=== PATIENT | female | born 1945 | race Caucasian/White ===

== ENCOUNTER 2017-05-05 22:16 | Inpatient (IN) | payer MEDICARE ==
[~2017-05-05] VITALS: Ht 157.5 cm; Wt 81.7 kg
[~2017-05-05 22:16] MED LIST: ACET325T21 PO; ALPR0.5T6 PO; AMIT25TA PO; AMLO10TA2 PO; ASPI-630 PO; ATEN25TA PO; HYDR-971 PO; LEVO112T4 PO; METF500T3 PO; METO5TAB PO; OMEP20CA9 PO; SAXA1TBM2 PO; SUCR1TAB PO; TORS10TA3 PO
--- NOTE | 2017-05-05 22:18 | PHYS DOC ---
Past Medical History Past Medical History: Anxiety, Arthritis, Diabetes-Type II, GERD, Hypertension , Hypothyroid, Other Additional Past Medical Histor: insomnia Past Surgical History: Cervical Fusion, Cholecystectomy, Hysterectomy, Tonsillectomy, Other Additional Past Surgical Histo: bilat carp tunnel, r foot Alcohol Use: None Drug Use: None Adult General Chief Complaint Chief Complaint: SHORTNESS OF BREATH HPI HPI Patient is a 71 year old female who presents with shortness of breath and chest pain. She states she's also started yesterday the chest pains substernal/epigastric doesn't radiate and is been constant. Shortness of breath also started yesterday. She's also been having hyperglycemia with sugars in the 2 to 300s. She states she can have a breathing treatments because it makes her blood pressures directly. She states she feels like she is wheezing. She states she's never had shortness of breath or a low heart rate before. Review of Systems Review of Systems Constitutional: Denies fever or chills [] Eyes: Denies change in visual acuity, redness, or eye pain [] HENT: Denies nasal congestion or sore throat [] Respiratory: Denies cough, positive for shortness of breath [] Cardiovascular: No additional information not addressed in HPI [] GI: Denies abdominal pain, nausea, vomiting, bloody stools or diarrhea [] : Denies dysuria or hematuria [] Musculoskeletal: Denies back pain or joint pain [] Integument: Denies rash or skin lesions [] Neurologic: Denies headache, focal weakness or sensory changes [] Endocrine: Denies polyuria or polydipsia [] Current Medications Current Medications Current Medications Medications (Trade) Dose Ordered Sig/Christine Start Time Stop Time Status Last Admin Dose Admin Dopamine HCl/ Dextrose 250 ml @ 16.856 mls/ hr 1X ONCE 05/05/17 23:00 05/06/17 13:49 05/05/17 22:54 6.8 MLS/HR Allergies Allergies Allergies Coded Allergies Type Severity Reaction Last Updated Verified olmesartan Allergy Severe ARM AND LEG CRAMPING AND IGLESIAS TIME BREATH 07/15/16 Yes albuterol Allergy Intermediate 06/03/16 Yes atorvastatin Allergy Intermediate 06/03/16 Yes calcium carbonate Allergy Intermediate 06/03/16 Yes clonidine Allergy Intermediate 06/03/16 Yes codeine Allergy Intermediate 06/03/16 Yes dicyclomine Allergy Intermediate 06/03/16 Yes esomeprazole Allergy Intermediate 06/03/16 Yes fexofenadine Allergy Intermediate 06/03/16 Yes furosemide Allergy Intermediate RASH AND ITCHING 07/15/16 Yes hydralazine Allergy Intermediate 06/03/16 Yes hydrochlorothiazide Allergy Intermediate 06/03/16 Yes nefazodone Allergy Intermediate 06/03/16 Yes niacin Allergy Intermediate 06/03/16 Yes paroxetine Allergy Intermediate 06/03/16 Yes tiotropium Allergy Intermediate 06/03/16 Yes verapamil Allergy Intermediate 06/03/16 Yes Physical Exam Physical Exam Constitutional: Well developed, well nourished, no acute distress, non-toxic appearance. [] HENT: Normocephalic, atraumatic, bilateral external ears normal, oropharynx moist, no oral exudates, nose normal. [] Eyes: PERRLA, EOMI, conjunctiva normal, no discharge. [] Neck: Normal range of motion, no tenderness, supple, no stridor. [] Cardiovascular:Heart rate regular rhythm, no murmur [] Lungs & Thorax: Bilateral breath sounds clear to auscultation [] Abdomen: Bowel sounds normal, soft, no tenderness, no masses, no pulsatile masses. [] Skin: Warm, dry, no erythema, no rash. [] Back: No tenderness, no CVA tenderness. [] Extremities: No tenderness, no cyanosis, no clubbing, ROM intact, no edema. [] Neurologic: Alert and oriented X 3, normal motor function, normal sensory function, no focal deficits noted. [] Psychologic: Affect normal, judgement normal, mood normal. [] Current Patient Data Vital Signs Vital Signs Date Time Temp Pulse Resp B/P (MAP) Pulse Ox O2 Delivery O2 Flow Rate FiO2 05/05/17 23:30 45 133/60 (84) 93 BiPAP/CPAP 05/05/17 23:15 4.0 05/05/17 22:20 98.7 34 98.7 Lab Values Laboratory Tests Test 05/05/17 22:30 05/05/17 22:35 05/05/17 22:40 White Blood Count 14.1 x10^3/uL (4.0-11.0) H Red Blood Count 4.42 x10^6/uL (3.50-5.40) Hemoglobin 10.7 g/dL (12.0-15.5) L Hematocrit 32.5 % (36.0-47.0) L Mean Corpuscular Volume 74 fL (79-100) L Mean Corpuscular Hemoglobin 24 pg (25-35) L Mean Corpuscular Hemoglobin Concent 33 g/dL (31-37) Red Cell Distribution Width 18.3 % (11.5-14.5) H Platelet Count 321 x10^3/uL (140-400) Neutrophils (%) (Auto) 80 % (31-73) H Lymphocytes (%) (Auto) 9 % (24-48) L Monocytes (%) (Auto) 10 % (0-9) H Eosinophils (%) (Auto) 1 % (0-3) Basophils (%) (Auto) 1 % (0-3) Neutrophils # (Auto) 11.3 x10^3uL (1.8-7.7) H Lymphocytes # (Auto) 1.2 x10^3/uL (1.0-4.8) Monocytes # (Auto) 1.4 x10^3/uL (0.0-1.1) H Eosinophils # (Auto) 0.1 x10^3/uL (0.0-0.7) Basophils # (Auto) 0.1 x10^3/uL (0.0-0.2) Prothrombin Time 12.6 SEC (11.7-14.0) Prothrombin Time INR 1.0 (0.8-1.1) Sodium Level 118 mmol/L (136-145) *L Potassium Level 5.2 mmol/L (3.5-5.1) H Chloride Level 85 mmol/L (98-107) L Carbon Dioxide Level 23 mmol/L (21-32) Anion Gap 10 (6-14) 17 mmol/L (6-14) H Blood Urea Nitrogen 22 mg/dL (7-20) H Creatinine 1.2 mg/dL (0.6-1.0) H Estimated GFR (Cockcroft-Gault) 44.4 Glucose Level 246 mg/dL (70-99) H 245 mg/dL (70-99) H Calcium Level 8.7 mg/dL (8.5-10.1) Magnesium Level 1.9 mg/dL (1.8-2.4) Total Bilirubin 0.3 mg/dL (0.2-1.0) Direct Bilirubin 0.1 mg/dL (0.0-0.2) Aspartate Amino Transferase (AST) 80 U/L (15-37) H Alanine Aminotransferase (ALT) 103 U/L (14-59) H Alkaline Phosphatase 125 U/L (46-116) H Creatine Kinase 82 U/L (26-192) Creatine Kinase MB (Mass) 1.4 ng/mL (0.0-3.6) Creatine Kinase MB Relative Index 1.7 % (0-4) Troponin I Quantitative < 0.017 ng/mL (0.000-0.055) OH-Jlh-R-Type Natriuretic Peptide 2818 pg/mL (0-124) H Total Protein 7.1 g/dL (6.4-8.2) Albumin 3.3 g/dL (3.4-5.0) L Lipase 369 U/L (73-393) Thyroid Stimulating Hormone (TSH) 4.293 uIU/mL (0.358-3.74) H O2 Saturation 89 % (92-99) L Arterial Blood pH 7.37 (7.35-7.45) Arterial Blood pCO2 at Patient Temp 34 mmHg (35-46) L Arterial Blood pO2 at Patient Temp 65 mmHg (65-108) Arterial Blood HCO3 19 mmol/L (21-28) L Arterial Blood Base Excess -5 mmol/L (-3-3) L FiO2 32.0 POC Hemoglobin 12.2 g/dL (12-15) POC Hematocrit 36 % (36-40) POC Sodium 118 mmol/L (135-145) L POC Potassium 5.1 mmol/L (3.5-5.0) H POC Chloride 86 mmol/L (98-110) L POC Total CO2 22 mmol/L (23-32) L POC Blood Urea Nitrogen 22 mg/dL (8-26) POC Creatinine 1.0 mg/dL (0.5-1.4) POC Ionized Calcium (Michael) 1.12 mmol/L (1.13-1.32) L Laboratory Tests 05/05/17 22:30 Laboratory Tests 05/05/17 22:30 05/05/17 22:40 EKG EKG EKG shows A. fib with rate of [address] elevations, normal axis, QTC 427 ms, no ST elevations or T-wave inversions appreciated, as interpreted by me. Radiology/Procedures Radiology/Procedures 1 view chest x-ray shows pulmonary edema, no focal consolidations, pneumothorax , bony abnormalities as interpreted by me. Impressions: Bradycardia Respiratory failure Congestive heart failure Course & Med Decision Making Course & Med Decision Making Pertinent Labs and Imaging studies reviewed. (See chart for details) She presented with bradycardia and dopamine was started. ABG shows respiratory alkalosis. Chest x-ray shows pulmonary edema. She is allergic to Lasix therefore ordered 20 mg by mouth Demadex. BiPAP was started in her oxygen level has improved. Spoke with Dr. Abdullahi who doesn't want any other interventions at this time and recommends admitting to the ICU. Spoke with who once 1 mg Bumex IV given. Critical care time: 55 minutes of critical care time was performed on this patient excluding procedures. Dragon Disclaimer Dragon Disclaimer This electronic medical record was generated, in whole or in part, using a voice recognition dictation system. Departure Departure Impression: Primary Impression: Respiratory failure Disposition: 09 ADMITTED INPATIENT Admitting Physician: Bisi Sargent Condition: GUARDED Referrals: WALTER GAINES (PCP) Problem Qualifiers Primary Impression: Respiratory failure Chronicity: acute Respiratory failure complication: hypoxia Qualified Codes : J96.01 - Acute respiratory failure with hypoxia ALIVIA DARDEN MD May 05, 2017 22:18
[2017-05-05 22:38] LABS: HCO3 ABG 19 mmol/L (21-28); PCO2 ABG 34 mmHg (35-46); PH ABG 7.37 (7.35-7.45); PO2 ABG 65 mmHg (65-108); SAT O2 ABG 89 % (92-99)
[2017-05-05 22:45] LABS: POTASSIUM ISTAT 5.1 mmol/L (3.5-5.0)
[2017-05-05 22:45] LABS: BASO # 0.1 x10^3/uL (0.0-0.2); BASO % 1 % (0-3); EOS % 1 % (0-3); HEMATOCRIT 32.5 % (36.0-47.0); HEMOGLOBIN 10.7 g/dL (12.0-15.5); LYMPH # 1.2 x10^3/uL (1.0-4.8); LYMPH % 9 % (24-48); MEAN CORPUSCULAR HEMOGLOBIN 24 pg (25-35); MEAN CORPUSCULAR HGB CONC 33 g/dL (31-37); MEAN CORPUSCULAR VOLUME 74 fL (79-100); MONO % 10 % (0-9); NEUT % 80 % (31-73); PLATELET COUNT 321 x10^3/uL (140-400); RED BLOOD COUNT 4.42 x10^6/uL (3.50-5.40); RED CELL DISTRIBUTION WIDTH 18.3 % (11.5-14.5); WHITE BLOOD COUNT 14.1 x10^3/uL (4.0-11.0)
[2017-05-05 22:55] LABS: PROTHROMBIN TIME PATIENT 12.6 SEC (11.7-14.0)
[2017-05-05 23:17] LABS: CKMB MASS 1.4 ng/mL (0.0-3.6)
[2017-05-05] MEDS ORDERED: ONDANSETRON PF 4 MG/2 ML VIAL. IV PRN (23:45)
[2017-05-05] MEDS ORDERED: TORSEMIDE 20 MG TABLET. PO ONE (23:45)
[2017-05-05] MEDS ORDERED: ONDANSETRON PF 4 MG/2 ML VIAL. IV ONE (23:45)
[2017-05-05 23:53] LABS: ALBUMIN 3.3 g/dL (3.4-5.0); CALCIUM 8.7 mg/dL (8.5-10.1); CREATININE 1.2 mg/dL (0.6-1.0); DIRECT BILIRUBIN 0.1 mg/dL (0.0-0.2); GFR 44.4; MAGNESIUM 1.9 mg/dL (1.8-2.4); POTASSIUM 5.2 mmol/L (3.5-5.1); TOTAL BILIRUBIN 0.3 mg/dL (0.2-1.0); TOTAL PROTEIN 7.1 g/dL (6.4-8.2)
[2017-05-06] VITALS (26 sets, daily range): BP systolic 93–172; BP diastolic 31–89
--- NOTE | 2017-05-06 00:36 | ACF ---
Admission Forms Criteria RESPIRATORY FAILURE [facility] Clinical Indications for Admission to Inpatient Care (Place 'X' for any and all applicable criteria): Hospital admission is needed for appropriate care of the patient because of acute respiratory failure or insufficiency as indicated by ANY ONE of the following(1)(2)(3)(4)(5)(6)(7)(8): [X]I. Mechanical ventilation needed (acute invasive or noninvasive) [ ]II. Severe ventilation deficit as indicated by ANY ONE of the following (9) [ ]a) Respiratory acidosis (pH less than 7.32 and partial pressure of carbon dioxide greater than 40 mm Hg (5.3 kPa)) [ ]b) Partial pressure of carbon dioxide greater than 44 mm Hg (5.9 kPa ) (new) [ ]c) Airflow measurements less than 25% of predicted (eg, peak expiratory flow rate less than 100 L/minute) [ ]d) Forced vital capacity less than 15 mL/kg of ideal body weight, or 50% decrease in vital capacity from baseline [ ]III. Noncardiac pulmonary edema not resolving with rapid emergency treatment (8) [ ]IV. Severe respiratory distress as indicated by ANY ONE of the following: [ ]a) Severe tachypnea (respiratory rate greater than 30, greater than 45 for 6-month-old, greater than 60 for ) [ ]b) Severe hypoxemia (partial pressure of oxygen less than 50 mm Hg ( 6.7 kPa) on greater than 50% oxygen or partial pressure of oxygen to FIO2 ratio less than 200) [ ]c) Mental status deterioration from respiratory disease [ ]V. Airway obstruction or inadequate protection [A](10)(11) The original [employer] content created by [employer] has been revised. The portions of the content which have been revised are identified through the use of italic text or in bold, and [employer] has neither reviewed nor approved the modified material. All other unmodified content is copyright [employer]. Please see references footnoted in the original [employer] edition 2016 Admission Criteria Met?: Yes DEVENDRA GUZMAN May 06, 2017 00:36
[2017-05-06] MEDS ORDERED: INSU100I17 SQ (03:21)
[2017-05-06] MEDS ORDERED: LOSA100T6 PO (03:21)
[2017-05-06] MEDS ORDERED: HYDROcodone/APAP 5/325MG 1 TAB TABLET PO PRN ×2 (05:00)
[2017-05-06 06:27] LABS: CALCIUM 8.5 mg/dL (8.5-10.1); CREATININE 1.4 mg/dL (0.6-1.0); GFR 37.2; POTASSIUM 5.3 mmol/L (3.5-5.1)
[2017-05-06 06:32] LABS: BASO # 0.1 x10^3/uL (0.0-0.2); BASO % 0 % (0-3); EOS % 0 % (0-3); HEMATOCRIT 35.3 % (36.0-47.0); HEMOGLOBIN 11.3 g/dL (12.0-15.5); LYMPH # 1.5 x10^3/uL (1.0-4.8); LYMPH % 6 % (24-48); MEAN CORPUSCULAR HEMOGLOBIN 24 pg (25-35); MEAN CORPUSCULAR HGB CONC 32 g/dL (31-37); MEAN CORPUSCULAR VOLUME 75 fL (79-100); MONO % 11 % (0-9); NEUT % 83 % (31-73); PLATELET COUNT 371 x10^3/uL (140-400); RED BLOOD COUNT 4.71 x10^6/uL (3.50-5.40); RED CELL DISTRIBUTION WIDTH 17.8 % (11.5-14.5); WHITE BLOOD COUNT 25.2 x10^3/uL (4.0-11.0)
--- NOTE | 2017-05-06 06:41 | EKG ---
[facility] [address] [place] [address] Test Date: 2017-05-05 Test Time: 22:23:25 Pat Name: CHLOE LIN Department: Room: Gender: F [employer]: : 1945 Requested By: ALIVIA DARDEN Order Number: [id number] Reading MD: Measurements Intervals [place] Rate: 43 P: WA: QRS: 49 QRSD: 88 T: 65 QT: 504 QTc: 427 Interpretive Statements ATRIAL FIBRILLATION QRS(T) CONTOUR ABNORMALITY CONSISTENT WITH ANTEROSEPTAL INFARCT AGE UNDETERMINED RI6.01 Unconfirmed report No previous ECG available for comparison
--- NOTE | 2017-05-06 07:47 | RAD ---
Indication shortness of breath and fever. A single view of the chest was obtained and is compared to an examination 07/14/2016. There is unchanged mild cardiomegaly. There is volume loss in the right mid and lower lung. This may reflect atelectasis. Pneumonia is not excluded. A focal process in the left lung is not seen. There may be tiny pleural effusions. There is no pneumothorax. IMPRESSION: Stable cardiomegaly. Suspect tiny pleural effusions. Volume loss in the right mid and lower lung field may reflect atelectasis or pneumonia
[2017-05-06 07:58] LABS: HCO3 ABG 24 mmol/L (21-28); PO2 ABG 77 mmHg (65-108); SAT O2 ABG 91 % (92-99)
[2017-05-06 08:05] LABS: FIO2 ABG 65; PCO2 ABG 66 mmHg (35-46); PH ABG 7.18 (7.35-7.45)
--- NOTE | 2017-05-06 08:40 | RAD ---
Indication difficulty breathing. A single view of the chest was obtained and is compared to an examination one day earlier. The overall appearance of the chest is worse. There is now increasing volume loss in the right lower lobe most compatible with pneumonia. A focal process in the left lung is not seen. Heart size and pulmonary vessels are normal. IMPRESSION: Infiltrate in the right lung compatible with pneumonia
[2017-05-06] MEDS ORDERED: DEXTROSE 50% 25 GM / 50ML DISP.SYRIN. IV PRN (08:45)
[2017-05-06] MEDS ORDERED: VANCOMYCIN 1.5 GM in IV NORMAL SALINE 500ML BAG 500 ML IV ONE (09:00)
[2017-05-06] MEDS: ENOXAPARIN 40 MG/0.4 ML SYRINGE. SQ SCH (09:21)
[2017-05-06] MEDS: BUMETANIDE 1 MG/4 ML VIAL. IV SCH ×2 (09:22→16:14)
--- NOTE | 2017-05-06 09:54 | PDOC ---
Infectious Disease Note Subjective Subjective Consulted by Dr Sargent, for leukocytosis. Pt is with COPD, who is on home o2 for 11 yrs, presented with sob and epigastric pain with radiation to back , started yesterday. Pt had some nausea, no vomiting, no fever, no cp, no diarrhea, noted to have hyponatremia, pneumonia, leukocytosis and hypoxia, on bipap now, information obtained through family. PMH COPD, with home o2 DM CHF Anxiety H/O Pancreatitis SH : Neg for smoking, etoh or drugs ROS ROS GEN: Denies fevers, chills, sweats HEENT: Denies blurred vision, sore throat CV: Denies chest pain GI: Denies n/v/d : Denies hematuria, dysuria ENDO: Denies weight changes NEURO: Denies confusion, dizziness SKIN: Denies rash, pruritus Vital Sign Vital Signs Vital Signs Date Time Temp Pulse Resp B/P (MAP) Pulse Ox O2 Delivery O2 Flow Rate FiO2 05/06/17 09:07 95 BiPAP/CPAP 05/06/17 07:00 60 30 171/50 (90) 05/06/17 04:00 98.2 98.2 05/05/17 23:15 4.0 Physical Exam PHYSICAL EXAM GENERAL: , Alert,, on bipap, HEENT: PERRL, OC/OP NECK: Supple, no JVD, no LN LUNGS: Clear HEART: S1S2, no gallop, no murmur ABD: Soft, NT, no organomegaly, no rebound EXT: No edema, no cyanosis PROTECTIVE OFFICER: Alert, oriented x 3, no focal neurologic deficit SKIN: No rash IV: ok Labs Lab Laboratory Tests Test 05/05/17 22:30 05/05/17 22:35 05/05/17 22:40 05/06/17 05:45 White Blood Count 14.1 x10^3/uL (4.0-11.0) 25.2 x10^3/uL (4.0-11.0) Red Blood Count 4.42 x10^6/uL (3.50-5.40) 4.71 x10^6/uL (3.50-5.40) Hemoglobin 10.7 g/dL (12.0-15.5) 11.3 g/dL (12.0-15.5) Hematocrit 32.5 % (36.0-47.0) 35.3 % (36.0-47.0) Mean Corpuscular Volume 74 fL (79-100) 75 fL (79-100) Mean Corpuscular Hemoglobin 24 pg (25-35) 24 pg (25-35) Mean Corpuscular Hemoglobin Concent 33 g/dL (31-37) 32 g/dL (31-37) Red Cell Distribution Width 18.3 % (11.5-14.5) 17.8 % (11.5-14.5) Platelet Count 321 x10^3/uL (140-400) 371 x10^3/uL (140-400) Neutrophils (%) (Auto) 80 % (31-73) 83 % (31-73) Lymphocytes (%) (Auto) 9 % (24-48) 6 % (24-48) Monocytes (%) (Auto) 10 % (0-9) 11 % (0-9) Eosinophils (%) (Auto) 1 % (0-3) 0 % (0-3) Basophils (%) (Auto) 1 % (0-3) 0 % (0-3) Neutrophils # (Auto) 11.3 x10^3uL (1.8-7.7) 20.9 x10^3uL (1.8-7.7) Lymphocytes # (Auto) 1.2 x10^3/uL (1.0-4.8) 1.5 x10^3/uL (1.0-4.8) Monocytes # (Auto) 1.4 x10^3/uL (0.0-1.1) 2.7 x10^3/uL (0.0-1.1) Eosinophils # (Auto) 0.1 x10^3/uL (0.0-0.7) 0.0 x10^3/uL (0.0-0.7) Basophils # (Auto) 0.1 x10^3/uL (0.0-0.2) 0.1 x10^3/uL (0.0-0.2) Prothrombin Time 12.6 SEC (11.7-14.0) Prothromb Time International Ratio 1.0 (0.8-1.1) Sodium Level 118 mmol/L (136-145) 119 mmol/L (136-145) Potassium Level 5.2 mmol/L (3.5-5.1) 5.3 mmol/L (3.5-5.1) Chloride Level 85 mmol/L (98-107) 86 mmol/L (98-107) Carbon Dioxide Level 23 mmol/L (21-32) 24 mmol/L (21-32) Anion Gap 10 (6-14) 17 mmol/L (6-14) 9 (6-14) Blood Urea Nitrogen 22 mg/dL (7-20) 24 mg/dL (7-20) Creatinine 1.2 mg/dL (0.6-1.0) 1.4 mg/dL (0.6-1.0) Estimated GFR (Cockcroft-Gault) 44.4 37.2 Glucose Level 246 mg/dL (70-99) 245 mg/dL (70-99) 259 mg/dL (70-99) Calcium Level 8.7 mg/dL (8.5-10.1) 8.5 mg/dL (8.5-10.1) Magnesium Level 1.9 mg/dL (1.8-2.4) Total Bilirubin 0.3 mg/dL (0.2-1.0) Direct Bilirubin 0.1 mg/dL (0.0-0.2) Aspartate Amino Transf (AST/SGOT) 80 U/L (15-37) Alanine Aminotransferase (ALT/SGPT) 103 U/L (14-59) Alkaline Phosphatase 125 U/L (46-116) Creatine Kinase 82 U/L (26-192) Creatine Kinase MB (Mass) 1.4 ng/mL (0.0-3.6) Creatine Kinase MB Relative Index 1.7 % (0-4) Troponin I Quantitative < 0.017 ng/mL (0.000-0.055) 0.022 ng/mL (0.000-0.055) RE-Evm-Q-Type Natriuretic Peptide 2818 pg/mL (0-124) Total Protein 7.1 g/dL (6.4-8.2) Albumin 3.3 g/dL (3.4-5.0) Lipase 369 U/L (73-393) Thyroid Stimulating Hormone (TSH) 4.293 uIU/mL (0.358-3.74) O2 Saturation 89 % (92-99) Arterial Blood pH 7.37 (7.35-7.45) Arterial Blood pCO2 at Patient Temp 34 mmHg (35-46) Arterial Blood pO2 at Patient Temp 65 mmHg (65-108) Arterial Blood HCO3 19 mmol/L (21-28) Arterial Blood Base Excess -5 mmol/L (-3-3) FiO2 32.0 Bedside Hemoglobin 12.2 g/dL (12-15) Bedside Hematocrit 36 % (36-40) Bedside Sodium 118 mmol/L (135-145) Bedside Potassium 5.1 mmol/L (3.5-5.0) Bedside Chloride 86 mmol/L (98-110) Bedside Total CO2 22 mmol/L (23-32) Bedside Blood Urea Nitrogen 22 mg/dL (8-26) Bedside Creatinine 1.0 mg/dL (0.5-1.4) Bedside Ionized Calcium (Michael) 1.12 mmol/L (1.13-1.32) Test 05/06/17 08:00 O2 Saturation 91 % (92-99) Arterial Blood pH 7.18 (7.35-7.45) Arterial Blood pCO2 at Patient Temp 66 mmHg (35-46) Arterial Blood pO2 at Patient Temp 77 mmHg (65-108) Arterial Blood HCO3 24 mmol/L (21-28) Arterial Blood Base Excess -5 mmol/L (-3-3) FiO2 65 Micro Cultures pending Objective Assessment Pneumonia COPD exacerbation Hyponatremia Respiratory failure DM Leukocytosis Plan Plan of Care cont vanc, levaquin, add zosyn supportive care lactic acid intubation d/w family water control OLY VALENCIA MD May 06, 2017 09:54
--- NOTE | 2017-05-06 10:01 | PDOC1 ---
HISTORY AND PHYSICAL Chief Complaint Chief Complaint This year71 yr old female has been admitted with a chief complaint of SOB ,not doing well,swelling all extremities for last 2 days , not able to void and have BM . pt has been seeing cardiology recently was told heart failure, h/o copd,stopped smoking 10 yrs ago, her was sick 2 weeks ago with upper resp tract infection. she was hypotensive was started on dopamine and also hypoxic was placed on BIPAP.still sob Problems: Past Medical History Cardiovascular: HTN, Other (chf) Pulmonary: COPD GI: GERD, Other (pancreatitis) Endocrine: Diabetes Past Surgical History Past Surgical History: No pertinent history Past Family History Family History: Diabetes, Heart Disease, Hypertension Past Social History PSH smoked for 30 yrs stopped 10 yrs ago Review of Symptoms Review of Symptoms General ROS: positive for - Psychological ROS: negative Ophthalmic ROS: negative ENT ROS: negative Allergy and Immunology ROS: negative Hematology and Lymphatic: negative Endocrine ROS: negative Respiratory ROS: no cold, cough, dyspnea. Cardiovascular ROS: no chest pain or dyspnea on exertion Gastrointestinal ROS: no abdominal pain, change in bowel habits, or black or bloody stools Genito-Urinary ROS: no dysuria, trouble voiding, or hematuria Musculoskeletal ROS: no pain Neurological ROS: negative Dermatological ROS: no rash Medications Current Medications Acetaminophen/ Hydrocodone Bitart (Lortab 5/325) 1 tab PRN Q6HRS PRN PO PAIN Last administered on 05/06/17 05:21; Start 05/06/17 at 05:00 Acetaminophen/ Hydrocodone Bitart (Lortab 5/325) 2 tab PRN Q6HRS PRN PO PAIN; Start 05/06/17 at 05:00 Bumetanide (Bumex) 1 mg BID92 IV Last administered on 05/06/17 09:22; Start 05/06/17 at 09:00 Dextrose (Dextrose 50%-Water Syringe) 12.5 gm PRN Q15MIN PRN IV SEE COMMENTS; Start 05/06/17 at 08:45 Dopamine HCl/ Dextrose 250 ml @ 16.627 mls/ hr CONT PRN IV SEE I/O RECORD Last administered on 05/06/17 05:52; Start 05/06/17 at 06:00 Dopamine HCl/ Dextrose 250 ml @ 16.856 mls/ hr 1X ONCE IV Last administered on 05/05/17 22:54; Start 05/05/17 at 23:00; Stop 05/06/17 at 13:49 Enoxaparin Sodium (Lovenox 40mg Syringe) 40 mg Q24H SQ Last administered on 05/06 09:21; Start 05/06/17 at 09:00 Insulin Aspart (NovoLOG) 0-9 UNITS TIDWMEALS SQ ; Start 05/06/17 at 12:00 Levofloxacin/ Dextrose 100 ml @ 100 mls/hr Q24H IV Last administered on 09:22; Start 05/06/17 at 10:00 Ondansetron HCl (Zofran) 4 mg 1X ONCE IV Last administered on 05/06/17 00:09; Start 05/05/17 at 23:45; Stop 05/05/17 at 23:46; Status DC Ondansetron HCl (Zofran) 4 mg PRN Q8HRS PRN IV NAUSEA/VOMITING; Start 05/05/17 at 23:45; Stop 05/06/17 at 23:44 Piperacillin Sod/ Tazobactam Sod 3.375 gm/Sodium Chloride 50 ml @ 100 mls/hr Q6HRS IV ; Start 05/06/17 at 10:30 Torsemide (Demadex) 20 mg 1X ONCE PO Last administered on 05/06/17 00:44; Start 05/05/17 at 23:45; Stop 05/05/17 at 23:46; Status DC Vancomycin HCl 1.5 gm/Sodium Chloride 500 ml @ 250 mls/hr 1X ONCE IV ; Start 05/06/17 at 09:00; Stop 05/06/17 at 10:59 Allergy Allergies Coded Allergies Type Severity Reaction Last Updated Verified olmesartan Allergy Severe ARM AND LEG CRAMPING AND IGLESIAS TIME BREATH 07/15/16 Yes albuterol Allergy Intermediate 06/03/16 Yes atorvastatin Allergy Intermediate 06/03/16 Yes calcium carbonate Allergy Intermediate 06/03/16 Yes clonidine Allergy Intermediate 06/03/16 Yes codeine Allergy Intermediate 06/03/16 Yes dicyclomine Allergy Intermediate 06/03/16 Yes esomeprazole Allergy Intermediate 06/03/16 Yes fexofenadine Allergy Intermediate 06/03/16 Yes furosemide Allergy Intermediate RASH AND ITCHING 07/15/16 Yes hydralazine Allergy Intermediate 06/03/16 Yes hydrochlorothiazide Allergy Intermediate 06/03/16 Yes nefazodone Allergy Intermediate 06/03/16 Yes niacin Allergy Intermediate 06/03/16 Yes paroxetine Allergy Intermediate 06/03/16 Yes tiotropium Allergy Intermediate 06/03/16 Yes verapamil Allergy Intermediate 06/03/16 Yes Physical Exam Physical Exam General appearance - ill appearing ,tachycardic on BIPAP Mental Status - alert, oriented to person, place, and time, affect appropriate to mood Head - normal Chest - on BIPAP, Bilateral wheezing , rales or rhonchi, symmetric air entry Heart - S1 and S2 normal Abdomen - soft, nontender, nondistended, no masses or organomegaly Neurological - alert and oriented Musculoskeletal - no muscular tenderness noted Extremities -2+pedal edema all extremities Skin - warm and dry Labs Laboratory Tests Test 05/05/17 22:30 05/05/17 22:35 05/05/17 22:40 05/06/17 05:45 White Blood Count 14.1 x10^3/uL (4.0-11.0) 25.2 x10^3/uL (4.0-11.0) Red Blood Count 4.42 x10^6/uL (3.50-5.40) 4.71 x10^6/uL (3.50-5.40) Hemoglobin 10.7 g/dL (12.0-15.5) 11.3 g/dL (12.0-15.5) Hematocrit 32.5 % (36.0-47.0) 35.3 % (36.0-47.0) Mean Corpuscular Volume 74 fL (79-100) 75 fL (79-100) Mean Corpuscular Hemoglobin 24 pg (25-35) 24 pg (25-35) Mean Corpuscular Hemoglobin Concent 33 g/dL (31-37) 32 g/dL (31-37) Red Cell Distribution Width 18.3 % (11.5-14.5) 17.8 % (11.5-14.5) Platelet Count 321 x10^3/uL (140-400) 371 x10^3/uL (140-400) Neutrophils (%) (Auto) 80 % (31-73) 83 % (31-73) Lymphocytes (%) (Auto) 9 % (24-48) 6 % (24-48) Monocytes (%) (Auto) 10 % (0-9) 11 % (0-9) Eosinophils (%) (Auto) 1 % (0-3) 0 % (0-3) Basophils (%) (Auto) 1 % (0-3) 0 % (0-3) Neutrophils # (Auto) 11.3 x10^3uL (1.8-7.7) 20.9 x10^3uL (1.8-7.7) Lymphocytes # (Auto) 1.2 x10^3/uL (1.0-4.8) 1.5 x10^3/uL (1.0-4.8) Monocytes # (Auto) 1.4 x10^3/uL (0.0-1.1) 2.7 x10^3/uL (0.0-1.1) Eosinophils # (Auto) 0.1 x10^3/uL (0.0-0.7) 0.0 x10^3/uL (0.0-0.7) Basophils # (Auto) 0.1 x10^3/uL (0.0-0.2) 0.1 x10^3/uL (0.0-0.2) Prothrombin Time 12.6 SEC (11.7-14.0) Prothromb Time International Ratio 1.0 (0.8-1.1) Sodium Level 118 mmol/L (136-145) 119 mmol/L (136-145) Potassium Level 5.2 mmol/L (3.5-5.1) 5.3 mmol/L (3.5-5.1) Chloride Level 85 mmol/L (98-107) 86 mmol/L (98-107) Carbon Dioxide Level 23 mmol/L (21-32) 24 mmol/L (21-32) Anion Gap 10 (6-14) 17 mmol/L (6-14) 9 (6-14) Blood Urea Nitrogen 22 mg/dL (7-20) 24 mg/dL (7-20) Creatinine 1.2 mg/dL (0.6-1.0) 1.4 mg/dL (0.6-1.0) Estimated GFR (Cockcroft-Gault) 44.4 37.2 Glucose Level 246 mg/dL (70-99) 245 mg/dL (70-99) 259 mg/dL (70-99) Calcium Level 8.7 mg/dL (8.5-10.1) 8.5 mg/dL (8.5-10.1) Magnesium Level 1.9 mg/dL (1.8-2.4) Total Bilirubin 0.3 mg/dL (0.2-1.0) Direct Bilirubin 0.1 mg/dL (0.0-0.2) Aspartate Amino Transf (AST/SGOT) 80 U/L (15-37) Alanine Aminotransferase (ALT/SGPT) 103 U/L (14-59) Alkaline Phosphatase 125 U/L (46-116) Creatine Kinase 82 U/L (26-192) Creatine Kinase MB (Mass) 1.4 ng/mL (0.0-3.6) Creatine Kinase MB Relative Index 1.7 % (0-4) Troponin I Quantitative < 0.017 ng/mL (0.000-0.055) 0.022 ng/mL (0.000-0.055) UD-Icw-W-Type Natriuretic Peptide 2818 pg/mL (0-124) Total Protein 7.1 g/dL (6.4-8.2) Albumin 3.3 g/dL (3.4-5.0) Lipase 369 U/L (73-393) Thyroid Stimulating Hormone (TSH) 4.293 uIU/mL (0.358-3.74) O2 Saturation 89 % (92-99) Arterial Blood pH 7.37 (7.35-7.45) Arterial Blood pCO2 at Patient Temp 34 mmHg (35-46) Arterial Blood pO2 at Patient Temp 65 mmHg (65-108) Arterial Blood HCO3 19 mmol/L (21-28) Arterial Blood Base Excess -5 mmol/L (-3-3) FiO2 32.0 Bedside Hemoglobin 12.2 g/dL (12-15) Bedside Hematocrit 36 % (36-40) Bedside Sodium 118 mmol/L (135-145) Bedside Potassium 5.1 mmol/L (3.5-5.0) Bedside Chloride 86 mmol/L (98-110) Bedside Total CO2 22 mmol/L (23-32) Bedside Blood Urea Nitrogen 22 mg/dL (8-26) Bedside Creatinine 1.0 mg/dL (0.5-1.4) Bedside Ionized Calcium (Michael) 1.12 mmol/L (1.13-1.32) Test 05/06/17 08:00 O2 Saturation 91 % (92-99) Arterial Blood pH 7.18 (7.35-7.45) Arterial Blood pCO2 at Patient Temp 66 mmHg (35-46) Arterial Blood pO2 at Patient Temp 77 mmHg (65-108) Arterial Blood HCO3 24 mmol/L (21-28) Arterial Blood Base Excess -5 mmol/L (-3-3) FiO2 65 Laboratory Tests Test 05/05/17 22:30 05/05/17 22:35 05/05/17 22:40 05/06/17 05:45 White Blood Count 14.1 x10^3/uL (4.0-11.0) 25.2 x10^3/uL (4.0-11.0) Red Blood Count 4.42 x10^6/uL (3.50-5.40) 4.71 x10^6/uL (3.50-5.40) Hemoglobin 10.7 g/dL (12.0-15.5) 11.3 g/dL (12.0-15.5) Hematocrit 32.5 % (36.0-47.0) 35.3 % (36.0-47.0) Mean Corpuscular Volume 74 fL (79-100) 75 fL (79-100) Mean Corpuscular Hemoglobin 24 pg (25-35) 24 pg (25-35) Mean Corpuscular Hemoglobin Concent 33 g/dL (31-37) 32 g/dL (31-37) Red Cell Distribution Width 18.3 % (11.5-14.5) 17.8 % (11.5-14.5) Platelet Count 321 x10^3/uL (140-400) 371 x10^3/uL (140-400) Neutrophils (%) (Auto) 80 % (31-73) 83 % (31-73) Lymphocytes (%) (Auto) 9 % (24-48) 6 % (24-48) Monocytes (%) (Auto) 10 % (0-9) 11 % (0-9) Eosinophils (%) (Auto) 1 % (0-3) 0 % (0-3) Basophils (%) (Auto) 1 % (0-3) 0 % (0-3) Neutrophils # (Auto) 11.3 x10^3uL (1.8-7.7) 20.9 x10^3uL (1.8-7.7) Lymphocytes # (Auto) 1.2 x10^3/uL (1.0-4.8) 1.5 x10^3/uL (1.0-4.8) Monocytes # (Auto) 1.4 x10^3/uL (0.0-1.1) 2.7 x10^3/uL (0.0-1.1) Eosinophils # (Auto) 0.1 x10^3/uL (0.0-0.7) 0.0 x10^3/uL (0.0-0.7) Basophils # (Auto) 0.1 x10^3/uL (0.0-0.2) 0.1 x10^3/uL (0.0-0.2) Prothrombin Time 12.6 SEC (11.7-14.0) Prothromb Time International Ratio 1.0 (0.8-1.1) Sodium Level 118 mmol/L (136-145) 119 mmol/L (136-145) Potassium Level 5.2 mmol/L (3.5-5.1) 5.3 mmol/L (3.5-5.1) Chloride Level 85 mmol/L (98-107) 86 mmol/L (98-107) Carbon Dioxide Level 23 mmol/L (21-32) 24 mmol/L (21-32) Anion Gap 10 (6-14) 17 mmol/L (6-14) 9 (6-14) Blood Urea Nitrogen 22 mg/dL (7-20) 24 mg/dL (7-20) Creatinine 1.2 mg/dL (0.6-1.0) 1.4 mg/dL (0.6-1.0) Estimated GFR (Cockcroft-Gault) 44.4 37.2 Glucose Level 246 mg/dL (70-99) 245 mg/dL (70-99) 259 mg/dL (70-99) Calcium Level 8.7 mg/dL (8.5-10.1) 8.5 mg/dL (8.5-10.1) Magnesium Level 1.9 mg/dL (1.8-2.4) Total Bilirubin 0.3 mg/dL (0.2-1.0) Direct Bilirubin 0.1 mg/dL (0.0-0.2) Aspartate Amino Transf (AST/SGOT) 80 U/L (15-37) Alanine Aminotransferase (ALT/SGPT) 103 U/L (14-59) Alkaline Phosphatase 125 U/L (46-116) Creatine Kinase 82 U/L (26-192) Creatine Kinase MB (Mass) 1.4 ng/mL (0.0-3.6) Creatine Kinase MB Relative Index 1.7 % (0-4) Troponin I Quantitative < 0.017 ng/mL (0.000-0.055) 0.022 ng/mL (0.000-0.055) EZ-Hik-Y-Type Natriuretic Peptide 2818 pg/mL (0-124) Total Protein 7.1 g/dL (6.4-8.2) Albumin 3.3 g/dL (3.4-5.0) Lipase 369 U/L (73-393) Thyroid Stimulating Hormone (TSH) 4.293 uIU/mL (0.358-3.74) O2 Saturation 89 % (92-99) Arterial Blood pH 7.37 (7.35-7.45) Arterial Blood pCO2 at Patient Temp 34 mmHg (35-46) Arterial Blood pO2 at Patient Temp 65 mmHg (65-108) Arterial Blood HCO3 19 mmol/L (21-28) Arterial Blood Base Excess -5 mmol/L (-3-3) FiO2 32.0 Bedside Hemoglobin 12.2 g/dL (12-15) Bedside Hematocrit 36 % (36-40) Bedside Sodium 118 mmol/L (135-145) Bedside Potassium 5.1 mmol/L (3.5-5.0) Bedside Chloride 86 mmol/L (98-110) Bedside Total CO2 22 mmol/L (23-32) Bedside Blood Urea Nitrogen 22 mg/dL (8-26) Bedside Creatinine 1.0 mg/dL (0.5-1.4) Bedside Ionized Calcium (Michael) 1.12 mmol/L (1.13-1.32) Test 05/06/17 08:00 O2 Saturation 91 % (92-99) Arterial Blood pH 7.18 (7.35-7.45) Arterial Blood pCO2 at Patient Temp 66 mmHg (35-46) Arterial Blood pO2 at Patient Temp 77 mmHg (65-108) Arterial Blood HCO3 24 mmol/L (21-28) Arterial Blood Base Excess -5 mmol/L (-3-3) FiO2 65 Vitals Vital Signs Date Time Temp Pulse Resp B/P (MAP) Pulse Ox O2 Delivery O2 Flow Rate FiO2 05/06/17 09:07 95 BiPAP/CPAP 05/06/17 07:00 60 30 171/50 (90) 05/06/17 04:00 98.2 98.2 05/05/17 23:15 4.0 VTE Prophylaxis VTE Prophylaxis Devices: Yes VTE Pharmacological Prophylaxi: Yes Assessment Assessment Acute respiratory failure needing intubation pneumonia sepsis lactic acidosis acute on chronic chf -diastolic hyponatremia ac kidney failure?ATN ch copd ex smoker h/o pancreatitis Plan Plan Failed BIPAP needs intubation and mechanical ventilation. [place] cultures broad spectrum antibiotics pul consult echo cardiology consult ID ,spoke with dr Slaughter. spoke with son critical condition prognosis guarded. For more details regarding further plans, please refer to the orders. ILA CAVAZOS MD May 06, 2017 10:01
--- NOTE | 2017-05-06 10:02 | PDOC ---
Provider Note Provider Note Pt seen in ICU ,spoke with son, RN and RT. spoke with ID and palliative team. Full H&P to be dictated. critical care 35 mts spent coordinating care ILA CAVAZOS MD May 06, 2017 10:02
[2017-05-06 10:05] LABS: ANISOCYTOSIS SLIGHT; PLT ESTIMATE ADEQUATE (ADEQUATE)
[2017-05-06] MEDS ORDERED: LIDOCAINE 2% PF Vial for OR 5 ML VIAL. ONE (10:13)
[2017-05-06] MEDS ORDERED: PROPOFOL 20 ML IV ONE (10:13)
[2017-05-06] MEDS ORDERED: SUCCINYLCHOLINE 200 MG/10 ML VIAL. ONE (10:13)
[2017-05-06] MEDS ORDERED: PROPOFOL 0 ML IV ONE (10:14)
[2017-05-06] MEDS ORDERED: MIDAZOLAM PREMIX 100 ML IV ONE (10:14)
--- NOTE | 2017-05-06 10:26 | PDOC2 ---
PALLIATIVE CARE Palliative Care Note Palliative Care Consult requested by Dr. Sargent to address goals of care Diagnosis: Pneumonia, COPD/exacerbation on home oxygen Hyponatremia Respiratory failure; on BiPap DM Leukocytosis Patient alert and oriented. Patient states she does not have AD. She would like her to make decisions if she is unable to make her own decisions. Informed that she will be sedated when on vent and likely will not be able to make decisions. Understands she may need intubation secondary to increased respiratory distress. She understands without further respiratory support she may . She requests intubation but would not want ocean transportation intermediary vent. support. Discussed need for tracheostomy in 10-14 days if unable to successfully wean off vent. Patient will leave that decision to her . Discussed resuscitation if heart stops. She requested attempt with CPR/shocks. Plan: Continue Full aggressive care/Full Code. Meliza HOLMAN is aware of the plan. SWAPNA BELCHER May 06, 2017 10:26
[2017-05-06] MEDS: VANCOMYCIN PER PHARMACY MC PRN (10:57)
[2017-05-06 11:45] LABS: HCO3 ABG 20 mmol/L (21-28); PO2 ABG 67 mmHg (65-108); SAT O2 ABG 92 % (92-99)
[2017-05-06 11:47] LABS: FIO2 ABG 55; PCO2 ABG 38 mmHg (35-46); PH ABG 7.34 (7.35-7.45)
[2017-05-06] MEDS ORDERED: VANCOMYCIN 500 MG in IV NORMAL SALINE 100ML 100 ML IV ONE (12:00)
[2017-05-06] MEDS: INSULIN ASPART 300 UNITS/3 ML INSULN.PEN SQ SCH ×2 (12:14→18:09)
[2017-05-06] MEDS: PIPERACILLIN/TAZOBACTAM 3.375 GM in IV NORMAL SALINE 50ML 50 ML IV SCH ×3 (12:29→23:58)
--- NOTE | 2017-05-06 12:35 | RAD ---
Portable abdomen, 05/06/2017: History: Check NG tube placement A supine view of the upper abdomen demonstrates an NG tube extending into the right upper abdomen lying in the distal antrum or duodenal bulb. Surgical clips are present in the right upper quadrant. There is slight gaseous prominence of the small bowel loop in the right midabdomen. There is gas and stool in the colon. There is a mild lumbar scoliosis with associated multilevel degenerative change. IMPRESSION: The NG tube extends into the antral region of the stomach.
--- NOTE | 2017-05-06 12:36 | RAD ---
Indication respiratory failure. A single view of the chest was obtained at 1222 and is compared to a study 4 hours earlier. Infiltrate in the right mid and lower lung compatible with pneumonia persists. Volume loss in the left mid and lower lung field is similar to slightly worse. There are probable small pleural effusions. There may be background changes of mild congestive heart failure. A nasogastric tube has its tip beyond the mid body of the stomach. Endotracheal tube is appropriately positioned above the [place]. IMPRESSION: Appropriately positioned endotracheal and nasogastric tubes. Unchanged infiltrate in the right lung. Volume loss in the left mid and lower lung field slightly worse than previously. Suspect background changes of mild congestive failure
[2017-05-06] MEDS: ISOPROTERENOL 1 MG in IV DEXTROSE 5% 250 ML IV PRN ×2 (13:42→20:26)
--- NOTE | 2017-05-06 14:24 | PDOC2 ---
CONSULT Date of Consult Date of Consult DATE: 05/06/17 TIME: 14:13 Identification/Chief Complaint Chief Complaint VENT MANAGEMENT FOR PNEUMONIA AND SEPSIS Problems: History of Present Illness Reason for Visit: PT PRESENTED WITH INCREASE LARS, BS NOT CONTROLLED AT HOME PT NORMALLY WEARS 02 AT HOME ACCORDING TO SON, SHE DOES NOT WATCH HER DIET CURRENTLY INTUBATED NOT KNOW IF SHE HAD A FEVER AT HOME QUIT SMOKING 10 YEARS AGO Past Medical History Past Medical History Past Medical History: Anxiety, Arthritis, Diabetes-Type II, GERD, Hypertension , Hypothyroid, Other Additional Past Medical Histor: insomnia Past Surgical History: Cervical Fusion, Cholecystectomy, Hysterectomy, Tonsillectomy, Other Pulmonary: COPD Renal/: Chronic renal insuff Endocrine: Diabetes Past Surgical History Past Surgical History UNKNOWN Family History Family History CAD Social History Quit Current Problem List Problem List Problems Medical Problems: (1) Respiratory failure Status: Acute Current Medications Current Medications Current Medications Dopamine HCl/ Dextrose 250 ml @ 16.856 mls/ hr 1X ONCE IV Last administered on 05/05/17 22:54; Start 05/05/17 at 23:00; Stop 05/06/17 at 13:49; Status DC Torsemide (Demadex) 20 mg 1X ONCE PO Last administered on 05/06/17 00:44; Start 05/05/17 at 23:45; Stop 05/05/17 at 23:46; Status DC Bumetanide (Bumex) 1 mg BID92 IV Last administered on 05/06/17 09:22; Start 05/06/17 at 09:00 Ondansetron HCl (Zofran) 4 mg 1X ONCE IV Last administered on 05/06/17 00:09; Start 05/05/17 at 23:45; Stop 05/05/17 at 23:46; Status DC Ondansetron HCl (Zofran) 4 mg PRN Q8HRS PRN IV NAUSEA/VOMITING; Start 05/05/17 at 23:45; Stop 05/06/17 at 23:44 Acetaminophen/ Hydrocodone Bitart (Lortab 5/325) 1 tab PRN Q6HRS PRN PO PAIN Last administered on 05/06/17 05:21; Start 05/06/17 at 05:00 Acetaminophen/ Hydrocodone Bitart (Lortab 5/325) 2 tab PRN Q6HRS PRN PO PAIN; Start 05/06/17 at 05:00 Dopamine HCl/ Dextrose 250 ml @ 16.627 mls/ hr CONT PRN IV SEE I/O RECORD Last administered on 05/06/17 12:28; Start 05/06/17 at 06:00 Vancomycin HCl 1.5 gm/Sodium Chloride 500 ml @ 250 mls/hr 1X ONCE IV Last administered on 05/06/17 10:34; Start 05/06/17 at 09:00; Stop 05/06/17 at 10:59; Status DC Levofloxacin/ Dextrose 100 ml @ 100 mls/hr Q24H IV Last administered on 12:28; Start 05/06/17 at 10:00 Insulin Aspart (NovoLOG) 0-9 UNITS TIDWMEALS SQ Last administered on 05/06/17 12:14; Start 05/06/17 at 12:00 Dextrose (Dextrose 50%-Water Syringe) 12.5 gm PRN Q15MIN PRN IV SEE COMMENTS; Start 05/06/17 at 08:45 Enoxaparin Sodium (Lovenox 40mg Syringe) 40 mg Q24H SQ Last administered on 05/06 09:21; Start 05/06/17 at 09:00 Piperacillin Sod/ Tazobactam Sod 3.375 gm/Sodium Chloride 50 ml @ 100 mls/hr Q6HRS IV Last administered on 05/06/17 12:29; Start 05/06/17 at 10:30 Vancomycin HCl (Vanco Per Pharmacy) 1 each PRN DAILY PRN MC SEE COMMENTS Last administered on 05/06/17 10:57; Start 05/06/17 at 10:00 Succinylcholine Chloride (Anectine) 200 mg STK-MED ONCE .ROUTE ; Start 05/06/17 at 10:13; Stop 05/06/17 at 10:14; Status DC Propofol 20 ml @ As Directed STK-MED ONCE IV ; Start 05/06/17 at 10:13; Stop 05/06 at 10:14; Status DC Lidocaine HCl (Lidocaine Pf 2% Vial) 5 ml STK-MED ONCE .ROUTE ; Start 05/06/17 at 10:13; Stop 05/06/17 at 10:14; Status DC Propofol 0 ml @ As Directed STK-MED ONCE IV ; Start 05/06/17 at 10:14; Stop at 10:15; Status DC Midazolam HCl 100 ml @ As Directed STK-MED ONCE IV ; Start 05/06/17 at 10:14; Stop 05/06/17 at 10:15; Status DC Midazolam HCl 100 ml @ 0 mls/hr CONT PRN IV SEE I/O RECORD; Start 05/06/17 at 11 :00 Vancomycin HCl 500 mg/Sodium Chloride 100 ml @ 100 mls/hr 1X ONCE IV ; Start 05/06/17 at 12:00; Stop 05/06/17 at 12:59; Status DC Vancomycin HCl 1.25 gm/Sodium Chloride 250 ml @ 167 mls/hr Q24H IV ; Start 05/07 at 10:00 Vancomycin HCl 1 each 1X ONCE MC ; Start 05/08/17 at 09:30; Stop 05/08/17 at 09: 31 Isoproterenol HCl 1 mg/Dextrose 255 ml @ 0 mls/hr CONT PRN IV SEE I/O RECORD Last administered on 05/06/17t 13:42; Start 05/06/17 at 13:00 Active Scripts Active Glucophage Xr (Metformin Hcl) 500 Mg Tab.er.24h 1,000 Mg PO BID Worden 5-325 Tablet (Acetaminophen/Hydrocodone Bitart) 1 Each Tablet 1 Tab PO PRN Q6HRS PRN Reported Novolog Flexpen (Insulin Aspart) 100 Unit/1 Ml Insuln.pen 12 Unit SQ TIDWMEALS Losartan Potassium 100 Mg Tablet 100 Mg PO NOON Torsemide 10 Mg Tablet 10 Mg PO DAILY Sucralfate 1 Gm Tablet 1 Tab PO QID Omeprazole 20 Mg Capsule.dr 1 Cap PO BID Acetaminophen 325 Mg Tablet 650 Mg PO PRN BID PRN Levothyroxine Sodium 112 Mcg Tablet 1 Tab PO DAILY Atenolol 25 Mg Tablet 1 Tab PO BID Amlodipine Besylate 10 Mg Tablet 10 Mg PO DAILY Amitriptyline Hcl 25 Mg Tablet 1 Tab PO QHS Metoclopramide Hcl 5 Mg Tablet 5 Mg PO QIDACHS Alprazolam 0.5 Mg Tablet 1 Tab PO HS Alprazolam 0.5 Mg Tablet 2 Tab PO BIDWBKFT/HOLLIS Aspirin 81 Mg Tab.chew 1 Tab PO DAILY Allergies Allergies: Coded Allergies: olmesartan (Verified Allergy, Severe, ARM AND LEG CRAMPING AND IGLESIAS TIME BREATH , 07/15/16) albuterol (Verified Allergy, Intermediate, 06/03/16) atorvastatin (Verified Allergy, Intermediate, 06/03/16) calcium carbonate (Verified Allergy, Intermediate, 06/03/16) clonidine (Verified Allergy, Intermediate, 06/03/16) codeine (Verified Allergy, Intermediate, 06/03/16) dicyclomine (Verified Allergy, Intermediate, 06/03/16) esomeprazole (Verified Allergy, Intermediate, 06/03/16) fexofenadine (Verified Allergy, Intermediate, 06/03/16) furosemide (Verified Allergy, Intermediate, RASH AND ITCHING, 07/15/16) hydralazine (Verified Allergy, Intermediate, 06/03/16) hydrochlorothiazide (Verified Allergy, Intermediate, 06/03/16) nefazodone (Verified Allergy, Intermediate, 06/03/16) niacin (Verified Allergy, Intermediate, 06/03/16) paroxetine (Verified Allergy, Intermediate, 06/03/16) tiotropium (Verified Allergy, Intermediate, 06/03/16) verapamil (Verified Allergy, Intermediate, 06/03/16) ROS Review of System UNOBTAINABLE SEC TO PT CONDITION Physical Exam Physical Exam PT SEDATED ON VENT Lungs: Clear to auscultation, Normal air movement Heart: Regular rate, Normal S1, Normal S2 Abdomen: Normal bowel sounds, Soft Extremities: No clubbing, No cyanosis Skin: No rashes, No breakdown MUSCULOSKELETAL: Other (SEDATED) Vitals VITALS Vital Signs Date Time Temp Pulse Resp B/P (MAP) Pulse Ox O2 Delivery O2 Flow Rate FiO2 05/06/17 13:26 Ventilator 05/06/17 13:03 94 05/06/17 12:00 4.0 05/06/17 07:00 60 30 171/50 (90) 05/06/17 04:00 98.2 98.2 Labs Labs Laboratory Tests Test 05/05/17 22:30 05/05/17 22:35 05/05/17 22:40 05/06/17 05:45 White Blood Count 14.1 x10^3/uL (4.0-11.0) 25.2 x10^3/uL (4.0-11.0) Red Blood Count 4.42 x10^6/uL (3.50-5.40) 4.71 x10^6/uL (3.50-5.40) Hemoglobin 10.7 g/dL (12.0-15.5) 11.3 g/dL (12.0-15.5) Hematocrit 32.5 % (36.0-47.0) 35.3 % (36.0-47.0) Mean Corpuscular Volume 74 fL (79-100) 75 fL (79-100) Mean Corpuscular Hemoglobin 24 pg (25-35) 24 pg (25-35) Mean Corpuscular Hemoglobin Concent 33 g/dL (31-37) 32 g/dL (31-37) Red Cell Distribution Width 18.3 % (11.5-14.5) 17.8 % (11.5-14.5) Platelet Count 321 x10^3/uL (140-400) 371 x10^3/uL (140-400) Neutrophils (%) (Auto) 80 % (31-73) 83 % (31-73) Lymphocytes (%) (Auto) 9 % (24-48) 6 % (24-48) Monocytes (%) (Auto) 10 % (0-9) 11 % (0-9) Eosinophils (%) (Auto) 1 % (0-3) 0 % (0-3) Basophils (%) (Auto) 1 % (0-3) 0 % (0-3) Neutrophils # (Auto) 11.3 x10^3uL (1.8-7.7) 20.9 x10^3uL (1.8-7.7) Lymphocytes # (Auto) 1.2 x10^3/uL (1.0-4.8) 1.5 x10^3/uL (1.0-4.8) Monocytes # (Auto) 1.4 x10^3/uL (0.0-1.1) 2.7 x10^3/uL (0.0-1.1) Eosinophils # (Auto) 0.1 x10^3/uL (0.0-0.7) 0.0 x10^3/uL (0.0-0.7) Basophils # (Auto) 0.1 x10^3/uL (0.0-0.2) 0.1 x10^3/uL (0.0-0.2) Prothrombin Time 12.6 SEC (11.7-14.0) Prothromb Time International Ratio 1.0 (0.8-1.1) Sodium Level 118 mmol/L (136-145) 119 mmol/L (136-145) Potassium Level 5.2 mmol/L (3.5-5.1) 5.3 mmol/L (3.5-5.1) Chloride Level 85 mmol/L (98-107) 86 mmol/L (98-107) Carbon Dioxide Level 23 mmol/L (21-32) 24 mmol/L (21-32) Anion Gap 10 (6-14) 17 mmol/L (6-14) 9 (6-14) Blood Urea Nitrogen 22 mg/dL (7-20) 24 mg/dL (7-20) Creatinine 1.2 mg/dL (0.6-1.0) 1.4 mg/dL (0.6-1.0) Estimated GFR (Cockcroft-Gault) 44.4 37.2 Glucose Level 246 mg/dL (70-99) 245 mg/dL (70-99) 259 mg/dL (70-99) Calcium Level 8.7 mg/dL (8.5-10.1) 8.5 mg/dL (8.5-10.1) Magnesium Level 1.9 mg/dL (1.8-2.4) Total Bilirubin 0.3 mg/dL (0.2-1.0) Direct Bilirubin 0.1 mg/dL (0.0-0.2) Aspartate Amino Transf (AST/SGOT) 80 U/L (15-37) Alanine Aminotransferase (ALT/SGPT) 103 U/L (14-59) Alkaline Phosphatase 125 U/L (46-116) Creatine Kinase 82 U/L (26-192) Creatine Kinase MB (Mass) 1.4 ng/mL (0.0-3.6) Creatine Kinase MB Relative Index 1.7 % (0-4) Troponin I Quantitative < 0.017 ng/mL (0.000-0.055) 0.022 ng/mL (0.000-0.055) VG-Mru-L-Type Natriuretic Peptide 2818 pg/mL (0-124) Total Protein 7.1 g/dL (6.4-8.2) Albumin 3.3 g/dL (3.4-5.0) Lipase 369 U/L (73-393) Thyroid Stimulating Hormone (TSH) 4.293 uIU/mL (0.358-3.74) O2 Saturation 89 % (92-99) Arterial Blood pH 7.37 (7.35-7.45) Arterial Blood pCO2 at Patient Temp 34 mmHg (35-46) Arterial Blood pO2 at Patient Temp 65 mmHg (65-108) Arterial Blood HCO3 19 mmol/L (21-28) Arterial Blood Base Excess -5 mmol/L (-3-3) FiO2 32.0 Bedside Hemoglobin 12.2 g/dL (12-15) Bedside Hematocrit 36 % (36-40) Bedside Sodium 118 mmol/L (135-145) Bedside Potassium 5.1 mmol/L (3.5-5.0) Bedside Chloride 86 mmol/L (98-110) Bedside Total CO2 22 mmol/L (23-32) Bedside Blood Urea Nitrogen 22 mg/dL (8-26) Bedside Creatinine 1.0 mg/dL (0.5-1.4) Bedside Ionized Calcium (Michael) 1.12 mmol/L (1.13-1.32) Segmented Neutrophils % 87 % (35-66) Band Neutrophils % 1 % (0-9) Lymphocytes % 7 % (24-48) Monocytes % 5 % (0-10) Platelet Estimate Adequate (ADEQUATE) Anisocytosis Slight Test 05/06/17 08:00 05/06/17 10:45 05/06/17 11:25 05/06/17 11:40 O2 Saturation 91 % (92-99) 92 % (92-99) Arterial Blood pH 7.18 (7.35-7.45) 7.34 (7.35-7.45) Arterial Blood pCO2 at Patient Temp 66 mmHg (35-46) 38 mmHg (35-46) Arterial Blood pO2 at Patient Temp 77 mmHg (65-108) 67 mmHg (65-108) Arterial Blood HCO3 24 mmol/L (21-28) 20 mmol/L (21-28) Arterial Blood Base Excess -5 mmol/L (-3-3) -5 mmol/L (-3-3) FiO2 65 55 Troponin I Quantitative 0.042 ng/mL (0.000-0.055) Lactic Acid Level 2.6 mmol/L (0.4-2.0) Test 05/06/17 12:08 Glucose (Fingerstick) 341 mg/dL (70-99) Laboratory Tests Test 05/05/17 22:30 05/05/17 22:35 05/05/17 22:40 05/06/17 05:45 White Blood Count 14.1 x10^3/uL (4.0-11.0) 25.2 x10^3/uL (4.0-11.0) Red Blood Count 4.42 x10^6/uL (3.50-5.40) 4.71 x10^6/uL (3.50-5.40) Hemoglobin 10.7 g/dL (12.0-15.5) 11.3 g/dL (12.0-15.5) Hematocrit 32.5 % (36.0-47.0) 35.3 % (36.0-47.0) Mean Corpuscular Volume 74 fL (79-100) 75 fL (79-100) Mean Corpuscular Hemoglobin 24 pg (25-35) 24 pg (25-35) Mean Corpuscular Hemoglobin Concent 33 g/dL (31-37) 32 g/dL (31-37) Red Cell Distribution Width 18.3 % (11.5-14.5) 17.8 % (11.5-14.5) Platelet Count 321 x10^3/uL (140-400) 371 x10^3/uL (140-400) Neutrophils (%) (Auto) 80 % (31-73) 83 % (31-73) Lymphocytes (%) (Auto) 9 % (24-48) 6 % (24-48) Monocytes (%) (Auto) 10 % (0-9) 11 % (0-9) Eosinophils (%) (Auto) 1 % (0-3) 0 % (0-3) Basophils (%) (Auto) 1 % (0-3) 0 % (0-3) Neutrophils # (Auto) 11.3 x10^3uL (1.8-7.7) 20.9 x10^3uL (1.8-7.7) Lymphocytes # (Auto) 1.2 x10^3/uL (1.0-4.8) 1.5 x10^3/uL (1.0-4.8) Monocytes # (Auto) 1.4 x10^3/uL (0.0-1.1) 2.7 x10^3/uL (0.0-1.1) Eosinophils # (Auto) 0.1 x10^3/uL (0.0-0.7) 0.0 x10^3/uL (0.0-0.7) Basophils # (Auto) 0.1 x10^3/uL (0.0-0.2) 0.1 x10^3/uL (0.0-0.2) Prothrombin Time 12.6 SEC (11.7-14.0) Prothromb Time International Ratio 1.0 (0.8-1.1) Sodium Level 118 mmol/L (136-145) 119 mmol/L (136-145) Potassium Level 5.2 mmol/L (3.5-5.1) 5.3 mmol/L (3.5-5.1) Chloride Level 85 mmol/L (98-107) 86 mmol/L (98-107) Carbon Dioxide Level 23 mmol/L (21-32) 24 mmol/L (21-32) Anion Gap 10 (6-14) 17 mmol/L (6-14) 9 (6-14) Blood Urea Nitrogen 22 mg/dL (7-20) 24 mg/dL (7-20) Creatinine 1.2 mg/dL (0.6-1.0) 1.4 mg/dL (0.6-1.0) Estimated GFR (Cockcroft-Gault) 44.4 37.2 Glucose Level 246 mg/dL (70-99) 245 mg/dL (70-99) 259 mg/dL (70-99) Calcium Level 8.7 mg/dL (8.5-10.1) 8.5 mg/dL (8.5-10.1) Magnesium Level 1.9 mg/dL (1.8-2.4) Total Bilirubin 0.3 mg/dL (0.2-1.0) Direct Bilirubin 0.1 mg/dL (0.0-0.2) Aspartate Amino Transf (AST/SGOT) 80 U/L (15-37) Alanine Aminotransferase (ALT/SGPT) 103 U/L (14-59) Alkaline Phosphatase 125 U/L (46-116) Creatine Kinase 82 U/L (26-192) Creatine Kinase MB (Mass) 1.4 ng/mL (0.0-3.6) Creatine Kinase MB Relative Index 1.7 % (0-4) Troponin I Quantitative < 0.017 ng/mL (0.000-0.055) 0.022 ng/mL (0.000-0.055) BV-Bbf-Y-Type Natriuretic Peptide 2818 pg/mL (0-124) Total Protein 7.1 g/dL (6.4-8.2) Albumin 3.3 g/dL (3.4-5.0) Lipase 369 U/L (73-393) Thyroid Stimulating Hormone (TSH) 4.293 uIU/mL (0.358-3.74) O2 Saturation 89 % (92-99) Arterial Blood pH 7.37 (7.35-7.45) Arterial Blood pCO2 at Patient Temp 34 mmHg (35-46) Arterial Blood pO2 at Patient Temp 65 mmHg (65-108) Arterial Blood HCO3 19 mmol/L (21-28) Arterial Blood Base Excess -5 mmol/L (-3-3) FiO2 32.0 Bedside Hemoglobin 12.2 g/dL (12-15) Bedside Hematocrit 36 % (36-40) Bedside Sodium 118 mmol/L (135-145) Bedside Potassium 5.1 mmol/L (3.5-5.0) Bedside Chloride 86 mmol/L (98-110) Bedside Total CO2 22 mmol/L (23-32) Bedside Blood Urea Nitrogen 22 mg/dL (8-26) Bedside Creatinine 1.0 mg/dL (0.5-1.4) Bedside Ionized Calcium (Michael) 1.12 mmol/L (1.13-1.32) Segmented Neutrophils % 87 % (35-66) Band Neutrophils % 1 % (0-9) Lymphocytes % 7 % (24-48) Monocytes % 5 % (0-10) Platelet Estimate Adequate (ADEQUATE) Anisocytosis Slight Test 05/06/17 08:00 05/06/17 10:45 05/06/17 11:25 05/06/17 11:40 O2 Saturation 91 % (92-99) 92 % (92-99) Arterial Blood pH 7.18 (7.35-7.45) 7.34 (7.35-7.45) Arterial Blood pCO2 at Patient Temp 66 mmHg (35-46) 38 mmHg (35-46) Arterial Blood pO2 at Patient Temp 77 mmHg (65-108) 67 mmHg (65-108) Arterial Blood HCO3 24 mmol/L (21-28) 20 mmol/L (21-28) Arterial Blood Base Excess -5 mmol/L (-3-3) -5 mmol/L (-3-3) FiO2 65 55 Troponin I Quantitative 0.042 ng/mL (0.000-0.055) Lactic Acid Level 2.6 mmol/L (0.4-2.0) Test 05/06/17 12:08 Glucose (Fingerstick) 341 mg/dL (70-99) Images Images BILATERAL INFILTRATES Assessment/Plan Assessment/Plan ACUTE/CHROMIC RESP FAILURE PNEUMONIA SEPTIC SHOCK HYPONATREMIA UNCONTROLLED DM AECOPD LEUKOPCYTOSIS PLAN CONTINUE SUPPORT ANITBX PER ID NEPHRO CONSULT WATER RESTRICTION D/W WITH FAMILY AT BEDSIDE DVT AND GI PROPHYLAXIS START TUBE FEEDING RACHEL KOCH MD May 06, 2017 14:24
--- NOTE | 2017-05-06 14:45 | CARD ---
APPROVED REPORT EXAM: Two-dimensional and M-mode echocardiogram with Doppler and color Doppler. Other Information Quality : Average Rhythm : NSR INDICATION Congestive Heart Failure 2D DIMENSIONS RVDd3.1 (2.9-3.5cm)Left Atrium(2D)4.3 (1.6-4.0cm) IVSd0.8 (0.7-1.1cm)Aortic Root(2D)3.1 (2.0-3.7cm) LVDd4.7 (3.9-5.9cm)LVOT Diameter2.1 (1.8-2.4cm) PWd0.9 (0.7-1.1cm)LVDs2.7 (2.5-4.0cm) FS (%) 41.4 %SV72.9 ml LVEF(%)70.0 (>50%) Aortic Valve AoV Peak Lux.193.1cm/sAoV VTI46.2cm AO Peak GR.14.9mmHgLVOT VTI 26.36cm AO Mean GR.7mmHg Mitral Valve MV E Edsyjkks626.2cm/sMV DECEL [id number] MV A Khhpauxd170.9cm/sE/A Ratio1.1 MV A [id number] TDI Lateral E' P. V7.80cm/sMedial E' P. V6.61cm/s E/Lateral E'17.5E/Medial E'20.6 Tricuspid Valve TR P. [id number]/sRAP [id number] TR Peak Gr.[id number] LEFT VENTRICLE The left ventricle is normal size. There is mild concentric left ventricular hypertrophy Left ventric le systolic function is normal. The Ejection Fraction is 70%. There is normal LV segmental wall motio n. There is mild diastolic dysfunction present RIGHT VENTRICLE The right ventricle is normal size. The right ventricular systolic function is normal. ATRIA The left atrium is borderline dilated. The right atrium size is normal. The interatrial septum is int act with no evidence for an atrial septal defect or patent foramen ovale as noted on 2-D or Doppler i maging. AORTIC VALVE The aortic valve is normal in structure and function. The aortic valve is trileaflet. Doppler and Col or Flow revealed no significant aortic regurgitation. There is no significant aortic valvular stenosi s. MITRAL VALVE The mitral valve leaflets are calcified. There is no mitral valve stenosis. Doppler and Color Flow re vealed mild to moderate mitral regurgitation. TRICUSPID VALVE The tricuspid valve is normal in structure. Doppler and Color Flow revealed mild tricuspid regurgitat ion. The PA pressure was estimated at 37 mmHg. There is no tricuspid valve stenosis. PULMONIC VALVE The pulmonic valve is not well visualized. Doppler and Color Flow revealed no pulmonic valvular regur gitation. There is no pulmonic valvular stenosis. GREAT VESSELS The aortic root is normal in size. Pulmonary veins not recorded. The IVC is normal in size and collap ses >50% with inspiration. PERICARDIAL EFFUSION There is a trace of pericardial fluid present Critical Notification Critical Value: No <Conclusion> Left ventricle systolic function is normal. The Ejection Fraction is 70%. There is mild concentric left ventricular hypertrophy Left ventricle systolic function is normal. The Ejection Fraction is 70%. There is mild diastolic dysfunction present The left atrium is borderline dilated. The right atrium size is normal. The aortic valve is normal in structure and function. The aortic valve is trileaflet. The mitral valve leaflets are calcified. Doppler and Color Flow revealed mild to moderate mitral regurgitation. Doppler and Color Flow revealed mild tricuspid regurgitation. The PA pressure was estimated at 37 mmHg. The pulmonic valve is not well visualized. There is a trace of pericardial fluid present
--- NOTE | 2017-05-06 15:01 | PDOC2 ---
CONSULT Date of Consult Date of Consult DATE: 05/06/17 TIME: 14:50 Reason for Consult Reason for Consult: Bradycardia Referring Physician Referring Physician: Dr Sargent Identification/Chief Complaint Chief Complaint Dyspnea and high blood sugars Problems: History of Present Illness Reason for Visit: This patient is a 71-year-old lady with a known history of hypertension, diabetes, COPD, that is O2 dependent at home. She has had some episodes of paroxysmal atrial fibrillation in the past. The patient's has been having problems with an ongoing pneumonia at home. The patient started getting short of breath and having a cough and when her grandson went to visit her found her to be in respiratory distress. The patient was brought to the emergency room and she was found to be in acute respiratory distress and bradycardic but the blood pressure was stable. She was started on a dopamine drip to help with the bradycardia and was admitted to the intensive care. After she arrived in the intensive care unit the patient deteriorated with acute respiratory failure and required intubation. Presently the patient is intubated and sedated. When the patient had a blood gas prior to the intubation she was acidotic. At the time that I examined her she has a rate of about 45 and it appears to be a junctional escape rhythm with a blood pressure of 170/80. An echocardiogram was done at the bedside in the ICU that showed: Left ventricle systolic function is normal. The Ejection Fraction is 70%. There is mild concentric left ventricular hypertrophy Left ventricle systolic function is normal. The Ejection Fraction is 70%. There is mild diastolic dysfunction present The left atrium is borderline dilated. The right atrium size is normal. The aortic valve is normal in structure and function. The aortic valve is trileaflet. The mitral valve leaflets are calcified. Doppler and Color Flow revealed mild to moderate mitral regurgitation. Doppler and Color Flow revealed mild tricuspid regurgitation. The PA pressure was estimated at 37 mmHg. The pulmonic valve is not well visualized. There is a trace of pericardial fluid present Past Medical History Cardiovascular: HTN, Other (paroxysmal atrial fibrillation) Pulmonary: COPD Renal/: Chronic renal insuff Endocrine: Diabetes Social History Quit Current Problem List Problem List Problems Medical Problems: (1) Respiratory failure Status: Acute Current Medications Current Medications Current Medications Dopamine HCl/ Dextrose 250 ml @ 16.856 mls/ hr 1X ONCE IV Last administered on 05/05/17t 22:54; Start 05/05/17 at 23:00; Stop 05/06/17 at 13:49; Status DC Torsemide (Demadex) 20 mg 1X ONCE PO Last administered on 05/06/17 00:44; Start 05/05/17 at 23:45; Stop 05/05/17 at 23:46; Status DC Bumetanide (Bumex) 1 mg BID92 IV Last administered on 05/06/17 09:22; Start 05/06/17 at 09:00 Ondansetron HCl (Zofran) 4 mg 1X ONCE IV Last administered on 05/06/17 00:09; Start 05/05/17 at 23:45; Stop 05/05/17 at 23:46; Status DC Ondansetron HCl (Zofran) 4 mg PRN Q8HRS PRN IV NAUSEA/VOMITING; Start 05/05/17 at 23:45; Stop 05/06/17 at 23:44 Acetaminophen/ Hydrocodone Bitart (Lortab 5/325) 1 tab PRN Q6HRS PRN PO PAIN Last administered on 05/06/17 05:21; Start 05/06/17 at 05:00 Acetaminophen/ Hydrocodone Bitart (Lortab 5/325) 2 tab PRN Q6HRS PRN PO PAIN; Start 05/06/17 at 05:00 Dopamine HCl/ Dextrose 250 ml @ 16.627 mls/ hr CONT PRN IV SEE I/O RECORD Last administered on 05/06/17 12:28; Start 05/06/17 at 06:00 Vancomycin HCl 1.5 gm/Sodium Chloride 500 ml @ 250 mls/hr 1X ONCE IV Last administered on 05/06/17 10:34; Start 05/06/17 at 09:00; Stop 05/06/17 at 10:59; Status DC Levofloxacin/ Dextrose 100 ml @ 100 mls/hr Q24H IV Last administered on 12:28; Start 05/06/17 at 10:00 Insulin Aspart (NovoLOG) 0-9 UNITS TIDWMEALS SQ Last administered on 05/06/17 12:14; Start 05/06/17 at 12:00 Dextrose (Dextrose 50%-Water Syringe) 12.5 gm PRN Q15MIN PRN IV SEE COMMENTS; Start 05/06/17 at 08:45 Enoxaparin Sodium (Lovenox 40mg Syringe) 40 mg Q24H SQ Last administered on 05/06 09:21; Start 05/06/17 at 09:00 Piperacillin Sod/ Tazobactam Sod 3.375 gm/Sodium Chloride 50 ml @ 100 mls/hr Q6HRS IV Last administered on 05/06/17 12:29; Start 05/06/17 at 10:30 Vancomycin HCl (Vanco Per Pharmacy) 1 each PRN DAILY PRN MC SEE COMMENTS Last administered on 05/06/17 10:57; Start 05/06/17 at 10:00 Succinylcholine Chloride (Anectine) 200 mg STK-MED ONCE .ROUTE ; Start 05/06/17 at 10:13; Stop 05/06/17 at 10:14; Status DC Propofol 20 ml @ As Directed STK-MED ONCE IV ; Start 05/06/17 at 10:13; Stop 05/06 at 10:14; Status DC Lidocaine HCl (Lidocaine Pf 2% Vial) 5 ml STK-MED ONCE .ROUTE ; Start 05/06/17 at 10:13; Stop 05/06/17 at 10:14; Status DC Propofol 0 ml @ As Directed STK-MED ONCE IV ; Start 05/06/17 at 10:14; Stop at 10:15; Status DC Midazolam HCl 100 ml @ As Directed STK-MED ONCE IV ; Start 05/06/17 at 10:14; Stop 05/06/17 at 10:15; Status DC Midazolam HCl 100 ml @ 0 mls/hr CONT PRN IV SEE I/O RECORD; Start 05/06/17 at 11 :00 Vancomycin HCl 500 mg/Sodium Chloride 100 ml @ 100 mls/hr 1X ONCE IV ; Start 05/06/17 at 12:00; Stop 05/06/17 at 12:59; Status DC Vancomycin HCl 1.25 gm/Sodium Chloride 250 ml @ 167 mls/hr Q24H IV ; Start 05/07 at 10:00 Vancomycin HCl 1 each 1X ONCE MC ; Start 05/08/17 at 09:30; Stop 05/08/17 at 09: 31 Isoproterenol HCl 1 mg/Dextrose 255 ml @ 0 mls/hr CONT PRN IV SEE I/O RECORD Last administered on 7/3/17at 13:42; Start 05/06/17 at 13:00 Active Scripts Active Glucophage Xr (Metformin Hcl) 500 Mg Tab.er.24h 1,000 Mg PO BID [place] 5-325 Tablet (Acetaminophen/Hydrocodone Bitart) 1 Each Tablet 1 Tab PO PRN Q6HRS PRN Reported Novolog Flexpen (Insulin Aspart) 100 Unit/1 Ml Insuln.pen 12 Unit SQ TIDWMEALS Losartan Potassium 100 Mg Tablet 100 Mg PO NOON Torsemide 10 Mg Tablet 10 Mg PO DAILY Sucralfate 1 Gm Tablet 1 Tab PO QID Omeprazole 20 Mg Capsule.dr 1 Cap PO BID Acetaminophen 325 Mg Tablet 650 Mg PO PRN BID PRN Levothyroxine Sodium 112 Mcg Tablet 1 Tab PO DAILY Atenolol 25 Mg Tablet 1 Tab PO BID Amlodipine Besylate 10 Mg Tablet 10 Mg PO DAILY Amitriptyline Hcl 25 Mg Tablet 1 Tab PO QHS Metoclopramide Hcl 5 Mg Tablet 5 Mg PO QIDACHS Alprazolam 0.5 Mg Tablet 1 Tab PO HS Alprazolam 0.5 Mg Tablet 2 Tab PO BIDWBKFT/HOLLIS Aspirin 81 Mg Tab.chew 1 Tab PO DAILY Allergies Allergies: Coded Allergies: olmesartan (Verified Allergy, Severe, ARM AND LEG CRAMPING AND IGLESIAS TIME BREATH , 07/15/16) albuterol (Verified Allergy, Intermediate, 06/03/16) atorvastatin (Verified Allergy, Intermediate, 06/03/16) calcium carbonate (Verified Allergy, Intermediate, 06/03/16) clonidine (Verified Allergy, Intermediate, 06/03/16) codeine (Verified Allergy, Intermediate, 06/03/16) dicyclomine (Verified Allergy, Intermediate, 06/03/16) esomeprazole (Verified Allergy, Intermediate, 06/03/16) fexofenadine (Verified Allergy, Intermediate, 06/03/16) furosemide (Verified Allergy, Intermediate, RASH AND ITCHING, 07/15/16) hydralazine (Verified Allergy, Intermediate, 06/03/16) hydrochlorothiazide (Verified Allergy, Intermediate, 06/03/16) nefazodone (Verified Allergy, Intermediate, 06/03/16) niacin (Verified Allergy, Intermediate, 06/03/16) paroxetine (Verified Allergy, Intermediate, 06/03/16) tiotropium (Verified Allergy, Intermediate, 06/03/16) verapamil (Verified Allergy, Intermediate, 06/03/16) Physical Exam Physical Exam H EENT patient is orally intubated. Pupils reactive. Neck supple. Lungs breath sounds are decreased, no wheezing, diffuse coarse breath sounds mostly on the right side. Heart bradycardic, S1 and S2, 1/6 systolic murmur. Abdomen is soft bowel sounds are present Extremities 1+ edema Vitals VITALS Vital Signs Date Time Temp Pulse Resp B/P (MAP) Pulse Ox O2 Delivery O2 Flow Rate FiO2 05/06/17 13:26 Ventilator 05/06/17 13:03 94 05/06/17 12:00 4.0 05/06/17 07:00 60 30 171/50 (90) 05/06/17 04:00 98.2 98.2 Labs Labs Laboratory Tests Test 05/05/17 22:30 05/05/17 22:35 05/05/17 22:40 05/06/17 05:45 White Blood Count 14.1 x10^3/uL (4.0-11.0) 25.2 x10^3/uL (4.0-11.0) Red Blood Count 4.42 x10^6/uL (3.50-5.40) 4.71 x10^6/uL (3.50-5.40) Hemoglobin 10.7 g/dL (12.0-15.5) 11.3 g/dL (12.0-15.5) Hematocrit 32.5 % (36.0-47.0) 35.3 % (36.0-47.0) Mean Corpuscular Volume 74 fL (79-100) 75 fL (79-100) Mean Corpuscular Hemoglobin 24 pg (25-35) 24 pg (25-35) Mean Corpuscular Hemoglobin Concent 33 g/dL (31-37) 32 g/dL (31-37) Red Cell Distribution Width 18.3 % (11.5-14.5) 17.8 % (11.5-14.5) Platelet Count 321 x10^3/uL (140-400) 371 x10^3/uL (140-400) Neutrophils (%) (Auto) 80 % (31-73) 83 % (31-73) Lymphocytes (%) (Auto) 9 % (24-48) 6 % (24-48) Monocytes (%) (Auto) 10 % (0-9) 11 % (0-9) Eosinophils (%) (Auto) 1 % (0-3) 0 % (0-3) Basophils (%) (Auto) 1 % (0-3) 0 % (0-3) Neutrophils # (Auto) 11.3 x10^3uL (1.8-7.7) 20.9 x10^3uL (1.8-7.7) Lymphocytes # (Auto) 1.2 x10^3/uL (1.0-4.8) 1.5 x10^3/uL (1.0-4.8) Monocytes # (Auto) 1.4 x10^3/uL (0.0-1.1) 2.7 x10^3/uL (0.0-1.1) Eosinophils # (Auto) 0.1 x10^3/uL (0.0-0.7) 0.0 x10^3/uL (0.0-0.7) Basophils # (Auto) 0.1 x10^3/uL (0.0-0.2) 0.1 x10^3/uL (0.0-0.2) Prothrombin Time 12.6 SEC (11.7-14.0) Prothromb Time International Ratio 1.0 (0.8-1.1) Sodium Level 118 mmol/L (136-145) 119 mmol/L (136-145) Potassium Level 5.2 mmol/L (3.5-5.1) 5.3 mmol/L (3.5-5.1) Chloride Level 85 mmol/L (98-107) 86 mmol/L (98-107) Carbon Dioxide Level 23 mmol/L (21-32) 24 mmol/L (21-32) Anion Gap 10 (6-14) 17 mmol/L (6-14) 9 (6-14) Blood Urea Nitrogen 22 mg/dL (7-20) 24 mg/dL (7-20) Creatinine 1.2 mg/dL (0.6-1.0) 1.4 mg/dL (0.6-1.0) Estimated GFR (Cockcroft-Gault) 44.4 37.2 Glucose Level 246 mg/dL (70-99) 245 mg/dL (70-99) 259 mg/dL (70-99) Calcium Level 8.7 mg/dL (8.5-10.1) 8.5 mg/dL (8.5-10.1) Magnesium Level 1.9 mg/dL (1.8-2.4) Total Bilirubin 0.3 mg/dL (0.2-1.0) Direct Bilirubin 0.1 mg/dL (0.0-0.2) Aspartate Amino Transf (AST/SGOT) 80 U/L (15-37) Alanine Aminotransferase (ALT/SGPT) 103 U/L (14-59) Alkaline Phosphatase 125 U/L (46-116) Creatine Kinase 82 U/L (26-192) Creatine Kinase MB (Mass) 1.4 ng/mL (0.0-3.6) Creatine Kinase MB Relative Index 1.7 % (0-4) Troponin I Quantitative < 0.017 ng/mL (0.000-0.055) 0.022 ng/mL (0.000-0.055) GO-[id number]-[id number]-Type Natriuretic Peptide 2818 pg/mL (0-124) Total Protein 7.1 g/dL (6.4-8.2) Albumin 3.3 g/dL (3.4-5.0) Lipase 369 U/L (73-393) Thyroid Stimulating Hormone (TSH) 4.293 uIU/mL (0.358-3.74) O2 Saturation 89 % (92-99) Arterial Blood pH 7.37 (7.35-7.45) Arterial Blood pCO2 at Patient Temp 34 mmHg (35-46) Arterial Blood pO2 at Patient Temp 65 mmHg (65-108) Arterial Blood HCO3 19 mmol/L (21-28) Arterial Blood Base Excess -5 mmol/L (-3-3) FiO2 32.0 Bedside Hemoglobin 12.2 g/dL (12-15) Bedside Hematocrit 36 % (36-40) Bedside Sodium 118 mmol/L (135-145) Bedside Potassium 5.1 mmol/L (3.5-5.0) Bedside Chloride 86 mmol/L (98-110) Bedside Total CO2 22 mmol/L (23-32) Bedside Blood Urea Nitrogen 22 mg/dL (8-26) Bedside Creatinine 1.0 mg/dL (0.5-1.4) Bedside Ionized Calcium (Michael) 1.12 mmol/L (1.13-1.32) Segmented Neutrophils % 87 % (35-66) Band Neutrophils % 1 % (0-9) Lymphocytes % 7 % (24-48) Monocytes % 5 % (0-10) Platelet Estimate Adequate (ADEQUATE) Anisocytosis Slight Test 05/06/17 08:00 05/06/17 10:45 05/06/17 11:25 05/06/17 11:40 O2 Saturation 91 % (92-99) 92 % (92-99) Arterial Blood pH 7.18 (7.35-7.45) 7.34 (7.35-7.45) Arterial Blood pCO2 at Patient Temp 66 mmHg (35-46) 38 mmHg (35-46) Arterial Blood pO2 at Patient Temp 77 mmHg (65-108) 67 mmHg (65-108) Arterial Blood HCO3 24 mmol/L (21-28) 20 mmol/L (21-28) Arterial Blood Base Excess -5 mmol/L (-3-3) -5 mmol/L (-3-3) FiO2 65 55 Troponin I Quantitative 0.042 ng/mL (0.000-0.055) Lactic Acid Level 2.6 mmol/L (0.4-2.0) Test 05/06/17 12:08 Glucose (Fingerstick) 341 mg/dL (70-99) Laboratory Tests Test 05/05/17 22:30 05/05/17 22:35 05/05/17 22:40 05/06/17 05:45 White Blood Count 14.1 x10^3/uL (4.0-11.0) 25.2 x10^3/uL (4.0-11.0) Red Blood Count 4.42 x10^6/uL (3.50-5.40) 4.71 x10^6/uL (3.50-5.40) Hemoglobin 10.7 g/dL (12.0-15.5) 11.3 g/dL (12.0-15.5) Hematocrit 32.5 % (36.0-47.0) 35.3 % (36.0-47.0) Mean Corpuscular Volume 74 fL (79-100) 75 fL (79-100) Mean Corpuscular Hemoglobin 24 pg (25-35) 24 pg (25-35) Mean Corpuscular Hemoglobin Concent 33 g/dL (31-37) 32 g/dL (31-37) Red Cell Distribution Width 18.3 % (11.5-14.5) 17.8 % (11.5-14.5) Platelet Count 321 x10^3/uL (140-400) 371 x10^3/uL (140-400) Neutrophils (%) (Auto) 80 % (31-73) 83 % (31-73) Lymphocytes (%) (Auto) 9 % (24-48) 6 % (24-48) Monocytes (%) (Auto) 10 % (0-9) 11 % (0-9) Eosinophils (%) (Auto) 1 % (0-3) 0 % (0-3) Basophils (%) (Auto) 1 % (0-3) 0 % (0-3) Neutrophils # (Auto) 11.3 x10^3uL (1.8-7.7) 20.9 x10^3uL (1.8-7.7) Lymphocytes # (Auto) 1.2 x10^3/uL (1.0-4.8) 1.5 x10^3/uL (1.0-4.8) Monocytes # (Auto) 1.4 x10^3/uL (0.0-1.1) 2.7 x10^3/uL (0.0-1.1) Eosinophils # (Auto) 0.1 x10^3/uL (0.0-0.7) 0.0 x10^3/uL (0.0-0.7) Basophils # (Auto) 0.1 x10^3/uL (0.0-0.2) 0.1 x10^3/uL (0.0-0.2) Prothrombin Time 12.6 SEC (11.7-14.0) Prothromb Time International Ratio 1.0 (0.8-1.1) Sodium Level 118 mmol/L (136-145) 119 mmol/L (136-145) Potassium Level 5.2 mmol/L (3.5-5.1) 5.3 mmol/L (3.5-5.1) Chloride Level 85 mmol/L (98-107) 86 mmol/L (98-107) Carbon Dioxide Level 23 mmol/L (21-32) 24 mmol/L (21-32) Anion Gap 10 (6-14) 17 mmol/L (6-14) 9 (6-14) Blood Urea Nitrogen 22 mg/dL (7-20) 24 mg/dL (7-20) Creatinine 1.2 mg/dL (0.6-1.0) 1.4 mg/dL (0.6-1.0) Estimated GFR (Cockcroft-Gault) 44.4 37.2 Glucose Level 246 mg/dL (70-99) 245 mg/dL (70-99) 259 mg/dL (70-99) Calcium Level 8.7 mg/dL (8.5-10.1) 8.5 mg/dL (8.5-10.1) Magnesium Level 1.9 mg/dL (1.8-2.4) Total Bilirubin 0.3 mg/dL (0.2-1.0) Direct Bilirubin 0.1 mg/dL (0.0-0.2) Aspartate Amino Transf (AST/SGOT) 80 U/L (15-37) Alanine Aminotransferase (ALT/SGPT) 103 U/L (14-59) Alkaline Phosphatase 125 U/L (46-116) Creatine Kinase 82 U/L (26-192) Creatine Kinase MB (Mass) 1.4 ng/mL (0.0-3.6) Creatine Kinase MB Relative Index 1.7 % (0-4) Troponin I Quantitative < 0.017 ng/mL (0.000-0.055) 0.022 ng/mL (0.000-0.055) KO-Gsc-M-Type Natriuretic Peptide 2818 pg/mL (0-124) Total Protein 7.1 g/dL (6.4-8.2) Albumin 3.3 g/dL (3.4-5.0) Lipase 369 U/L (73-393) Thyroid Stimulating Hormone (TSH) 4.293 uIU/mL (0.358-3.74) O2 Saturation 89 % (92-99) Arterial Blood pH 7.37 (7.35-7.45) Arterial Blood pCO2 at Patient Temp 34 mmHg (35-46) Arterial Blood pO2 at Patient Temp 65 mmHg (65-108) Arterial Blood HCO3 19 mmol/L (21-28) Arterial Blood Base Excess -5 mmol/L (-3-3) FiO2 32.0 Bedside Hemoglobin 12.2 g/dL (12-15) Bedside Hematocrit 36 % (36-40) Bedside Sodium 118 mmol/L (135-145) Bedside Potassium 5.1 mmol/L (3.5-5.0) Bedside Chloride 86 mmol/L (98-110) Bedside Total CO2 22 mmol/L (23-32) Bedside Blood Urea Nitrogen 22 mg/dL (8-26) Bedside Creatinine 1.0 mg/dL (0.5-1.4) Bedside Ionized Calcium (Michael) 1.12 mmol/L (1.13-1.32) Segmented Neutrophils % 87 % (35-66) Band Neutrophils % 1 % (0-9) Lymphocytes % 7 % (24-48) Monocytes % 5 % (0-10) Platelet Estimate Adequate (ADEQUATE) Anisocytosis Slight Test 05/06/17 08:00 05/06/17 10:45 05/06/17 11:25 05/06/17 11:40 O2 Saturation 91 % (92-99) 92 % (92-99) Arterial Blood pH 7.18 (7.35-7.45) 7.34 (7.35-7.45) Arterial Blood pCO2 at Patient Temp 66 mmHg (35-46) 38 mmHg (35-46) Arterial Blood pO2 at Patient Temp 77 mmHg (65-108) 67 mmHg (65-108) Arterial Blood HCO3 24 mmol/L (21-28) 20 mmol/L (21-28) Arterial Blood Base Excess -5 mmol/L (-3-3) -5 mmol/L (-3-3) FiO2 65 55 Troponin I Quantitative 0.042 ng/mL (0.000-0.055) Lactic Acid Level 2.6 mmol/L (0.4-2.0) Test 05/06/17 12:08 Glucose (Fingerstick) 341 mg/dL (70-99) Assessment/Plan Assessment/Plan This patient with acute respiratory failure is intubated. She is bradycardic but maintaining a high blood pressure therefore I would like to stop the dopamine drip and switch to an isoproterenol drip and see how the patient does. She has a normal left ventricular function with mild diastolic dysfunction and [id number] mitral insufficiency. The PA pressure was estimated to be 37 mmHg. Patient has uncontrolled diabetes, possible pneumonia, sepsis with acidosis. I agree with the recommendations from the other services. Thank you very much for asking me to participate in the care of this patient EULALIA MOSELEY MD May 06, 2017 15:01
[2017-05-06] MEDS ORDERED: ALBUMIN HUMAN 25% 50 ML IV ONE (15:30)
--- NOTE | 2017-05-06 15:38 | PDOC2 ---
Consult: RENAL CONSULT / PEARL Date of Consult DATE: 05/06/17 TIME: 14:14 Identification/Chief Complaint HYPONATREMIA. History of Present Illness Reason for Visit: PT PRESENTED WITH INCREASE LARS, BS NOT CONTROLLED AT HOME PT NORMALLY WEARS 02 AT HOME ACCORDING TO SON, SHE DOES NOT WATCH HER DIET CURRENTLY INTUBATED. NOT KNOW IF SHE HAD A FEVER AT HOME QUIT SMOKING 10 YEARS AGO. NO REPORTED N/V/D. No KNOWN URINARY ISSUES. LAST Na 135 in OCT 2016. Past Medical History Past Medical History Past Medical History: Anxiety, Arthritis, Diabetes-Type II, GERD, Hypertension , Hypothyroid, Other Additional Past Medical Histor: insomnia Past Surgical History: Cervical Fusion, Cholecystectomy, Hysterectomy, Tonsillectomy, Other Pulmonary: COPD Renal/: Chronic renal insuff Endocrine: Diabetes Past Surgical History Past Surgical History UNKNOWN Family History Family History CAD Social History Quit Current Problem List Problem List Problems Medical Problems: (1) Respiratory failure Status: Acute Current Medications Current Medications Current Medications Dopamine HCl/ Dextrose 250 ml @ 16.856 mls/ hr 1X ONCE IV Last administered on 05/05/17 22:54; Start 05/05/17 at 23:00; Stop 05/06/17 at 13:49; Status DC Torsemide (Demadex) 20 mg 1X ONCE PO Last administered on 05/06/17 00:44; Start 05/05/17 at 23:45; Stop 05/05/17 at 23:46; Status DC Bumetanide (Bumex) 1 mg [id number] IV Last administered on 05/06/17 09:22; Start 05/06/17 at 09:00 Ondansetron HCl (Zofran) 4 mg 1X ONCE IV Last administered on 05/06/17 00:09; Start 05/05/17 at 23:45; Stop 05/05/17 at 23:46; Status DC Ondansetron HCl (Zofran) 4 mg PRN Q8HRS PRN IV NAUSEA/VOMITING; Start 05/05/17 at 23:45; Stop 05/06/17 at 23:44 Acetaminophen/ Hydrocodone Bitart (Lortab 5/325) 1 tab PRN Q6HRS PRN PO PAIN Last administered on 05/06/17 05:21; Start 05/06/17 at 05:00 Acetaminophen/ Hydrocodone Bitart (Lortab 5/325) 2 tab PRN Q6HRS PRN PO PAIN; Start 05/06/17 at 05:00 Dopamine HCl/ Dextrose 250 ml @ 16.627 mls/ hr CONT PRN IV SEE I/O RECORD Last administered on 05/06/17 12:28; Start 05/06/17 at 06:00 Vancomycin HCl 1.5 gm/Sodium Chloride 500 ml @ 250 mls/hr 1X ONCE IV Last administered on 05/06/17 10:34; Start 05/06/17 at 09:00; Stop 05/06/17 at 10:59; Status DC Levofloxacin/ Dextrose 100 ml @ 100 mls/hr Q24H IV Last administered on 12:28; Start 05/06/17 at 10:00 Insulin Aspart (NovoLOG) 0-9 UNITS TIDWMEALS SQ Last administered on 05/06/17 12:14; Start 05/06/17 at 12:00 Dextrose (Dextrose 50%-Water Syringe) 12.5 gm PRN Q15MIN PRN IV SEE COMMENTS; Start 05/06/17 at 08:45 Enoxaparin Sodium (Lovenox 40mg Syringe) 40 mg Q24H SQ Last administered on 05/06 09:21; Start 05/06/17 at 09:00 Piperacillin Sod/ Tazobactam Sod 3.375 gm/Sodium Chloride 50 ml @ 100 mls/hr Q6HRS IV Last administered on 05/06/17 12:29; Start 05/06/17 at 10:30 Vancomycin HCl (Vanco Per Pharmacy) 1 each PRN DAILY PRN MC SEE COMMENTS Last administered on 05/06/17 10:57; Start 05/06/17 at 10:00 Succinylcholine Chloride (Anectine) 200 mg STK-MED ONCE .ROUTE ; Start 05/06/17 at 10:13; Stop 05/06/17 at 10:14; Status DC Propofol 20 ml @ As Directed STK-MED ONCE IV ; Start 05/06/17 at 10:13; Stop 05/06 at 10:14; Status DC Lidocaine HCl (Lidocaine Pf 2% Vial) 5 ml STK-MED ONCE .ROUTE ; Start 05/06/17 at 10:13; Stop 05/06/17 at 10:14; Status DC Propofol 0 ml @ As Directed STK-MED ONCE IV ; Start 05/06/17 at 10:14; Stop at 10:15; Status DC Midazolam HCl 100 ml @ As Directed STK-MED ONCE IV ; Start 05/06/17 at 10:14; Stop 05/06/17 at 10:15; Status DC Midazolam HCl 100 ml @ 0 mls/hr CONT PRN IV SEE I/O RECORD; Start 05/06/17 at 11 :00 Vancomycin HCl 500 mg/Sodium Chloride 100 ml @ 100 mls/hr 1X ONCE IV ; Start 05/06/17 at 12:00; Stop 05/06/17 at 12:59; Status DC Vancomycin HCl 1.25 gm/Sodium Chloride 250 ml @ 167 mls/hr Q24H IV ; Start 05/07 at 10:00 Vancomycin HCl 1 each 1X ONCE MC ; Start 05/08/17 at 09:30; Stop 05/08/17 at 09: 31 Isoproterenol HCl 1 mg/Dextrose 255 ml @ 0 mls/hr CONT PRN IV SEE I/O RECORD Last administered on 05/06/17t 13:42; Start 05/06/17 at 13:00 Active Scripts Active Glucophage Xr (Metformin Hcl) 500 Mg Tab.er.24h 1,000 Mg PO BID Entiat 5-325 Tablet (Acetaminophen/Hydrocodone Bitart) 1 Each Tablet 1 Tab PO PRN Q6HRS PRN Reported Novolog Flexpen (Insulin Aspart) 100 Unit/1 Ml Insuln.pen 12 Unit SQ TIDWMEALS Losartan Potassium 100 Mg Tablet 100 Mg PO NOON Torsemide 10 Mg Tablet 10 Mg PO DAILY Sucralfate 1 Gm Tablet 1 Tab PO QID Omeprazole 20 Mg Capsule.dr 1 Cap PO BID Acetaminophen 325 Mg Tablet 650 Mg PO PRN BID PRN Levothyroxine Sodium 112 Mcg Tablet 1 Tab PO DAILY Atenolol 25 Mg Tablet 1 Tab PO BID Amlodipine Besylate 10 Mg Tablet 10 Mg PO DAILY Amitriptyline Hcl 25 Mg Tablet 1 Tab PO QHS Metoclopramide Hcl 5 Mg Tablet 5 Mg PO QIDACHS Alprazolam 0.5 Mg Tablet 1 Tab PO HS Alprazolam 0.5 Mg Tablet 2 Tab PO BIDWBKFT/HOLLIS Aspirin 81 Mg Tab.chew 1 Tab PO DAILY Allergies Allergies: Coded Allergies: olmesartan (Verified Allergy, Severe, ARM AND LEG CRAMPING AND IGLESIAS TIME BREATH , 07/15/16) albuterol (Verified Allergy, Intermediate, 06/03/16) atorvastatin (Verified Allergy, Intermediate, 06/03/16) calcium carbonate (Verified Allergy, Intermediate, 06/03/16) clonidine (Verified Allergy, Intermediate, 06/03/16) codeine (Verified Allergy, Intermediate, 06/03/16) dicyclomine (Verified Allergy, Intermediate, 06/03/16) esomeprazole (Verified Allergy, Intermediate, 06/03/16) fexofenadine (Verified Allergy, Intermediate, 06/03/16) furosemide (Verified Allergy, Intermediate, RASH AND ITCHING, 07/15/16) hydralazine (Verified Allergy, Intermediate, 06/03/16) hydrochlorothiazide (Verified Allergy, Intermediate, 06/03/16) nefazodone (Verified Allergy, Intermediate, 06/03/16) niacin (Verified Allergy, Intermediate, 06/03/16) paroxetine (Verified Allergy, Intermediate, 06/03/16) tiotropium (Verified Allergy, Intermediate, 06/03/16) verapamil (Verified Allergy, Intermediate, 06/03/16) ROS Review of System UNOBTAINABLE SEC TO PT CONDITION Physical Exam Physical Exam PT SEDATED ON VENT Lungs: Clear to auscultation, Normal air movement Heart: Regular rate, Normal S1, Normal S2 Abdomen: Normal bowel sounds, Soft Extremities: No clubbing, No cyanosis Skin: No rashes, No breakdown MUSCULOSKELETAL: Other (SEDATED) Vitals VITALS Vital Signs Date Time Temp Pulse Resp B/P (MAP) Pulse Ox O2 Delivery O2 Flow Rate FiO2 05/06/17 13:26 Ventilator 05/06/17 13:03 94 05/06/17 12:00 4.0 05/06/17 07:00 60 30 171/50 (90) 05/06/17 04:00 98.2 98.2 Labs Labs Laboratory Tests Test 05/05/17 22:30 05/05/17 22:35 05/05/17 22:40 05/06/17 05:45 White Blood Count 14.1 x10^3/uL (4.0-11.0) 25.2 x10^3/uL (4.0-11.0) Red Blood Count 4.42 x10^6/uL (3.50-5.40) 4.71 x10^6/uL (3.50-5.40) Hemoglobin 10.7 g/dL (12.0-15.5) 11.3 g/dL (12.0-15.5) Hematocrit 32.5 % (36.0-47.0) 35.3 % (36.0-47.0) Mean Corpuscular Volume 74 fL (79-100) 75 fL (79-100) Mean Corpuscular Hemoglobin 24 pg (25-35) 24 pg (25-35) Mean Corpuscular Hemoglobin Concent 33 g/dL (31-37) 32 g/dL (31-37) Red Cell Distribution Width 18.3 % (11.5-14.5) 17.8 % (11.5-14.5) Platelet Count 321 x10^3/uL (140-400) 371 x10^3/uL (140-400) Neutrophils (%) (Auto) 80 % (31-73) 83 % (31-73) Lymphocytes (%) (Auto) 9 % (24-48) 6 % (24-48) Monocytes (%) (Auto) 10 % (0-9) 11 % (0-9) Eosinophils (%) (Auto) 1 % (0-3) 0 % (0-3) Basophils (%) (Auto) 1 % (0-3) 0 % (0-3) Neutrophils # (Auto) 11.3 x10^3uL (1.8-7.7) 20.9 x10^3uL (1.8-7.7) Lymphocytes # (Auto) 1.2 x10^3/uL (1.0-4.8) 1.5 x10^3/uL (1.0-4.8) Monocytes # (Auto) 1.4 x10^3/uL (0.0-1.1) 2.7 x10^3/uL (0.0-1.1) Eosinophils # (Auto) 0.1 x10^3/uL (0.0-0.7) 0.0 x10^3/uL (0.0-0.7) Basophils # (Auto) 0.1 x10^3/uL (0.0-0.2) 0.1 x10^3/uL (0.0-0.2) Prothrombin Time 12.6 SEC (11.7-14.0) Prothromb Time International Ratio 1.0 (0.8-1.1) Sodium Level 118 mmol/L (136-145) 119 mmol/L (136-145) Potassium Level 5.2 mmol/L (3.5-5.1) 5.3 mmol/L (3.5-5.1) Chloride Level 85 mmol/L (98-107) 86 mmol/L (98-107) Carbon Dioxide Level 23 mmol/L (21-32) 24 mmol/L (21-32) Anion Gap 10 (6-14) 17 mmol/L (6-14) 9 (6-14) Blood Urea Nitrogen 22 mg/dL (7-20) 24 mg/dL (7-20) Creatinine 1.2 mg/dL (0.6-1.0) 1.4 mg/dL (0.6-1.0) Estimated GFR (Cockcroft-Gault) 44.4 37.2 Glucose Level 246 mg/dL (70-99) 245 mg/dL (70-99) 259 mg/dL (70-99) Calcium Level 8.7 mg/dL (8.5-10.1) 8.5 mg/dL (8.5-10.1) Magnesium Level 1.9 mg/dL (1.8-2.4) Total Bilirubin 0.3 mg/dL (0.2-1.0) Direct Bilirubin 0.1 mg/dL (0.0-0.2) Aspartate Amino Transf (AST/SGOT) 80 U/L (15-37) Alanine Aminotransferase (ALT/SGPT) 103 U/L (14-59) Alkaline Phosphatase 125 U/L (46-116) Creatine Kinase 82 U/L (26-192) Creatine Kinase MB (Mass) 1.4 ng/mL (0.0-3.6) Creatine Kinase MB Relative Index 1.7 % (0-4) Troponin I Quantitative < 0.017 ng/mL (0.000-0.055) 0.022 ng/mL (0.000-0.055) MV-Std-A-Type Natriuretic Peptide 2818 pg/mL (0-124) Total Protein 7.1 g/dL (6.4-8.2) Albumin 3.3 g/dL (3.4-5.0) Lipase 369 U/L (73-393) Thyroid Stimulating Hormone (TSH) 4.293 uIU/mL (0.358-3.74) O2 Saturation 89 % (92-99) Arterial Blood pH 7.37 (7.35-7.45) Arterial Blood pCO2 at Patient Temp 34 mmHg (35-46) Arterial Blood pO2 at Patient Temp 65 mmHg (65-108) Arterial Blood HCO3 19 mmol/L (21-28) Arterial Blood Base Excess -5 mmol/L (-3-3) FiO2 32.0 Bedside Hemoglobin 12.2 g/dL (12-15) Bedside Hematocrit 36 % (36-40) Bedside Sodium 118 mmol/L (135-145) Bedside Potassium 5.1 mmol/L (3.5-5.0) Bedside Chloride 86 mmol/L (98-110) Bedside Total CO2 22 mmol/L (23-32) Bedside Blood Urea Nitrogen 22 mg/dL (8-26) Bedside Creatinine 1.0 mg/dL (0.5-1.4) Bedside Ionized Calcium (Michael) 1.12 mmol/L (1.13-1.32) Segmented Neutrophils % 87 % (35-66) Band Neutrophils % 1 % (0-9) Lymphocytes % 7 % (24-48) Monocytes % 5 % (0-10) Platelet Estimate Adequate (ADEQUATE) Anisocytosis Slight Test 05/06/17 08:00 05/06/17 10:45 05/06/17 11:25 05/06/17 11:40 O2 Saturation 91 % (92-99) 92 % (92-99) Arterial Blood pH 7.18 (7.35-7.45) 7.34 (7.35-7.45) Arterial Blood pCO2 at Patient Temp 66 mmHg (35-46) 38 mmHg (35-46) Arterial Blood pO2 at Patient Temp 77 mmHg (65-108) 67 mmHg (65-108) Arterial Blood HCO3 24 mmol/L (21-28) 20 mmol/L (21-28) Arterial Blood Base Excess -5 mmol/L (-3-3) -5 mmol/L (-3-3) FiO2 65 55 Troponin I Quantitative 0.042 ng/mL (0.000-0.055) Lactic Acid Level 2.6 mmol/L (0.4-2.0) Test 05/06/17 12:08 Glucose (Fingerstick) 341 mg/dL (70-99) Laboratory Tests Test 05/05/17 22:30 05/05/17 22:35 05/05/17 22:40 05/06/17 05:45 White Blood Count 14.1 x10^3/uL (4.0-11.0) 25.2 x10^3/uL (4.0-11.0) Red Blood Count 4.42 x10^6/uL (3.50-5.40) 4.71 x10^6/uL (3.50-5.40) Hemoglobin 10.7 g/dL (12.0-15.5) 11.3 g/dL (12.0-15.5) Hematocrit 32.5 % (36.0-47.0) 35.3 % (36.0-47.0) Mean Corpuscular Volume 74 fL (79-100) 75 fL (79-100) Mean Corpuscular Hemoglobin 24 pg (25-35) 24 pg (25-35) Mean Corpuscular Hemoglobin Concent 33 g/dL (31-37) 32 g/dL (31-37) Red Cell Distribution Width 18.3 % (11.5-14.5) 17.8 % (11.5-14.5) Platelet Count 321 x10^3/uL (140-400) 371 x10^3/uL (140-400) Neutrophils (%) (Auto) 80 % (31-73) 83 % (31-73) Lymphocytes (%) (Auto) 9 % (24-48) 6 % (24-48) Monocytes (%) (Auto) 10 % (0-9) 11 % (0-9) Eosinophils (%) (Auto) 1 % (0-3) 0 % (0-3) Basophils (%) (Auto) 1 % (0-3) 0 % (0-3) Neutrophils # (Auto) 11.3 x10^3uL (1.8-7.7) 20.9 x10^3uL (1.8-7.7) Lymphocytes # (Auto) 1.2 x10^3/uL (1.0-4.8) 1.5 x10^3/uL (1.0-4.8) Monocytes # (Auto) 1.4 x10^3/uL (0.0-1.1) 2.7 x10^3/uL (0.0-1.1) Eosinophils # (Auto) 0.1 x10^3/uL (0.0-0.7) 0.0 x10^3/uL (0.0-0.7) Basophils # (Auto) 0.1 x10^3/uL (0.0-0.2) 0.1 x10^3/uL (0.0-0.2) Prothrombin Time 12.6 SEC (11.7-14.0) Prothromb Time International Ratio 1.0 (0.8-1.1) Sodium Level 118 mmol/L (136-145) 119 mmol/L (136-145) Potassium Level 5.2 mmol/L (3.5-5.1) 5.3 mmol/L (3.5-5.1) Chloride Level 85 mmol/L (98-107) 86 mmol/L (98-107) Carbon Dioxide Level 23 mmol/L (21-32) 24 mmol/L (21-32) Anion Gap 10 (6-14) 17 mmol/L (6-14) 9 (6-14) Blood Urea Nitrogen 22 mg/dL (7-20) 24 mg/dL (7-20) Creatinine 1.2 mg/dL (0.6-1.0) 1.4 mg/dL (0.6-1.0) Estimated GFR (Cockcroft-Gault) 44.4 37.2 Glucose Level 246 mg/dL (70-99) 245 mg/dL (70-99) 259 mg/dL (70-99) Calcium Level 8.7 mg/dL (8.5-10.1) 8.5 mg/dL (8.5-10.1) Magnesium Level 1.9 mg/dL (1.8-2.4) Total Bilirubin 0.3 mg/dL (0.2-1.0) Direct Bilirubin 0.1 mg/dL (0.0-0.2) Aspartate Amino Transf (AST/SGOT) 80 U/L (15-37) Alanine Aminotransferase (ALT/SGPT) 103 U/L (14-59) Alkaline Phosphatase 125 U/L (46-116) Creatine Kinase 82 U/L (26-192) Creatine Kinase MB (Mass) 1.4 ng/mL (0.0-3.6) Creatine Kinase MB Relative Index 1.7 % (0-4) Troponin I Quantitative < 0.017 ng/mL (0.000-0.055) 0.022 ng/mL (0.000-0.055) SS-Ieb-V-Type Natriuretic Peptide 2818 pg/mL (0-124) Total Protein 7.1 g/dL (6.4-8.2) Albumin 3.3 g/dL (3.4-5.0) Lipase 369 U/L (73-393) Thyroid Stimulating Hormone (TSH) 4.293 uIU/mL (0.358-3.74) O2 Saturation 89 % (92-99) Arterial Blood pH 7.37 (7.35-7.45) Arterial Blood pCO2 at Patient Temp 34 mmHg (35-46) Arterial Blood pO2 at Patient Temp 65 mmHg (65-108) Arterial Blood HCO3 19 mmol/L (21-28) Arterial Blood Base Excess -5 mmol/L (-3-3) FiO2 32.0 Bedside Hemoglobin 12.2 g/dL (12-15) Bedside Hematocrit 36 % (36-40) Bedside Sodium 118 mmol/L (135-145) Bedside Potassium 5.1 mmol/L (3.5-5.0) Bedside Chloride 86 mmol/L (98-110) Bedside Total CO2 22 mmol/L (23-32) Bedside Blood Urea Nitrogen 22 mg/dL (8-26) Bedside Creatinine 1.0 mg/dL (0.5-1.4) Bedside Ionized Calcium (Michael) 1.12 mmol/L (1.13-1.32) Segmented Neutrophils % 87 % (35-66) Band Neutrophils % 1 % (0-9) Lymphocytes % 7 % (24-48) Monocytes % 5 % (0-10) Platelet Estimate Adequate (ADEQUATE) Anisocytosis Slight Test 05/06/17 08:00 05/06/17 10:45 05/06/17 11:25 05/06/17 11:40 O2 Saturation 91 % (92-99) 92 % (92-99) Arterial Blood pH 7.18 (7.35-7.45) 7.34 (7.35-7.45) Arterial Blood pCO2 at Patient Temp 66 mmHg (35-46) 38 mmHg (35-46) Arterial Blood pO2 at Patient Temp 77 mmHg (65-108) 67 mmHg (65-108) Arterial Blood HCO3 24 mmol/L (21-28) 20 mmol/L (21-28) Arterial Blood Base Excess -5 mmol/L (-3-3) -5 mmol/L (-3-3) FiO2 65 55 Troponin I Quantitative 0.042 ng/mL (0.000-0.055) Lactic Acid Level 2.6 mmol/L (0.4-2.0) Test 05/06/17 12:08 Glucose (Fingerstick) 341 mg/dL (70-99) Images Images BILATERAL INFILTRATES Assessment/Plan HYPONATREMIA. ACUTE/CHROMIC RESP FAILURE PNEUMONIA SEPTIC SHOCK UNCONTROLLED DM LEUKOCYTOSIS. Appear to have acute on chronic hypovolemic hyponatremia. Likely some third spaced fluid. Hence, diuresis attempt best cautiously, with ALBUMIN assistance. Check urine and serum studies. ALBUMIN x 1 Labs. I/Os May have some chronic hyponatremia due to CHF and diuretics. IVF ( gently ). Thank you. BRI KANG MD May 06, 2017 15:38
[2017-05-06 17:14] LABS: BILIRUBIN,URINE NEGATIVE (NEG); GLUCOSE,URINE 500 mg/dL (NEG); NITRITE,URINE NEGATIVE (NEG); PROTEIN,URINE 100 mg/dL (NEG-TRACE); UROBILINOGEN,URINE 0.2 mg/dL (0.2 mg/dL)
[2017-05-06 17:34] LABS: BACTERIA,URINE FEW /HPF (0-FEW); SQUAMOUS EPITHELIAL CELL,UR OCC /LPF
[2017-05-06] MEDS: MIDAZOLAM PREMIX 100 ML IV PRN (20:24)
[2017-05-06] MEDS: fentaNYL PF VIAL 100 MCG/2 ML VIAL IV PRN (21:30)
[2017-05-06] MEDS: INSULIN DETEMIR 300 UNITS/3 ML INSULN.PEN. SQ SCH (21:38)
[2017-05-07] VITALS (23 sets, daily range): BP systolic 108–169; BP diastolic 36–77
[2017-05-07] MEDS: INSULIN ASPART 300 UNITS/3 ML INSULN.PEN SQ SCH ×4 (00:04→18:02)
[2017-05-07] MEDS: ISOPROTERENOL 1 MG in IV DEXTROSE 5% 250 ML IV PRN (00:09)
[2017-05-07] MEDS: fentaNYL PF VIAL 100 MCG/2 ML VIAL IV PRN ×3 (00:30→22:57)
[2017-05-07] MEDS: ACETAMINOPHEN 650 MG/20.3 ML SOLUTION. NG PRN ×2 (02:21→17:57)
[2017-05-07] MEDS: MIDAZOLAM PREMIX 100 ML IV PRN ×3 (04:31→20:39)
[2017-05-07 04:58] LABS: BASO % 0 % (0-3); EOS % 0 % (0-3); HEMATOCRIT 27.4 % (36.0-47.0); HEMOGLOBIN 8.8 g/dL (12.0-15.5); LYMPH # 0.6 x10^3/uL (1.0-4.8); LYMPH % 3 % (24-48); MEAN CORPUSCULAR HEMOGLOBIN 24 pg (25-35); MEAN CORPUSCULAR HGB CONC 32 g/dL (31-37); MEAN CORPUSCULAR VOLUME 74 fL (79-100); MONO % 11 % (0-9); NEUT % 86 % (31-73); PLATELET COUNT 203 x10^3/uL (140-400); RED CELL DISTRIBUTION WIDTH 18.2 % (11.5-14.5)
[2017-05-07 05:10] LABS: ALBUMIN 2.7 g/dL (3.4-5.0); ALBUMIN/GLOBULIN RATIO 0.8 (1.0-1.7); CALCIUM 7.9 mg/dL (8.5-10.1); CREATININE 1.4 mg/dL (0.6-1.0); GFR 37.2; POTASSIUM 4.6 mmol/L (3.5-5.1); TOTAL BILIRUBIN 0.6 mg/dL (0.2-1.0)
[2017-05-07] MEDS: PIPERACILLIN/TAZOBACTAM 3.375 GM in IV NORMAL SALINE 50ML 50 ML IV SCH ×3 (05:51→17:57)
[2017-05-07] MEDS ORDERED: INSULIN ASPART 300 UNITS/3 ML INSULN.PEN SQ SCH (07:30)
[2017-05-07 08:09] LABS: HCO3 ABG 25 mmol/L (21-28); PCO2 ABG 40 mmHg (35-46); PH ABG 7.41 (7.35-7.45); PO2 ABG 98 mmHg (65-108); SAT O2 ABG 98 % (92-99)
--- NOTE | 2017-05-07 08:22 | PDOC ---
Infectious Disease Note Subjective Subjective Pt intubated, had fever, on vent ROS ROS unable to do Vital Sign Vital Signs Vital Signs Date Time Temp Pulse Resp B/P (MAP) Pulse Ox O2 Delivery O2 Flow Rate FiO2 05/07/17 07:28 98 Ventilator 05/07/17 06:00 100 22 169/64 (99) 05/07/17 04:35 99.3 99.3 05/06/17 12:00 4.0 Physical Exam PHYSICAL EXAM GENERAL: NAD, on vent HEENT: PERRL, OC/OP NECK: Supple, no JVD, no LN LUNGS: Clear HEART: S1S2, no gallop, no murmur ABD: Soft, NT, no organomegaly, no rebound EXT: No edema, no cyanosis [employer]ENTICE: sedated on vent SKIN: No rash IV: ok Labs Lab Laboratory Tests Test 05/06/17 10:45 05/06/17 11:25 05/06/17 11:40 05/06/17 12:08 Serum Osmolality 265 mOsm/Kg (279-304) Uric Acid 5.2 mg/dL (2.6-6.0) Troponin I Quantitative 0.042 ng/mL (0.000-0.055) Lactic Acid Level 2.6 mmol/L (0.4-2.0) O2 Saturation 92 % (92-99) Arterial Blood pH 7.34 (7.35-7.45) Arterial Blood pCO2 at Patient Temp 38 mmHg (35-46) Arterial Blood pO2 at Patient Temp 67 mmHg (65-108) Arterial Blood HCO3 20 mmol/L (21-28) Arterial Blood Base Excess -5 mmol/L (-3-3) FiO2 55 Glucose (Fingerstick) 341 mg/dL (70-99) Test 05/06/17 16:30 05/06/17 17:39 05/06/17 21:36 05/06/17 23:35 Urine Collection Type Unknown Urine Color Yellow Urine Clarity Clear Urine pH 5.0 Urine Specific [place] 1.010 Urine Protein 100 mg/dL (NEG-TRACE) Urine Glucose (UA) 500 mg/dL (NEG) Urine Ketones (Stick) Negative mg/dL (NEG) Urine Blood Large (NEG) Urine Nitrite Negative (NEG) Urine Bilirubin Negative (NEG) Urine Urobilinogen Dipstick 0.2 mg/dL (0.2 mg/dL) Urine Leukocyte Esterase Trace (NEG) Urine RBC 11-20 /HPF (0-2) Urine WBC 1-4 /HPF (0-4) Urine Squamous Epithelial Cells Occ /LPF Urine Bacteria Few /HPF (0-FEW) Urine Hyaline Casts Few /HPF Urine Random Creatinine 38.5 mg/dL (Not Estab.) Urine Random Sodium 44 mmol/L (Not Estab.) Glucose (Fingerstick) 364 mg/dL (70-99) 270 mg/dL (70-99) Lactic Acid Level 3.2 mmol/L (0.4-2.0) Test 05/07/17 00:01 05/07/17 04:10 05/07/17 05:43 Glucose (Fingerstick) 281 mg/dL (70-99) 299 mg/dL (70-99) White Blood Count 17.0 x10^3/uL (4.0-11.0) Red Blood Count 3.70 x10^6/uL (3.50-5.40) Hemoglobin 8.8 g/dL (12.0-15.5) Hematocrit 27.4 % (36.0-47.0) Mean Corpuscular Volume 74 fL (79-100) Mean Corpuscular Hemoglobin 24 pg (25-35) Mean Corpuscular Hemoglobin Concent 32 g/dL (31-37) Red Cell Distribution Width 18.2 % (11.5-14.5) Platelet Count 203 x10^3/uL (140-400) Neutrophils (%) (Auto) 86 % (31-73) Lymphocytes (%) (Auto) 3 % (24-48) Monocytes (%) (Auto) 11 % (0-9) Eosinophils (%) (Auto) 0 % (0-3) Basophils (%) (Auto) 0 % (0-3) Neutrophils # (Auto) 14.6 x10^3uL (1.8-7.7) Lymphocytes # (Auto) 0.6 x10^3/uL (1.0-4.8) Monocytes # (Auto) 1.8 x10^3/uL (0.0-1.1) Eosinophils # (Auto) 0.0 x10^3/uL (0.0-0.7) Basophils # (Auto) 0.0 x10^3/uL (0.0-0.2) Sodium Level 120 mmol/L (136-145) Potassium Level 4.6 mmol/L (3.5-5.1) Chloride Level 86 mmol/L (98-107) Carbon Dioxide Level 25 mmol/L (21-32) Anion Gap 9 (6-14) Blood Urea Nitrogen 16 mg/dL (7-20) Creatinine 1.4 mg/dL (0.6-1.0) Estimated GFR (Cockcroft-Gault) 37.2 BUN/Creatinine Ratio 11 (6-20) Glucose Level 282 mg/dL (70-99) Calcium Level 7.9 mg/dL (8.5-10.1) Total Bilirubin 0.6 mg/dL (0.2-1.0) Aspartate Amino Transf (AST/SGOT) 25 U/L (15-37) Alanine Aminotransferase (ALT/SGPT) 57 U/L (14-59) Alkaline Phosphatase 84 U/L (46-116) Total Protein 6.0 g/dL (6.4-8.2) Albumin 2.7 g/dL (3.4-5.0) Albumin/Globulin Ratio 0.8 (1.0-1.7) Micro Cultures neg Objective Assessment Pneumonia COPD exacerbation Hyponatremia Respiratory failure DM Leukocytosis Plan Plan of Care cont thad avila zosyn supportive care OLY VALENCIA MD May 07, 2017 08:22
[2017-05-07 08:31] LABS: FIO2 ABG 60
[2017-05-07] MEDS: VANCOMYCIN PER PHARMACY MC PRN (08:46)
--- NOTE | 2017-05-07 09:44 | RAD ---
Indication respiratory failure. A single view of the chest was obtained and is compared to a study one day earlier. Some volume loss compatible with atelectasis or pneumonia in the right lower lobe persists but aeration of the right lung base has improved. Right pleural effusion is noted. In contrast there is now new volume loss in the left lower lobe. Findings at the left lung base may reflect atelectasis or pneumonia. Left pleural effusion is similar to slightly larger. Endotracheal tube is appropriately positioned above the [place]. Nasogastric tube has its tip beyond the mid body of the stomach. The heart and pulmonary vessels are similar. IMPRESSION: Bilateral pleural effusions. Left pleural effusion is probably slightly larger. Aeration of the right lung base has improved slightly but aeration of the left lung base has worsened somewhat
[2017-05-07] MEDS: BUMETANIDE 1 MG/4 ML VIAL. IV SCH ×2 (09:48→16:17)
[2017-05-07] MEDS: ENOXAPARIN 40 MG/0.4 ML SYRINGE. SQ SCH (09:48)
[2017-05-07] MEDS ORDERED: VANCOMYCIN 1.25 GM in IV NORMAL SALINE 250ML 250 ML IV SCH (10:00)
--- NOTE | 2017-05-07 10:34 | PDOC ---
PROGRESS NOTES Subjective Subjective on vent,family at bedside Objective Objective Vital Signs Date Time Temp Pulse Resp B/P (MAP) Pulse Ox O2 Delivery O2 Flow Rate FiO2 05/07/17 09:48 22 97 BiPAP/CPAP 05/07/17 06:00 100 169/64 (99) 05/07/17 04:35 99.3 99.3 05/06/17 12:00 4.0 Intake and Output 05/07/17 07:00 Intake Total 3478 ml Output Total 5150 ml Balance -1672 ml Intake Oral 0 ml IV Total 2863 ml Tube Feeding 575 ml Other 40 ml Output Urine Total 5150 ml Gastric Drainage Total 0 ml Physical Exam Abdomen: Normal bowel sounds, Soft Heart: Regular rate, Normal S1, Normal S2 Extremities: No clubbing, No cyanosis Lungs: Clear to auscultation, Normal air movement MUSCULOSKELETAL: Other (SEDATED) Skin: No rashes, No breakdown COMMENT sullivan Diagnosis Problem List Problems Medical Problems: (1) Respiratory failure Status: Acute Assessment Assessment Problems Medical Problems: (1) Respiratory failure Status: Acute Assessment Acute respiratory failure needing intubation pneumonia suspect gram neg+gram positive sepsis acute lactic acidosis acute on chronic chf -diastolic hyponatremia ac kidney failure?ATN ch copd ex smoker h/o pancreatitis Plan Plan Intubated yesterday Failed BIPAP Na 120 improving slightly with albumin casillas cultures,so far neg broad spectrum antibiotics vanco+zosyn pul consult appreciated echo -good LVF cardiology consult appreciated ID ,spoke with dr Slaughter. spoke with son+ critical condition. DVT prevention on Lovenox prognosis guarded. Renal consult appreciated For more details regarding further plans, please refer to the orders. Problems: Plan Plan of Care Problems Medical Problems: (1) Respiratory failure Status: Acute Comment Review of Relevant I have reviewed the following items ktay (where applicable) has been applied. Labs Laboratory Tests Test 05/06/17 10:45 05/06/17 11:25 05/06/17 11:40 05/06/17 12:08 Serum Osmolality 265 mOsm/Kg (279-304) Uric Acid 5.2 mg/dL (2.6-6.0) Troponin I Quantitative 0.042 ng/mL (0.000-0.055) Lactic Acid Level 2.6 mmol/L (0.4-2.0) O2 Saturation 92 % (92-99) Arterial Blood pH 7.34 (7.35-7.45) Arterial Blood pCO2 at Patient Temp 38 mmHg (35-46) Arterial Blood pO2 at Patient Temp 67 mmHg (65-108) Arterial Blood HCO3 20 mmol/L (21-28) Arterial Blood Base Excess -5 mmol/L (-3-3) FiO2 55 Glucose (Fingerstick) 341 mg/dL (70-99) Test 05/06/17 16:30 05/06/17 17:39 05/06/17 21:36 05/06/17 23:35 Urine Collection Type Unknown Urine Color Yellow Urine Clarity Clear Urine pH 5.0 Urine Specific [place] 1.010 Urine Protein 100 mg/dL (NEG-TRACE) Urine Glucose (UA) 500 mg/dL (NEG) Urine Ketones (Stick) Negative mg/dL (NEG) Urine Blood Large (NEG) Urine Nitrite Negative (NEG) Urine Bilirubin Negative (NEG) Urine Urobilinogen Dipstick 0.2 mg/dL (0.2 mg/dL) Urine Leukocyte Esterase Trace (NEG) Urine RBC 11-20 /HPF (0-2) Urine WBC 1-4 /HPF (0-4) Urine Squamous Epithelial Cells Occ /LPF Urine Bacteria Few /HPF (0-FEW) Urine Hyaline Casts Few /HPF Urine Random Creatinine 38.5 mg/dL (Not Estab.) Urine Random Sodium 44 mmol/L (Not Estab.) Glucose (Fingerstick) 364 mg/dL (70-99) 270 mg/dL (70-99) Lactic Acid Level 3.2 mmol/L (0.4-2.0) Test 05/07/17 00:01 05/07/17 04:10 05/07/17 05:43 05/07/17 07:45 Glucose (Fingerstick) 281 mg/dL (70-99) 299 mg/dL (70-99) White Blood Count 17.0 x10^3/uL (4.0-11.0) Red Blood Count 3.70 x10^6/uL (3.50-5.40) Hemoglobin 8.8 g/dL (12.0-15.5) Hematocrit 27.4 % (36.0-47.0) Mean Corpuscular Volume 74 fL (79-100) Mean Corpuscular Hemoglobin 24 pg (25-35) Mean Corpuscular Hemoglobin Concent 32 g/dL (31-37) Red Cell Distribution Width 18.2 % (11.5-14.5) Platelet Count 203 x10^3/uL (140-400) Neutrophils (%) (Auto) 86 % (31-73) Lymphocytes (%) (Auto) 3 % (24-48) Monocytes (%) (Auto) 11 % (0-9) Eosinophils (%) (Auto) 0 % (0-3) Basophils (%) (Auto) 0 % (0-3) Neutrophils # (Auto) 14.6 x10^3uL (1.8-7.7) Lymphocytes # (Auto) 0.6 x10^3/uL (1.0-4.8) Monocytes # (Auto) 1.8 x10^3/uL (0.0-1.1) Eosinophils # (Auto) 0.0 x10^3/uL (0.0-0.7) Basophils # (Auto) 0.0 x10^3/uL (0.0-0.2) Sodium Level 120 mmol/L (136-145) Potassium Level 4.6 mmol/L (3.5-5.1) Chloride Level 86 mmol/L (98-107) Carbon Dioxide Level 25 mmol/L (21-32) Anion Gap 9 (6-14) Blood Urea Nitrogen 16 mg/dL (7-20) Creatinine 1.4 mg/dL (0.6-1.0) Estimated GFR (Cockcroft-Gault) 37.2 BUN/Creatinine Ratio 11 (6-20) Glucose Level 282 mg/dL (70-99) Calcium Level 7.9 mg/dL (8.5-10.1) Total Bilirubin 0.6 mg/dL (0.2-1.0) Aspartate Amino Transf (AST/SGOT) 25 U/L (15-37) Alanine Aminotransferase (ALT/SGPT) 57 U/L (14-59) Alkaline Phosphatase 84 U/L (46-116) Total Protein 6.0 g/dL (6.4-8.2) Albumin 2.7 g/dL (3.4-5.0) Albumin/Globulin Ratio 0.8 (1.0-1.7) Lactic Acid Level 2.8 mmol/L (0.4-2.0) Test 05/07/17 08:00 O2 Saturation 98 % (92-99) Arterial Blood pH 7.41 (7.35-7.45) Arterial Blood pCO2 at Patient Temp 40 mmHg (35-46) Arterial Blood pO2 at Patient Temp 98 mmHg (65-108) Arterial Blood HCO3 25 mmol/L (21-28) Arterial Blood Base Excess 0 mmol/L (-3-3) FiO2 60 Microbiology 05/05/17 Blood Culture - Preliminary, Resulted NO GROWTH AFTER 1 DAY Medications Current Medications Acetaminophen (Tylenol) 650 mg PRN Q6HRS PRN NG MILD PAIN / TEMP Last administered on 05/07/17 02:21; Start 05/07/17 at 00:45 Albumin Human 50 ml @ 50 mls/hr 1X ONCE IV Last administered on 05/06/17 15:30 ; Start 05/06/17 at 15:30; Stop 05/06/17 at 16:29; Status DC Fentanyl Citrate (Fentanyl 2ml Vial) 25 mcg Q3HRS PRN IV MILD PAIN Last administered on 05/07/17 09:48; Start 05/06/17 at 18:00 Insulin Aspart (NovoLOG) BIDBFRMEAL SQ ; Start 05/07/17 at 07:30; Status UNV Insulin Aspart (NovoLOG) 0-9 UNITS Q6HRS SQ Last administered on 05/07/17 05:53 ; Start 05/07/17 at 00:00 Insulin Aspart (NovoLOG) 0-9 UNITS TIDWMEALS SQ Last administered on 05/06/17 18:09; Start 05/06/17 at 12:00; Stop 05/06/17 at 23:03; Status DC Insulin Detemir (Levemir) 15 units QHS SQ Last administered on 05/06/17 21:38; Start 05/06/17 at 21:00 Isoproterenol HCl 1 mg/Dextrose 255 ml @ 0 mls/hr CONT PRN IV SEE I/O RECORD Last administered on 05/07/17 00:09; Start 05/06/17 at 13:00 Midazolam HCl 100 ml @ 0 mls/hr CONT PRN IV SEE I/O RECORD Last administered on 05/07/17 04:31; Start 05/06/17 at 11:00 Piperacillin Sod/ Tazobactam Sod 3.375 gm/Sodium Chloride 50 ml @ 100 mls/hr Q6HRS IV Last administered on 05/07/17 05:51; Start 05/06/17 at 10:30 Vancomycin HCl 1 each 1X ONCE MC ; Start 05/08/17 at 09:30; Stop 05/08/17 at 09: 31 Vancomycin HCl 1.25 gm/Sodium Chloride 250 ml @ 167 mls/hr Q24H IV Last administered on 05/07/17 10:01; Start 05/07/17 at 10:00 Vancomycin HCl 500 mg/Sodium Chloride 100 ml @ 100 mls/hr 1X ONCE IV Last administered on 05/06/17 16:52; Start 05/06/17 at 12:00; Stop 05/06/17 at 12:59; Status DC Vitals/I & O Vital Sign - Last 24 Hours 05/06/17 05/06/17 05/06/17 05/06/17 11:00 11:36 12:00 12:00 Temp 97.8 97.8 Pulse 58 52 Resp 30 22 B/P (MAP) 161/49 (86) 144/41 (75) Pulse Ox 94 94 95 O2 Delivery Ventilator Ventilator Ventilator O2 Flow Rate 4.0 05/06/17 05/06/17 05/06/17 05/06/17 12:00 13:00 13:03 13:26 Pulse 48 Resp 20 B/P (MAP) 160/42 (81) Pulse Ox 95 94 O2 Delivery Mechanical Ventilator Ventilator Ventilator Ventilator 05/06/17 05/06/17 05/06/17 05/06/17 14:00 15:00 15:26 16:00 Temp 99.8 99.8 Pulse 68 70 88 Resp 22 22 22 B/P (MAP) 130/36 (67) 141/45 (77) 165/58 (93) Pulse Ox 95 97 96 97 O2 Delivery Ventilator Ventilator Ventilator Ventilator 05/06/17 05/06/17 05/06/17 05/06/17 16:00 17:00 17:01 18:00 Pulse 85 87 Resp 22 B/P (MAP) 169/52 (91) 164/52 (89) Pulse Ox 97 99 98 O2 Delivery Mechanical Ventilator Ventilator Ventilator Ventilator 05/06/17 05/06/17 05/06/17 05/06/17 19:00 19:20 20:00 20:30 Temp 100.2 100.2 Pulse 89 88 Resp B/P (MAP) 162/51 (88) 165/54 (91) Pulse Ox 99 99 99 O2 Delivery Ventilator Ventilator Ventilator Mechanical Ventilator 05/06/17 05/06/17 05/06/17 05/06/17 20:56 21:00 21:30 22:00 Pulse 98 94 Resp B/P (MAP) 120/58 (78) 143/48 (79) Pulse Ox 100 99 99 99 O2 Delivery Ventilator Ventilator Ventilator Ventilator 05/06/17 05/06/17 05/07/17 05/07/17 23:00 23:08 00:00 00:00 Temp 100.6 100.6 Pulse 100 108 Resp B/P (MAP) 162/53 (89) 146/51 (82) Pulse Ox 99 99 99 O2 Delivery Ventilator Ventilator Mechanical Ventilator Ventilator 05/07/17 05/07/17 05/07/17 05/07/17 00:30 01:00 01:05 01:10 Pulse 102 Resp B/P (MAP) 151/49 (83) Pulse Ox 98 100 100 100 O2 Delivery Ventilator Ventilator Ventilator Ventilator 05/07/17 05/07/17 05/07/17 05/07/17 02:00 03:00 03:15 04:00 Temp 101.5 101.5 Pulse 102 98 Resp B/P (MAP) 154/50 (84) 135/48 (77) Pulse Ox 100 100 100 O2 Delivery Ventilator Ventilator Ventilator Mechanical Ventilator 05/07/17 05/07/17 05/07/17 05/07/17 04:35 05:00 05:00 06:00 Temp 99.3 99.3 Pulse 96 100 Resp B/P (MAP) 138/50 (79) 169/64 (99) Pulse Ox 100 95 95 O2 Delivery Ventilator Ventilator Ventilator 05/07/17 05/07/17 05/07/17 07:28 09:06 09:48 Resp 22 Pulse Ox 98 97 97 O2 Delivery Ventilator Ventilator BiPAP/CPAP Intake and Output 05/06/17 05/06/17 05/07/17 15:00 23:00 07:00 Intake Total 20 ml 1825 ml 1633 ml Output Total 1055 ml 1755 ml 2340 ml Balance -1035 ml 70 ml -707 ml ILA CAVAZOS MD May 07, 2017 10:33
--- NOTE | 2017-05-07 12:21 | PDOC ---
PROGRESS NOTES Subjective Subjective A hercules intubated and lightly sedated, she is responsive. Patient in sinus rhythm with a rate in the 80s Objective Objective Vital Signs Date Time Temp Pulse Resp B/P (MAP) Pulse Ox O2 Delivery O2 Flow Rate FiO2 05/07/17 11:13 98 Ventilator 05/07/17 11:00 105 22 108/52 (70) 05/07/17 08:00 100.0 100.0 05/06/17 12:00 4.0 Intake and Output 05/07/17 07:00 Intake Total 3478 ml Output Total 5150 ml Balance -1672 ml Intake Oral 0 ml IV Total 2863 ml Tube Feeding 575 ml Other 40 ml Output Urine Total 5150 ml Gastric Drainage Total 0 ml Physical Exam Physical Exam Moving air better, some coarse breath sounds no Rales. Heart no changes Assessment Assessment The patient's metabolic picture appears to be doing better. The rhythm is stable therefore we will wean off the Isuprel and see how she does Comment Review of Relevant I have reviewed the following items katy (where applicable) has been applied. Labs Laboratory Tests Test 05/05/17 22:30 05/05/17 22:35 05/05/17 22:40 05/06/17 05:45 White Blood Count 14.1 x10^3/uL (4.0-11.0) 25.2 x10^3/uL (4.0-11.0) Red Blood Count 4.42 x10^6/uL (3.50-5.40) 4.71 x10^6/uL (3.50-5.40) Hemoglobin 10.7 g/dL (12.0-15.5) 11.3 g/dL (12.0-15.5) Hematocrit 32.5 % (36.0-47.0) 35.3 % (36.0-47.0) Mean Corpuscular Volume 74 fL (79-100) 75 fL (79-100) Mean Corpuscular Hemoglobin 24 pg (25-35) 24 pg (25-35) Mean Corpuscular Hemoglobin Concent 33 g/dL (31-37) 32 g/dL (31-37) Red Cell Distribution Width 18.3 % (11.5-14.5) 17.8 % (11.5-14.5) Platelet Count 321 x10^3/uL (140-400) 371 x10^3/uL (140-400) Neutrophils (%) (Auto) 80 % (31-73) 83 % (31-73) Lymphocytes (%) (Auto) 9 % (24-48) 6 % (24-48) Monocytes (%) (Auto) 10 % (0-9) 11 % (0-9) Eosinophils (%) (Auto) 1 % (0-3) 0 % (0-3) Basophils (%) (Auto) 1 % (0-3) 0 % (0-3) Neutrophils # (Auto) 11.3 x10^3uL (1.8-7.7) 20.9 x10^3uL (1.8-7.7) Lymphocytes # (Auto) 1.2 x10^3/uL (1.0-4.8) 1.5 x10^3/uL (1.0-4.8) Monocytes # (Auto) 1.4 x10^3/uL (0.0-1.1) 2.7 x10^3/uL (0.0-1.1) Eosinophils # (Auto) 0.1 x10^3/uL (0.0-0.7) 0.0 x10^3/uL (0.0-0.7) Basophils # (Auto) 0.1 x10^3/uL (0.0-0.2) 0.1 x10^3/uL (0.0-0.2) Prothrombin Time 12.6 SEC (11.7-14.0) Prothromb Time International Ratio 1.0 (0.8-1.1) Sodium Level 118 mmol/L (136-145) 119 mmol/L (136-145) Potassium Level 5.2 mmol/L (3.5-5.1) 5.3 mmol/L (3.5-5.1) Chloride Level 85 mmol/L (98-107) 86 mmol/L (98-107) Carbon Dioxide Level 23 mmol/L (21-32) 24 mmol/L (21-32) Anion Gap 10 (6-14) 17 mmol/L (6-14) 9 (6-14) Blood Urea Nitrogen 22 mg/dL (7-20) 24 mg/dL (7-20) Creatinine 1.2 mg/dL (0.6-1.0) 1.4 mg/dL (0.6-1.0) Estimated GFR (Cockcroft-Gault) 44.4 37.2 Glucose Level 246 mg/dL (70-99) 245 mg/dL (70-99) 259 mg/dL (70-99) Calcium Level 8.7 mg/dL (8.5-10.1) 8.5 mg/dL (8.5-10.1) Magnesium Level 1.9 mg/dL (1.8-2.4) Total Bilirubin 0.3 mg/dL (0.2-1.0) Direct Bilirubin 0.1 mg/dL (0.0-0.2) Aspartate Amino Transf (AST/SGOT) 80 U/L (15-37) Alanine Aminotransferase (ALT/SGPT) 103 U/L (14-59) Alkaline Phosphatase 125 U/L (46-116) Creatine Kinase 82 U/L (26-192) Creatine Kinase MB (Mass) 1.4 ng/mL (0.0-3.6) Creatine Kinase MB Relative Index 1.7 % (0-4) Troponin I Quantitative < 0.017 ng/mL (0.000-0.055) 0.022 ng/mL (0.000-0.055) OS-Qwy-B-Type Natriuretic Peptide 2818 pg/mL (0-124) Total Protein 7.1 g/dL (6.4-8.2) Albumin 3.3 g/dL (3.4-5.0) Lipase 369 U/L (73-393) Thyroid Stimulating Hormone (TSH) 4.293 uIU/mL (0.358-3.74) O2 Saturation 89 % (92-99) Arterial Blood pH 7.37 (7.35-7.45) Arterial Blood pCO2 at Patient Temp 34 mmHg (35-46) Arterial Blood pO2 at Patient Temp 65 mmHg (65-108) Arterial Blood HCO3 19 mmol/L (21-28) Arterial Blood Base Excess -5 mmol/L (-3-3) FiO2 32.0 Bedside Hemoglobin 12.2 g/dL (12-15) Bedside Hematocrit 36 % (36-40) Bedside Sodium 118 mmol/L (135-145) Bedside Potassium 5.1 mmol/L (3.5-5.0) Bedside Chloride 86 mmol/L (98-110) Bedside Total CO2 22 mmol/L (23-32) Bedside Blood Urea Nitrogen 22 mg/dL (8-26) Bedside Creatinine 1.0 mg/dL (0.5-1.4) Bedside Ionized Calcium (Michael) 1.12 mmol/L (1.13-1.32) Segmented Neutrophils % 87 % (35-66) Band Neutrophils % 1 % (0-9) Lymphocytes % 7 % (24-48) Monocytes % 5 % (0-10) Platelet Estimate Adequate (ADEQUATE) Anisocytosis Slight Test 05/06/17 08:00 05/06/17 10:45 05/06/17 11:25 05/06/17 11:40 O2 Saturation 91 % (92-99) 92 % (92-99) Arterial Blood pH 7.18 (7.35-7.45) 7.34 (7.35-7.45) Arterial Blood pCO2 at Patient Temp 66 mmHg (35-46) 38 mmHg (35-46) Arterial Blood pO2 at Patient Temp 77 mmHg (65-108) 67 mmHg (65-108) Arterial Blood HCO3 24 mmol/L (21-28) 20 mmol/L (21-28) Arterial Blood Base Excess -5 mmol/L (-3-3) -5 mmol/L (-3-3) FiO2 65 55 Serum Osmolality 265 mOsm/Kg (279-304) Uric Acid 5.2 mg/dL (2.6-6.0) Troponin I Quantitative 0.042 ng/mL (0.000-0.055) Lactic Acid Level 2.6 mmol/L (0.4-2.0) Test 05/06/17 12:08 05/06/17 16:30 05/06/17 17:39 05/06/17 21:36 Glucose (Fingerstick) 341 mg/dL (70-99) 364 mg/dL (70-99) 270 mg/dL (70-99) Urine Collection Type Unknown Urine Color Yellow Urine Clarity Clear Urine pH 5.0 Urine Specific [place] 1.010 Urine Protein 100 mg/dL (NEG-TRACE) Urine Glucose (UA) 500 mg/dL (NEG) Urine Ketones (Stick) Negative mg/dL (NEG) Urine Blood Large (NEG) Urine Nitrite Negative (NEG) Urine Bilirubin Negative (NEG) Urine Urobilinogen Dipstick 0.2 mg/dL (0.2 mg/dL) Urine Leukocyte Esterase Trace (NEG) Urine RBC 11-20 /HPF (0-2) Urine WBC 1-4 /HPF (0-4) Urine Squamous Epithelial Cells Occ /LPF Urine Bacteria Few /HPF (0-FEW) Urine Hyaline Casts Few /HPF Urine Random Creatinine 38.5 mg/dL (Not Estab.) Urine Random Sodium 44 mmol/L (Not Estab.) Test 05/06/17 23:35 05/07/17 00:01 05/07/17 04:10 05/07/17 05:43 Lactic Acid Level 3.2 mmol/L (0.4-2.0) Glucose (Fingerstick) 281 mg/dL (70-99) 299 mg/dL (70-99) White Blood Count 17.0 x10^3/uL (4.0-11.0) Red Blood Count 3.70 x10^6/uL (3.50-5.40) Hemoglobin 8.8 g/dL (12.0-15.5) Hematocrit 27.4 % (36.0-47.0) Mean Corpuscular Volume 74 fL (79-100) Mean Corpuscular Hemoglobin 24 pg (25-35) Mean Corpuscular Hemoglobin Concent 32 g/dL (31-37) Red Cell Distribution Width 18.2 % (11.5-14.5) Platelet Count 203 x10^3/uL (140-400) Neutrophils (%) (Auto) 86 % (31-73) Lymphocytes (%) (Auto) 3 % (24-48) Monocytes (%) (Auto) 11 % (0-9) Eosinophils (%) (Auto) 0 % (0-3) Basophils (%) (Auto) 0 % (0-3) Neutrophils # (Auto) 14.6 x10^3uL (1.8-7.7) Lymphocytes # (Auto) 0.6 x10^3/uL (1.0-4.8) Monocytes # (Auto) 1.8 x10^3/uL (0.0-1.1) Eosinophils # (Auto) 0.0 x10^3/uL (0.0-0.7) Basophils # (Auto) 0.0 x10^3/uL (0.0-0.2) Sodium Level 120 mmol/L (136-145) Potassium Level 4.6 mmol/L (3.5-5.1) Chloride Level 86 mmol/L (98-107) Carbon Dioxide Level 25 mmol/L (21-32) Anion Gap 9 (6-14) Blood Urea Nitrogen 16 mg/dL (7-20) Creatinine 1.4 mg/dL (0.6-1.0) Estimated GFR (Cockcroft-Gault) 37.2 BUN/Creatinine Ratio 11 (6-20) Glucose Level 282 mg/dL (70-99) Calcium Level 7.9 mg/dL (8.5-10.1) Total Bilirubin 0.6 mg/dL (0.2-1.0) Aspartate Amino Transf (AST/SGOT) 25 U/L (15-37) Alanine Aminotransferase (ALT/SGPT) 57 U/L (14-59) Alkaline Phosphatase 84 U/L (46-116) Total Protein 6.0 g/dL (6.4-8.2) Albumin 2.7 g/dL (3.4-5.0) Albumin/Globulin Ratio 0.8 (1.0-1.7) Test 05/07/17 07:45 05/07/17 08:00 Lactic Acid Level 2.8 mmol/L (0.4-2.0) O2 Saturation 98 % (92-99) Arterial Blood pH 7.41 (7.35-7.45) Arterial Blood pCO2 at Patient Temp 40 mmHg (35-46) Arterial Blood pO2 at Patient Temp 98 mmHg (65-108) Arterial Blood HCO3 25 mmol/L (21-28) Arterial Blood Base Excess 0 mmol/L (-3-3) FiO2 60 Laboratory Tests Test 05/06/17 16:30 05/06/17 17:39 05/06/17 21:36 05/06/17 23:35 Urine Collection Type Unknown Urine Color Yellow Urine Clarity Clear Urine pH 5.0 Urine Specific [place] 1.010 Urine Protein 100 mg/dL (NEG-TRACE) Urine Glucose (UA) 500 mg/dL (NEG) Urine Ketones (Stick) Negative mg/dL (NEG) Urine Blood Large (NEG) Urine Nitrite Negative (NEG) Urine Bilirubin Negative (NEG) Urine Urobilinogen Dipstick 0.2 mg/dL (0.2 mg/dL) Urine Leukocyte Esterase Trace (NEG) Urine RBC 11-20 /HPF (0-2) Urine WBC 1-4 /HPF (0-4) Urine Squamous Epithelial Cells Occ /LPF Urine Bacteria Few /HPF (0-FEW) Urine Hyaline Casts Few /HPF Urine Random Creatinine 38.5 mg/dL (Not Estab.) Urine Random Sodium 44 mmol/L (Not Estab.) Glucose (Fingerstick) 364 mg/dL (70-99) 270 mg/dL (70-99) Lactic Acid Level 3.2 mmol/L (0.4-2.0) Test 05/07/17 00:01 05/07/17 04:10 05/07/17 05:43 05/07/17 07:45 Glucose (Fingerstick) 281 mg/dL (70-99) 299 mg/dL (70-99) White Blood Count 17.0 x10^3/uL (4.0-11.0) Red Blood Count 3.70 x10^6/uL (3.50-5.40) Hemoglobin 8.8 g/dL (12.0-15.5) Hematocrit 27.4 % (36.0-47.0) Mean Corpuscular Volume 74 fL (79-100) Mean Corpuscular Hemoglobin 24 pg (25-35) Mean Corpuscular Hemoglobin Concent 32 g/dL (31-37) Red Cell Distribution Width 18.2 % (11.5-14.5) Platelet Count 203 x10^3/uL (140-400) Neutrophils (%) (Auto) 86 % (31-73) Lymphocytes (%) (Auto) 3 % (24-48) Monocytes (%) (Auto) 11 % (0-9) Eosinophils (%) (Auto) 0 % (0-3) Basophils (%) (Auto) 0 % (0-3) Neutrophils # (Auto) 14.6 x10^3uL (1.8-7.7) Lymphocytes # (Auto) 0.6 x10^3/uL (1.0-4.8) Monocytes # (Auto) 1.8 x10^3/uL (0.0-1.1) Eosinophils # (Auto) 0.0 x10^3/uL (0.0-0.7) Basophils # (Auto) 0.0 x10^3/uL (0.0-0.2) Sodium Level 120 mmol/L (136-145) Potassium Level 4.6 mmol/L (3.5-5.1) Chloride Level 86 mmol/L (98-107) Carbon Dioxide Level 25 mmol/L (21-32) Anion Gap 9 (6-14) Blood Urea Nitrogen 16 mg/dL (7-20) Creatinine 1.4 mg/dL (0.6-1.0) Estimated GFR (Cockcroft-Gault) 37.2 BUN/Creatinine Ratio 11 (6-20) Glucose Level 282 mg/dL (70-99) Calcium Level 7.9 mg/dL (8.5-10.1) Total Bilirubin 0.6 mg/dL (0.2-1.0) Aspartate Amino Transf (AST/SGOT) 25 U/L (15-37) Alanine Aminotransferase (ALT/SGPT) 57 U/L (14-59) Alkaline Phosphatase 84 U/L (46-116) Total Protein 6.0 g/dL (6.4-8.2) Albumin 2.7 g/dL (3.4-5.0) Albumin/Globulin Ratio 0.8 (1.0-1.7) Lactic Acid Level 2.8 mmol/L (0.4-2.0) Test 05/07/17 08:00 O2 Saturation 98 % (92-99) Arterial Blood pH 7.41 (7.35-7.45) Arterial Blood pCO2 at Patient Temp 40 mmHg (35-46) Arterial Blood pO2 at Patient Temp 98 mmHg (65-108) Arterial Blood HCO3 25 mmol/L (21-28) Arterial Blood Base Excess 0 mmol/L (-3-3) FiO2 60 Microbiology 05/06/17 Blood Culture - Preliminary, Resulted NO GROWTH AFTER 1 DAY Medications Current Medications Dopamine HCl/ Dextrose 250 ml @ 16.856 mls/ hr 1X ONCE IV Last administered on 05/05/17 22:54; Start 05/05/17 at 23:00; Stop 05/06/17 at 13:49; Status DC Torsemide (Demadex) 20 mg 1X ONCE PO Last administered on 05/06/17 00:44; Start 05/05/17 at 23:45; Stop 05/05/17 at 23:46; Status DC Bumetanide (Bumex) 1 mg BID92 IV Last administered on 05/07/17 09:48; Start 05/06/17 at 09:00 Ondansetron HCl (Zofran) 4 mg 1X ONCE IV Last administered on 05/06/17 00:09; Start 05/05/17 at 23:45; Stop 05/05/17 at 23:46; Status DC Ondansetron HCl (Zofran) 4 mg PRN Q8HRS PRN IV NAUSEA/VOMITING; Start 05/05/17 at 23:45; Stop 05/06/17 at 23:44; Status DC Acetaminophen/ Hydrocodone Bitart (Lortab 5/325) 1 tab PRN Q6HRS PRN PO PAIN Last administered on 05/06/17 05:21; Start 05/06/17 at 05:00 Acetaminophen/ Hydrocodone Bitart (Lortab 5/325) 2 tab PRN Q6HRS PRN PO PAIN; Start 05/06/17 at 05:00 Dopamine HCl/ Dextrose 250 ml @ 16.627 mls/ hr CONT PRN IV SEE I/O RECORD Last administered on 05/06/17 12:28; Start 05/06/17 at 06:00 Vancomycin HCl 1.5 gm/Sodium Chloride 500 ml @ 250 mls/hr 1X ONCE IV Last administered on 05/06/17 10:34; Start 05/06/17 at 09:00; Stop 05/06/17 at 10:59; Status DC Levofloxacin/ Dextrose 100 ml @ 100 mls/hr Q24H IV Last administered on 12:28; Start 05/06/17 at 10:00 Insulin Aspart (NovoLOG) 0-9 UNITS TIDWMEALS SQ Last administered on 05/06/17 18:09; Start 05/06/17 at 12:00; Stop 05/06/17 at 23:03; Status DC Dextrose (Dextrose 50%-Water Syringe) 12.5 gm PRN Q15MIN PRN IV SEE COMMENTS; Start 05/06/17 at 08:45 Enoxaparin Sodium (Lovenox 40mg Syringe) 40 mg Q24H SQ Last administered on 05/07 09:48; Start 05/06/17 at 09:00 Piperacillin Sod/ Tazobactam Sod 3.375 gm/Sodium Chloride 50 ml @ 100 mls/hr Q6HRS IV Last administered on 05/07/17 05:51; Start 05/06/17 at 10:30 Vancomycin HCl (Vanco Per Pharmacy) 1 each PRN DAILY PRN MC SEE COMMENTS Last administered on 05/07/17 08:46; Start 05/06/17 at 10:00 Succinylcholine Chloride (Anectine) 200 mg STK-MED ONCE .ROUTE ; Start 05/06/17 at 10:13; Stop 05/06/17 at 10:14; Status DC Propofol 20 ml @ As Directed STK-MED ONCE IV ; Start 05/06/17 at 10:13; Stop 05/06 at 10:14; Status DC Lidocaine HCl (Lidocaine Pf 2% Vial) 5 ml STK-MED ONCE .ROUTE ; Start 05/06/17 at 10:13; Stop 05/06/17 at 10:14; Status DC Propofol 0 ml @ As Directed STK-MED ONCE IV ; Start 05/06/17 at 10:14; Stop at 10:15; Status DC Midazolam HCl 100 ml @ As Directed STK-MED ONCE IV ; Start 05/06/17 at 10:14; Stop 05/06/17 at 10:15; Status DC Midazolam HCl 100 ml @ 0 mls/hr CONT PRN IV SEE I/O RECORD Last administered on 05/07/17 04:31; Start 05/06/17 at 11:00 Vancomycin HCl 500 mg/Sodium Chloride 100 ml @ 100 mls/hr 1X ONCE IV Last administered on 05/06/17 16:52; Start 05/06/17 at 12:00; Stop 05/06/17 at 12:59; Status DC Vancomycin HCl 1.25 gm/Sodium Chloride 250 ml @ 167 mls/hr Q24H IV Last administered on 05/07/17 10:01; Start 05/07/17 at 10:00 Vancomycin HCl 1 each 1X ONCE MC ; Start 05/08/17 at 09:30; Stop 05/08/17 at 09: 31 Isoproterenol HCl 1 mg/Dextrose 255 ml @ 0 mls/hr CONT PRN IV SEE I/O RECORD Last administered on 05/07/17 00:09; Start 05/06/17 at 13:00 Albumin Human 50 ml @ 50 mls/hr 1X ONCE IV Last administered on 05/06/17 15:30 ; Start 05/06/17 at 15:30; Stop 05/06/17 at 16:29; Status DC Insulin Aspart (NovoLOG) BIDBFRMEAL SQ ; Start 05/07/17 at 07:30; Status UNV Insulin Detemir (Levemir) 15 units QHS SQ Last administered on 05/06/17 21:38; Start 05/06/17 at 21:00 Fentanyl Citrate (Fentanyl 2ml Vial) 25 mcg Q3HRS PRN IV MILD PAIN Last administered on 05/07/17 09:48; Start 05/06/17 at 18:00 Insulin Aspart (NovoLOG) 0-9 UNITS Q6HRS SQ Last administered on 05/07/17 05:53 ; Start 05/07/17 at 00:00 Acetaminophen (Tylenol) 650 mg PRN Q6HRS PRN NG MILD PAIN / TEMP Last administered on 05/07/17 02:21; Start 05/07/17 at 00:45 Active Scripts Active Glucophage Xr (Metformin Hcl) 500 Mg Tab.er.24h 1,000 Mg PO BID [place] 5-325 Tablet (Acetaminophen/Hydrocodone Bitart) 1 Each Tablet 1 Tab PO PRN Q6HRS PRN Reported Novolog Flexpen (Insulin Aspart) 100 Unit/1 Ml Insuln.pen 12 Unit SQ TIDWMEALS Losartan Potassium 100 Mg Tablet 100 Mg PO NOON Torsemide 10 Mg Tablet 10 Mg PO DAILY Sucralfate 1 Gm Tablet 1 Tab PO QID Omeprazole 20 Mg Capsule.dr 1 Cap PO BID Acetaminophen 325 Mg Tablet 650 Mg PO PRN BID PRN Levothyroxine Sodium 112 Mcg Tablet 1 Tab PO DAILY Atenolol 25 Mg Tablet 1 Tab PO BID Amlodipine Besylate 10 Mg Tablet 10 Mg PO DAILY Amitriptyline Hcl 25 Mg Tablet 1 Tab PO QHS Metoclopramide Hcl 5 Mg Tablet 5 Mg PO QIDACHS Alprazolam 0.5 Mg Tablet 1 Tab PO HS Alprazolam 0.5 Mg Tablet 2 Tab PO BIDWBKFT/HOLLIS Aspirin 81 Mg Tab.chew 1 Tab PO DAILY Vitals/I & O Vital Sign - Last 24 Hours 05/06/17 05/06/17 05/06/17 05/06/17 13:00 13:03 13:26 14:00 Pulse 48 68 Resp 20 22 B/P (MAP) 160/42 (81) 130/36 (67) Pulse Ox 95 94 95 O2 Delivery Ventilator Ventilator Ventilator Ventilator 05/06/17 05/06/17 05/06/17 05/06/17 15:00 15:26 16:00 16:00 Temp 99.8 99.8 Pulse 70 88 Resp 22 22 B/P (MAP) 141/45 (77) 165/58 (93) Pulse Ox 97 96 97 O2 Delivery Ventilator Ventilator Ventilator Mechanical Ventilator 05/06/17 05/06/17 05/06/17 05/06/17 17:00 17:01 18:00 19:00 Pulse 85 87 89 Resp 22 22 22 B/P (MAP) 169/52 (91) 164/52 (89) 162/51 (88) Pulse Ox 97 99 98 99 O2 Delivery Ventilator Ventilator Ventilator Ventilator 05/06/17 05/06/17 05/06/17 05/06/17 19:20 20:00 20:30 20:56 Temp 100.2 100.2 Pulse 88 Resp 22 B/P (MAP) 165/54 (91) Pulse Ox 99 99 100 O2 Delivery Ventilator Ventilator Mechanical Ventilator Ventilator 05/06/17 05/06/17 05/06/17 05/06/17 21:00 21:30 22:00 23:00 Pulse 98 94 100 Resp 22 30 22 22 B/P (MAP) 120/58 (78) 143/48 (79) 162/53 (89) Pulse Ox 99 99 99 99 O2 Delivery Ventilator Ventilator Ventilator Ventilator 05/06/17 05/07/17 05/07/17 05/07/17 23:08 00:00 00:00 00:30 Temp 100.6 100.6 Pulse 108 Resp 22 22 B/P (MAP) 146/51 (82) Pulse Ox 99 99 98 O2 Delivery Ventilator Mechanical Ventilator Ventilator Ventilator 05/07/17 05/07/17 05/07/17 05/07/17 01:00 01:05 01:10 02:00 Pulse 102 102 Resp 22 22 22 B/P (MAP) 151/49 (83) 154/50 (84) Pulse Ox 100 100 100 100 O2 Delivery Ventilator Ventilator Ventilator Ventilator 05/07/17 05/07/17 05/07/17 05/07/17 03:00 03:15 04:00 04:35 Temp 101.5 99.3 101.5 99.3 Pulse 98 Resp 22 B/P (MAP) 135/48 (77) Pulse Ox 100 100 O2 Delivery Ventilator Ventilator Mechanical Ventilator 05/07/17 05/07/17 05/07/17 05/07/17 05:00 05:00 06:00 07:00 Pulse 96 100 105 Resp 21 22 22 B/P (MAP) 138/50 (79) 169/64 (99) 133/51 (78) Pulse Ox 100 95 95 98 O2 Delivery Ventilator Ventilator Ventilator Ventilator 05/07/17 05/07/17 05/07/17 05/07/17 07:28 08:00 08:00 09:00 Temp 100.0 100.0 Pulse 102 102 Resp 22 20 B/P (MAP) 157/49 (85) 131/51 (77) Pulse Ox 98 97 97 O2 Delivery Ventilator Ventilator Mechanical Ventilator Ventilator 05/07/17 05/07/17 05/07/17 05/07/17 09:06 09:48 10:00 11:00 Pulse 102 105 Resp 22 22 22 B/P (MAP) 152/49 (83) 108/52 (70) Pulse Ox 97 97 98 97 O2 Delivery Ventilator BiPAP/CPAP Ventilator Ventilator 05/07/17 11:13 Pulse Ox 98 O2 Delivery Ventilator Intake and Output 05/06/17 05/06/17 05/07/17 15:00 23:00 07:00 Intake Total 20 ml 1825 ml 1633 ml Output Total 1055 ml 1755 ml 2340 ml Balance -1035 ml 70 ml -707 ml EULALIA MOSELEY MD May 07, 2017 12:21
--- NOTE | 2017-05-07 14:56 | PDOC ---
Provider Note Provider Note Provider Note RENAL F/U : HAIDERI S : Intubated. O : VSS BP better/stable. Alert. Neck : Supple Lings : Decreased bases. Non labored. CVS : RRR Abd : [place]. No masses. Stable edema/trace. Neuro ; Alert. Labs reviewed. A/P : ARF/ATN HYPONATREMIA. PNEUMONIA. ACUTE RESP FAILURE. Overall improved. Na slowly rising. UOP much higher. Watch. Free water diuresis. Check Na. Supportive care. Bri Kang M.D. BRI KANG MD May 07, 2017 14:56
[2017-05-07 15:03] LABS: CREATININE 1.3 mg/dL (0.6-1.0); GFR 40.5; POTASSIUM 4.6 mmol/L (3.5-5.1)
--- NOTE | 2017-05-07 16:50 | PDOC ---
PULMONARY PROGRESS NOTES Subjective INTUBATED FOLLOW COMMANDS Vitals Vital Signs Date Time Temp Pulse Resp B/P (MAP) Pulse Ox O2 Delivery O2 Flow Rate FiO2 05/07/17 14:56 99 Ventilator 05/07/17 13:00 80 128/55 (79) 05/07/17 12:00 98.5 22 98.5 05/07/17 12:00 4.0 Lungs: Crackles Cardiovascular: S1, S2 Abdomen: Soft Skin: Warm Labs Laboratory Tests Test 05/05/17 22:30 05/05/17 22:35 05/05/17 22:40 05/06/17 05:45 White Blood Count 14.1 x10^3/uL (4.0-11.0) 25.2 x10^3/uL (4.0-11.0) Red Blood Count 4.42 x10^6/uL (3.50-5.40) 4.71 x10^6/uL (3.50-5.40) Hemoglobin 10.7 g/dL (12.0-15.5) 11.3 g/dL (12.0-15.5) Hematocrit 32.5 % (36.0-47.0) 35.3 % (36.0-47.0) Mean Corpuscular Volume 74 fL (79-100) 75 fL (79-100) Mean Corpuscular Hemoglobin 24 pg (25-35) 24 pg (25-35) Mean Corpuscular Hemoglobin Concent 33 g/dL (31-37) 32 g/dL (31-37) Red Cell Distribution Width 18.3 % (11.5-14.5) 17.8 % (11.5-14.5) Platelet Count 321 x10^3/uL (140-400) 371 x10^3/uL (140-400) Neutrophils (%) (Auto) 80 % (31-73) 83 % (31-73) Lymphocytes (%) (Auto) 9 % (24-48) 6 % (24-48) Monocytes (%) (Auto) 10 % (0-9) 11 % (0-9) Eosinophils (%) (Auto) 1 % (0-3) 0 % (0-3) Basophils (%) (Auto) 1 % (0-3) 0 % (0-3) Neutrophils # (Auto) 11.3 x10^3uL (1.8-7.7) 20.9 x10^3uL (1.8-7.7) Lymphocytes # (Auto) 1.2 x10^3/uL (1.0-4.8) 1.5 x10^3/uL (1.0-4.8) Monocytes # (Auto) 1.4 x10^3/uL (0.0-1.1) 2.7 x10^3/uL (0.0-1.1) Eosinophils # (Auto) 0.1 x10^3/uL (0.0-0.7) 0.0 x10^3/uL (0.0-0.7) Basophils # (Auto) 0.1 x10^3/uL (0.0-0.2) 0.1 x10^3/uL (0.0-0.2) Prothrombin Time 12.6 SEC (11.7-14.0) Prothromb Time International Ratio 1.0 (0.8-1.1) Sodium Level 118 mmol/L (136-145) 119 mmol/L (136-145) Potassium Level 5.2 mmol/L (3.5-5.1) 5.3 mmol/L (3.5-5.1) Chloride Level 85 mmol/L (98-107) 86 mmol/L (98-107) Carbon Dioxide Level 23 mmol/L (21-32) 24 mmol/L (21-32) Anion Gap 10 (6-14) 17 mmol/L (6-14) 9 (6-14) Blood Urea Nitrogen 22 mg/dL (7-20) 24 mg/dL (7-20) Creatinine 1.2 mg/dL (0.6-1.0) 1.4 mg/dL (0.6-1.0) Estimated GFR (Cockcroft-Gault) 44.4 37.2 Glucose Level 246 mg/dL (70-99) 245 mg/dL (70-99) 259 mg/dL (70-99) Calcium Level 8.7 mg/dL (8.5-10.1) 8.5 mg/dL (8.5-10.1) Magnesium Level 1.9 mg/dL (1.8-2.4) Total Bilirubin 0.3 mg/dL (0.2-1.0) Direct Bilirubin 0.1 mg/dL (0.0-0.2) Aspartate Amino Transf (AST/SGOT) 80 U/L (15-37) Alanine Aminotransferase (ALT/SGPT) 103 U/L (14-59) Alkaline Phosphatase 125 U/L (46-116) Creatine Kinase 82 U/L (26-192) Creatine Kinase MB (Mass) 1.4 ng/mL (0.0-3.6) Creatine Kinase MB Relative Index 1.7 % (0-4) Troponin I Quantitative < 0.017 ng/mL (0.000-0.055) 0.022 ng/mL (0.000-0.055) XL-Vew-R-Type Natriuretic Peptide 2818 pg/mL (0-124) Total Protein 7.1 g/dL (6.4-8.2) Albumin 3.3 g/dL (3.4-5.0) Lipase 369 U/L (73-393) Thyroid Stimulating Hormone (TSH) 4.293 uIU/mL (0.358-3.74) O2 Saturation 89 % (92-99) Arterial Blood pH 7.37 (7.35-7.45) Arterial Blood pCO2 at Patient Temp 34 mmHg (35-46) Arterial Blood pO2 at Patient Temp 65 mmHg (65-108) Arterial Blood HCO3 19 mmol/L (21-28) Arterial Blood Base Excess -5 mmol/L (-3-3) FiO2 32.0 Bedside Hemoglobin 12.2 g/dL (12-15) Bedside Hematocrit 36 % (36-40) Bedside Sodium 118 mmol/L (135-145) Bedside Potassium 5.1 mmol/L (3.5-5.0) Bedside Chloride 86 mmol/L (98-110) Bedside Total CO2 22 mmol/L (23-32) Bedside Blood Urea Nitrogen 22 mg/dL (8-26) Bedside Creatinine 1.0 mg/dL (0.5-1.4) Bedside Ionized Calcium (Michael) 1.12 mmol/L (1.13-1.32) Segmented Neutrophils % 87 % (35-66) Band Neutrophils % 1 % (0-9) Lymphocytes % 7 % (24-48) Monocytes % 5 % (0-10) Platelet Estimate Adequate (ADEQUATE) Anisocytosis Slight Test 05/06/17 08:00 05/06/17 10:45 05/06/17 11:25 05/06/17 11:40 O2 Saturation 91 % (92-99) 92 % (92-99) Arterial Blood pH 7.18 (7.35-7.45) 7.34 (7.35-7.45) Arterial Blood pCO2 at Patient Temp 66 mmHg (35-46) 38 mmHg (35-46) Arterial Blood pO2 at Patient Temp 77 mmHg (65-108) 67 mmHg (65-108) Arterial Blood HCO3 24 mmol/L (21-28) 20 mmol/L (21-28) Arterial Blood Base Excess -5 mmol/L (-3-3) -5 mmol/L (-3-3) FiO2 65 55 Serum Osmolality 265 mOsm/Kg (279-304) Uric Acid 5.2 mg/dL (2.6-6.0) Troponin I Quantitative 0.042 ng/mL (0.000-0.055) Lactic Acid Level 2.6 mmol/L (0.4-2.0) Test 05/06/17 12:08 05/06/17 16:30 05/06/17 17:39 05/06/17 21:36 Glucose (Fingerstick) 341 mg/dL (70-99) 364 mg/dL (70-99) 270 mg/dL (70-99) Urine Collection Type Unknown Urine Color Yellow Urine Clarity Clear Urine pH 5.0 Urine Specific Goodells 1.010 Urine Protein 100 mg/dL (NEG-TRACE) Urine Glucose (UA) 500 mg/dL (NEG) Urine Ketones (Stick) Negative mg/dL (NEG) Urine Blood Large (NEG) Urine Nitrite Negative (NEG) Urine Bilirubin Negative (NEG) Urine Urobilinogen Dipstick 0.2 mg/dL (0.2 mg/dL) Urine Leukocyte Esterase Trace (NEG) Urine RBC 11-20 /HPF (0-2) Urine WBC 1-4 /HPF (0-4) Urine Squamous Epithelial Cells Occ /LPF Urine Bacteria Few /HPF (0-FEW) Urine Hyaline Casts Few /HPF Urine Random Creatinine 38.5 mg/dL (Not Estab.) Urine Random Sodium 44 mmol/L (Not Estab.) Test 05/06/17 23:35 05/07/17 00:01 05/07/17 04:10 05/07/17 05:43 Lactic Acid Level 3.2 mmol/L (0.4-2.0) Glucose (Fingerstick) 281 mg/dL (70-99) 299 mg/dL (70-99) White Blood Count 17.0 x10^3/uL (4.0-11.0) Red Blood Count 3.70 x10^6/uL (3.50-5.40) Hemoglobin 8.8 g/dL (12.0-15.5) Hematocrit 27.4 % (36.0-47.0) Mean Corpuscular Volume 74 fL (79-100) Mean Corpuscular Hemoglobin 24 pg (25-35) Mean Corpuscular Hemoglobin Concent 32 g/dL (31-37) Red Cell Distribution Width 18.2 % (11.5-14.5) Platelet Count 203 x10^3/uL (140-400) Neutrophils (%) (Auto) 86 % (31-73) Lymphocytes (%) (Auto) 3 % (24-48) Monocytes (%) (Auto) 11 % (0-9) Eosinophils (%) (Auto) 0 % (0-3) Basophils (%) (Auto) 0 % (0-3) Neutrophils # (Auto) 14.6 x10^3uL (1.8-7.7) Lymphocytes # (Auto) 0.6 x10^3/uL (1.0-4.8) Monocytes # (Auto) 1.8 x10^3/uL (0.0-1.1) Eosinophils # (Auto) 0.0 x10^3/uL (0.0-0.7) Basophils # (Auto) 0.0 x10^3/uL (0.0-0.2) Sodium Level 120 mmol/L (136-145) Potassium Level 4.6 mmol/L (3.5-5.1) Chloride Level 86 mmol/L (98-107) Carbon Dioxide Level 25 mmol/L (21-32) Anion Gap 9 (6-14) Blood Urea Nitrogen 16 mg/dL (7-20) Creatinine 1.4 mg/dL (0.6-1.0) Estimated GFR (Cockcroft-Gault) 37.2 BUN/Creatinine Ratio 11 (6-20) Glucose Level 282 mg/dL (70-99) Calcium Level 7.9 mg/dL (8.5-10.1) Total Bilirubin 0.6 mg/dL (0.2-1.0) Aspartate Amino Transf (AST/SGOT) 25 U/L (15-37) Alanine Aminotransferase (ALT/SGPT) 57 U/L (14-59) Alkaline Phosphatase 84 U/L (46-116) Total Protein 6.0 g/dL (6.4-8.2) Albumin 2.7 g/dL (3.4-5.0) Albumin/Globulin Ratio 0.8 (1.0-1.7) Test 05/07/17 07:45 05/07/17 08:00 05/07/17 12:21 05/07/17 14:35 Lactic Acid Level 2.8 mmol/L (0.4-2.0) O2 Saturation 98 % (92-99) Arterial Blood pH 7.41 (7.35-7.45) Arterial Blood pCO2 at Patient Temp 40 mmHg (35-46) Arterial Blood pO2 at Patient Temp 98 mmHg (65-108) Arterial Blood HCO3 25 mmol/L (21-28) Arterial Blood Base Excess 0 mmol/L (-3-3) FiO2 60 Glucose (Fingerstick) 286 mg/dL (70-99) Sodium Level 129 mmol/L (136-145) Potassium Level 4.6 mmol/L (3.5-5.1) Chloride Level 93 mmol/L (98-107) Carbon Dioxide Level 31 mmol/L (21-32) Anion Gap 5 (6-14) Blood Urea Nitrogen 15 mg/dL (7-20) Creatinine 1.3 mg/dL (0.6-1.0) Estimated GFR (Cockcroft-Gault) 40.5 Glucose Level 214 mg/dL (70-99) Serum Osmolality 275 mOsm/Kg (279-304) Calcium Level 9.0 mg/dL (8.5-10.1) Laboratory Tests Test 05/06/17 17:39 05/06/17 21:36 05/06/17 23:35 05/07/17 00:01 Glucose (Fingerstick) 364 mg/dL (70-99) 270 mg/dL (70-99) 281 mg/dL (70-99) Lactic Acid Level 3.2 mmol/L (0.4-2.0) Test 05/07/17 04:10 05/07/17 05:43 05/07/17 07:45 05/07/17 08:00 White Blood Count 17.0 x10^3/uL (4.0-11.0) Red Blood Count 3.70 x10^6/uL (3.50-5.40) Hemoglobin 8.8 g/dL (12.0-15.5) Hematocrit 27.4 % (36.0-47.0) Mean Corpuscular Volume 74 fL (79-100) Mean Corpuscular Hemoglobin 24 pg (25-35) Mean Corpuscular Hemoglobin Concent 32 g/dL (31-37) Red Cell Distribution Width 18.2 % (11.5-14.5) Platelet Count 203 x10^3/uL (140-400) Neutrophils (%) (Auto) 86 % (31-73) Lymphocytes (%) (Auto) 3 % (24-48) Monocytes (%) (Auto) 11 % (0-9) Eosinophils (%) (Auto) 0 % (0-3) Basophils (%) (Auto) 0 % (0-3) Neutrophils # (Auto) 14.6 x10^3uL (1.8-7.7) Lymphocytes # (Auto) 0.6 x10^3/uL (1.0-4.8) Monocytes # (Auto) 1.8 x10^3/uL (0.0-1.1) Eosinophils # (Auto) 0.0 x10^3/uL (0.0-0.7) Basophils # (Auto) 0.0 x10^3/uL (0.0-0.2) Sodium Level 120 mmol/L (136-145) Potassium Level 4.6 mmol/L (3.5-5.1) Chloride Level 86 mmol/L (98-107) Carbon Dioxide Level 25 mmol/L (21-32) Anion Gap 9 (6-14) Blood Urea Nitrogen 16 mg/dL (7-20) Creatinine 1.4 mg/dL (0.6-1.0) Estimated GFR (Cockcroft-Gault) 37.2 BUN/Creatinine Ratio 11 (6-20) Glucose Level 282 mg/dL (70-99) Calcium Level 7.9 mg/dL (8.5-10.1) Total Bilirubin 0.6 mg/dL (0.2-1.0) Aspartate Amino Transf (AST/SGOT) 25 U/L (15-37) Alanine Aminotransferase (ALT/SGPT) 57 U/L (14-59) Alkaline Phosphatase 84 U/L (46-116) Total Protein 6.0 g/dL (6.4-8.2) Albumin 2.7 g/dL (3.4-5.0) Albumin/Globulin Ratio 0.8 (1.0-1.7) Glucose (Fingerstick) 299 mg/dL (70-99) Lactic Acid Level 2.8 mmol/L (0.4-2.0) O2 Saturation 98 % (92-99) Arterial Blood pH 7.41 (7.35-7.45) Arterial Blood pCO2 at Patient Temp 40 mmHg (35-46) Arterial Blood pO2 at Patient Temp 98 mmHg (65-108) Arterial Blood HCO3 25 mmol/L (21-28) Arterial Blood Base Excess 0 mmol/L (-3-3) FiO2 60 Test 05/07/17 12:21 05/07/17 14:35 Glucose (Fingerstick) 286 mg/dL (70-99) Sodium Level 129 mmol/L (136-145) Potassium Level 4.6 mmol/L (3.5-5.1) Chloride Level 93 mmol/L (98-107) Carbon Dioxide Level 31 mmol/L (21-32) Anion Gap 5 (6-14) Blood Urea Nitrogen 15 mg/dL (7-20) Creatinine 1.3 mg/dL (0.6-1.0) Estimated GFR (Cockcroft-Gault) 40.5 Glucose Level 214 mg/dL (70-99) Serum Osmolality 275 mOsm/Kg (279-304) Calcium Level 9.0 mg/dL (8.5-10.1) Medications Active Scripts Medications Dose Route/Sig Max Daily Dose Days Date Category Novolog Flexpen (Insulin Aspart) 100 Unit/1 Ml Insuln.pen 12 Unit SQ TIDWMEALS 05/06/17 Reported Losartan Potassium 100 Mg Tablet 100 Mg PO NOON 05/06/17 Reported Glucophage Xr (Metformin Hcl) 500 Mg Tab.er.24h 1,000 Mg PO BID 07/17/16 Rx Torsemide 10 Mg Tablet 10 Mg PO DAILY 07/15/16 Reported Sucralfate 1 Gm Tablet 1 Tab PO QID 07/15/16 Reported Omeprazole 20 Mg Capsule.dr 1 Cap PO BID 07/15/16 Reported Acetaminophen 325 Mg Tablet 650 Mg PO PRN BID PRN 07/15/16 Reported Levothyroxine Sodium 112 Mcg Tablet 1 Tab PO DAILY 07/15/16 Reported Atenolol 25 Mg Tablet 1 Tab PO BID 07/15/16 Reported Amlodipine Besylate 10 Mg Tablet 10 Mg PO DAILY 07/15/16 Reported Amitriptyline Hcl 25 Mg Tablet 1 Tab PO QHS 07/15/16 Reported Metoclopramide Hcl 5 Mg Tablet 5 Mg PO QIDACHS 07/15/16 Reported Alprazolam 0.5 Mg Tablet 1 Tab PO HS 07/15/16 Reported Alprazolam 0.5 Mg Tablet 2 Tab PO BIDWBKFT/HOLLIS 07/15/16 Reported Aspirin 81 Mg Tab.chew 1 Tab PO DAILY 07/15/16 Reported Piercy 5-325 Tablet (Acetaminophen/Hydrocodone Bitart) 1 Each Tablet 1 Tab PO PRN Q6HRS PRN 06/03/16 Rx Impression . ACUTE/CHROMIC RESP FAILURE PNEUMONIA SEPTIC SHOCK HYPONATREMIA UNCONTROLLED DM AECOPD LEUKOCYTOSIS IMPRESSION: Bilateral pleural effusions. Left pleural effusion is probably slightly larger. Aeration of the right lung base has improved slightly but aeration of the left lung base has worsened somewhat Plan . CONTINUE SUPPORT WITH VENT DIURESE ANITBX PER ID NEPHRO CONSULT D/W WITH FAMILY AT BEDSIDE DVT AND GI PROPHYLAXIS START TUBE FEEDING RACHEL KOCH MD May 07, 2017 16:49
[2017-05-07] MEDS: CHLORHEXIDINE 0.12% 15 ML MOUTHWASH. MM SCH (20:38)
[2017-05-07] MEDS: FAMOTIDINE 20 MG/2 ML VIAL IVP SCH (20:38)
[2017-05-07] MEDS: INSULIN DETEMIR 300 UNITS/3 ML INSULN.PEN. SQ SCH (20:40)
[2017-05-08] VITALS (24 sets, daily range): BP systolic 101–155; BP diastolic 52–85
[2017-05-08] MEDS: PIPERACILLIN/TAZOBACTAM 3.375 GM in IV NORMAL SALINE 50ML 50 ML IV SCH ×5 (00:13→23:55)
[2017-05-08] MEDS: INSULIN ASPART 300 UNITS/3 ML INSULN.PEN SQ SCH ×5 (00:15→23:55)
[2017-05-08] MEDS ORDERED: SITA100T PO (00:34)
[2017-05-08] MEDS ORDERED: PANT40TA5 PO (00:34)
[2017-05-08] MEDS ORDERED: CALC1TAB PO (00:34)
[2017-05-08] MEDS ORDERED: WHEA1POW8 PO ×2 (00:34)
[2017-05-08] MEDS ORDERED: ESTR0.62 PO (00:34)
[2017-05-08] MEDS ORDERED: HYAL1CAP PO (00:34)
[2017-05-08] MEDS ORDERED: LOSA50TA6 PO (00:34)
[2017-05-08] MEDS ORDERED: CHOL10003 PO (00:34)
[2017-05-08] MEDS ORDERED: CRAN200C3 PO (00:34)
[2017-05-08] MEDS ORDERED: ASCO500T55 PO (00:34)
[2017-05-08] MEDS ORDERED: OMEG1CAP27 PO (00:34)
[2017-05-08] MEDS ORDERED: BIOT25006 PO (00:34)
[2017-05-08] MEDS ORDERED: DULO30CA2 PO (00:34)
[2017-05-08] MEDS ORDERED: NORT25CA PO (00:34)
[2017-05-08] MEDS ORDERED: NITR100C PO (00:34)
[2017-05-08] MEDS ORDERED: BETA1CAP2 PO (00:34)
[2017-05-08] MEDS: MIDAZOLAM PREMIX 100 ML IV PRN ×5 (01:34→22:42)
[2017-05-08] MEDS: fentaNYL PF VIAL 100 MCG/2 ML VIAL IV PRN ×6 (01:57→22:31)
[2017-05-08 06:05] LABS: BASO # 0.1 x10^3/uL (0.0-0.2); BASO % 1 % (0-3); EOS % 0 % (0-3); HEMATOCRIT 29.9 % (36.0-47.0); HEMOGLOBIN 9.7 g/dL (12.0-15.5); LYMPH # 1.1 x10^3/uL (1.0-4.8); LYMPH % 8 % (24-48); MEAN CORPUSCULAR HEMOGLOBIN 24 pg (25-35); MEAN CORPUSCULAR HGB CONC 32 g/dL (31-37); MEAN CORPUSCULAR VOLUME 75 fL (79-100); MONO % 12 % (0-9); NEUT % 80 % (31-73); PLATELET COUNT 258 x10^3/uL (140-400); RED BLOOD COUNT 4.01 x10^6/uL (3.50-5.40); RED CELL DISTRIBUTION WIDTH 18.5 % (11.5-14.5); WHITE BLOOD COUNT 13.8 x10^3/uL (4.0-11.0)
[2017-05-08 06:25] LABS: CALCIUM 8.9 mg/dL (8.5-10.1); CREATININE 1.4 mg/dL (0.6-1.0); GFR 37.2
[2017-05-08] MEDS: ENOXAPARIN 40 MG/0.4 ML SYRINGE. SQ SCH (08:02)
[2017-05-08] MEDS: BUMETANIDE 1 MG/4 ML VIAL. IV SCH ×2 (08:02→15:45)
[2017-05-08 08:21] LABS: HCO3 ABG 24 mmol/L (21-28); PCO2 ABG 33 mmHg (35-46); PH ABG 7.49 (7.35-7.45); PO2 ABG 91 mmHg (65-108); SAT O2 ABG 97 % (92-99)
[2017-05-08 08:23] LABS: FIO2 ABG 50
--- NOTE | 2017-05-08 08:25 | PDOC ---
Infectious Disease Note Subjective Subjective Pt intubated, on vent, awake ROS ROS unable to do Vital Sign Vital Signs Vital Signs Date Time Temp Pulse Resp B/P (MAP) Pulse Ox O2 Delivery O2 Flow Rate FiO2 05/08/17 08:07 100 Ventilator 05/08/17 07:41 21 3.0 05/08/17 06:00 73 146/72 (96) 05/08/17 03:00 96.2 96.2 Physical Exam PHYSICAL EXAM GENERAL: NAD, Alert on vent HEENT: PERRL, OC/OP NECK: Supple, no JVD, no LN LUNGS: Clear HEART: S1S2, no gallop, no murmur ABD: Soft, NT, no organomegaly, no rebound EXT: No edema, no cyanosis FINAL INSPECTOR AND TESTER: Alert, sedated on vent SKIN: No rash IV: ok Labs Lab Laboratory Tests Test 05/07/17 12:21 05/07/17 14:35 05/07/17 17:59 05/07/17 20:38 Glucose (Fingerstick) 286 mg/dL (70-99) 211 mg/dL (70-99) 196 mg/dL (70-99) Sodium Level 129 mmol/L (136-145) Potassium Level 4.6 mmol/L (3.5-5.1) Chloride Level 93 mmol/L (98-107) Carbon Dioxide Level 31 mmol/L (21-32) Anion Gap 5 (6-14) Blood Urea Nitrogen 15 mg/dL (7-20) Creatinine 1.3 mg/dL (0.6-1.0) Estimated GFR (Cockcroft-Gault) 40.5 Glucose Level 214 mg/dL (70-99) Serum Osmolality 275 mOsm/Kg (279-304) Calcium Level 9.0 mg/dL (8.5-10.1) Test 05/08/17 00:13 05/08/17 04:30 05/08/17 05:18 05/08/17 08:00 Glucose (Fingerstick) 193 mg/dL (70-99) 197 mg/dL (70-99) White Blood Count 13.8 x10^3/uL (4.0-11.0) Red Blood Count 4.01 x10^6/uL (3.50-5.40) Hemoglobin 9.7 g/dL (12.0-15.5) Hematocrit 29.9 % (36.0-47.0) Mean Corpuscular Volume 75 fL (79-100) Mean Corpuscular Hemoglobin 24 pg (25-35) Mean Corpuscular Hemoglobin Concent 32 g/dL (31-37) Red Cell Distribution Width 18.5 % (11.5-14.5) Platelet Count 258 x10^3/uL (140-400) Neutrophils (%) (Auto) 80 % (31-73) Lymphocytes (%) (Auto) 8 % (24-48) Monocytes (%) (Auto) 12 % (0-9) Eosinophils (%) (Auto) 0 % (0-3) Basophils (%) (Auto) 1 % (0-3) Neutrophils # (Auto) 11.0 x10^3uL (1.8-7.7) Lymphocytes # (Auto) 1.1 x10^3/uL (1.0-4.8) Monocytes # (Auto) 1.6 x10^3/uL (0.0-1.1) Eosinophils # (Auto) 0.0 x10^3/uL (0.0-0.7) Basophils # (Auto) 0.1 x10^3/uL (0.0-0.2) Sodium Level 132 mmol/L (136-145) Potassium Level 4.0 mmol/L (3.5-5.1) Chloride Level 95 mmol/L (98-107) Carbon Dioxide Level 30 mmol/L (21-32) Anion Gap 7 (6-14) Blood Urea Nitrogen 20 mg/dL (7-20) Creatinine 1.4 mg/dL (0.6-1.0) Estimated GFR (Cockcroft-Gault) 37.2 Glucose Level 172 mg/dL (70-99) Calcium Level 8.9 mg/dL (8.5-10.1) O2 Saturation 97 % (92-99) Arterial Blood pH 7.49 (7.35-7.45) Arterial Blood pCO2 at Patient Temp 33 mmHg (35-46) Arterial Blood pO2 at Patient Temp 91 mmHg (65-108) Arterial Blood HCO3 24 mmol/L (21-28) Arterial Blood Base Excess 2 mmol/L (-3-3) FiO2 50 Micro Cultures neg Objective Assessment Pneumonia COPD exacerbation Hyponatremia Respiratory failure DM Leukocytosis Plan Plan of Care cont vanc, levaquin, zosyn supportive care d/w son, they want to give few days, but does not want prolong care if cannot get off vent OLY VALENCIA MD May 08, 2017 08:25
--- NOTE | 2017-05-08 08:47 | PDOC ---
SUBJECTIVE ROS DOMINGO and Hyponatremia Remains intubated and off sedation currently Unable to get ROS from pt OBJECTIVE Vital Signs Vital Signs Date Time Temp Pulse Resp B/P (MAP) Pulse Ox O2 Delivery O2 Flow Rate FiO2 05/08/17 08:07 100 Ventilator 05/08/17 07:41 21 3.0 05/08/17 06:00 73 146/72 (96) 05/08/17 03:00 96.2 96.2 I & 0 Intake and Output 05/08/17 07:00 Intake Total 3291 ml Output Total 4376 ml Balance -1085 ml IV Total 1369 ml Tube Feeding 1592 ml Other 330 ml Output Urine Total 4376 ml PHYSICAL EXAM Physical Exam GEN: Awake, Oriented x ?, In no distress EYES: Vision Unchanged, Conjunctiva Normal EN: No EN Drainage, Mucous Membranes moist NECK: no JVD, no JVP, Supple, no Thyromegaly CVS: S1S2, + Murmur, No Gallop, No Rub,min Edema RESP: rare basal Rales, no Rhonchi,no Acc. Muscle Use GI: BS + ve, NO Bruit, Non Tender, Non Distended : no CVA tenderness, no Suprapubic Tenderness DIAGNOSIS/ASSESSMENT Assessment & Plan HypoNatremia - improving currently with diuresis and -ve fluid balance ARF/ ? ATN (due to Ac Illness): Current fluid and E-lyte status does not necessitate emergent need for dialysis. ? CKD III at baseline (Creat 1.1-1.3) cannot be ruled out; DM and ASVDz associated /NS HTN: (cehck RAD for ? LLUVIA) Current BP meds as reviewed. See orders for changes. Pulm edema vs Pn - ct Diuresis as needed Discussed Plan of Care with family (son) at bedside Problems: COMMENT/RELEVANT DATA Meds Current Medications Medications (Trade) Dose Ordered Sig/Christine Start Time Stop Time Status Last Admin Dose Admin Acetaminophen (Tylenol) 650 mg PRN Q6HRS PRN 05/07/17 00:45 05/07/17 17:57 650 MG Acetaminophen/ Hydrocodone Bitart (Lortab 5/325) 2 tab PRN Q6HRS PRN 05/06/17 05:00 Albumin Human 50 ml @ 50 mls/hr 1X ONCE 05/06/17 15:30 05/06/17 16:29 DC 05/06/17 15:30 50 MLS/HR Bumetanide (Bumex) 1 mg [id number] 05/06/17 09:00 05/08/17 08:02 1 MG Chlorhexidine Gluconate (Peridex) 15 ml BID 05/07/17 21:00 05/07/17 20:38 15 ML Dextrose (Dextrose 50%-Water Syringe) 12.5 gm PRN Q15MIN PRN 05/06/17 08:45 Dopamine HCl/ Dextrose 250 ml @ 16.627 mls/ hr CONT PRN 05/06/17 06:00 05/06/17 12:28 16.627 MLS/HR Enalaprilat (Vasotec) 1.25 mg Q6HRS PRN 05/07/17 19:30 Enoxaparin Sodium (Lovenox 40mg Syringe) 40 mg Q24H 05/06/17 09:00 05/08/17 08:02 40 MG Famotidine (Pepcid) 20 mg QHS 05/07/17 21:00 05/07/17 20:38 20 MG Fentanyl Citrate (Fentanyl 2ml Vial) 25 mcg Q3HRS PRN 05/06/17 18:00 05/08/17 07:41 25 MCG Insulin Aspart (NovoLOG) 0-9 UNITS Q6HRS 05/07/17 00:00 05/08/17 05:36 4 UNITS Insulin Detemir (Levemir) 15 units QHS 05/06/17 21:00 05/07/17 20:40 15 UNITS Isoproterenol HCl 1 mg/Dextrose 255 ml @ 0 mls/hr CONT PRN 05/06/17 13:00 05/07/17 00:09 75 MLS/HR Levofloxacin/ Dextrose 100 ml @ 100 mls/hr Q24H 05/06/17 10:00 05/06/17 12:28 100 MLS/HR Lidocaine HCl (Lidocaine Pf 2% Vial) 5 ml STK-MED ONCE 05/06/17 10:13 05/06/17 10:14 DC Midazolam HCl 100 ml @ 0 mls/hr CONT PRN 05/06/17 11:00 05/08/17 07:44 16 MLS/HR Ondansetron HCl (Zofran) 4 mg PRN Q8HRS PRN 05/05/17 23:45 05/06/17 23:44 DC Piperacillin Sod/ Tazobactam Sod 3.375 gm/Sodium Chloride 50 ml @ 100 mls/hr Q6HRS 05/06/17 10:30 05/08/17 05:34 100 MLS/HR Propofol 0 ml @ As Directed STK-MED ONCE 05/06/17 10:14 05/06/17 10:15 DC Succinylcholine Chloride (Anectine) 200 mg STK-MED ONCE 05/06/17 10:13 05/06/17 10:14 DC Torsemide (Demadex) 20 mg 1X ONCE 05/05/17 23:45 05/05/17 23:46 DC 05/06/17 00:44 20 MG Vancomycin HCl 1 each 1X ONCE 05/08/17 09:30 05/08/17 09:31 Vancomycin HCl (Vanco Per Pharmacy) 1 each PRN DAILY PRN 05/06/17 10:00 05/07/17 08:46 1 EACH Vancomycin HCl 1.25 gm/Sodium Chloride 250 ml @ 167 mls/hr Q24H 05/07/17 10:00 05/07/17 10:01 167 MLS/HR Vancomycin HCl 1.5 gm/Sodium Chloride 500 ml @ 250 mls/hr 1X ONCE 05/06/17 09:00 05/06/17 10:59 DC 05/06/17 10:34 250 MLS/HR Vancomycin HCl 500 mg/Sodium Chloride 100 ml @ 100 mls/hr 1X ONCE 05/06/17 12:00 05/06/17 12:59 DC 05/06/17 16:52 100 MLS/HR Lab Laboratory Tests Test 05/07/17 12:21 05/07/17 14:35 05/07/17 17:59 05/07/17 20:38 Glucose (Fingerstick) 286 mg/dL (70-99) 211 mg/dL (70-99) 196 mg/dL (70-99) Sodium Level 129 mmol/L (136-145) Potassium Level 4.6 mmol/L (3.5-5.1) Chloride Level 93 mmol/L (98-107) Carbon Dioxide Level 31 mmol/L (21-32) Anion Gap 5 (6-14) Blood Urea Nitrogen 15 mg/dL (7-20) Creatinine 1.3 mg/dL (0.6-1.0) Estimated GFR (Cockcroft-Gault) 40.5 Glucose Level 214 mg/dL (70-99) Serum Osmolality 275 mOsm/Kg (279-304) Calcium Level 9.0 mg/dL (8.5-10.1) Test 05/08/17 00:13 05/08/17 04:30 05/08/17 05:18 05/08/17 08:00 Glucose (Fingerstick) 193 mg/dL (70-99) 197 mg/dL (70-99) White Blood Count 13.8 x10^3/uL (4.0-11.0) Red Blood Count 4.01 x10^6/uL (3.50-5.40) Hemoglobin 9.7 g/dL (12.0-15.5) Hematocrit 29.9 % (36.0-47.0) Mean Corpuscular Volume 75 fL (79-100) Mean Corpuscular Hemoglobin 24 pg (25-35) Mean Corpuscular Hemoglobin Concent 32 g/dL (31-37) Red Cell Distribution Width 18.5 % (11.5-14.5) Platelet Count 258 x10^3/uL (140-400) Neutrophils (%) (Auto) 80 % (31-73) Lymphocytes (%) (Auto) 8 % (24-48) Monocytes (%) (Auto) 12 % (0-9) Eosinophils (%) (Auto) 0 % (0-3) Basophils (%) (Auto) 1 % (0-3) Neutrophils # (Auto) 11.0 x10^3uL (1.8-7.7) Lymphocytes # (Auto) 1.1 x10^3/uL (1.0-4.8) Monocytes # (Auto) 1.6 x10^3/uL (0.0-1.1) Eosinophils # (Auto) 0.0 x10^3/uL (0.0-0.7) Basophils # (Auto) 0.1 x10^3/uL (0.0-0.2) Sodium Level 132 mmol/L (136-145) Potassium Level 4.0 mmol/L (3.5-5.1) Chloride Level 95 mmol/L (98-107) Carbon Dioxide Level 30 mmol/L (21-32) Anion Gap 7 (6-14) Blood Urea Nitrogen 20 mg/dL (7-20) Creatinine 1.4 mg/dL (0.6-1.0) Estimated GFR (Cockcroft-Gault) 37.2 Glucose Level 172 mg/dL (70-99) Calcium Level 8.9 mg/dL (8.5-10.1) O2 Saturation 97 % (92-99) Arterial Blood pH 7.49 (7.35-7.45) Arterial Blood pCO2 at Patient Temp 33 mmHg (35-46) Arterial Blood pO2 at Patient Temp 91 mmHg (65-108) Arterial Blood HCO3 24 mmol/L (21-28) Arterial Blood Base Excess 2 mmol/L (-3-3) FiO2 50 Test 05/08/17 08:28 Glucose (Fingerstick) 174 mg/dL (70-99) LEO VALENCIA MD May 08, 2017 08:47
[2017-05-08] MEDS ORDERED: MAGNESIUM SULFATE 2GM 50 ML IV PRN (09:00)
[2017-05-08] MEDS: VANCOMYCIN PER PHARMACY MC PRN ×3 (09:23→11:20)
--- NOTE | 2017-05-08 09:36 | RAD ---
Portable chest, 05/08/2017: History: Respiratory failure Comparison is made yesterday study. The ET tube tip lies well above the [place]. An NG tube extends into the stomach. The heart size is normal. There are moderate patchy bibasilar infiltrates with slight interval improvement on the left. The hemidiaphragm is better defined. Pleural effusions appear to be diminishing with only mild residual blunting of the right lateral costophrenic angle. No new abnormality is detected. IMPRESSION: 1. The ET tube and NG tube remain in place in satisfactory positions. 2. Improving basilar infiltrates.
[2017-05-08] MEDS: CHLORHEXIDINE 0.12% 15 ML MOUTHWASH. MM SCH ×2 (10:36→22:16)
[2017-05-08 11:14] LABS: URINE OSMOLALITY 312 mOsmol/kg (.)
[2017-05-08] MEDS ORDERED: VANCOMYCIN 1.5 GM in IV NORMAL SALINE 500ML BAG 500 ML IV SCH (11:30)
--- NOTE | 2017-05-08 12:45 | PDOC ---
PROGRESS NOTES Subjective Subjective Pt intubated, responsive but agitated Sinus rhythm with frequent PAC's. 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 Presently she is doing better cardiac colindres. Pulmonary on the case and managing the vent and lung issues. May need to change sedation. Comment Review of Relevant I have reviewed the following items katy (where applicable) has been applied. Labs Laboratory Tests Test 05/06/17 16:30 05/06/17 17:39 05/06/17 21:36 05/06/17 23:35 Urine Collection Type Unknown Urine Color Yellow Urine Clarity Clear Urine pH 5.0 Urine Specific Krypton 1.010 Urine Protein 100 mg/dL (NEG-TRACE) Urine Glucose (UA) 500 mg/dL (NEG) Urine Ketones (Stick) Negative mg/dL (NEG) Urine Blood Large (NEG) Urine Nitrite Negative (NEG) Urine Bilirubin Negative (NEG) Urine Urobilinogen Dipstick 0.2 mg/dL (0.2 mg/dL) Urine Leukocyte Esterase Trace (NEG) Urine RBC 11-20 /HPF (0-2) Urine WBC 1-4 /HPF (0-4) Urine Squamous Epithelial Cells Occ /LPF Urine Bacteria Few /HPF (0-FEW) Urine Hyaline Casts Few /HPF Urine Osmolality 312 mOsmol/kg (.) Urine Random Creatinine 38.5 mg/dL (Not Estab.) Urine Random Sodium 44 mmol/L (Not Estab.) Glucose (Fingerstick) 364 mg/dL (70-99) 270 mg/dL (70-99) Lactic Acid Level 3.2 mmol/L (0.4-2.0) Test 05/07/17 00:01 05/07/17 04:10 05/07/17 05:43 05/07/17 07:45 Glucose (Fingerstick) 281 mg/dL (70-99) 299 mg/dL (70-99) White Blood Count 17.0 x10^3/uL (4.0-11.0) Red Blood Count 3.70 x10^6/uL (3.50-5.40) Hemoglobin 8.8 g/dL (12.0-15.5) Hematocrit 27.4 % (36.0-47.0) Mean Corpuscular Volume 74 fL (79-100) Mean Corpuscular Hemoglobin 24 pg (25-35) Mean Corpuscular Hemoglobin Concent 32 g/dL (31-37) Red Cell Distribution Width 18.2 % (11.5-14.5) Platelet Count 203 x10^3/uL (140-400) Neutrophils (%) (Auto) 86 % (31-73) Lymphocytes (%) (Auto) 3 % (24-48) Monocytes (%) (Auto) 11 % (0-9) Eosinophils (%) (Auto) 0 % (0-3) Basophils (%) (Auto) 0 % (0-3) Neutrophils # (Auto) 14.6 x10^3uL (1.8-7.7) Lymphocytes # (Auto) 0.6 x10^3/uL (1.0-4.8) Monocytes # (Auto) 1.8 x10^3/uL (0.0-1.1) Eosinophils # (Auto) 0.0 x10^3/uL (0.0-0.7) Basophils # (Auto) 0.0 x10^3/uL (0.0-0.2) Sodium Level 120 mmol/L (136-145) Potassium Level 4.6 mmol/L (3.5-5.1) Chloride Level 86 mmol/L (98-107) Carbon Dioxide Level 25 mmol/L (21-32) Anion Gap 9 (6-14) Blood Urea Nitrogen 16 mg/dL (7-20) Creatinine 1.4 mg/dL (0.6-1.0) Estimated GFR (Cockcroft-Gault) 37.2 BUN/Creatinine Ratio 11 (6-20) Glucose Level 282 mg/dL (70-99) Calcium Level 7.9 mg/dL (8.5-10.1) Total Bilirubin 0.6 mg/dL (0.2-1.0) Aspartate Amino Transf (AST/SGOT) 25 U/L (15-37) Alanine Aminotransferase (ALT/SGPT) 57 U/L (14-59) Alkaline Phosphatase 84 U/L (46-116) Total Protein 6.0 g/dL (6.4-8.2) Albumin 2.7 g/dL (3.4-5.0) Albumin/Globulin Ratio 0.8 (1.0-1.7) Lactic Acid Level 2.8 mmol/L (0.4-2.0) Test 05/07/17 08:00 05/07/17 12:21 05/07/17 14:35 05/07/17 17:59 Nasal Screen MRSA (PCR) Negative (Negative) O2 Saturation 98 % (92-99) Arterial Blood pH 7.41 (7.35-7.45) Arterial Blood pCO2 at Patient Temp 40 mmHg (35-46) Arterial Blood pO2 at Patient Temp 98 mmHg (65-108) Arterial Blood HCO3 25 mmol/L (21-28) Arterial Blood Base Excess 0 mmol/L (-3-3) FiO2 60 Glucose (Fingerstick) 286 mg/dL (70-99) 211 mg/dL (70-99) Sodium Level 129 mmol/L (136-145) Potassium Level 4.6 mmol/L (3.5-5.1) Chloride Level 93 mmol/L (98-107) Carbon Dioxide Level 31 mmol/L (21-32) Anion Gap 5 (6-14) Blood Urea Nitrogen 15 mg/dL (7-20) Creatinine 1.3 mg/dL (0.6-1.0) Estimated GFR (Cockcroft-Gault) 40.5 Glucose Level 214 mg/dL (70-99) Serum Osmolality 275 mOsm/Kg (279-304) Calcium Level 9.0 mg/dL (8.5-10.1) Test 05/07/17 20:38 05/08/17 00:13 05/08/17 04:30 05/08/17 05:18 Glucose (Fingerstick) 196 mg/dL (70-99) 193 mg/dL (70-99) 197 mg/dL (70-99) White Blood Count 13.8 x10^3/uL (4.0-11.0) Red Blood Count 4.01 x10^6/uL (3.50-5.40) Hemoglobin 9.7 g/dL (12.0-15.5) Hematocrit 29.9 % (36.0-47.0) Mean Corpuscular Volume 75 fL (79-100) Mean Corpuscular Hemoglobin 24 pg (25-35) Mean Corpuscular Hemoglobin Concent 32 g/dL (31-37) Red Cell Distribution Width 18.5 % (11.5-14.5) Platelet Count 258 x10^3/uL (140-400) Neutrophils (%) (Auto) 80 % (31-73) Lymphocytes (%) (Auto) 8 % (24-48) Monocytes (%) (Auto) 12 % (0-9) Eosinophils (%) (Auto) 0 % (0-3) Basophils (%) (Auto) 1 % (0-3) Neutrophils # (Auto) 11.0 x10^3uL (1.8-7.7) Lymphocytes # (Auto) 1.1 x10^3/uL (1.0-4.8) Monocytes # (Auto) 1.6 x10^3/uL (0.0-1.1) Eosinophils # (Auto) 0.0 x10^3/uL (0.0-0.7) Basophils # (Auto) 0.1 x10^3/uL (0.0-0.2) Sodium Level 132 mmol/L (136-145) Potassium Level 4.0 mmol/L (3.5-5.1) Chloride Level 95 mmol/L (98-107) Carbon Dioxide Level 30 mmol/L (21-32) Anion Gap 7 (6-14) Blood Urea Nitrogen 20 mg/dL (7-20) Creatinine 1.4 mg/dL (0.6-1.0) Estimated GFR (Cockcroft-Gault) 37.2 Glucose Level 172 mg/dL (70-99) Calcium Level 8.9 mg/dL (8.5-10.1) Test 05/08/17 08:00 05/08/17 08:28 05/08/17 10:40 O2 Saturation 97 % (92-99) Arterial Blood pH 7.49 (7.35-7.45) Arterial Blood pCO2 at Patient Temp 33 mmHg (35-46) Arterial Blood pO2 at Patient Temp 91 mmHg (65-108) Arterial Blood HCO3 24 mmol/L (21-28) Arterial Blood Base Excess 2 mmol/L (-3-3) FiO2 50 Glucose (Fingerstick) 174 mg/dL (70-99) Vancomycin Level Trough 10.6 mcg/mL (10.0-20.0) Vancomycin Last Dose Date 05/07/17 Vancomycin Last Dose Time 1000 Laboratory Tests Test 05/07/17 14:35 05/07/17 17:59 05/07/17 20:38 05/08/17 00:13 Sodium Level 129 mmol/L (136-145) Potassium Level 4.6 mmol/L (3.5-5.1) Chloride Level 93 mmol/L (98-107) Carbon Dioxide Level 31 mmol/L (21-32) Anion Gap 5 (6-14) Blood Urea Nitrogen 15 mg/dL (7-20) Creatinine 1.3 mg/dL (0.6-1.0) Estimated GFR (Cockcroft-Gault) 40.5 Glucose Level 214 mg/dL (70-99) Serum Osmolality 275 mOsm/Kg (279-304) Calcium Level 9.0 mg/dL (8.5-10.1) Glucose (Fingerstick) 211 mg/dL (70-99) 196 mg/dL (70-99) 193 mg/dL (70-99) Test 05/08/17 04:30 05/08/17 05:18 05/08/17 08:00 05/08/17 08:28 White Blood Count 13.8 x10^3/uL (4.0-11.0) Red Blood Count 4.01 x10^6/uL (3.50-5.40) Hemoglobin 9.7 g/dL (12.0-15.5) Hematocrit 29.9 % (36.0-47.0) Mean Corpuscular Volume 75 fL (79-100) Mean Corpuscular Hemoglobin 24 pg (25-35) Mean Corpuscular Hemoglobin Concent 32 g/dL (31-37) Red Cell Distribution Width 18.5 % (11.5-14.5) Platelet Count 258 x10^3/uL (140-400) Neutrophils (%) (Auto) 80 % (31-73) Lymphocytes (%) (Auto) 8 % (24-48) Monocytes (%) (Auto) 12 % (0-9) Eosinophils (%) (Auto) 0 % (0-3) Basophils (%) (Auto) 1 % (0-3) Neutrophils # (Auto) 11.0 x10^3uL (1.8-7.7) Lymphocytes # (Auto) 1.1 x10^3/uL (1.0-4.8) Monocytes # (Auto) 1.6 x10^3/uL (0.0-1.1) Eosinophils # (Auto) 0.0 x10^3/uL (0.0-0.7) Basophils # (Auto) 0.1 x10^3/uL (0.0-0.2) Sodium Level 132 mmol/L (136-145) Potassium Level 4.0 mmol/L (3.5-5.1) Chloride Level 95 mmol/L (98-107) Carbon Dioxide Level 30 mmol/L (21-32) Anion Gap 7 (6-14) Blood Urea Nitrogen 20 mg/dL (7-20) Creatinine 1.4 mg/dL (0.6-1.0) Estimated GFR (Cockcroft-Gault) 37.2 Glucose Level 172 mg/dL (70-99) Calcium Level 8.9 mg/dL (8.5-10.1) Glucose (Fingerstick) 197 mg/dL (70-99) 174 mg/dL (70-99) O2 Saturation 97 % (92-99) Arterial Blood pH 7.49 (7.35-7.45) Arterial Blood pCO2 at Patient Temp 33 mmHg (35-46) Arterial Blood pO2 at Patient Temp 91 mmHg (65-108) Arterial Blood HCO3 24 mmol/L (21-28) Arterial Blood Base Excess 2 mmol/L (-3-3) FiO2 50 Test 05/08/17 10:40 Vancomycin Level Trough 10.6 mcg/mL (10.0-20.0) Vancomycin Last Dose Date 05/07/17 Vancomycin Last Dose Time 1000 Microbiology 05/06/17 Blood Culture - Preliminary, Resulted NO GROWTH AFTER 2 DAYS Medications Current Medications Dopamine HCl/ Dextrose 250 ml @ 16.856 mls/ hr 1X ONCE IV Last administered on 05/05/17t 22:54; Start 05/05/17 at 23:00; Stop 05/06/17 at 13:49; Status DC Torsemide (Demadex) 20 mg 1X ONCE PO Last administered on 05/06/17 00:44; Start 05/05/17 at 23:45; Stop 05/05/17 at 23:46; Status DC Bumetanide (Bumex) 1 mg [id number] IV Last administered on 05/08/17 08:02; Start 05/06/17 at 09:00 Ondansetron HCl (Zofran) 4 mg 1X ONCE IV Last administered on 05/06/17 00:09; Start 05/05/17 at 23:45; Stop 05/05/17 at 23:46; Status DC Ondansetron HCl (Zofran) 4 mg PRN Q8HRS PRN IV NAUSEA/VOMITING; Start 05/05/17 at 23:45; Stop 05/06/17 at 23:44; Status DC Acetaminophen/ Hydrocodone Bitart (Lortab 5/325) 1 tab PRN Q6HRS PRN PO MODERATE - SEVERE PAIN Last administered on 05/06/17 05:21; Start 05/06/17 at 05: 00 Acetaminophen/ Hydrocodone Bitart (Lortab 5/325) 2 tab PRN Q6HRS PRN PO MODERATE - SEVERE PAIN; Start 05/06/17 at 05:00 Dopamine HCl/ Dextrose 250 ml @ 16.627 mls/ hr CONT PRN IV SEE I/O RECORD Last administered on 05/06/17 12:28; Start 05/06/17 at 06:00 Vancomycin HCl 1.5 gm/Sodium Chloride 500 ml @ 250 mls/hr 1X ONCE IV Last administered on 05/06/17 10:34; Start 05/06/17 at 09:00; Stop 05/06/17 at 10:59; Status DC Levofloxacin/ Dextrose 100 ml @ 100 mls/hr Q24H IV Last administered on 12:28; Start 05/06/17 at 10:00; Stop 05/08/17 at 09:28; Status DC Insulin Aspart (NovoLOG) 0-9 UNITS TIDWMEALS SQ Last administered on 05/06/17 18:09; Start 05/06/17 at 12:00; Stop 05/06/17 at 23:03; Status DC Dextrose (Dextrose 50%-Water Syringe) 12.5 gm PRN Q15MIN PRN IV SEE COMMENTS; Start 05/06/17 at 08:45 Enoxaparin Sodium (Lovenox 40mg Syringe) 40 mg Q24H SQ Last administered on 05/08 08:02; Start 05/06/17 at 09:00 Piperacillin Sod/ Tazobactam Sod 3.375 gm/Sodium Chloride 50 ml @ 100 mls/hr Q6HRS IV Last administered on 05/08/17 05:34; Start 05/06/17 at 10:30 Vancomycin HCl (Vanco Per Pharmacy) 1 each PRN DAILY PRN MC SEE COMMENTS Last administered on 05/08/17 11:20; Start 05/06/17 at 10:00 Succinylcholine Chloride (Anectine) 200 mg STK-MED ONCE .ROUTE ; Start 05/06/17 at 10:13; Stop 05/06/17 at 10:14; Status DC Propofol 20 ml @ As Directed STK-MED ONCE IV ; Start 05/06/17 at 10:13; Stop 05/06 at 10:14; Status DC Lidocaine HCl (Lidocaine Pf 2% Vial) 5 ml STK-MED ONCE .ROUTE ; Start 05/06/17 at 10:13; Stop 05/06/17 at 10:14; Status DC Propofol 0 ml @ As Directed STK-MED ONCE IV ; Start 05/06/17 at 10:14; Stop at 10:15; Status DC Midazolam HCl 100 ml @ As Directed STK-MED ONCE IV ; Start 05/06/17 at 10:14; Stop 05/06/17 at 10:15; Status DC Midazolam HCl 100 ml @ 0 mls/hr CONT PRN IV SEE I/O RECORD Last administered on 05/08/17 07:44; Start 05/06/17 at 11:00 Vancomycin HCl 500 mg/Sodium Chloride 100 ml @ 100 mls/hr 1X ONCE IV Last administered on 05/06/17 16:52; Start 05/06/17 at 12:00; Stop 05/06/17 at 12:59; Status DC Vancomycin HCl 1.25 gm/Sodium Chloride 250 ml @ 167 mls/hr Q24H IV Last administered on 05/07/17 10:01; Start 05/07/17 at 10:00; Stop 05/08/17 at 11:18; Status DC Vancomycin HCl 1 each 1X ONCE MC Last administered on 05/08/17 10:00; Start at 09:30; Stop 05/08/17 at 09:31; Status DC Isoproterenol HCl 1 mg/Dextrose 255 ml @ 0 mls/hr CONT PRN IV SEE I/O RECORD Last administered on 05/07/17 00:09; Start 05/06/17 at 13:00 Albumin Human 50 ml @ 50 mls/hr 1X ONCE IV Last administered on 05/06/17 15:30 ; Start 05/06/17 at 15:30; Stop 05/06/17 at 16:29; Status DC Insulin Aspart (NovoLOG) BIDBFRMEAL SQ ; Start 05/07/17 at 07:30; Status UNV Insulin Detemir (Levemir) 15 units QHS SQ Last administered on 05/07/17 20:40; Start 05/06/17 at 21:00 Fentanyl Citrate (Fentanyl 2ml Vial) 25 mcg Q3HRS PRN IV MILD PAIN Last administered on 05/08/17 10:36; Start 05/06/17 at 18:00 Insulin Aspart (NovoLOG) 0-9 UNITS Q6HRS SQ Last administered on 05/08/17 12:19 ; Start 05/07/17 at 00:00 Acetaminophen (Tylenol) 650 mg PRN Q6HRS PRN NG MILD PAIN / TEMP Last administered on 05/07/17 17:57; Start 05/07/17 at 00:45 Chlorhexidine Gluconate (Peridex) 15 ml BID MM Last administered on 05/08/17 10 :36; Start 05/07/17 at 21:00 Famotidine (Pepcid) 20 mg QHS IVP Last administered on 05/07/17 20:38; Start at 21:00 Enalaprilat (Vasotec) 1.25 mg Q6HRS PRN IV HYPERTENSION, SEE COMMENTS; Start at 19:30 Magnesium Sulfate/ Dextrose 50 ml @ 25 mls/hr PRN DAILY PRN IV for Mag < 1.7 on am labs; Start 05/08/17 at 09:00 Levofloxacin/ Dextrose 150 ml @ 100 mls/hr Q48H IV Last administered on t 11:18; Start 05/08/17 at 10:00 Vancomycin HCl 1.5 gm/Sodium Chloride 500 ml @ 250 mls/hr Q24H IV ; Start at 11:30 Active Scripts Active Glucophage Xr (Metformin Hcl) 500 Mg Tab.er.24h 1,000 Mg PO BID [place] 5-325 Tablet (Acetaminophen/Hydrocodone Bitart) 1 Each Tablet 1 Tab PO PRN Q6HRS PRN Reported Antioxidant Softgel (Beta-Carotene(A) W-C & E/Min) 1 Each Capsule 1 Each PO DAILY Hyaluronic Acid 40 Mg Capsule (Hyalur Ac/Chond Sul/Colg Ii/Aa) 1 Each Capsule 1 Each PO DAILY Biotin 2,500 Mcg Capsule 5,000 Mcg PO DAILY Benefiber (Wheat Dextrin) 1 Each Powd.pack 1 Each PO DAILY Benefiber (Wheat Dextrin) 1 Each Powd.pack 1 Each PO [place] (Cranberry Extract) 200 Mg Capsule 36 Mg PO Caltrate 600 + D Tablet (Calcium Carbonate/Vitamin D3) 1 Each Tablet 1 Each PO DAILY Vitamin C With Aletha Hips (Ascorbic Acid) 500 Mg Tablet 500 Mg PO DAILY Vitamin D3 (Cholecalciferol (Vitamin D3)) 1,000 Unit Tablet 1 Tab PO DAILY Fish Oil 1,000 Mg Softgel ([place]z-3 Fatty Acids/Fish Oil) 1 Each Capsule 1 Each PO DAILY Premarin (Estrogens, Conjugated) 0.625 Mg Tablet 1 Tab PO DAILY Nortriptyline Hcl 25 Mg Capsule 1 Cap PO QHS Nitrofurantoin (Nitrofurantoin Macrocrystal) 100 Mg Capsule 1 Cap PO DAILY Cymbalta (Duloxetine Hcl) 30 Mg Capsule.dr 1 Cap PO DAILY Pantoprazole Sodium 40 Mg Tablet.dr 1 Tab PO DAILY Losartan Potassium 50 Mg Tablet 50 Mg PO DAILY Januvia (Sitagliptin Phosphate) 100 Mg Tablet 1 Tab PO DAILY Novolog Flexpen (Insulin Aspart) 100 Unit/1 Ml Insuln.pen 12 Unit SQ TIDWMEALS Losartan Potassium 100 Mg Tablet 100 Mg PO NOON Torsemide 10 Mg Tablet 10 Mg PO DAILY Sucralfate 1 Gm Tablet 1 Tab PO QID Omeprazole 20 Mg Capsule.dr 1 Cap PO BID Acetaminophen 325 Mg Tablet 650 Mg PO PRN BID PRN Levothyroxine Sodium 112 Mcg Tablet 1 Tab PO DAILY Atenolol 25 Mg Tablet 1 Tab PO BID Amlodipine Besylate 10 Mg Tablet 10 Mg PO DAILY Amitriptyline Hcl 25 Mg Tablet 1 Tab PO QHS Metoclopramide Hcl 5 Mg Tablet 5 Mg PO QIDACHS Alprazolam 0.5 Mg Tablet 1 Tab PO HS Alprazolam 0.5 Mg Tablet 2 Tab PO BIDWBKFT/HOLLIS Aspirin 81 Mg Tab.chew 1 Tab PO DAILY Vitals/I & O Vital Sign - Last 24 Hours 05/07/17 05/07/17 05/07/17 05/07/17 13:00 14:00 14:56 15:00 Pulse 80 76 84 Resp 21 21 B/P (MAP) 128/55 (79) 126/57 (80) 127/55 (79) Pulse Ox 97 99 99 99 O2 Delivery Ventilator Ventilator Ventilator Ventilator 05/07/17 05/07/17 05/07/17 05/07/17 16:00 16:00 16:57 17:00 Temp 100.5 100.5 Pulse 82 75 Resp 24 26 B/P (MAP) 130/36 (67) 133/61 (85) Pulse Ox 99 100 99 O2 Delivery Ventilator Mechanical Ventilator Ventilator Ventilator 05/07/17 05/07/17 05/07/17 05/07/17 18:00 19:00 19:15 20:00 Pulse 82 72 Resp 26 22 B/P (MAP) 138/61 (86) 111/51 (71) Pulse Ox 99 99 95 O2 Delivery Ventilator Ventilator Ventilator Mechanical Ventilator 05/07/17 05/07/17 05/07/17 05/07/17 20:00 20:59 21:00 22:00 Temp 99.8 99.8 Pulse 71 76 67 Resp 22 30 22 B/P (MAP) 111/56 (74) 129/56 (80) 126/61 (82) Pulse Ox 99 99 100 100 O2 Delivery Ventilator Ventilator Ventilator Ventilator 05/07/17 05/07/17 05/07/17 05/08/17 22:57 23:00 23:11 00:00 Temp 98.4 98.4 Pulse 77 63 Resp 23 22 B/P (MAP) 136/77 (96) 111/57 (75) Pulse Ox 94 100 99 O2 Delivery Ventilator Ventilator Ventilator Ventilator 05/08/17 05/08/17 05/08/17 05/08/17 00:00 01:00 01:08 01:57 Pulse 63 Resp 22 B/P (MAP) 101/52 (68) Pulse Ox 98 98 O2 Delivery Mechanical Ventilator Ventilator Ventilator Ventilator 05/08/17 05/08/17 05/08/17 05/08/17 02:00 03:00 03:20 04:00 Temp 96.2 96.2 Pulse 69 77 77 Resp B/P (MAP) 140/63 (88) 143/77 (99) 124/77 (93) Pulse Ox 95 98 96 94 O2 Delivery Ventilator Ventilator Ventilator Ventilator 05/08/17 05/08/17 05/08/17 05/08/17 04:00 05:00 06:00 06:05 Pulse 77 73 B/P (MAP) 148/78 (101) 146/72 (96) Pulse Ox 98 96 100 O2 Delivery Mechanical Ventilator Ventilator Ventilator Ventilator 05/08/17 05/08/17 05/08/17 05/08/17 07:41 08:07 09:52 10:36 Resp 22 Pulse Ox 96 100 98 98 O2 Delivery Ventilator Ventilator Ventilator Ventilator O2 Flow Rate 3.0 3.0 05/08/17 05/08/17 11:06 12:12 Resp Pulse Ox 98 98 O2 Delivery Ventilator Ventilator O2 Flow Rate 3.0 Intake and Output 05/07/17 05/07/17 05/08/17 15:00 23:00 07:00 Intake Total 390 ml 1556 ml 1345 ml Output Total 2725 ml 1059 ml 592 ml Balance -2335 ml 497 ml 753 ml EULALIA MOSELEY MD May 08, 2017 12:44
[2017-05-08 12:54] LABS: HCO3 ABG 31 mmol/L (21-28); PCO2 ABG 45 mmHg (35-46); PH ABG 7.45 (7.35-7.45); PO2 ABG 61 mmHg (65-108); SAT O2 ABG 92 % (92-99)
[2017-05-08 13:03] LABS: FIO2 ABG 40
--- NOTE | 2017-05-08 13:54 | RAD ---
Renal ultrasound, 05/08/2017: History: Hypertension, chronic kidney disease The right kidney measures 11.2 cm in length while the left kidney measures 10.2 cm. There is no evidence of hydronephrosis or a renal mass. The renal parenchymal echogenicity is within normal limits. The bladder is collapsed and not adequately delineated due to the presence of a Rodriguez catheter. IMPRESSION: No significant renal abnormality is detected. Deep Doppler renal ultrasound, 05/08/2017: Duplex evaluation of the main renal arteries was attempted including grayscale, color-flow and spectral Doppler analysis. The peak systolic velocity in the right renal artery is 138 cm/s and on the left is 92 cm/s. A portion of the left main renal artery was obscured by overlying bowel. No high velocities are seen in either main renal artery to suggest significant renal artery stenosis. IMPRESSION: No duplex evidence of significant main renal artery stenosis.
--- NOTE | 2017-05-08 16:42 | PDOC ---
PROGRESS NOTES Subjective Subjective in icu on vent, did some vent weaning today Objective Objective Vital Signs Date Time Temp Pulse Resp B/P (MAP) Pulse Ox O2 Delivery O2 Flow Rate FiO2 05/08/17 16:17 30 100 Ventilator 3.0 05/08/17 06:00 73 146/72 (96) 05/08/17 03:00 96.2 96.2 Intake and Output 05/08/17 06:59 Intake Total 3321 ml Output Total 4751 ml Balance -1430 ml IV Total 1369 ml Tube Feeding 1622 ml Other 330 ml Output Urine Total 4751 ml Physical Exam Abdomen: Normal bowel sounds, Soft Heart: Regular rate, Normal S1, Normal S2 Extremities: No clubbing, No cyanosis Lungs: Clear to auscultation, Normal air movement MUSCULOSKELETAL: Other (SEDATED) Skin: No rashes, No breakdown COMMENT sullivan Diagnosis Problem List Problems Medical Problems: (1) Respiratory failure Status: Acute Assessment Assessment Problems Medical Problems: (1) Respiratory failure Status: Acute Assessment Acute respiratory failure needing intubation pneumonia suspect gram neg+gram positive sepsis acute lactic acidosis acute on chronic chf -diastolic hyponatremia ac kidney failure?ATN ch copd ex smoker h/o pancreatitis Plan Plan Intubated ,had T ube trial today wbc down to 13 Na 132 improved [place] cultures,so far neg broad spectrum antibiotics vanco+zosyn pul consult appreciated echo -good LVF cardiology consult appreciated ID ,spoke with dr Slaughter. spoke with son+ critical condition. DVT prevention on Lovenox prognosis guarded. Renal consult appreciated, spoke with renal lizy for anxiety For more details regarding further plans, please refer to the orders. Problems: Plan Plan of Care Problems Medical Problems: (1) Respiratory failure Status: Acute Comment Review of Relevant I have reviewed the following items katy (where applicable) has been applied. Labs Laboratory Tests Test 05/07/17 17:59 05/07/17 20:38 05/08/17 00:13 05/08/17 04:30 Glucose (Fingerstick) 211 mg/dL (70-99) 196 mg/dL (70-99) 193 mg/dL (70-99) White Blood Count 13.8 x10^3/uL (4.0-11.0) Red Blood Count 4.01 x10^6/uL (3.50-5.40) Hemoglobin 9.7 g/dL (12.0-15.5) Hematocrit 29.9 % (36.0-47.0) Mean Corpuscular Volume 75 fL (79-100) Mean Corpuscular Hemoglobin 24 pg (25-35) Mean Corpuscular Hemoglobin Concent 32 g/dL (31-37) Red Cell Distribution Width 18.5 % (11.5-14.5) Platelet Count 258 x10^3/uL (140-400) Neutrophils (%) (Auto) 80 % (31-73) Lymphocytes (%) (Auto) 8 % (24-48) Monocytes (%) (Auto) 12 % (0-9) Eosinophils (%) (Auto) 0 % (0-3) Basophils (%) (Auto) 1 % (0-3) Neutrophils # (Auto) 11.0 x10^3uL (1.8-7.7) Lymphocytes # (Auto) 1.1 x10^3/uL (1.0-4.8) Monocytes # (Auto) 1.6 x10^3/uL (0.0-1.1) Eosinophils # (Auto) 0.0 x10^3/uL (0.0-0.7) Basophils # (Auto) 0.1 x10^3/uL (0.0-0.2) Sodium Level 132 mmol/L (136-145) Potassium Level 4.0 mmol/L (3.5-5.1) Chloride Level 95 mmol/L (98-107) Carbon Dioxide Level 30 mmol/L (21-32) Anion Gap 7 (6-14) Blood Urea Nitrogen 20 mg/dL (7-20) Creatinine 1.4 mg/dL (0.6-1.0) Estimated GFR (Cockcroft-Gault) 37.2 Glucose Level 172 mg/dL (70-99) Calcium Level 8.9 mg/dL (8.5-10.1) Test 05/08/17 05:18 05/08/17 08:00 05/08/17 08:28 05/08/17 10:40 Glucose (Fingerstick) 197 mg/dL (70-99) 174 mg/dL (70-99) O2 Saturation 97 % (92-99) Arterial Blood pH 7.49 (7.35-7.45) Arterial Blood pCO2 at Patient Temp 33 mmHg (35-46) Arterial Blood pO2 at Patient Temp 91 mmHg (65-108) Arterial Blood HCO3 24 mmol/L (21-28) Arterial Blood Base Excess 2 mmol/L (-3-3) FiO2 50 Vancomycin Level Trough 10.6 mcg/mL (10.0-20.0) Vancomycin Last Dose Date 05/07/17 Vancomycin Last Dose Time 1000 Test 05/08/17 12:16 05/08/17 12:40 Glucose (Fingerstick) 202 mg/dL (70-99) O2 Saturation 92 % (92-99) Arterial Blood pH 7.45 (7.35-7.45) Arterial Blood pCO2 at Patient Temp 45 mmHg (35-46) Arterial Blood pO2 at Patient Temp 61 mmHg (65-108) Arterial Blood HCO3 31 mmol/L (21-28) Arterial Blood Base Excess 6 mmol/L (-3-3) FiO2 40 Microbiology 05/06/17 Blood Culture - Preliminary, Resulted NO GROWTH AFTER 2 DAYS 05/06/17 Urine Culture - Preliminary, Resulted 05/06/17 Urine Culture Result 1 (ANURAG) - Preliminary, Resulted Medications Current Medications Chlorhexidine Gluconate (Peridex) 15 ml BID MM Last administered on 05/08/17 10 :36; Start 05/07/17 at 21:00 Enalaprilat (Vasotec) 1.25 mg Q6HRS PRN IV HYPERTENSION, SEE COMMENTS; Start at 19:30 Famotidine (Pepcid) 20 mg QHS IVP Last administered on 05/07/17 20:38; Start at 21:00 Levofloxacin/ Dextrose 150 ml @ 100 mls/hr Q48H IV Last administered on 11:18; Start 05/08/17 at 10:00 Magnesium Sulfate/ Dextrose 50 ml @ 25 mls/hr PRN DAILY PRN IV for Mag < 1.7 on am labs; Start 05/08/17 at 09:00 Vancomycin HCl 1 each 1X ONCE MC Last administered on 05/08/17 10:00; Start at 09:30; Stop 05/08/17 at 09:31; Status DC Vancomycin HCl 1.5 gm/Sodium Chloride 500 ml @ 250 mls/hr Q24H IV Last administered on 05/08/17 13:05; Start 05/08/17 at 11:30 Vitals/I & O Vital Sign - Last 24 Hours 05/07/17 05/07/17 05/07/17 05/07/17 16:57 17:00 18:00 19:00 Pulse 75 82 72 Resp 26 26 22 B/P (MAP) 133/61 (85) 138/61 (86) 111/51 (71) Pulse Ox 100 99 99 99 O2 Delivery Ventilator Ventilator Ventilator Ventilator 05/07/17 05/07/17 05/07/17 05/07/17 19:15 20:00 20:00 20:59 Temp 99.8 99.8 Pulse 71 Resp 22 B/P (MAP) 111/56 (74) Pulse Ox 95 99 99 O2 Delivery Ventilator Mechanical Ventilator Ventilator Ventilator 05/07/17 05/07/17 05/07/17 05/07/17 21:00 22:00 22:57 23:00 Pulse 76 67 77 Resp 30 22 23 B/P (MAP) 129/56 (80) 126/61 (82) 136/77 (96) Pulse Ox 100 100 94 O2 Delivery Ventilator Ventilator Ventilator Ventilator 05/07/17 05/08/17 05/08/17 05/08/17 23:11 00:00 00:00 01:00 Temp 98.4 98.4 Pulse 63 63 Resp 22 22 B/P (MAP) 111/57 (75) 101/52 (68) Pulse Ox 100 99 98 O2 Delivery Ventilator Ventilator Mechanical Ventilator Ventilator 05/08/17 05/08/17 05/08/17 05/08/17 01:08 01:57 02:00 03:00 Temp 96.2 96.2 Pulse 69 77 Resp 22 22 B/P (MAP) 140/63 (88) 143/77 (99) Pulse Ox 98 95 98 O2 Delivery Ventilator Ventilator Ventilator Ventilator 05/08/17 05/08/17 05/08/17 05/08/17 03:20 04:00 04:00 05:00 Pulse 77 77 Resp 22 22 B/P (MAP) 124/77 (93) 148/78 (101) Pulse Ox 96 94 98 O2 Delivery Ventilator Ventilator Mechanical Ventilator Ventilator 05/08/17 05/08/17 05/08/17 05/08/17 06:00 06:05 07:41 08:00 Pulse 73 Resp 22 21 B/P (MAP) 146/72 (96) Pulse Ox 96 100 96 O2 Delivery Ventilator Ventilator Ventilator Mechanical Ventilator O2 Flow Rate 3.0 3.0 05/08/17 05/08/17 05/08/17 05/08/17 08:00 08:07 09:52 10:36 Resp 22 Pulse Ox 100 98 98 O2 Delivery Mechanical Ventilator Ventilator Ventilator Ventilator O2 Flow Rate 3.0 3.0 05/08/17 05/08/17 05/08/17 05/08/17 12:00 12:12 13:35 13:54 Resp 22 Pulse Ox 98 98 100 O2 Delivery Mechanical Ventilator Ventilator Ventilator Ventilator O2 Flow Rate 3.0 3.0 05/08/17 05/08/17 05/08/17 05/08/17 14:24 15:10 15:24 16:17 Resp 25 30 Pulse Ox 97 97 100 O2 Delivery Ventilator Mechanical Ventilator Ventilator Ventilator O2 Flow Rate 3.0 3.0 3.0 Intake and Output 05/07/17 05/07/17 05/08/17 14:59 22:59 06:59 Intake Total 390 ml 1586 ml 1345 ml Output Total 3000 ml 1118 ml 633 ml Balance -2610 ml 468 ml 712 ml ILA CAVAZOS MD May 08, 2017 16:42
[2017-05-08] MEDS: ALPRAZolam 1 MG TABLET PO PRN (16:57)
[2017-05-08] MEDS ORDERED: PROPOFOL 100 ML IV PRN (19:15)
[2017-05-08] MEDS: FAMOTIDINE 20 MG/2 ML VIAL IVP SCH (22:15)
[2017-05-08] MEDS: INSULIN DETEMIR 300 UNITS/3 ML INSULN.PEN. SQ SCH (22:38)
[2017-05-09] VITALS (24 sets, daily range): BP systolic 92–150; BP diastolic 51–75
[2017-05-09] MEDS: MIDAZOLAM PREMIX 100 ML IV PRN (04:26)
[2017-05-09 04:38] LABS: BASO # 0.1 x10^3/uL (0.0-0.2); BASO % 1 % (0-3); EOS % 1 % (0-3); HEMATOCRIT 32.4 % (36.0-47.0); HEMOGLOBIN 10.4 g/dL (12.0-15.5); LYMPH # 1.5 x10^3/uL (1.0-4.8); LYMPH % 12 % (24-48); MEAN CORPUSCULAR HEMOGLOBIN 24 pg (25-35); MEAN CORPUSCULAR HGB CONC 32 g/dL (31-37); MEAN CORPUSCULAR VOLUME 76 fL (79-100); MONO % 12 % (0-9); NEUT % 75 % (31-73); PLATELET COUNT 265 x10^3/uL (140-400); RED BLOOD COUNT 4.28 x10^6/uL (3.50-5.40); RED CELL DISTRIBUTION WIDTH 19.2 % (11.5-14.5); WHITE BLOOD COUNT 12.6 x10^3/uL (4.0-11.0)
[2017-05-09 05:17] LABS: ALBUMIN 2.7 g/dL (3.4-5.0); CALCIUM 9.2 mg/dL (8.5-10.1); CREATININE 1.4 mg/dL (0.6-1.0); GFR 37.2; POTASSIUM 3.6 mmol/L (3.5-5.1)
[2017-05-09] MEDS: PIPERACILLIN/TAZOBACTAM 3.375 GM in IV NORMAL SALINE 50ML 50 ML IV SCH ×3 (06:04→17:33)
[2017-05-09] MEDS: INSULIN ASPART 300 UNITS/3 ML INSULN.PEN SQ SCH ×3 (06:07→17:33)
--- NOTE | 2017-05-09 08:01 | PDOC ---
Infectious Disease Note Subjective Subjective Pt intubated, on vent, ROS ROS unable to do Vital Sign Vital Signs Vital Signs Date Time Temp Pulse Resp B/P (MAP) Pulse Ox O2 Delivery O2 Flow Rate FiO2 05/09/17 07:05 91 Ventilator 05/09/17 06:12 140/65 (90) 05/09/17 06:11 57 20 05/09/17 04:00 97.6 97.6 05/08/17 18:09 3.0 Physical Exam PHYSICAL EXAM GENERAL: NAD, on vent HEENT: PERRL, OC/OP NECK: Supple, no JVD, no LN LUNGS: Clear HEART: S1S2, no gallop, no murmur ABD: Soft, NT, no organomegaly, no rebound EXT: No edema, no cyanosis LENS MARKER: sedated on vent SKIN: No rash IV: ok Labs Lab Laboratory Tests Test 05/08/17 08:00 05/08/17 08:28 05/08/17 10:40 05/08/17 12:16 O2 Saturation 97 % (92-99) Arterial Blood pH 7.49 (7.35-7.45) Arterial Blood pCO2 at Patient Temp 33 mmHg (35-46) Arterial Blood pO2 at Patient Temp 91 mmHg (65-108) Arterial Blood HCO3 24 mmol/L (21-28) Arterial Blood Base Excess 2 mmol/L (-3-3) FiO2 50 Glucose (Fingerstick) 174 mg/dL (70-99) 202 mg/dL (70-99) Vancomycin Level Trough 10.6 mcg/mL (10.0-20.0) Vancomycin Last Dose Date 05/07/17 Vancomycin Last Dose Time 1000 Test 05/08/17 12:40 05/08/17 17:41 05/08/17 22:29 05/08/17 23:54 O2 Saturation 92 % (92-99) Arterial Blood pH 7.45 (7.35-7.45) Arterial Blood pCO2 at Patient Temp 45 mmHg (35-46) Arterial Blood pO2 at Patient Temp 61 mmHg (65-108) Arterial Blood HCO3 31 mmol/L (21-28) Arterial Blood Base Excess 6 mmol/L (-3-3) FiO2 40 Glucose (Fingerstick) 176 mg/dL (70-99) 131 mg/dL (70-99) 132 mg/dL (70-99) Test 05/09/17 04:16 05/09/17 06:03 White Blood Count 12.6 x10^3/uL (4.0-11.0) Red Blood Count 4.28 x10^6/uL (3.50-5.40) Hemoglobin 10.4 g/dL (12.0-15.5) Hematocrit 32.4 % (36.0-47.0) Mean Corpuscular Volume 76 fL (79-100) Mean Corpuscular Hemoglobin 24 pg (25-35) Mean Corpuscular Hemoglobin Concent 32 g/dL (31-37) Red Cell Distribution Width 19.2 % (11.5-14.5) Platelet Count 265 x10^3/uL (140-400) Neutrophils (%) (Auto) 75 % (31-73) Lymphocytes (%) (Auto) 12 % (24-48) Monocytes (%) (Auto) 12 % (0-9) Eosinophils (%) (Auto) 1 % (0-3) Basophils (%) (Auto) 1 % (0-3) Neutrophils # (Auto) 9.4 x10^3uL (1.8-7.7) Lymphocytes # (Auto) 1.5 x10^3/uL (1.0-4.8) Monocytes # (Auto) 1.5 x10^3/uL (0.0-1.1) Eosinophils # (Auto) 0.1 x10^3/uL (0.0-0.7) Basophils # (Auto) 0.1 x10^3/uL (0.0-0.2) Sodium Level 135 mmol/L (136-145) Potassium Level 3.6 mmol/L (3.5-5.1) Chloride Level 97 mmol/L (98-107) Carbon Dioxide Level 28 mmol/L (21-32) Anion Gap 10 (6-14) Blood Urea Nitrogen 22 mg/dL (7-20) Creatinine 1.4 mg/dL (0.6-1.0) Estimated GFR (Cockcroft-Gault) 37.2 Glucose Level 170 mg/dL (70-99) Calcium Level 9.2 mg/dL (8.5-10.1) Phosphorus Level 3.0 mg/dL (2.6-4.7) Magnesium Level 2.2 mg/dL (1.8-2.4) Albumin 2.7 g/dL (3.4-5.0) Glucose (Fingerstick) 171 mg/dL (70-99) Micro Cultures neg Objective Assessment Pneumonia COPD exacerbation Hyponatremia Respiratory failure DM Leukocytosis Plan Plan of Care cont zosyn , d/c vanc, levaquin, supportive care d/w son, they want to give few days, but does not want prolong care if cannot get off vent OLY VALENCIA MD May 09, 2017 08:01
--- NOTE | 2017-05-09 08:33 | RAD ---
Portable chest, 05/09/2017: History: Respiratory failure Comparison is made to yesterday's study. The tip of the ET tube lies well above the [place]. An NG tube extends into the stomach. The depth of inspiration is not as good on today's exam. The heart size is unchanged. There are bibasilar pulmonary infiltrates, left greater than right. The left basilar infiltrates have worsened with obscuration of the hemidiaphragm. A component of pleural fluid is likely. There is no evidence of pneumothorax. IMPRESSION: 1. Stable tube positions. 2. Ongoing bibasilar infiltrates with interval worsening on the left.
[2017-05-09] MEDS: ALPRAZolam 1 MG TABLET PO PRN (08:49)
[2017-05-09] MEDS: CHLORHEXIDINE 0.12% 15 ML MOUTHWASH. MM SCH ×2 (08:49→21:29)
[2017-05-09] MEDS: BUMETANIDE 1 MG/4 ML VIAL. IV SCH ×2 (08:49→13:59)
[2017-05-09] MEDS: ENOXAPARIN 40 MG/0.4 ML SYRINGE. SQ SCH (08:50)
--- NOTE | 2017-05-09 10:02 | PDOC ---
SUBJECTIVE ROS DOMINGO awake on the Vent OBJECTIVE Vital Signs Vital Signs Date Time Temp Pulse Resp B/P (MAP) Pulse Ox O2 Delivery O2 Flow Rate FiO2 05/09/17 09:25 96 Ventilator 05/09/17 09:00 60 20 144/72 (96) 05/09/17 08:00 100.1 100.1 05/08/17 18:09 3.0 I & 0 Intake and Output 05/09/17 07:00 Intake Total 2883.68 ml Output Total 3640 ml Balance -756.32 ml Intake Oral 0 ml IV Total 1202.68 ml Tube Feeding 1351 ml Other 330 ml Output Urine Total 3640 ml Gastric Drainage Total 0 ml PHYSICAL EXAM Physical Exam GEN: Awake, Oriented x ?, In no distress on the vent via ETT EYES: Vision Unchanged, Conjunctiva Normal EN: No EN Drainage, Mucous Membranes moist NECK: no JVD, no JVP, Supple, no Thyromegaly CVS: S1S2, + Murmur, No Gallop, No Rub,min Edema RESP: rare basal Rales, no Rhonchi,no Acc. Muscle Use GI: BS hypoactive, NO Bruit, Non Tender, Non Distended : no CVA tenderness, no Suprapubic Tenderness DIAGNOSIS/ASSESSMENT Assessment & Plan HypoNatremia - resolved - watch on IV Bumex + TF ARF/ ? ATN (due to Ac Illness): this may be nearterm baseline. Current fluid and E-lyte status does not necessitate emergent need for dialysis. Renal US and RAD WNL ? CKD III at baseline (Creat 1.1-1.3) cannot be ruled out; DM and ASVDz associated /NS HTN: (no LLUVIA opn RAD) Current BP meds as reviewed. See orders for changes. Pulm edema vs Pn - ct Diuresis as needed Discussed Plan of Care with family (son) at bedside COMMENT/RELEVANT DATA Meds Current Medications Medications (Trade) Dose Ordered Sig/Christine Start Time Stop Time Status Last Admin Dose Admin Acetaminophen (Tylenol) 650 mg PRN Q6HRS PRN 05/07/17 00:45 05/07/17 17:57 650 MG Acetaminophen/ Hydrocodone Bitart (Lortab 5/325) 2 tab PRN Q6HRS PRN 05/06/17 05:00 05/08/17 18:09 2 TAB Albumin Human 50 ml @ 50 mls/hr 1X ONCE 05/06/17 15:30 05/06/17 16:29 DC 05/06/17 15:30 50 MLS/HR Alprazolam (Xanax) 1 mg PRN Q8HRS PRN 05/08/17 16:45 05/09/17 08:49 1 MG Bumetanide (Bumex) 1 mg [id number] 05/06/17 09:00 05/09/17 08:49 1 MG Chlorhexidine Gluconate (Peridex) 15 ml BID 05/07/17 21:00 05/09/17 08:49 15 ML Dextrose (Dextrose 50%-Water Syringe) 12.5 gm PRN Q15MIN PRN 05/06/17 08:45 Dopamine HCl/ Dextrose 250 ml @ 16.627 mls/ hr CONT PRN 05/06/17 06:00 05/06/17 12:28 16.627 MLS/HR Enalaprilat (Vasotec) 1.25 mg Q6HRS PRN 05/07/17 19:30 Enoxaparin Sodium (Lovenox 40mg Syringe) 40 mg Q24H 05/06/17 09:00 05/09/17 08:50 40 MG Famotidine (Pepcid) 20 mg QHS 05/07/17 21:00 05/08/17 22:15 20 MG Fentanyl Citrate (Fentanyl 2ml Vial) 25 mcg Q3HRS PRN 05/06/17 18:00 05/08/17 22:31 25 MCG Insulin Aspart (NovoLOG) 0-9 UNITS Q6HRS 05/07/17 00:00 05/09/17 06:07 4 UNITS Insulin Detemir (Levemir) 15 units QHS 05/06/17 21:00 05/08/17 22:38 15 UNITS Isoproterenol HCl 1 mg/Dextrose 255 ml @ 0 mls/hr CONT PRN 05/06/17 13:00 05/07/17 00:09 75 MLS/HR Levofloxacin/ Dextrose 150 ml @ 100 mls/hr Q48H 05/08/17 10:00 05/09/17 08:02 DC 05/08/17 11:18 100 MLS/HR Lidocaine HCl (Lidocaine Pf 2% Vial) 5 ml STK-MED ONCE 05/06/17 10:13 05/06/17 10:14 DC Magnesium Sulfate/ Dextrose 50 ml @ 25 mls/hr PRN DAILY PRN 05/08/17 09:00 Midazolam HCl 100 ml @ 0 mls/hr CONT PRN 05/06/17 11:00 05/09/17 04:26 15 MLS/HR Ondansetron HCl (Zofran) 4 mg PRN Q8HRS PRN 05/05/17 23:45 05/06/17 23:44 DC Piperacillin Sod/ Tazobactam Sod 3.375 gm/Sodium Chloride 50 ml @ 100 mls/hr Q6HRS 05/06/17 10:30 05/09/17 06:04 100 MLS/HR Propofol 100 ml @ 0 mls/hr CONT PRN 05/08/17 19:15 05/08/17 23:19 2.7 MLS/HR Succinylcholine Chloride (Anectine) 200 mg STK-MED ONCE 05/06/17 10:13 05/06/17 10:14 DC Torsemide (Demadex) 20 mg 1X ONCE 05/05/17 23:45 05/05/17 23:46 DC 05/06/17 00:44 20 MG Vancomycin HCl (Vanco Per Pharmacy) 1 each PRN DAILY PRN 05/06/17 10:00 05/09/17 08:02 DC 05/08/17 11:20 1 EACH Vancomycin HCl 1.25 gm/Sodium Chloride 250 ml @ 167 mls/hr Q24H 05/07/17 10:00 05/08/17 11:18 DC 05/07/17 10:01 167 MLS/HR Vancomycin HCl 1.5 gm/Sodium Chloride 500 ml @ 250 mls/hr Q24H 05/08/17 11:30 05/09/17 08:02 DC 05/08/17 13:05 250 MLS/HR Vancomycin HCl 500 mg/Sodium Chloride 100 ml @ 100 mls/hr 1X ONCE 05/06/17 12:00 05/06/17 12:59 DC 05/06/17 16:52 100 MLS/HR Lab Laboratory Tests Test 05/08/17 10:40 05/08/17 12:16 05/08/17 12:40 05/08/17 17:41 Vancomycin Level Trough 10.6 mcg/mL (10.0-20.0) Vancomycin Last Dose Date 05/07/17 Vancomycin Last Dose Time 1000 Glucose (Fingerstick) 202 mg/dL (70-99) 176 mg/dL (70-99) O2 Saturation 92 % (92-99) Arterial Blood pH 7.45 (7.35-7.45) Arterial Blood pCO2 at Patient Temp 45 mmHg (35-46) Arterial Blood pO2 at Patient Temp 61 mmHg (65-108) Arterial Blood HCO3 31 mmol/L (21-28) Arterial Blood Base Excess 6 mmol/L (-3-3) FiO2 40 Test 05/08/17 22:29 05/08/17 23:54 05/09/17 04:16 05/09/17 06:03 Glucose (Fingerstick) 131 mg/dL (70-99) 132 mg/dL (70-99) 171 mg/dL (70-99) White Blood Count 12.6 x10^3/uL (4.0-11.0) Red Blood Count 4.28 x10^6/uL (3.50-5.40) Hemoglobin 10.4 g/dL (12.0-15.5) Hematocrit 32.4 % (36.0-47.0) Mean Corpuscular Volume 76 fL (79-100) Mean Corpuscular Hemoglobin 24 pg (25-35) Mean Corpuscular Hemoglobin Concent 32 g/dL (31-37) Red Cell Distribution Width 19.2 % (11.5-14.5) Platelet Count 265 x10^3/uL (140-400) Neutrophils (%) (Auto) 75 % (31-73) Lymphocytes (%) (Auto) 12 % (24-48) Monocytes (%) (Auto) 12 % (0-9) Eosinophils (%) (Auto) 1 % (0-3) Basophils (%) (Auto) 1 % (0-3) Neutrophils # (Auto) 9.4 x10^3uL (1.8-7.7) Lymphocytes # (Auto) 1.5 x10^3/uL (1.0-4.8) Monocytes # (Auto) 1.5 x10^3/uL (0.0-1.1) Eosinophils # (Auto) 0.1 x10^3/uL (0.0-0.7) Basophils # (Auto) 0.1 x10^3/uL (0.0-0.2) Sodium Level 135 mmol/L (136-145) Potassium Level 3.6 mmol/L (3.5-5.1) Chloride Level 97 mmol/L (98-107) Carbon Dioxide Level 28 mmol/L (21-32) Anion Gap 10 (6-14) Blood Urea Nitrogen 22 mg/dL (7-20) Creatinine 1.4 mg/dL (0.6-1.0) Estimated GFR (Cockcroft-Gault) 37.2 Glucose Level 170 mg/dL (70-99) Calcium Level 9.2 mg/dL (8.5-10.1) Phosphorus Level 3.0 mg/dL (2.6-4.7) Magnesium Level 2.2 mg/dL (1.8-2.4) Albumin 2.7 g/dL (3.4-5.0) LEO VALENCIA MD May 09, 2017 10:02
[2017-05-09 10:03] LABS: HCO3 ABG 28 mmol/L (21-28); PCO2 ABG 40 mmHg (35-46); PH ABG 7.46 (7.35-7.45); PO2 ABG 70 mmHg (65-108); SAT O2 ABG 94 % (92-99)
[2017-05-09 10:05] LABS: FIO2 ABG 40
--- NOTE | 2017-05-09 10:07 | PDOC ---
PROGRESS NOTES Subjective Subjective Ms Harper Kennedy continues to stay on a ventilator. Her vitals were stable overnight. She has a sinus rhythm this morning with a rate in the 60's. Propofol was added with the versed for sedation. Objective Objective Vital Signs Date Time Temp Pulse Resp B/P (MAP) Pulse Ox O2 Delivery O2 Flow Rate FiO2 05/09/17 09:25 96 Ventilator 05/09/17 09:00 60 20 144/72 (96) 05/09/17 08:00 100.1 100.1 05/08/17 18:09 3.0 Intake and Output 05/09/17 07:00 Intake Total 2883.68 ml Output Total 3640 ml Balance -756.32 ml Intake Oral 0 ml IV Total 1202.68 ml Tube Feeding 1351 ml Other 330 ml Output Urine Total 3640 ml Gastric Drainage Total 0 ml Physical Exam Heart: Regular rate, Other (some ectopy, no changes in sounds) Lungs: Other (coarse sounds heard b/l) Assessment Assessment Pt is agitated, but in sinus rhythm Agree with present plan Comment Review of Relevant I have reviewed the following items katy (where applicable) has been applied. Labs Laboratory Tests Test 05/07/17 12:21 05/07/17 14:35 05/07/17 17:59 05/07/17 20:38 Glucose (Fingerstick) 286 mg/dL (70-99) 211 mg/dL (70-99) 196 mg/dL (70-99) Sodium Level 129 mmol/L (136-145) Potassium Level 4.6 mmol/L (3.5-5.1) Chloride Level 93 mmol/L (98-107) Carbon Dioxide Level 31 mmol/L (21-32) Anion Gap 5 (6-14) Blood Urea Nitrogen 15 mg/dL (7-20) Creatinine 1.3 mg/dL (0.6-1.0) Estimated GFR (Cockcroft-Gault) 40.5 Glucose Level 214 mg/dL (70-99) Serum Osmolality 275 mOsm/Kg (279-304) Calcium Level 9.0 mg/dL (8.5-10.1) Test 05/08/17 00:13 05/08/17 04:30 05/08/17 05:18 05/08/17 08:00 Glucose (Fingerstick) 193 mg/dL (70-99) 197 mg/dL (70-99) White Blood Count 13.8 x10^3/uL (4.0-11.0) Red Blood Count 4.01 x10^6/uL (3.50-5.40) Hemoglobin 9.7 g/dL (12.0-15.5) Hematocrit 29.9 % (36.0-47.0) Mean Corpuscular Volume 75 fL (79-100) Mean Corpuscular Hemoglobin 24 pg (25-35) Mean Corpuscular Hemoglobin Concent 32 g/dL (31-37) Red Cell Distribution Width 18.5 % (11.5-14.5) Platelet Count 258 x10^3/uL (140-400) Neutrophils (%) (Auto) 80 % (31-73) Lymphocytes (%) (Auto) 8 % (24-48) Monocytes (%) (Auto) 12 % (0-9) Eosinophils (%) (Auto) 0 % (0-3) Basophils (%) (Auto) 1 % (0-3) Neutrophils # (Auto) 11.0 x10^3uL (1.8-7.7) Lymphocytes # (Auto) 1.1 x10^3/uL (1.0-4.8) Monocytes # (Auto) 1.6 x10^3/uL (0.0-1.1) Eosinophils # (Auto) 0.0 x10^3/uL (0.0-0.7) Basophils # (Auto) 0.1 x10^3/uL (0.0-0.2) Sodium Level 132 mmol/L (136-145) Potassium Level 4.0 mmol/L (3.5-5.1) Chloride Level 95 mmol/L (98-107) Carbon Dioxide Level 30 mmol/L (21-32) Anion Gap 7 (6-14) Blood Urea Nitrogen 20 mg/dL (7-20) Creatinine 1.4 mg/dL (0.6-1.0) Estimated GFR (Cockcroft-Gault) 37.2 Glucose Level 172 mg/dL (70-99) Calcium Level 8.9 mg/dL (8.5-10.1) O2 Saturation 97 % (92-99) Arterial Blood pH 7.49 (7.35-7.45) Arterial Blood pCO2 at Patient Temp 33 mmHg (35-46) Arterial Blood pO2 at Patient Temp 91 mmHg (65-108) Arterial Blood HCO3 24 mmol/L (21-28) Arterial Blood Base Excess 2 mmol/L (-3-3) FiO2 50 Test 05/08/17 08:28 05/08/17 10:40 05/08/17 12:16 05/08/17 12:40 Glucose (Fingerstick) 174 mg/dL (70-99) 202 mg/dL (70-99) Vancomycin Level Trough 10.6 mcg/mL (10.0-20.0) Vancomycin Last Dose Date 05/07/17 Vancomycin Last Dose Time 1000 O2 Saturation 92 % (92-99) Arterial Blood pH 7.45 (7.35-7.45) Arterial Blood pCO2 at Patient Temp 45 mmHg (35-46) Arterial Blood pO2 at Patient Temp 61 mmHg (65-108) Arterial Blood HCO3 31 mmol/L (21-28) Arterial Blood Base Excess 6 mmol/L (-3-3) FiO2 40 Test 05/08/17 17:41 05/08/17 22:29 05/08/17 23:54 05/09/17 04:16 Glucose (Fingerstick) 176 mg/dL (70-99) 131 mg/dL (70-99) 132 mg/dL (70-99) White Blood Count 12.6 x10^3/uL (4.0-11.0) Red Blood Count 4.28 x10^6/uL (3.50-5.40) Hemoglobin 10.4 g/dL (12.0-15.5) Hematocrit 32.4 % (36.0-47.0) Mean Corpuscular Volume 76 fL (79-100) Mean Corpuscular Hemoglobin 24 pg (25-35) Mean Corpuscular Hemoglobin Concent 32 g/dL (31-37) Red Cell Distribution Width 19.2 % (11.5-14.5) Platelet Count 265 x10^3/uL (140-400) Neutrophils (%) (Auto) 75 % (31-73) Lymphocytes (%) (Auto) 12 % (24-48) Monocytes (%) (Auto) 12 % (0-9) Eosinophils (%) (Auto) 1 % (0-3) Basophils (%) (Auto) 1 % (0-3) Neutrophils # (Auto) 9.4 x10^3uL (1.8-7.7) Lymphocytes # (Auto) 1.5 x10^3/uL (1.0-4.8) Monocytes # (Auto) 1.5 x10^3/uL (0.0-1.1) Eosinophils # (Auto) 0.1 x10^3/uL (0.0-0.7) Basophils # (Auto) 0.1 x10^3/uL (0.0-0.2) Sodium Level 135 mmol/L (136-145) Potassium Level 3.6 mmol/L (3.5-5.1) Chloride Level 97 mmol/L (98-107) Carbon Dioxide Level 28 mmol/L (21-32) Anion Gap 10 (6-14) Blood Urea Nitrogen 22 mg/dL (7-20) Creatinine 1.4 mg/dL (0.6-1.0) Estimated GFR (Cockcroft-Gault) 37.2 Glucose Level 170 mg/dL (70-99) Calcium Level 9.2 mg/dL (8.5-10.1) Phosphorus Level 3.0 mg/dL (2.6-4.7) Magnesium Level 2.2 mg/dL (1.8-2.4) Albumin 2.7 g/dL (3.4-5.0) Test 05/09/17 06:03 Glucose (Fingerstick) 171 mg/dL (70-99) Laboratory Tests Test 05/08/17 10:40 05/08/17 12:16 05/08/17 12:40 05/08/17 17:41 Vancomycin Level Trough 10.6 mcg/mL (10.0-20.0) Vancomycin Last Dose Date 05/07/17 Vancomycin Last Dose Time 1000 Glucose (Fingerstick) 202 mg/dL (70-99) 176 mg/dL (70-99) O2 Saturation 92 % (92-99) Arterial Blood pH 7.45 (7.35-7.45) Arterial Blood pCO2 at Patient Temp 45 mmHg (35-46) Arterial Blood pO2 at Patient Temp 61 mmHg (65-108) Arterial Blood HCO3 31 mmol/L (21-28) Arterial Blood Base Excess 6 mmol/L (-3-3) FiO2 40 Test 05/08/17 22:29 05/08/17 23:54 05/09/17 04:16 05/09/17 06:03 Glucose (Fingerstick) 131 mg/dL (70-99) 132 mg/dL (70-99) 171 mg/dL (70-99) White Blood Count 12.6 x10^3/uL (4.0-11.0) Red Blood Count 4.28 x10^6/uL (3.50-5.40) Hemoglobin 10.4 g/dL (12.0-15.5) Hematocrit 32.4 % (36.0-47.0) Mean Corpuscular Volume 76 fL (79-100) Mean Corpuscular Hemoglobin 24 pg (25-35) Mean Corpuscular Hemoglobin Concent 32 g/dL (31-37) Red Cell Distribution Width 19.2 % (11.5-14.5) Platelet Count 265 x10^3/uL (140-400) Neutrophils (%) (Auto) 75 % (31-73) Lymphocytes (%) (Auto) 12 % (24-48) Monocytes (%) (Auto) 12 % (0-9) Eosinophils (%) (Auto) 1 % (0-3) Basophils (%) (Auto) 1 % (0-3) Neutrophils # (Auto) 9.4 x10^3uL (1.8-7.7) Lymphocytes # (Auto) 1.5 x10^3/uL (1.0-4.8) Monocytes # (Auto) 1.5 x10^3/uL (0.0-1.1) Eosinophils # (Auto) 0.1 x10^3/uL (0.0-0.7) Basophils # (Auto) 0.1 x10^3/uL (0.0-0.2) Sodium Level 135 mmol/L (136-145) Potassium Level 3.6 mmol/L (3.5-5.1) Chloride Level 97 mmol/L (98-107) Carbon Dioxide Level 28 mmol/L (21-32) Anion Gap 10 (6-14) Blood Urea Nitrogen 22 mg/dL (7-20) Creatinine 1.4 mg/dL (0.6-1.0) Estimated GFR (Cockcroft-Gault) 37.2 Glucose Level 170 mg/dL (70-99) Calcium Level 9.2 mg/dL (8.5-10.1) Phosphorus Level 3.0 mg/dL (2.6-4.7) Magnesium Level 2.2 mg/dL (1.8-2.4) Albumin 2.7 g/dL (3.4-5.0) Microbiology 05/06/17 Blood Culture - Preliminary, Resulted NO GROWTH AFTER 2 DAYS 05/06/17 Urine Culture - Preliminary, Resulted 05/06/17 Urine Culture Result 1 (ANURAG) - Preliminary, Resulted Medications Current Medications Dopamine HCl/ Dextrose 250 ml @ 16.856 mls/ hr 1X ONCE IV Last administered on 05/05/17 22:54; Start 05/05/17 at 23:00; Stop 05/06/17 at 13:49; Status DC Torsemide (Demadex) 20 mg 1X ONCE PO Last administered on 05/06/17 00:44; Start 05/05/17 at 23:45; Stop 05/05/17 at 23:46; Status DC Bumetanide (Bumex) 1 mg [id number] IV Last administered on 05/09/17 08:49; Start 05/06/17 at 09:00 Ondansetron HCl (Zofran) 4 mg 1X ONCE IV Last administered on 05/06/17 00:09; Start 05/05/17 at 23:45; Stop 05/05/17 at 23:46; Status DC Ondansetron HCl (Zofran) 4 mg PRN Q8HRS PRN IV NAUSEA/VOMITING; Start 05/05/17 at 23:45; Stop 05/06/17 at 23:44; Status DC Acetaminophen/ Hydrocodone Bitart (Lortab 5/325) 1 tab PRN Q6HRS PRN PO MODERATE - SEVERE PAIN Last administered on 05/06/17 05:21; Start 05/06/17 at 05: 00 Acetaminophen/ Hydrocodone Bitart (Lortab 5/325) 2 tab PRN Q6HRS PRN PO MODERATE - SEVERE PAIN Last administered on 05/08/17 18:09; Start 05/06/17 at 05: 00 Dopamine HCl/ Dextrose 250 ml @ 16.627 mls/ hr CONT PRN IV SEE I/O RECORD Last administered on 05/06/17 12:28; Start 05/06/17 at 06:00 Vancomycin HCl 1.5 gm/Sodium Chloride 500 ml @ 250 mls/hr 1X ONCE IV Last administered on 05/06/17 10:34; Start 05/06/17 at 09:00; Stop 05/06/17 at 10:59; Status DC Levofloxacin/ Dextrose 100 ml @ 100 mls/hr Q24H IV Last administered on 12:28; Start 05/06/17 at 10:00; Stop 05/08/17 at 09:28; Status DC Insulin Aspart (NovoLOG) 0-9 UNITS TIDWMEALS SQ Last administered on 05/06/17 18:09; Start 05/06/17 at 12:00; Stop 05/06/17 at 23:03; Status DC Dextrose (Dextrose 50%-Water Syringe) 12.5 gm PRN Q15MIN PRN IV SEE COMMENTS; Start 05/06/17 at 08:45 Enoxaparin Sodium (Lovenox 40mg Syringe) 40 mg Q24H SQ Last administered on 05/09 08:50; Start 05/06/17 at 09:00 Piperacillin Sod/ Tazobactam Sod 3.375 gm/Sodium Chloride 50 ml @ 100 mls/hr Q6HRS IV Last administered on 05/09/17 06:04; Start 05/06/17 at 10:30 Vancomycin HCl (Vanco Per Pharmacy) 1 each PRN DAILY PRN MC SEE COMMENTS Last administered on 05/08/17 11:20; Start 05/06/17 at 10:00; Stop 05/09/17 at 08:02; Status DC Succinylcholine Chloride (Anectine) 200 mg STK-MED ONCE .ROUTE ; Start 05/06/17 at 10:13; Stop 05/06/17 at 10:14; Status DC Propofol 20 ml @ As Directed STK-MED ONCE IV ; Start 05/06/17 at 10:13; Stop 05/06 at 10:14; Status DC Lidocaine HCl (Lidocaine Pf 2% Vial) 5 ml STK-MED ONCE .ROUTE ; Start 05/06/17 at 10:13; Stop 05/06/17 at 10:14; Status DC Propofol 0 ml @ As Directed STK-MED ONCE IV ; Start 05/06/17 at 10:14; Stop at 10:15; Status DC Midazolam HCl 100 ml @ As Directed STK-MED ONCE IV ; Start 05/06/17 at 10:14; Stop 05/06/17 at 10:15; Status DC Midazolam HCl 100 ml @ 0 mls/hr CONT PRN IV SEE I/O RECORD Last administered on 05/09/17 04:26; Start 05/06/17 at 11:00 Vancomycin HCl 500 mg/Sodium Chloride 100 ml @ 100 mls/hr 1X ONCE IV Last administered on 05/06/17 16:52; Start 05/06/17 at 12:00; Stop 05/06/17 at 12:59; Status DC Vancomycin HCl 1.25 gm/Sodium Chloride 250 ml @ 167 mls/hr Q24H IV Last administered on 05/07/17 10:01; Start 05/07/17 at 10:00; Stop 05/08/17 at 11:18; Status DC Vancomycin HCl 1 each 1X ONCE MC Last administered on 05/08/17 10:00; Start at 09:30; Stop 05/08/17 at 09:31; Status DC Isoproterenol HCl 1 mg/Dextrose 255 ml @ 0 mls/hr CONT PRN IV SEE I/O RECORD Last administered on 05/07/17 00:09; Start 05/06/17 at 13:00 Albumin Human 50 ml @ 50 mls/hr 1X ONCE IV Last administered on 05/06/17 15:30 ; Start 05/06/17 at 15:30; Stop 05/06/17 at 16:29; Status DC Insulin Aspart (NovoLOG) BIDBFRMEAL SQ ; Start 05/07/17 at 07:30; Status UNV Insulin Detemir (Levemir) 15 units QHS SQ Last administered on 05/08/17 22:38; Start 05/06/17 at 21:00 Fentanyl Citrate (Fentanyl 2ml Vial) 25 mcg Q3HRS PRN IV MILD PAIN Last administered on 05/08/17 22:31; Start 05/06/17 at 18:00 Insulin Aspart (NovoLOG) 0-9 UNITS Q6HRS SQ Last administered on 05/09/17 06:07 ; Start 05/07/17 at 00:00 Acetaminophen (Tylenol) 650 mg PRN Q6HRS PRN NG MILD PAIN / TEMP Last administered on 05/07/17 17:57; Start 05/07/17 at 00:45 Chlorhexidine Gluconate (Peridex) 15 ml BID MM Last administered on 05/09/17 08 :49; Start 05/07/17 at 21:00 Famotidine (Pepcid) 20 mg QHS IVP Last administered on 05/08/17 22:15; Start at 21:00 Enalaprilat (Vasotec) 1.25 mg Q6HRS PRN IV HYPERTENSION, SEE COMMENTS; Start at 19:30 Magnesium Sulfate/ Dextrose 50 ml @ 25 mls/hr PRN DAILY PRN IV for Mag < 1.7 on am labs; Start 05/08/17 at 09:00 Levofloxacin/ Dextrose 150 ml @ 100 mls/hr Q48H IV Last administered on 11:18; Start 05/08/17 at 10:00; Stop 05/09/17 at 08:02; Status DC Vancomycin HCl 1.5 gm/Sodium Chloride 500 ml @ 250 mls/hr Q24H IV Last administered on 05/08/17 13:05; Start 05/08/17 at 11:30; Stop 05/09/17 at 08:02; Status DC Alprazolam (Xanax) 1 mg PRN Q8HRS PRN PO ANXIETY / AGITATION Last administered on 05/09/17 08:49; Start 05/08/17 at 16:45 Propofol 100 ml @ 0 mls/hr CONT PRN IV SEE I/O RECORD Last administered on 23:19; Start 05/08/17 at 19:15 Active Scripts Active Glucophage Xr (Metformin Hcl) 500 Mg Tab.er.24h 1,000 Mg PO BID Egnar 5-325 Tablet (Acetaminophen/Hydrocodone Bitart) 1 Each Tablet 1 Tab PO PRN Q6HRS PRN Reported Antioxidant Softgel (Beta-Carotene(A) W-C & E/Min) 1 Each Capsule 1 Each PO DAILY Hyaluronic Acid 40 Mg Capsule (Hyalur Ac/Chond Sul/Colg Ii/Aa) 1 Each Capsule 1 Each PO DAILY Biotin 2,500 Mcg Capsule 5,000 Mcg PO DAILY Benefiber (Wheat Dextrin) 1 Each Powd.pack 1 Each PO DAILY Benefiber (Wheat Dextrin) 1 Each Powd.pack 1 Each PO Ellura (Cranberry Extract) 200 Mg Capsule 36 Mg PO Caltrate 600 + D Tablet (Calcium Carbonate/Vitamin D3) 1 Each Tablet 1 Each PO DAILY Vitamin C With Aletha Hips (Ascorbic Acid) 500 Mg Tablet 500 Mg PO DAILY Vitamin D3 (Cholecalciferol (Vitamin D3)) 1,000 Unit Tablet 1 Tab PO DAILY Fish Oil 1,000 Mg Softgel ([place]-3 Fatty Acids/Fish Oil) 1 Each Capsule 1 Each PO DAILY Premarin (Estrogens, Conjugated) 0.625 Mg Tablet 1 Tab PO DAILY Nortriptyline Hcl 25 Mg Capsule 1 Cap PO QHS Nitrofurantoin (Nitrofurantoin Macrocrystal) 100 Mg Capsule 1 Cap PO DAILY Cymbalta (Duloxetine Hcl) 30 Mg Capsule.dr 1 Cap PO DAILY Pantoprazole Sodium 40 Mg Tablet.dr 1 Tab PO DAILY Losartan Potassium 50 Mg Tablet 50 Mg PO DAILY Januvia (Sitagliptin Phosphate) 100 Mg Tablet 1 Tab PO DAILY Novolog Flexpen (Insulin Aspart) 100 Unit/1 Ml Insuln.pen 12 Unit SQ TIDWMEALS Losartan Potassium 100 Mg Tablet 100 Mg PO NOON Torsemide 10 Mg Tablet 10 Mg PO DAILY Sucralfate 1 Gm Tablet 1 Tab PO QID Omeprazole 20 Mg Capsule.dr 1 Cap PO BID Acetaminophen 325 Mg Tablet 650 Mg PO PRN BID PRN Levothyroxine Sodium 112 Mcg Tablet 1 Tab PO DAILY Atenolol 25 Mg Tablet 1 Tab PO BID Amlodipine Besylate 10 Mg Tablet 10 Mg PO DAILY Amitriptyline Hcl 25 Mg Tablet 1 Tab PO QHS Metoclopramide Hcl 5 Mg Tablet 5 Mg PO QIDACHS Alprazolam 0.5 Mg Tablet 1 Tab PO HS Alprazolam 0.5 Mg Tablet 2 Tab PO BIDWBKFT/HOLLIS Aspirin 81 Mg Tab.chew 1 Tab PO DAILY Vitals/I & O Vital Sign - Last 24 Hours 05/08/17 05/08/17 05/08/17 05/08/17 10:36 11:00 12:00 12:00 Temp 98.0 98.0 Pulse 80 80 Resp 22 24 24 B/P (MAP) 130/60 (83) 130/60 (83) Pulse Ox 98 91 91 O2 Delivery Ventilator Ventilator Ventilator Mechanical Ventilator O2 Flow Rate 3.0 3.0 05/08/17 05/08/17 05/08/17 05/08/17 12:12 13:00 13:35 13:54 Pulse 80 Resp 30 22 B/P (MAP) 137/55 (82) Pulse Ox 98 96 98 100 O2 Delivery Ventilator Ventilator Ventilator Ventilator O2 Flow Rate 3.0 05/08/17 05/08/17 05/08/17 05/08/17 14:00 15:00 15:10 15:24 Pulse 68 60 Resp 22 20 B/P (MAP) 118/61 (80) 127/64 (85) Pulse Ox 98 99 97 O2 Delivery Ventilator Ventilator Mechanical Ventilator Ventilator O2 Flow Rate 3.0 05/08/17 05/08/17 05/08/17 05/08/17 16:00 16:17 16:47 17:00 Temp 99.1 99.1 Pulse 74 78 Resp 27 30 21 B/P (MAP) 146/74 (98) 145/85 (105) Pulse Ox 99 100 100 O2 Delivery Ventilator Ventilator Ventilator O2 Flow Rate 3.0 3.0 05/08/17 05/08/17 05/08/17 05/08/17 17:38 18:00 18:09 19:00 Pulse 76 60 Resp 24 33 20 B/P (MAP) 155/74 (101) 137/72 (93) Pulse Ox 97 98 97 97 O2 Delivery Ventilator Ventilator Ventilator Ventilator O2 Flow Rate 3.0 05/08/17 05/08/17 05/08/17 05/08/17 19:47 19:47 20:00 20:00 Pulse 56 Resp 22 20 B/P (MAP) 121/58 (79) Pulse Ox 95 98 96 O2 Delivery Ventilator Ventilator Ventilator Mechanical Ventilator 05/08/17 05/08/17 05/08/17 05/08/17 21:00 22:00 22:31 22:32 Pulse 52 52 Resp 20 20 20 B/P (MAP) 108/63 (78) 133/66 (88) Pulse Ox 100 100 96 97 O2 Delivery Ventilator Ventilator Ventilator Ventilator 05/08/17 05/08/17 05/09/17 05/09/17 23:00 23:56 00:00 00:00 Temp 97.4 97.4 Pulse 72 52 Resp 20 20 20 B/P (MAP) 142/67 (92) 111/56 (74) Pulse Ox 96 97 97 O2 Delivery Ventilator Ventilator Mechanical Ventilator Ventilator 05/09/17 05/09/17 05/09/17 05/09/17 01:00 02:00 02:13 03:21 Pulse 54 54 53 Resp 20 20 20 B/P (MAP) 144/75 (98) 117/63 (81) 114/58 (76) Pulse Ox 94 94 95 95 O2 Delivery Ventilator Ventilator Ventilator 05/09/17 05/09/17 05/09/17 05/09/17 04:00 04:00 04:33 05:00 Temp 97.6 97.6 Pulse 58 56 Resp 20 B/P (MAP) 150/68 (95) 116/60 (78) Pulse Ox 90 92 91 O2 Delivery Mechanical Ventilator Ventilator Ventilator Ventilator 05/09/17 05/09/17 05/09/17 05/09/17 05:52 06:11 06:12 07:05 Pulse 57 Resp 20 B/P (MAP) 140/65 (90) 140/65 (90) Pulse Ox 91 92 91 O2 Delivery Ventilator Ventilator Ventilator 05/09/17 05/09/17 05/09/17 05/09/17 08:00 08:00 09:00 09:25 Temp 100.1 100.1 Pulse 60 60 Resp 20 20 B/P (MAP) 94/61 (72) 144/72 (96) Pulse Ox 91 96 O2 Delivery Mechanical Ventilator Ventilator Ventilator Ventilator Intake and Output 05/08/17 05/08/17 05/09/17 15:00 23:00 07:00 Intake Total 480 ml 1561.68 ml 842 ml Output Total 2200 ml 1000 ml 440 ml Balance -1720 ml 561.68 ml 402 ml EULALIA MOSELEY MD May 09, 2017 10:07
--- NOTE | 2017-05-09 14:42 | PDOC ---
PULMONARY PROGRESS NOTES Subjective BACK ON PS DID NOT DO WELL ON TRIAL Vitals Vital Signs Date Time Temp Pulse Resp B/P (MAP) Pulse Ox O2 Delivery O2 Flow Rate FiO2 05/09/17 14:00 65 19 123/64 (83) 98 Ventilator 05/09/17 12:00 98.7 98.7 05/08/17 18:09 3.0 Lungs: Crackles Cardiovascular: S1, S2 Abdomen: Soft Skin: Warm Labs Laboratory Tests Test 05/07/17 17:59 05/07/17 20:38 05/08/17 00:13 05/08/17 04:30 Glucose (Fingerstick) 211 mg/dL (70-99) 196 mg/dL (70-99) 193 mg/dL (70-99) White Blood Count 13.8 x10^3/uL (4.0-11.0) Red Blood Count 4.01 x10^6/uL (3.50-5.40) Hemoglobin 9.7 g/dL (12.0-15.5) Hematocrit 29.9 % (36.0-47.0) Mean Corpuscular Volume 75 fL (79-100) Mean Corpuscular Hemoglobin 24 pg (25-35) Mean Corpuscular Hemoglobin Concent 32 g/dL (31-37) Red Cell Distribution Width 18.5 % (11.5-14.5) Platelet Count 258 x10^3/uL (140-400) Neutrophils (%) (Auto) 80 % (31-73) Lymphocytes (%) (Auto) 8 % (24-48) Monocytes (%) (Auto) 12 % (0-9) Eosinophils (%) (Auto) 0 % (0-3) Basophils (%) (Auto) 1 % (0-3) Neutrophils # (Auto) 11.0 x10^3uL (1.8-7.7) Lymphocytes # (Auto) 1.1 x10^3/uL (1.0-4.8) Monocytes # (Auto) 1.6 x10^3/uL (0.0-1.1) Eosinophils # (Auto) 0.0 x10^3/uL (0.0-0.7) Basophils # (Auto) 0.1 x10^3/uL (0.0-0.2) Sodium Level 132 mmol/L (136-145) Potassium Level 4.0 mmol/L (3.5-5.1) Chloride Level 95 mmol/L (98-107) Carbon Dioxide Level 30 mmol/L (21-32) Anion Gap 7 (6-14) Blood Urea Nitrogen 20 mg/dL (7-20) Creatinine 1.4 mg/dL (0.6-1.0) Estimated GFR (Cockcroft-Gault) 37.2 Glucose Level 172 mg/dL (70-99) Calcium Level 8.9 mg/dL (8.5-10.1) Test 05/08/17 05:18 05/08/17 08:00 05/08/17 08:28 05/08/17 10:40 Glucose (Fingerstick) 197 mg/dL (70-99) 174 mg/dL (70-99) O2 Saturation 97 % (92-99) Arterial Blood pH 7.49 (7.35-7.45) Arterial Blood pCO2 at Patient Temp 33 mmHg (35-46) Arterial Blood pO2 at Patient Temp 91 mmHg (65-108) Arterial Blood HCO3 24 mmol/L (21-28) Arterial Blood Base Excess 2 mmol/L (-3-3) FiO2 50 Vancomycin Level Trough 10.6 mcg/mL (10.0-20.0) Vancomycin Last Dose Date 05/07/17 Vancomycin Last Dose Time 1000 Test 05/08/17 12:16 05/08/17 12:40 05/08/17 17:41 05/08/17 22:29 Glucose (Fingerstick) 202 mg/dL (70-99) 176 mg/dL (70-99) 131 mg/dL (70-99) O2 Saturation 92 % (92-99) Arterial Blood pH 7.45 (7.35-7.45) Arterial Blood pCO2 at Patient Temp 45 mmHg (35-46) Arterial Blood pO2 at Patient Temp 61 mmHg (65-108) Arterial Blood HCO3 31 mmol/L (21-28) Arterial Blood Base Excess 6 mmol/L (-3-3) FiO2 40 Test 05/08/17 23:54 05/09/17 04:16 05/09/17 06:03 05/09/17 09:55 Glucose (Fingerstick) 132 mg/dL (70-99) 171 mg/dL (70-99) White Blood Count 12.6 x10^3/uL (4.0-11.0) Red Blood Count 4.28 x10^6/uL (3.50-5.40) Hemoglobin 10.4 g/dL (12.0-15.5) Hematocrit 32.4 % (36.0-47.0) Mean Corpuscular Volume 76 fL (79-100) Mean Corpuscular Hemoglobin 24 pg (25-35) Mean Corpuscular Hemoglobin Concent 32 g/dL (31-37) Red Cell Distribution Width 19.2 % (11.5-14.5) Platelet Count 265 x10^3/uL (140-400) Neutrophils (%) (Auto) 75 % (31-73) Lymphocytes (%) (Auto) 12 % (24-48) Monocytes (%) (Auto) 12 % (0-9) Eosinophils (%) (Auto) 1 % (0-3) Basophils (%) (Auto) 1 % (0-3) Neutrophils # (Auto) 9.4 x10^3uL (1.8-7.7) Lymphocytes # (Auto) 1.5 x10^3/uL (1.0-4.8) Monocytes # (Auto) 1.5 x10^3/uL (0.0-1.1) Eosinophils # (Auto) 0.1 x10^3/uL (0.0-0.7) Basophils # (Auto) 0.1 x10^3/uL (0.0-0.2) Sodium Level 135 mmol/L (136-145) Potassium Level 3.6 mmol/L (3.5-5.1) Chloride Level 97 mmol/L (98-107) Carbon Dioxide Level 28 mmol/L (21-32) Anion Gap 10 (6-14) Blood Urea Nitrogen 22 mg/dL (7-20) Creatinine 1.4 mg/dL (0.6-1.0) Estimated GFR (Cockcroft-Gault) 37.2 Glucose Level 170 mg/dL (70-99) Calcium Level 9.2 mg/dL (8.5-10.1) Phosphorus Level 3.0 mg/dL (2.6-4.7) Magnesium Level 2.2 mg/dL (1.8-2.4) Albumin 2.7 g/dL (3.4-5.0) O2 Saturation 94 % (92-99) Arterial Blood pH 7.46 (7.35-7.45) Arterial Blood pCO2 at Patient Temp 40 mmHg (35-46) Arterial Blood pO2 at Patient Temp 70 mmHg (65-108) Arterial Blood HCO3 28 mmol/L (21-28) Arterial Blood Base Excess 4 mmol/L (-3-3) FiO2 40 Test 05/09/17 12:11 Glucose (Fingerstick) 142 mg/dL (70-99) Laboratory Tests Test 05/08/17 17:41 05/08/17 22:29 05/08/17 23:54 05/09/17 04:16 Glucose (Fingerstick) 176 mg/dL (70-99) 131 mg/dL (70-99) 132 mg/dL (70-99) White Blood Count 12.6 x10^3/uL (4.0-11.0) Red Blood Count 4.28 x10^6/uL (3.50-5.40) Hemoglobin 10.4 g/dL (12.0-15.5) Hematocrit 32.4 % (36.0-47.0) Mean Corpuscular Volume 76 fL (79-100) Mean Corpuscular Hemoglobin 24 pg (25-35) Mean Corpuscular Hemoglobin Concent 32 g/dL (31-37) Red Cell Distribution Width 19.2 % (11.5-14.5) Platelet Count 265 x10^3/uL (140-400) Neutrophils (%) (Auto) 75 % (31-73) Lymphocytes (%) (Auto) 12 % (24-48) Monocytes (%) (Auto) 12 % (0-9) Eosinophils (%) (Auto) 1 % (0-3) Basophils (%) (Auto) 1 % (0-3) Neutrophils # (Auto) 9.4 x10^3uL (1.8-7.7) Lymphocytes # (Auto) 1.5 x10^3/uL (1.0-4.8) Monocytes # (Auto) 1.5 x10^3/uL (0.0-1.1) Eosinophils # (Auto) 0.1 x10^3/uL (0.0-0.7) Basophils # (Auto) 0.1 x10^3/uL (0.0-0.2) Sodium Level 135 mmol/L (136-145) Potassium Level 3.6 mmol/L (3.5-5.1) Chloride Level 97 mmol/L (98-107) Carbon Dioxide Level 28 mmol/L (21-32) Anion Gap 10 (6-14) Blood Urea Nitrogen 22 mg/dL (7-20) Creatinine 1.4 mg/dL (0.6-1.0) Estimated GFR (Cockcroft-Gault) 37.2 Glucose Level 170 mg/dL (70-99) Calcium Level 9.2 mg/dL (8.5-10.1) Phosphorus Level 3.0 mg/dL (2.6-4.7) Magnesium Level 2.2 mg/dL (1.8-2.4) Albumin 2.7 g/dL (3.4-5.0) Test 05/09/17 06:03 05/09/17 09:55 05/09/17 12:11 Glucose (Fingerstick) 171 mg/dL (70-99) 142 mg/dL (70-99) O2 Saturation 94 % (92-99) Arterial Blood pH 7.46 (7.35-7.45) Arterial Blood pCO2 at Patient Temp 40 mmHg (35-46) Arterial Blood pO2 at Patient Temp 70 mmHg (65-108) Arterial Blood HCO3 28 mmol/L (21-28) Arterial Blood Base Excess 4 mmol/L (-3-3) FiO2 40 Medications Active Scripts Medications Dose Route/Sig Max Daily Dose Days Date Category Novolog Flexpen (Insulin Aspart) 100 Unit/1 Ml Insuln.pen 12 Unit SQ TIDWMEALS 05/06/17 Reported Losartan Potassium 100 Mg Tablet 100 Mg PO NOON 05/06/17 Reported Glucophage Xr (Metformin Hcl) 500 Mg Tab.er.24h 1,000 Mg PO BID 07/17/16 Rx Torsemide 10 Mg Tablet 10 Mg PO DAILY 07/15/16 Reported Sucralfate 1 Gm Tablet 1 Tab PO QID 07/15/16 Reported Omeprazole 20 Mg Capsule.dr 1 Cap PO BID 07/15/16 Reported Acetaminophen 325 Mg Tablet 650 Mg PO PRN BID PRN 07/15/16 Reported Levothyroxine Sodium 112 Mcg Tablet 1 Tab PO DAILY 07/15/16 Reported Atenolol 25 Mg Tablet 1 Tab PO BID 07/15/16 Reported Amlodipine Besylate 10 Mg Tablet 10 Mg PO DAILY 07/15/16 Reported Amitriptyline Hcl 25 Mg Tablet 1 Tab PO QHS 07/15/16 Reported Metoclopramide Hcl 5 Mg Tablet 5 Mg PO QIDACHS 07/15/16 Reported Alprazolam 0.5 Mg Tablet 1 Tab PO HS 07/15/16 Reported Alprazolam 0.5 Mg Tablet 2 Tab PO BIDWBKFT/HOLLIS 07/15/16 Reported Aspirin 81 Mg Tab.chew 1 Tab PO DAILY 07/15/16 Reported [place] 5-325 Tablet (Acetaminophen/Hydrocodone Bitart) 1 Each Tablet 1 Tab PO PRN Q6HRS PRN 06/03/16 Rx Comments CXR 1. Stable tube positions. 2. Ongoing bibasilar infiltrates with interval worsening on the left. Impression . ACUTE/CHROMIC RESP FAILURE PNEUMONIA SEPTIC SHOCK HYPONATREMIA UNCONTROLLED DM AECOPD LEUKOCYTOSIS Plan . PS DURING DAY TOLERATED DIURESE TODAY CXR IS WORSE ANITBX PER ID NEPHRO CONSULT DVT AND GI PROPHYLAXIS START TUBE FEEDING RACHEL KOCH MD May 09, 2017 14:42
[2017-05-09] MEDS ORDERED: FUROSEMIDE 40 MG/4 ML VIAL. IVP ONE ×2 (15:00)
--- NOTE | 2017-05-09 15:35 | PDOC ---
PROGRESS NOTES Subjective Subjective on vent Objective Objective Vital Signs Date Time Temp Pulse Resp B/P (MAP) Pulse Ox O2 Delivery O2 Flow Rate FiO2 05/09/17 14:00 65 19 123/64 (83) 98 Ventilator 05/09/17 12:00 98.7 98.7 05/08/17 18:09 3.0 Intake and Output 05/09/17 07:00 Intake Total 2883.68 ml Output Total 3640 ml Balance -756.32 ml Intake Oral 0 ml IV Total 1202.68 ml Tube Feeding 1351 ml Other 330 ml Output Urine Total 3640 ml Gastric Drainage Total 0 ml Physical Exam Abdomen: Normal bowel sounds, Soft Heart: Regular rate, Other (some ectopy, no changes in sounds) Extremities: No clubbing, No cyanosis General: mild distress Lungs: Other (coarse sounds heard b/l) MUSCULOSKELETAL: No swelling, Other (SEDATED) Neck: No JVD Skin: No rashes, No breakdown COMMENT nate Diagnosis Problem List Problems Medical Problems: (1) Respiratory failure Status: Acute Assessment Assessment Problems Medical Problems: (1) Respiratory failure Status: Acute Assessment Acute respiratory failure needing intubation pneumonia suspect gram neg+gram positive sepsis acute lactic acidosis acute on chronic chf -diastolic hyponatremia ac kidney failure?ATN ch copd ex smoker h/o pancreatitis Plan Plan: CXR worse today. iv lasix today Intubated ,had T tube trials last 2 days wbc down to 12 Na 136 improved [place] cultures,so far neg broad spectrum antibiotics vanco+zosyn pul consult appreciated echo -good LVF cardiology consult appreciated ID ,spoke with dr Slaughter. spoke with son+ critical condition. DVT prevention on Lovenox prognosis guarded. Renal consult appreciated, spoke with renal lizy for anxiety For more details regarding further plans, please refer to the orders. Problems: Plan Plan of Care Problems Medical Problems: (1) Respiratory failure Status: Acute Comment Review of Relevant I have reviewed the following items katy (where applicable) has been applied. Labs Laboratory Tests Test 05/08/17 17:41 05/08/17 22:29 05/08/17 23:54 05/09/17 04:16 Glucose (Fingerstick) 176 mg/dL (70-99) 131 mg/dL (70-99) 132 mg/dL (70-99) White Blood Count 12.6 x10^3/uL (4.0-11.0) Red Blood Count 4.28 x10^6/uL (3.50-5.40) Hemoglobin 10.4 g/dL (12.0-15.5) Hematocrit 32.4 % (36.0-47.0) Mean Corpuscular Volume 76 fL (79-100) Mean Corpuscular Hemoglobin 24 pg (25-35) Mean Corpuscular Hemoglobin Concent 32 g/dL (31-37) Red Cell Distribution Width 19.2 % (11.5-14.5) Platelet Count 265 x10^3/uL (140-400) Neutrophils (%) (Auto) 75 % (31-73) Lymphocytes (%) (Auto) 12 % (24-48) Monocytes (%) (Auto) 12 % (0-9) Eosinophils (%) (Auto) 1 % (0-3) Basophils (%) (Auto) 1 % (0-3) Neutrophils # (Auto) 9.4 x10^3uL (1.8-7.7) Lymphocytes # (Auto) 1.5 x10^3/uL (1.0-4.8) Monocytes # (Auto) 1.5 x10^3/uL (0.0-1.1) Eosinophils # (Auto) 0.1 x10^3/uL (0.0-0.7) Basophils # (Auto) 0.1 x10^3/uL (0.0-0.2) Sodium Level 135 mmol/L (136-145) Potassium Level 3.6 mmol/L (3.5-5.1) Chloride Level 97 mmol/L (98-107) Carbon Dioxide Level 28 mmol/L (21-32) Anion Gap 10 (6-14) Blood Urea Nitrogen 22 mg/dL (7-20) Creatinine 1.4 mg/dL (0.6-1.0) Estimated GFR (Cockcroft-Gault) 37.2 Glucose Level 170 mg/dL (70-99) Calcium Level 9.2 mg/dL (8.5-10.1) Phosphorus Level 3.0 mg/dL (2.6-4.7) Magnesium Level 2.2 mg/dL (1.8-2.4) Albumin 2.7 g/dL (3.4-5.0) Test 05/09/17 06:03 05/09/17 09:55 05/09/17 12:11 Glucose (Fingerstick) 171 mg/dL (70-99) 142 mg/dL (70-99) O2 Saturation 94 % (92-99) Arterial Blood pH 7.46 (7.35-7.45) Arterial Blood pCO2 at Patient Temp 40 mmHg (35-46) Arterial Blood pO2 at Patient Temp 70 mmHg (65-108) Arterial Blood HCO3 28 mmol/L (21-28) Arterial Blood Base Excess 4 mmol/L (-3-3) FiO2 40 Microbiology 05/06/17 Blood Culture - Preliminary, Resulted NO GROWTH AFTER 3 DAYS 05/08/17 Gram Stain - Final, Complete 05/06/17 Urine Culture - Final, Complete 05/06/17 Urine Culture Result 1 (ANURAG) - Final, Complete 05/09/17 Gram Stain - Final, Complete Medications Current Medications Alprazolam (Xanax) 1 mg PRN Q8HRS PRN PO ANXIETY / AGITATION Last administered on 05/09/17 08:49; Start 05/08/17 at 16:45 Dexmedetomidine HCl 200 mcg/ Sodium Chloride 50 ml @ 0 mls/hr CONT PRN IV PER PROTOCOL; Start 05/09/17 at 15:00 Furosemide (Lasix) 40 mg 1X ONCE IVP ; Start 05/09/17 at 15:00; Stop 05/09/17 at 15:01; Status DC Furosemide (Lasix) 40 mg 1X ONCE IVP ; Start 05/09/17 at 15:00; Stop 05/09/17 at 15:01; Status UNV Propofol 100 ml @ 0 mls/hr CONT PRN IV SEE I/O RECORD Last administered on 23:19; Start 05/08/17 at 19:15 Vitals/I & O Vital Sign - Last 24 Hours 05/08/17 05/08/17 05/08/17 05/08/17 16:00 16:17 16:47 17:00 Temp 99.1 99.1 Pulse 74 78 Resp 27 30 21 B/P (MAP) 146/74 (98) 145/85 (105) Pulse Ox 99 100 100 O2 Delivery Ventilator Ventilator Ventilator O2 Flow Rate 3.0 3.0 05/08/17 05/08/17 05/08/17 05/08/17 17:38 18:00 18:09 19:00 Pulse 76 60 Resp 24 33 20 B/P (MAP) 155/74 (101) 137/72 (93) Pulse Ox 97 98 97 97 O2 Delivery Ventilator Ventilator Ventilator Ventilator O2 Flow Rate 3.0 05/08/17 05/08/17 05/08/17 05/08/17 19:47 19:47 20:00 20:00 Pulse 56 Resp 22 20 B/P (MAP) 121/58 (79) Pulse Ox 95 98 96 O2 Delivery Ventilator Ventilator Ventilator Mechanical Ventilator 05/08/17 05/08/17 05/08/17 05/08/17 21:00 22:00 22:31 22:32 Pulse 52 52 Resp 20 20 20 B/P (MAP) 108/63 (78) 133/66 (88) Pulse Ox 100 100 96 97 O2 Delivery Ventilator Ventilator Ventilator Ventilator 05/08/17 05/08/17 05/09/17 05/09/17 23:00 23:56 00:00 00:00 Temp 97.4 97.4 Pulse 72 52 Resp 20 20 20 B/P (MAP) 142/67 (92) 111/56 (74) Pulse Ox 96 97 97 O2 Delivery Ventilator Ventilator Mechanical Ventilator Ventilator 05/09/17 05/09/17 05/09/17 05/09/17 01:00 02:00 02:13 03:21 Pulse 54 54 53 Resp 20 20 20 B/P (MAP) 144/75 (98) 117/63 (81) 114/58 (76) Pulse Ox 94 94 95 95 O2 Delivery Ventilator Ventilator Ventilator 05/09/17 05/09/17 05/09/17 05/09/17 04:00 04:00 04:33 05:00 Temp 97.6 97.6 Pulse 58 56 Resp 20 B/P (MAP) 150/68 (95) 116/60 (78) Pulse Ox 90 92 91 O2 Delivery Mechanical Ventilator Ventilator Ventilator Ventilator 05/09/17 05/09/17 05/09/17 05/09/17 05:52 06:11 06:12 07:05 Pulse 57 Resp 20 B/P (MAP) 140/65 (90) 140/65 (90) Pulse Ox 91 92 91 O2 Delivery Ventilator Ventilator Ventilator 05/09/17 05/09/17 05/09/17 05/09/17 08:00 08:00 09:00 09:25 Temp 100.1 100.1 Pulse 60 60 Resp 20 20 B/P (MAP) 94/61 (72) 144/72 (96) Pulse Ox 91 96 O2 Delivery Mechanical Ventilator Ventilator Ventilator Ventilator 05/09/17 05/09/17 05/09/17 05/09/17 10:00 11:00 11:58 12:00 Pulse 77 67 Resp 30 20 B/P (MAP) 146/67 (93) 144/68 (93) Pulse Ox 92 100 99 O2 Delivery Ventilator Ventilator Ventilator Mechanical Ventilator 05/09/17 05/09/17 05/09/17 05/09/17 12:00 13:00 13:49 14:00 Temp 98.7 98.7 Pulse 62 66 65 Resp 16 21 19 B/P (MAP) 131/70 (90) 145/69 (94) 123/64 (83) Pulse Ox 96 96 99 98 O2 Delivery Ventilator Ventilator Ventilator Ventilator Intake and Output 05/08/17 05/08/17 05/09/17 15:00 23:00 07:00 Intake Total 480 ml 1561.68 ml 842 ml Output Total 2200 ml 1000 ml 440 ml Balance -1720 ml 561.68 ml 402 ml ILA CAVAZOS MD May 09, 2017 15:35
[2017-05-09] MEDS: FAMOTIDINE 20 MG/2 ML VIAL IVP SCH (21:29)
[2017-05-09] MEDS: INSULIN DETEMIR 300 UNITS/3 ML INSULN.PEN. SQ SCH (21:41)
[2017-05-09] MEDS: DEXMEDETOMIDINE 200 MCG in IV NORMAL SALINE 50ML 48 ML IV PRN (22:58)
[2017-05-10] VITALS (24 sets, daily range): BP systolic 98–157; BP diastolic 46–77
[2017-05-10] MEDS: PIPERACILLIN/TAZOBACTAM 3.375 GM in IV NORMAL SALINE 50ML 50 ML IV SCH ×4 (00:36→17:34)
[2017-05-10] MEDS: INSULIN ASPART 300 UNITS/3 ML INSULN.PEN SQ SCH ×5 (00:40→17:32)
[2017-05-10] MEDS: fentaNYL PF VIAL 100 MCG/2 ML VIAL IV PRN ×2 (01:03→05:55)
[2017-05-10] MEDS: POTASSIUM CHLORIDE 10MEQ 100 ML IV SCH (02:30)
[2017-05-10] MEDS: DEXMEDETOMIDINE 200 MCG in IV NORMAL SALINE 50ML 48 ML IV PRN (04:51)
[2017-05-10 06:34] LABS: BASO # 0.1 x10^3/uL (0.0-0.2); BASO % 1 % (0-3); EOS % 2 % (0-3); HEMATOCRIT 31.3 % (36.0-47.0); HEMOGLOBIN 10.7 g/dL (12.0-15.5); LYMPH # 1.2 x10^3/uL (1.0-4.8); LYMPH % 12 % (24-48); MEAN CORPUSCULAR HEMOGLOBIN 25 pg (25-35); MEAN CORPUSCULAR HGB CONC 34 g/dL (31-37); MEAN CORPUSCULAR VOLUME 73 fL (79-100); MONO % 12 % (0-9); NEUT % 74 % (31-73); PLATELET COUNT 323 x10^3/uL (140-400); RED BLOOD COUNT 4.27 x10^6/uL (3.50-5.40); RED CELL DISTRIBUTION WIDTH 18.7 % (11.5-14.5); WHITE BLOOD COUNT 10.2 x10^3/uL (4.0-11.0)
[2017-05-10 06:35] LABS: ALBUMIN 2.7 g/dL (3.4-5.0); CALCIUM 9.1 mg/dL (8.5-10.1); CREATININE 1.5 mg/dL (0.6-1.0); GFR 34.3; PHOSPHORUS 4.6 mg/dL (2.6-4.7); POTASSIUM 3.8 mmol/L (3.5-5.1)
--- NOTE | 2017-05-10 08:00 | RAD ---
Portable chest, 05/10/2017: History: Respiratory failure Comparison is made to a study from 05/09/2017. The ET tube tip lies well above the [place]. An NG tube extends into the stomach. The heart size is unchanged. There are mild bibasilar pulmonary infiltrates, essentially unchanged on the right and improved on the left. No large pleural effusion is evident. No new abnormality is detected. IMPRESSION: 1. Stable tube positions. 2. Ongoing basilar infiltrates with partial interval clearing on the left.
[2017-05-10] MEDS ORDERED: BISACODYL 10 MG SUPP.RECT. PR PRN (08:15)
--- NOTE | 2017-05-10 08:19 | PDOC ---
Infectious Disease Note Subjective Subjective Pt intubated, on vent, ROS ROS unable to do Vital Sign Vital Signs Vital Signs Date Time Temp Pulse Resp B/P (MAP) Pulse Ox O2 Delivery O2 Flow Rate FiO2 05/10/17 07:39 100 Ventilator 05/10/17 07:00 48 20 103/59 (74) 05/10/17 04:00 97.8 97.8 Physical Exam PHYSICAL EXAM GENERAL: NAD, on vent HEENT: PERRL, OC/OP NECK: Supple, no JVD, no LN LUNGS: Clear HEART: S1S2, no gallop, no murmur ABD: Soft, NT, no organomegaly, no rebound EXT: No edema, no cyanosis [employer] OPERATOR: Alert, on vent SKIN: No rash IV: ok Labs Lab Laboratory Tests Test 05/09/17 09:55 05/09/17 12:11 05/09/17 17:32 05/09/17 21:28 O2 Saturation 94 % (92-99) Arterial Blood pH 7.46 (7.35-7.45) Arterial Blood pCO2 at Patient Temp 40 mmHg (35-46) Arterial Blood pO2 at Patient Temp 70 mmHg (65-108) Arterial Blood HCO3 28 mmol/L (21-28) Arterial Blood Base Excess 4 mmol/L (-3-3) FiO2 40 Glucose (Fingerstick) 142 mg/dL (70-99) 158 mg/dL (70-99) 168 mg/dL (70-99) Test 05/10/17 00:38 05/10/17 05:58 05/10/17 06:00 Glucose (Fingerstick) 186 mg/dL (70-99) 192 mg/dL (70-99) White Blood Count 10.2 x10^3/uL (4.0-11.0) Red Blood Count 4.27 x10^6/uL (3.50-5.40) Hemoglobin 10.7 g/dL (12.0-15.5) Hematocrit 31.3 % (36.0-47.0) Mean Corpuscular Volume 73 fL (79-100) Mean Corpuscular Hemoglobin 25 pg (25-35) Mean Corpuscular Hemoglobin Concent 34 g/dL (31-37) Red Cell Distribution Width 18.7 % (11.5-14.5) Platelet Count 323 x10^3/uL (140-400) Neutrophils (%) (Auto) 74 % (31-73) Lymphocytes (%) (Auto) 12 % (24-48) Monocytes (%) (Auto) 12 % (0-9) Eosinophils (%) (Auto) 2 % (0-3) Basophils (%) (Auto) 1 % (0-3) Neutrophils # (Auto) 7.6 x10^3uL (1.8-7.7) Lymphocytes # (Auto) 1.2 x10^3/uL (1.0-4.8) Monocytes # (Auto) 1.2 x10^3/uL (0.0-1.1) Eosinophils # (Auto) 0.2 x10^3/uL (0.0-0.7) Basophils # (Auto) 0.1 x10^3/uL (0.0-0.2) Sodium Level 137 mmol/L (136-145) Potassium Level 3.8 mmol/L (3.5-5.1) Chloride Level 97 mmol/L (98-107) Carbon Dioxide Level 27 mmol/L (21-32) Anion Gap 13 (6-14) Blood Urea Nitrogen 28 mg/dL (7-20) Creatinine 1.5 mg/dL (0.6-1.0) Estimated GFR (Cockcroft-Gault) 34.3 Glucose Level 195 mg/dL (70-99) Calcium Level 9.1 mg/dL (8.5-10.1) Phosphorus Level 4.6 mg/dL (2.6-4.7) Magnesium Level 2.3 mg/dL (1.8-2.4) Albumin 2.7 g/dL (3.4-5.0) Micro Cultures neg Objective Assessment Pneumonia COPD exacerbation Hyponatremia Respiratory failure DM Leukocytosis Plan Plan of Care cont zosyn , supportive care possible extubation today OLY VALENCIA MD May 10, 2017 08:19
[2017-05-10 08:39] LABS: HCO3 ABG 27 mmol/L (21-28); PCO2 ABG 38 mmHg (35-46); PH ABG 7.47 (7.35-7.45); PO2 ABG 92 mmHg (65-108); SAT O2 ABG 97 % (92-99)
[2017-05-10] MEDS: BUMETANIDE 1 MG/4 ML VIAL. IV SCH (08:45)
[2017-05-10] MEDS: CHLORHEXIDINE 0.12% 15 ML MOUTHWASH. MM SCH ×2 (08:45→21:00)
[2017-05-10] MEDS: ENOXAPARIN 40 MG/0.4 ML SYRINGE. SQ SCH (08:45)
[2017-05-10 08:46] LABS: FIO2 ABG 40
--- NOTE | 2017-05-10 09:57 | PDOC ---
PROGRESS NOTES Subjective Subjective On the PS maintaining her O2 satuaration at 98% of FIO2 of 40% Did c/o abdominal pain for which given Dulocolax supp. Objective Objective Vital Signs Date Time Temp Pulse Resp B/P (MAP) Pulse Ox O2 Delivery O2 Flow Rate FiO2 05/10/17 09:00 56 18 105/46 (65) 100 Ventilator 05/10/17 08:00 97.7 97.7 05/08/17 18:09 3.0 Intake and Output 05/10/17 06:59 Intake Total 1381.8 ml Output Total 2740 ml Balance -1358.2 ml Intake Oral 0 ml IV Total 326.8 ml Tube Feeding 995 ml Other 60 ml Output Urine Total 2560 ml Gastric Drainage Total 180 ml Physical Exam Abdomen: Normal bowel sounds, Soft, No tenderness Heart: Regular rate, Normal S1, Normal S2 Extremities: No clubbing, No edema General: Alert, Oriented X3, Cooperative Lungs: Clear to auscultation, Other (she is on the vent) MUSCULOSKELETAL: No joint tenderness Neck: Supple, No JVD, No thyromegaly Neuro: Other (awake ,alert all CN II-XII are intact moves all limbs) Psych/Mental Status: Mental status NL, Mood NL Skin: No rashes, No breakdown Diagnosis RESPIRATORY DISEASE: Other (acute respiratory failure requiring intubation and mechanical ventilation ) RESPIRATORY INFECTION: Pneumonitis (sepsis) COPD: COPD RESPIRATORY FAILURE: Acute ASTHMA: Chronic Obstructive HEART FAILURE: Other (A/C diastolic CHF) Assessment Assessment Problems Medical Problems: (1) Respiratory failure Status: Acute Comment Review of Relevant I have reviewed the following items katy (where applicable) has been applied. Labs Laboratory Tests Test 05/08/17 10:40 05/08/17 12:16 05/08/17 12:40 05/08/17 17:41 Vancomycin Level Trough 10.6 mcg/mL (10.0-20.0) Vancomycin Last Dose Date 05/07/17 Vancomycin Last Dose Time 1000 Glucose (Fingerstick) 202 mg/dL (70-99) 176 mg/dL (70-99) O2 Saturation 92 % (92-99) Arterial Blood pH 7.45 (7.35-7.45) Arterial Blood pCO2 at Patient Temp 45 mmHg (35-46) Arterial Blood pO2 at Patient Temp 61 mmHg (65-108) Arterial Blood HCO3 31 mmol/L (21-28) Arterial Blood Base Excess 6 mmol/L (-3-3) FiO2 40 Test 05/08/17 22:29 05/08/17 23:54 05/09/17 04:16 05/09/17 06:03 Glucose (Fingerstick) 131 mg/dL (70-99) 132 mg/dL (70-99) 171 mg/dL (70-99) White Blood Count 12.6 x10^3/uL (4.0-11.0) Red Blood Count 4.28 x10^6/uL (3.50-5.40) Hemoglobin 10.4 g/dL (12.0-15.5) Hematocrit 32.4 % (36.0-47.0) Mean Corpuscular Volume 76 fL (79-100) Mean Corpuscular Hemoglobin 24 pg (25-35) Mean Corpuscular Hemoglobin Concent 32 g/dL (31-37) Red Cell Distribution Width 19.2 % (11.5-14.5) Platelet Count 265 x10^3/uL (140-400) Neutrophils (%) (Auto) 75 % (31-73) Lymphocytes (%) (Auto) 12 % (24-48) Monocytes (%) (Auto) 12 % (0-9) Eosinophils (%) (Auto) 1 % (0-3) Basophils (%) (Auto) 1 % (0-3) Neutrophils # (Auto) 9.4 x10^3uL (1.8-7.7) Lymphocytes # (Auto) 1.5 x10^3/uL (1.0-4.8) Monocytes # (Auto) 1.5 x10^3/uL (0.0-1.1) Eosinophils # (Auto) 0.1 x10^3/uL (0.0-0.7) Basophils # (Auto) 0.1 x10^3/uL (0.0-0.2) Sodium Level 135 mmol/L (136-145) Potassium Level 3.6 mmol/L (3.5-5.1) Chloride Level 97 mmol/L (98-107) Carbon Dioxide Level 28 mmol/L (21-32) Anion Gap 10 (6-14) Blood Urea Nitrogen 22 mg/dL (7-20) Creatinine 1.4 mg/dL (0.6-1.0) Estimated GFR (Cockcroft-Gault) 37.2 Glucose Level 170 mg/dL (70-99) Calcium Level 9.2 mg/dL (8.5-10.1) Phosphorus Level 3.0 mg/dL (2.6-4.7) Magnesium Level 2.2 mg/dL (1.8-2.4) Albumin 2.7 g/dL (3.4-5.0) Test 05/09/17 09:55 05/09/17 12:11 05/09/17 17:32 05/09/17 21:28 O2 Saturation 94 % (92-99) Arterial Blood pH 7.46 (7.35-7.45) Arterial Blood pCO2 at Patient Temp 40 mmHg (35-46) Arterial Blood pO2 at Patient Temp 70 mmHg (65-108) Arterial Blood HCO3 28 mmol/L (21-28) Arterial Blood Base Excess 4 mmol/L (-3-3) FiO2 40 Glucose (Fingerstick) 142 mg/dL (70-99) 158 mg/dL (70-99) 168 mg/dL (70-99) Test 05/10/17 00:38 05/10/17 05:58 05/10/17 06:00 05/10/17 08:00 Glucose (Fingerstick) 186 mg/dL (70-99) 192 mg/dL (70-99) White Blood Count 10.2 x10^3/uL (4.0-11.0) Red Blood Count 4.27 x10^6/uL (3.50-5.40) Hemoglobin 10.7 g/dL (12.0-15.5) Hematocrit 31.3 % (36.0-47.0) Mean Corpuscular Volume 73 fL (79-100) Mean Corpuscular Hemoglobin 25 pg (25-35) Mean Corpuscular Hemoglobin Concent 34 g/dL (31-37) Red Cell Distribution Width 18.7 % (11.5-14.5) Platelet Count 323 x10^3/uL (140-400) Neutrophils (%) (Auto) 74 % (31-73) Lymphocytes (%) (Auto) 12 % (24-48) Monocytes (%) (Auto) 12 % (0-9) Eosinophils (%) (Auto) 2 % (0-3) Basophils (%) (Auto) 1 % (0-3) Neutrophils # (Auto) 7.6 x10^3uL (1.8-7.7) Lymphocytes # (Auto) 1.2 x10^3/uL (1.0-4.8) Monocytes # (Auto) 1.2 x10^3/uL (0.0-1.1) Eosinophils # (Auto) 0.2 x10^3/uL (0.0-0.7) Basophils # (Auto) 0.1 x10^3/uL (0.0-0.2) Sodium Level 137 mmol/L (136-145) Potassium Level 3.8 mmol/L (3.5-5.1) Chloride Level 97 mmol/L (98-107) Carbon Dioxide Level 27 mmol/L (21-32) Anion Gap 13 (6-14) Blood Urea Nitrogen 28 mg/dL (7-20) Creatinine 1.5 mg/dL (0.6-1.0) Estimated GFR (Cockcroft-Gault) 34.3 Glucose Level 195 mg/dL (70-99) Calcium Level 9.1 mg/dL (8.5-10.1) Phosphorus Level 4.6 mg/dL (2.6-4.7) Magnesium Level 2.3 mg/dL (1.8-2.4) Albumin 2.7 g/dL (3.4-5.0) O2 Saturation 97 % (92-99) Arterial Blood pH 7.47 (7.35-7.45) Arterial Blood pCO2 at Patient Temp 38 mmHg (35-46) Arterial Blood pO2 at Patient Temp 92 mmHg (65-108) Arterial Blood HCO3 27 mmol/L (21-28) Arterial Blood Base Excess 3 mmol/L (-3-3) FiO2 40 Laboratory Tests Test 05/09/17 09:55 05/09/17 12:11 05/09/17 17:32 05/09/17 21:28 O2 Saturation 94 % (92-99) Arterial Blood pH 7.46 (7.35-7.45) Arterial Blood pCO2 at Patient Temp 40 mmHg (35-46) Arterial Blood pO2 at Patient Temp 70 mmHg (65-108) Arterial Blood HCO3 28 mmol/L (21-28) Arterial Blood Base Excess 4 mmol/L (-3-3) FiO2 40 Glucose (Fingerstick) 142 mg/dL (70-99) 158 mg/dL (70-99) 168 mg/dL (70-99) Test 05/10/17 00:38 05/10/17 05:58 05/10/17 06:00 05/10/17 08:00 Glucose (Fingerstick) 186 mg/dL (70-99) 192 mg/dL (70-99) White Blood Count 10.2 x10^3/uL (4.0-11.0) Red Blood Count 4.27 x10^6/uL (3.50-5.40) Hemoglobin 10.7 g/dL (12.0-15.5) Hematocrit 31.3 % (36.0-47.0) Mean Corpuscular Volume 73 fL (79-100) Mean Corpuscular Hemoglobin 25 pg (25-35) Mean Corpuscular Hemoglobin Concent 34 g/dL (31-37) Red Cell Distribution Width 18.7 % (11.5-14.5) Platelet Count 323 x10^3/uL (140-400) Neutrophils (%) (Auto) 74 % (31-73) Lymphocytes (%) (Auto) 12 % (24-48) Monocytes (%) (Auto) 12 % (0-9) Eosinophils (%) (Auto) 2 % (0-3) Basophils (%) (Auto) 1 % (0-3) Neutrophils # (Auto) 7.6 x10^3uL (1.8-7.7) Lymphocytes # (Auto) 1.2 x10^3/uL (1.0-4.8) Monocytes # (Auto) 1.2 x10^3/uL (0.0-1.1) Eosinophils # (Auto) 0.2 x10^3/uL (0.0-0.7) Basophils # (Auto) 0.1 x10^3/uL (0.0-0.2) Sodium Level 137 mmol/L (136-145) Potassium Level 3.8 mmol/L (3.5-5.1) Chloride Level 97 mmol/L (98-107) Carbon Dioxide Level 27 mmol/L (21-32) Anion Gap 13 (6-14) Blood Urea Nitrogen 28 mg/dL (7-20) Creatinine 1.5 mg/dL (0.6-1.0) Estimated GFR (Cockcroft-Gault) 34.3 Glucose Level 195 mg/dL (70-99) Calcium Level 9.1 mg/dL (8.5-10.1) Phosphorus Level 4.6 mg/dL (2.6-4.7) Magnesium Level 2.3 mg/dL (1.8-2.4) Albumin 2.7 g/dL (3.4-5.0) O2 Saturation 97 % (92-99) Arterial Blood pH 7.47 (7.35-7.45) Arterial Blood pCO2 at Patient Temp 38 mmHg (35-46) Arterial Blood pO2 at Patient Temp 92 mmHg (65-108) Arterial Blood HCO3 27 mmol/L (21-28) Arterial Blood Base Excess 3 mmol/L (-3-3) FiO2 40 Microbiology 05/06/17 Blood Culture - Preliminary, Resulted NO GROWTH AFTER 3 DAYS 05/08/17 Gram Stain - Final, Complete 05/06/17 Urine Culture - Final, Complete 05/06/17 Urine Culture Result 1 (ANURAG) - Final, Complete 05/09/17 Gram Stain - Final, Complete Medications Current Medications Dopamine HCl/ Dextrose 250 ml @ 16.856 mls/ hr 1X ONCE IV Last administered on 05/05/17 22:54; Start 05/05/17 at 23:00; Stop 05/06/17 at 13:49; Status DC Torsemide (Demadex) 20 mg 1X ONCE PO Last administered on 05/06/17 00:44; Start 05/05/17 at 23:45; Stop 05/05/17 at 23:46; Status DC Bumetanide (Bumex) 1 mg BID92 IV Last administered on 05/10/17 08:45; Start 05/06/17 at 09:00 Ondansetron HCl (Zofran) 4 mg 1X ONCE IV Last administered on 05/06/17 00:09; Start 05/05/17 at 23:45; Stop 05/05/17 at 23:46; Status DC Ondansetron HCl (Zofran) 4 mg PRN Q8HRS PRN IV NAUSEA/VOMITING; Start 05/05/17 at 23:45; Stop 05/06/17 at 23:44; Status DC Acetaminophen/ Hydrocodone Bitart (Lortab 5/325) 1 tab PRN Q6HRS PRN PO MODERATE - SEVERE PAIN Last administered on 05/06/17 05:21; Start 05/06/17 at 05: 00 Acetaminophen/ Hydrocodone Bitart (Lortab 5/325) 2 tab PRN Q6HRS PRN PO MODERATE - SEVERE PAIN Last administered on 05/08/17 18:09; Start 05/06/17 at 05: 00 Dopamine HCl/ Dextrose 250 ml @ 16.627 mls/ hr CONT PRN IV SEE I/O RECORD Last administered on 05/06/17 12:28; Start 05/06/17 at 06:00 Vancomycin HCl 1.5 gm/Sodium Chloride 500 ml @ 250 mls/hr 1X ONCE IV Last administered on 05/06/17 10:34; Start 05/06/17 at 09:00; Stop 05/06/17 at 10:59; Status DC Levofloxacin/ Dextrose 100 ml @ 100 mls/hr Q24H IV Last administered on 12:28; Start 05/06/17 at 10:00; Stop 05/08/17 at 09:28; Status DC Insulin Aspart (NovoLOG) 0-9 UNITS TIDWMEALS SQ Last administered on 05/06/17 18:09; Start 05/06/17 at 12:00; Stop 05/06/17 at 23:03; Status DC Dextrose (Dextrose 50%-Water Syringe) 12.5 gm PRN Q15MIN PRN IV SEE COMMENTS; Start 05/06/17 at 08:45 Enoxaparin Sodium (Lovenox 40mg Syringe) 40 mg Q24H SQ Last administered on 05/10 08:45; Start 05/06/17 at 09:00 Piperacillin Sod/ Tazobactam Sod 3.375 gm/Sodium Chloride 50 ml @ 100 mls/hr Q6HRS IV Last administered on 05/10/17 05:46; Start 05/06/17 at 10:30 Vancomycin HCl (Vanco Per Pharmacy) 1 each PRN DAILY PRN MC SEE COMMENTS Last administered on 05/08/17 11:20; Start 05/06/17 at 10:00; Stop 05/09/17 at 08:02; Status DC Succinylcholine Chloride (Anectine) 200 mg STK-MED ONCE .ROUTE ; Start 05/06/17 at 10:13; Stop 05/06/17 at 10:14; Status DC Propofol 20 ml @ As Directed STK-MED ONCE IV ; Start 05/06/17 at 10:13; Stop 05/06 at 10:14; Status DC Lidocaine HCl (Lidocaine Pf 2% Vial) 5 ml STK-MED ONCE .ROUTE ; Start 05/06/17 at 10:13; Stop 05/06/17 at 10:14; Status DC Propofol 0 ml @ As Directed STK-MED ONCE IV ; Start 05/06/17 at 10:14; Stop at 10:15; Status DC Midazolam HCl 100 ml @ As Directed STK-MED ONCE IV ; Start 05/06/17 at 10:14; Stop 05/06/17 at 10:15; Status DC Midazolam HCl 100 ml @ 0 mls/hr CONT PRN IV SEE I/O RECORD Last administered on 05/09/17 04:26; Start 05/06/17 at 11:00 Vancomycin HCl 500 mg/Sodium Chloride 100 ml @ 100 mls/hr 1X ONCE IV Last administered on 05/06/17 16:52; Start 05/06/17 at 12:00; Stop 05/06/17 at 12:59; Status DC Vancomycin HCl 1.25 gm/Sodium Chloride 250 ml @ 167 mls/hr Q24H IV Last administered on 05/07/17 10:01; Start 05/07/17 at 10:00; Stop 05/08/17 at 11:18; Status DC Vancomycin HCl 1 each 1X ONCE MC Last administered on 05/08/17 10:00; Start at 09:30; Stop 05/08/17 at 09:31; Status DC Isoproterenol HCl 1 mg/Dextrose 255 ml @ 0 mls/hr CONT PRN IV SEE I/O RECORD Last administered on 05/07/17 00:09; Start 05/06/17 at 13:00 Albumin Human 50 ml @ 50 mls/hr 1X ONCE IV Last administered on 05/06/17 15:30 ; Start 05/06/17 at 15:30; Stop 05/06/17 at 16:29; Status DC Insulin Aspart (NovoLOG) BIDBFRMEAL SQ ; Start 05/07/17 at 07:30; Status UNV Insulin Detemir (Levemir) 15 units QHS SQ Last administered on 05/09/17 21:41; Start 05/06/17 at 21:00 Fentanyl Citrate (Fentanyl 2ml Vial) 25 mcg Q3HRS PRN IV MILD PAIN Last administered on 05/10/17 05:55; Start 05/06/17 at 18:00 Insulin Aspart (NovoLOG) 0-9 UNITS Q6HRS SQ Last administered on 05/10/17 06:14 ; Start 05/07/17 at 00:00 Acetaminophen (Tylenol) 650 mg PRN Q6HRS PRN NG MILD PAIN / TEMP Last administered on 05/07/17 17:57; Start 05/07/17 at 00:45 Chlorhexidine Gluconate (Peridex) 15 ml BID MM Last administered on 05/10/17 08 :45; Start 05/07/17 at 21:00 Famotidine (Pepcid) 20 mg QHS IVP Last administered on 05/09/17 21:29; Start at 21:00 Enalaprilat (Vasotec) 1.25 mg Q6HRS PRN IV HYPERTENSION, SEE COMMENTS; Start at 19:30 Magnesium Sulfate/ Dextrose 50 ml @ 25 mls/hr PRN DAILY PRN IV for Mag < 1.7 on am labs; Start 05/08/17 at 09:00 Levofloxacin/ Dextrose 150 ml @ 100 mls/hr Q48H IV Last administered on 11:18; Start 05/08/17 at 10:00; Stop 05/09/17 at 08:02; Status DC Vancomycin HCl 1.5 gm/Sodium Chloride 500 ml @ 250 mls/hr Q24H IV Last administered on 05/08/17 13:05; Start 05/08/17 at 11:30; Stop 05/09/17 at 08:02; Status DC Alprazolam (Xanax) 1 mg PRN Q8HRS PRN PO ANXIETY / AGITATION Last administered on 05/09/17 08:49; Start 05/08/17 at 16:45 Propofol 100 ml @ 0 mls/hr CONT PRN IV SEE I/O RECORD Last administered on 23:19; Start 05/08/17 at 19:15 Furosemide (Lasix) 40 mg 1X ONCE IVP Last administered on 05/09/17 16:09; Start 05/09/17 at 15:00; Stop 05/09/17 at 15:01; Status DC Furosemide (Lasix) 40 mg 1X ONCE IVP ; Start 05/09/17 at 15:00; Stop 05/09/17 at 15:01; Status UNV Dexmedetomidine HCl 200 mcg/ Sodium Chloride 50 ml @ 0 mls/hr CONT PRN IV PER PROTOCOL Last administered on 05/10/17 04:51; Start 05/09/17 at 15:00 Bisacodyl (Dulcolax Supp) 10 mg PRN DAILY PRN OR CONSTIPATION Last administered on 05/10/17 08:45; Start 05/10/17 at 08:15 Active Scripts Active Glucophage Xr (Metformin Hcl) 500 Mg Tab.er.24h 1,000 Mg PO BID [place] 5-325 Tablet (Acetaminophen/Hydrocodone Bitart) 1 Each Tablet 1 Tab PO PRN Q6HRS PRN Reported Antioxidant Softgel (Beta-Carotene(A) W-C & E/Min) 1 Each Capsule 1 Each PO DAILY Hyaluronic Acid 40 Mg Capsule (Hyalur Ac/Chond Sul/Colg Ii/Aa) 1 Each Capsule 1 Each PO DAILY Biotin 2,500 Mcg Capsule 5,000 Mcg PO DAILY Benefiber (Wheat Dextrin) 1 Each Powd.pack 1 Each PO DAILY Benefiber (Wheat Dextrin) 1 Each Powd.pack 1 Each PO [place] (Cranberry Extract) 200 Mg Capsule 36 Mg PO Caltrate 600 + D Tablet (Calcium Carbonate/Vitamin D3) 1 Each Tablet 1 Each PO DAILY Vitamin C With Aletha Hips (Ascorbic Acid) 500 Mg Tablet 500 Mg PO DAILY Vitamin D3 (Cholecalciferol (Vitamin D3)) 1,000 Unit Tablet 1 Tab PO DAILY Fish Oil 1,000 Mg Softgel ([place]-3 Fatty Acids/Fish Oil) 1 Each Capsule 1 Each PO DAILY Premarin (Estrogens, Conjugated) 0.625 Mg Tablet 1 Tab PO DAILY Nortriptyline Hcl 25 Mg Capsule 1 Cap PO QHS Nitrofurantoin (Nitrofurantoin Macrocrystal) 100 Mg Capsule 1 Cap PO DAILY Cymbalta (Duloxetine Hcl) 30 Mg Capsule.dr 1 Cap PO DAILY Pantoprazole Sodium 40 Mg Tablet.dr 1 Tab PO DAILY Losartan Potassium 50 Mg Tablet 50 Mg PO DAILY Januvia (Sitagliptin Phosphate) 100 Mg Tablet 1 Tab PO DAILY Novolog Flexpen (Insulin Aspart) 100 Unit/1 Ml Insuln.pen 12 Unit SQ TIDWMEALS Losartan Potassium 100 Mg Tablet 100 Mg PO NOON Torsemide 10 Mg Tablet 10 Mg PO DAILY Sucralfate 1 Gm Tablet 1 Tab PO QID Omeprazole 20 Mg Capsule.dr 1 Cap PO BID Acetaminophen 325 Mg Tablet 650 Mg PO PRN BID PRN Levothyroxine Sodium 112 Mcg Tablet 1 Tab PO DAILY Atenolol 25 Mg Tablet 1 Tab PO BID Amlodipine Besylate 10 Mg Tablet 10 Mg PO DAILY Amitriptyline Hcl 25 Mg Tablet 1 Tab PO QHS Metoclopramide Hcl 5 Mg Tablet 5 Mg PO QIDACHS Alprazolam 0.5 Mg Tablet 1 Tab PO HS Alprazolam 0.5 Mg Tablet 2 Tab PO BIDWBKFT/HOLLIS Aspirin 81 Mg Tab.chew 1 Tab PO DAILY Vitals/I & O Vital Sign - Last 24 Hours 05/09/17 05/09/17 05/09/17 05/09/17 10:00 11:00 11:58 12:00 Pulse 77 67 Resp 30 20 B/P (MAP) 146/67 (93) 144/68 (93) Pulse Ox 92 100 99 O2 Delivery Ventilator Ventilator Ventilator Mechanical Ventilator 05/09/17 05/09/17 05/09/17 05/09/17 12:00 13:00 13:49 14:00 Temp 98.7 98.7 Pulse 62 66 65 Resp 16 21 19 B/P (MAP) 131/70 (90) 145/69 (94) 123/64 (83) Pulse Ox 96 96 99 98 O2 Delivery Ventilator Ventilator Ventilator Ventilator 05/09/17 05/09/17 05/09/17 05/09/17 15:00 16:00 16:00 16:24 Temp 99.2 99.2 Pulse 71 64 Resp 18 20 B/P (MAP) 134/69 (90) 98/51 (67) Pulse Ox 98 97 99 O2 Delivery Ventilator Ventilator Mechanical Ventilator Ventilator 05/09/17 05/09/17 05/09/17 05/09/17 17:00 17:35 18:00 19:16 Pulse 70 56 49 Resp 13 19 14 B/P (MAP) 123/58 (79) 106/53 (70) 92/52 (65) Pulse Ox 99 98 96 99 O2 Delivery Ventilator Ventilator Ventilator Ventilator 05/09/17 05/09/17 05/09/17 05/09/17 19:36 20:00 20:00 21:00 Temp 97.6 97.6 Pulse 50 50 Resp 15 15 B/P (MAP) 95/58 (70) 110/60 (77) Pulse Ox 98 99 100 O2 Delivery Ventilator Ventilator Mechanical Ventilator Ventilator 05/09/17 05/09/17 05/09/17 05/10/17 22:00 23:00 23:13 00:00 Pulse 48 46 Resp 17 B/P (MAP) 110/61 (77) 109/59 (76) Pulse Ox 100 100 98 O2 Delivery Ventilator Ventilator Ventilator Mechanical Ventilator 05/10/17 05/10/17 05/10/17 05/10/17 00:00 01:00 01:24 02:00 Temp 97.7 97.7 Pulse 48 52 48 Resp 20 20 20 B/P (MAP) 125/67 (86) 153/75 (101) 120/64 (82) Pulse Ox 100 100 98 99 O2 Delivery Ventilator Ventilator Ventilator Ventilator 05/10/17 05/10/17 05/10/17 05/10/17 03:00 03:47 04:00 04:00 Temp 97.8 97.8 Pulse 52 48 Resp 20 20 B/P (MAP) 101/60 (74) 121/61 (81) Pulse Ox 96 98 99 O2 Delivery Ventilator Ventilator Ventilator Mechanical Ventilator 05/10/17 05/10/17 05/10/17 05/10/17 05:00 05:40 05:55 06:02 Pulse 48 50 Resp 20 20 20 B/P (MAP) 125/59 (81) 127/66 (86) Pulse Ox 99 98 100 O2 Delivery Ventilator Ventilator Ventilator 05/10/17 05/10/17 05/10/17 05/10/17 06:30 07:00 07:39 08:00 Temp 97.7 97.7 Pulse 48 53 Resp 20 20 20 B/P (MAP) 103/59 (74) 105/63 (77) Pulse Ox 98 100 100 100 O2 Delivery Ventilator Ventilator Ventilator 05/10/17 05/10/17 05/10/17 08:00 08:46 09:00 Pulse 56 Resp 18 B/P (MAP) 105/46 (65) Pulse Ox 100 100 O2 Delivery Mechanical Ventilator Ventilator Ventilator Intake and Output 05/09/17 05/09/17 05/10/17 14:59 22:59 06:59 Intake Total 421.8 ml 477 ml 483 ml Output Total 1060 ml 1050 ml 630 ml Balance -638.2 ml -573 ml -147 ml WALTER FINN MD May 10, 2017 09:57
--- NOTE | 2017-05-10 10:35 | PDOC ---
PROGRESS NOTES Subjective Subjective Ms Kennedy did well overnight. She was bradycardic this morning with rate in 50s. She currently has a rate in the 60s with sinus rhythm. She remains on a ventilator. Objective Objective Vital Signs Date Time Temp Pulse Resp B/P (MAP) Pulse Ox O2 Delivery O2 Flow Rate FiO2 05/10/17 10:00 63 20 139/73 (95) 100 Ventilator 05/10/17 08:00 97.7 97.7 05/08/17 18:09 3.0 Intake and Output 05/10/17 07:00 Intake Total 1411.8 ml Output Total 2772 ml Balance -1360.2 ml Intake Oral 0 ml IV Total 326.8 ml Tube Feeding 1025 ml Other 60 ml Output Urine Total 2592 ml Gastric Drainage Total 180 ml Physical Exam Heart: Regular rate (and rhythm), Normal S1, Normal S2 Lungs: Other (slightly coarse breath sounds) Assessment Assessment The patient continues to maintain a sinus rhythm. She has sinus bradycardia, which will be monitored. Her lungs sound clearer. Problems Medical Problems: (1) Respiratory failure Status: Acute Plan Plan of Care Will hold lasix to prevent kidney injury Continue monitored care in ICU Comment Review of Relevant I have reviewed the following items katy (where applicable) has been applied. Labs Laboratory Tests Test 05/08/17 10:40 05/08/17 12:16 05/08/17 12:40 05/08/17 17:41 Vancomycin Level Trough 10.6 mcg/mL (10.0-20.0) Vancomycin Last Dose Date 05/07/17 Vancomycin Last Dose Time 1000 Glucose (Fingerstick) 202 mg/dL (70-99) 176 mg/dL (70-99) O2 Saturation 92 % (92-99) Arterial Blood pH 7.45 (7.35-7.45) Arterial Blood pCO2 at Patient Temp 45 mmHg (35-46) Arterial Blood pO2 at Patient Temp 61 mmHg (65-108) Arterial Blood HCO3 31 mmol/L (21-28) Arterial Blood Base Excess 6 mmol/L (-3-3) FiO2 40 Test 05/08/17 22:29 05/08/17 23:54 05/09/17 04:16 05/09/17 06:03 Glucose (Fingerstick) 131 mg/dL (70-99) 132 mg/dL (70-99) 171 mg/dL (70-99) White Blood Count 12.6 x10^3/uL (4.0-11.0) Red Blood Count 4.28 x10^6/uL (3.50-5.40) Hemoglobin 10.4 g/dL (12.0-15.5) Hematocrit 32.4 % (36.0-47.0) Mean Corpuscular Volume 76 fL (79-100) Mean Corpuscular Hemoglobin 24 pg (25-35) Mean Corpuscular Hemoglobin Concent 32 g/dL (31-37) Red Cell Distribution Width 19.2 % (11.5-14.5) Platelet Count 265 x10^3/uL (140-400) Neutrophils (%) (Auto) 75 % (31-73) Lymphocytes (%) (Auto) 12 % (24-48) Monocytes (%) (Auto) 12 % (0-9) Eosinophils (%) (Auto) 1 % (0-3) Basophils (%) (Auto) 1 % (0-3) Neutrophils # (Auto) 9.4 x10^3uL (1.8-7.7) Lymphocytes # (Auto) 1.5 x10^3/uL (1.0-4.8) Monocytes # (Auto) 1.5 x10^3/uL (0.0-1.1) Eosinophils # (Auto) 0.1 x10^3/uL (0.0-0.7) Basophils # (Auto) 0.1 x10^3/uL (0.0-0.2) Sodium Level 135 mmol/L (136-145) Potassium Level 3.6 mmol/L (3.5-5.1) Chloride Level 97 mmol/L (98-107) Carbon Dioxide Level 28 mmol/L (21-32) Anion Gap 10 (6-14) Blood Urea Nitrogen 22 mg/dL (7-20) Creatinine 1.4 mg/dL (0.6-1.0) Estimated GFR (Cockcroft-Gault) 37.2 Glucose Level 170 mg/dL (70-99) Calcium Level 9.2 mg/dL (8.5-10.1) Phosphorus Level 3.0 mg/dL (2.6-4.7) Magnesium Level 2.2 mg/dL (1.8-2.4) Albumin 2.7 g/dL (3.4-5.0) Test 05/09/17 09:55 05/09/17 12:11 05/09/17 17:32 05/09/17 21:28 O2 Saturation 94 % (92-99) Arterial Blood pH 7.46 (7.35-7.45) Arterial Blood pCO2 at Patient Temp 40 mmHg (35-46) Arterial Blood pO2 at Patient Temp 70 mmHg (65-108) Arterial Blood HCO3 28 mmol/L (21-28) Arterial Blood Base Excess 4 mmol/L (-3-3) FiO2 40 Glucose (Fingerstick) 142 mg/dL (70-99) 158 mg/dL (70-99) 168 mg/dL (70-99) Test 05/10/17 00:38 05/10/17 05:58 05/10/17 06:00 05/10/17 08:00 Glucose (Fingerstick) 186 mg/dL (70-99) 192 mg/dL (70-99) White Blood Count 10.2 x10^3/uL (4.0-11.0) Red Blood Count 4.27 x10^6/uL (3.50-5.40) Hemoglobin 10.7 g/dL (12.0-15.5) Hematocrit 31.3 % (36.0-47.0) Mean Corpuscular Volume 73 fL (79-100) Mean Corpuscular Hemoglobin 25 pg (25-35) Mean Corpuscular Hemoglobin Concent 34 g/dL (31-37) Red Cell Distribution Width 18.7 % (11.5-14.5) Platelet Count 323 x10^3/uL (140-400) Neutrophils (%) (Auto) 74 % (31-73) Lymphocytes (%) (Auto) 12 % (24-48) Monocytes (%) (Auto) 12 % (0-9) Eosinophils (%) (Auto) 2 % (0-3) Basophils (%) (Auto) 1 % (0-3) Neutrophils # (Auto) 7.6 x10^3uL (1.8-7.7) Lymphocytes # (Auto) 1.2 x10^3/uL (1.0-4.8) Monocytes # (Auto) 1.2 x10^3/uL (0.0-1.1) Eosinophils # (Auto) 0.2 x10^3/uL (0.0-0.7) Basophils # (Auto) 0.1 x10^3/uL (0.0-0.2) Sodium Level 137 mmol/L (136-145) Potassium Level 3.8 mmol/L (3.5-5.1) Chloride Level 97 mmol/L (98-107) Carbon Dioxide Level 27 mmol/L (21-32) Anion Gap 13 (6-14) Blood Urea Nitrogen 28 mg/dL (7-20) Creatinine 1.5 mg/dL (0.6-1.0) Estimated GFR (Cockcroft-Gault) 34.3 Glucose Level 195 mg/dL (70-99) Calcium Level 9.1 mg/dL (8.5-10.1) Phosphorus Level 4.6 mg/dL (2.6-4.7) Magnesium Level 2.3 mg/dL (1.8-2.4) Albumin 2.7 g/dL (3.4-5.0) O2 Saturation 97 % (92-99) Arterial Blood pH 7.47 (7.35-7.45) Arterial Blood pCO2 at Patient Temp 38 mmHg (35-46) Arterial Blood pO2 at Patient Temp 92 mmHg (65-108) Arterial Blood HCO3 27 mmol/L (21-28) Arterial Blood Base Excess 3 mmol/L (-3-3) FiO2 40 Laboratory Tests Test 05/09/17 12:11 05/09/17 17:32 05/09/17 21:28 05/10/17 00:38 Glucose (Fingerstick) 142 mg/dL (70-99) 158 mg/dL (70-99) 168 mg/dL (70-99) 186 mg/dL (70-99) Test 05/10/17 05:58 05/10/17 06:00 05/10/17 08:00 Glucose (Fingerstick) 192 mg/dL (70-99) White Blood Count 10.2 x10^3/uL (4.0-11.0) Red Blood Count 4.27 x10^6/uL (3.50-5.40) Hemoglobin 10.7 g/dL (12.0-15.5) Hematocrit 31.3 % (36.0-47.0) Mean Corpuscular Volume 73 fL (79-100) Mean Corpuscular Hemoglobin 25 pg (25-35) Mean Corpuscular Hemoglobin Concent 34 g/dL (31-37) Red Cell Distribution Width 18.7 % (11.5-14.5) Platelet Count 323 x10^3/uL (140-400) Neutrophils (%) (Auto) 74 % (31-73) Lymphocytes (%) (Auto) 12 % (24-48) Monocytes (%) (Auto) 12 % (0-9) Eosinophils (%) (Auto) 2 % (0-3) Basophils (%) (Auto) 1 % (0-3) Neutrophils # (Auto) 7.6 x10^3uL (1.8-7.7) Lymphocytes # (Auto) 1.2 x10^3/uL (1.0-4.8) Monocytes # (Auto) 1.2 x10^3/uL (0.0-1.1) Eosinophils # (Auto) 0.2 x10^3/uL (0.0-0.7) Basophils # (Auto) 0.1 x10^3/uL (0.0-0.2) Sodium Level 137 mmol/L (136-145) Potassium Level 3.8 mmol/L (3.5-5.1) Chloride Level 97 mmol/L (98-107) Carbon Dioxide Level 27 mmol/L (21-32) Anion Gap 13 (6-14) Blood Urea Nitrogen 28 mg/dL (7-20) Creatinine 1.5 mg/dL (0.6-1.0) Estimated GFR (Cockcroft-Gault) 34.3 Glucose Level 195 mg/dL (70-99) Calcium Level 9.1 mg/dL (8.5-10.1) Phosphorus Level 4.6 mg/dL (2.6-4.7) Magnesium Level 2.3 mg/dL (1.8-2.4) Albumin 2.7 g/dL (3.4-5.0) O2 Saturation 97 % (92-99) Arterial Blood pH 7.47 (7.35-7.45) Arterial Blood pCO2 at Patient Temp 38 mmHg (35-46) Arterial Blood pO2 at Patient Temp 92 mmHg (65-108) Arterial Blood HCO3 27 mmol/L (21-28) Arterial Blood Base Excess 3 mmol/L (-3-3) FiO2 40 Microbiology 05/06/17 Blood Culture - Preliminary, Resulted NO GROWTH AFTER 3 DAYS 05/08/17 Gram Stain - Final, Complete 05/06/17 Urine Culture - Final, Complete 05/06/17 Urine Culture Result 1 (ANURAG) - Final, Complete 05/09/17 Gram Stain - Final, Complete Medications Current Medications Dopamine HCl/ Dextrose 250 ml @ 16.856 mls/ hr 1X ONCE IV Last administered on 05/05/17 22:54; Start 05/05/17 at 23:00; Stop 05/06/17 at 13:49; Status DC Torsemide (Demadex) 20 mg 1X ONCE PO Last administered on 05/06/17 00:44; Start 05/05/17 at 23:45; Stop 05/05/17 at 23:46; Status DC Bumetanide (Bumex) 1 mg [id number] IV Last administered on 05/10/17 08:45; Start 05/06/17 at 09:00 Ondansetron HCl (Zofran) 4 mg 1X ONCE IV Last administered on 05/06/17 00:09; Start 05/05/17 at 23:45; Stop 05/05/17 at 23:46; Status DC Ondansetron HCl (Zofran) 4 mg PRN Q8HRS PRN IV NAUSEA/VOMITING; Start 05/05/17 at 23:45; Stop 05/06/17 at 23:44; Status DC Acetaminophen/ Hydrocodone Bitart (Lortab 5/325) 1 tab PRN Q6HRS PRN PO MODERATE - SEVERE PAIN Last administered on 05/06/17 05:21; Start 05/06/17 at 05: 00 Acetaminophen/ Hydrocodone Bitart (Lortab 5/325) 2 tab PRN Q6HRS PRN PO MODERATE - SEVERE PAIN Last administered on 05/08/17 18:09; Start 05/06/17 at 05: 00 Dopamine HCl/ Dextrose 250 ml @ 16.627 mls/ hr CONT PRN IV SEE I/O RECORD Last administered on 05/06/17 12:28; Start 05/06/17 at 06:00 Vancomycin HCl 1.5 gm/Sodium Chloride 500 ml @ 250 mls/hr 1X ONCE IV Last administered on 05/06/17 10:34; Start 05/06/17 at 09:00; Stop 05/06/17 at 10:59; Status DC Levofloxacin/ Dextrose 100 ml @ 100 mls/hr Q24H IV Last administered on 12:28; Start 05/06/17 at 10:00; Stop 05/08/17 at 09:28; Status DC Insulin Aspart (NovoLOG) 0-9 UNITS TIDWMEALS SQ Last administered on 05/06/17 18:09; Start 05/06/17 at 12:00; Stop 05/06/17 at 23:03; Status DC Dextrose (Dextrose 50%-Water Syringe) 12.5 gm PRN Q15MIN PRN IV SEE COMMENTS; Start 05/06/17 at 08:45 Enoxaparin Sodium (Lovenox 40mg Syringe) 40 mg Q24H SQ Last administered on 05/10 08:45; Start 05/06/17 at 09:00 Piperacillin Sod/ Tazobactam Sod 3.375 gm/Sodium Chloride 50 ml @ 100 mls/hr Q6HRS IV Last administered on 05/10/17 05:46; Start 05/06/17 at 10:30 Vancomycin HCl (Vanco Per Pharmacy) 1 each PRN DAILY PRN MC SEE COMMENTS Last administered on 05/08/17 11:20; Start 05/06/17 at 10:00; Stop 05/09/17 at 08:02; Status DC Succinylcholine Chloride (Anectine) 200 mg STK-MED ONCE .ROUTE ; Start 05/06/17 at 10:13; Stop 05/06/17 at 10:14; Status DC Propofol 20 ml @ As Directed STK-MED ONCE IV ; Start 05/06/17 at 10:13; Stop 05/06 at 10:14; Status DC Lidocaine HCl (Lidocaine Pf 2% Vial) 5 ml STK-MED ONCE .ROUTE ; Start 05/06/17 at 10:13; Stop 05/06/17 at 10:14; Status DC Propofol 0 ml @ As Directed STK-MED ONCE IV ; Start 05/06/17 at 10:14; Stop at 10:15; Status DC Midazolam HCl 100 ml @ As Directed STK-MED ONCE IV ; Start 05/06/17 at 10:14; Stop 05/06/17 at 10:15; Status DC Midazolam HCl 100 ml @ 0 mls/hr CONT PRN IV SEE I/O RECORD Last administered on 05/09/17 04:26; Start 05/06/17 at 11:00 Vancomycin HCl 500 mg/Sodium Chloride 100 ml @ 100 mls/hr 1X ONCE IV Last administered on 05/06/17 16:52; Start 05/06/17 at 12:00; Stop 05/06/17 at 12:59; Status DC Vancomycin HCl 1.25 gm/Sodium Chloride 250 ml @ 167 mls/hr Q24H IV Last administered on 05/07/17 10:01; Start 05/07/17 at 10:00; Stop 05/08/17 at 11:18; Status DC Vancomycin HCl 1 each 1X ONCE MC Last administered on 05/08/17 10:00; Start at 09:30; Stop 05/08/17 at 09:31; Status DC Isoproterenol HCl 1 mg/Dextrose 255 ml @ 0 mls/hr CONT PRN IV SEE I/O RECORD Last administered on 05/07/17 00:09; Start 05/06/17 at 13:00 Albumin Human 50 ml @ 50 mls/hr 1X ONCE IV Last administered on 05/06/17 15:30 ; Start 05/06/17 at 15:30; Stop 05/06/17 at 16:29; Status DC Insulin Aspart (NovoLOG) BIDBFRMEAL SQ ; Start 05/07/17 at 07:30; Status UNV Insulin Detemir (Levemir) 15 units QHS SQ Last administered on 05/09/17 21:41; Start 05/06/17 at 21:00 Fentanyl Citrate (Fentanyl 2ml Vial) 25 mcg Q3HRS PRN IV MILD PAIN Last administered on 05/10/17 05:55; Start 05/06/17 at 18:00 Insulin Aspart (NovoLOG) 0-9 UNITS Q6HRS SQ Last administered on 05/10/17 06:14 ; Start 05/07/17 at 00:00 Acetaminophen (Tylenol) 650 mg PRN Q6HRS PRN NG MILD PAIN / TEMP Last administered on 05/07/17 17:57; Start 05/07/17 at 00:45 Chlorhexidine Gluconate (Peridex) 15 ml BID MM Last administered on 05/10/17 08 :45; Start 05/07/17 at 21:00 Famotidine (Pepcid) 20 mg QHS IVP Last administered on 05/09/17 21:29; Start at 21:00 Enalaprilat (Vasotec) 1.25 mg Q6HRS PRN IV HYPERTENSION, SEE COMMENTS; Start at 19:30 Magnesium Sulfate/ Dextrose 50 ml @ 25 mls/hr PRN DAILY PRN IV for Mag < 1.7 on am labs; Start 05/08/17 at 09:00 Levofloxacin/ Dextrose 150 ml @ 100 mls/hr Q48H IV Last administered on 11:18; Start 05/08/17 at 10:00; Stop 05/09/17 at 08:02; Status DC Vancomycin HCl 1.5 gm/Sodium Chloride 500 ml @ 250 mls/hr Q24H IV Last administered on 05/08/17 13:05; Start 05/08/17 at 11:30; Stop 05/09/17 at 08:02; Status DC Alprazolam (Xanax) 1 mg PRN Q8HRS PRN PO ANXIETY / AGITATION Last administered on 05/09/17 08:49; Start 05/08/17 at 16:45 Propofol 100 ml @ 0 mls/hr CONT PRN IV SEE I/O RECORD Last administered on 23:19; Start 05/08/17 at 19:15 Furosemide (Lasix) 40 mg 1X ONCE IVP Last administered on 05/09/17 16:09; Start 05/09/17 at 15:00; Stop 05/09/17 at 15:01; Status DC Furosemide (Lasix) 40 mg 1X ONCE IVP ; Start 05/09/17 at 15:00; Stop 05/09/17 at 15:01; Status UNV Dexmedetomidine HCl 200 mcg/ Sodium Chloride 50 ml @ 0 mls/hr CONT PRN IV PER PROTOCOL Last administered on 05/10/17 04:51; Start 05/09/17 at 15:00 Bisacodyl (Dulcolax Supp) 10 mg PRN DAILY PRN OK CONSTIPATION Last administered on 7/7/17at 08:45; Start 05/10/17 at 08:15 Active Scripts Active Glucophage Xr (Metformin Hcl) 500 Mg Tab.er.24h 1,000 Mg PO BID [place] 5-325 Tablet (Acetaminophen/Hydrocodone Bitart) 1 Each Tablet 1 Tab PO PRN Q6HRS PRN Reported Antioxidant Softgel (Beta-Carotene(A) W-C & E/Min) 1 Each Capsule 1 Each PO DAILY Hyaluronic Acid 40 Mg Capsule (Hyalur Ac/Chond Sul/Colg Ii/Aa) 1 Each Capsule 1 Each PO DAILY Biotin 2,500 Mcg Capsule 5,000 Mcg PO DAILY Benefiber (Wheat Dextrin) 1 Each Powd.pack 1 Each PO DAILY Benefiber (Wheat Dextrin) 1 Each Powd.pack 1 Each PO Ellura (Cranberry Extract) 200 Mg Capsule 36 Mg PO Caltrate 600 + D Tablet (Calcium Carbonate/Vitamin D3) 1 Each Tablet 1 Each PO DAILY Vitamin C With Aeltha Hips (Ascorbic Acid) 500 Mg Tablet 500 Mg PO DAILY Vitamin D3 (Cholecalciferol (Vitamin D3)) 1,000 Unit Tablet 1 Tab PO DAILY Fish Oil 1,000 Mg Softgel ([place]-3 Fatty Acids/Fish Oil) 1 Each Capsule 1 Each PO DAILY Premarin (Estrogens, Conjugated) 0.625 Mg Tablet 1 Tab PO DAILY Nortriptyline Hcl 25 Mg Capsule 1 Cap PO QHS Nitrofurantoin (Nitrofurantoin Macrocrystal) 100 Mg Capsule 1 Cap PO DAILY Cymbalta (Duloxetine Hcl) 30 Mg Capsule.dr 1 Cap PO DAILY Pantoprazole Sodium 40 Mg Tablet.dr 1 Tab PO DAILY Losartan Potassium 50 Mg Tablet 50 Mg PO DAILY Januvia (Sitagliptin Phosphate) 100 Mg Tablet 1 Tab PO DAILY Novolog Flexpen (Insulin Aspart) 100 Unit/1 Ml Insuln.pen 12 Unit SQ TIDWMEALS Losartan Potassium 100 Mg Tablet 100 Mg PO NOON Torsemide 10 Mg Tablet 10 Mg PO DAILY Sucralfate 1 Gm Tablet 1 Tab PO QID Omeprazole 20 Mg Capsule.dr 1 Cap PO BID Acetaminophen 325 Mg Tablet 650 Mg PO PRN BID PRN Levothyroxine Sodium 112 Mcg Tablet 1 Tab PO DAILY Atenolol 25 Mg Tablet 1 Tab PO BID Amlodipine Besylate 10 Mg Tablet 10 Mg PO DAILY Amitriptyline Hcl 25 Mg Tablet 1 Tab PO QHS Metoclopramide Hcl 5 Mg Tablet 5 Mg PO QIDACHS Alprazolam 0.5 Mg Tablet 1 Tab PO HS Alprazolam 0.5 Mg Tablet 2 Tab PO BIDWBKFT/HOLLIS Aspirin 81 Mg Tab.chew 1 Tab PO DAILY Vitals/I & O Vital Sign - Last 24 Hours 05/09/17 05/09/17 05/09/17 05/09/17 11:00 11:58 12:00 12:00 Temp 98.7 98.7 Pulse 67 62 Resp 20 16 B/P (MAP) 144/68 (93) 131/70 (90) Pulse Ox 100 99 96 O2 Delivery Ventilator Ventilator Mechanical Ventilator Ventilator 05/09/17 05/09/17 05/09/17 05/09/17 13:00 13:49 14:00 15:00 Pulse 66 65 71 Resp 21 19 18 B/P (MAP) 145/69 (94) 123/64 (83) 134/69 (90) Pulse Ox 96 99 98 98 O2 Delivery Ventilator Ventilator Ventilator Ventilator 05/09/17 05/09/17 05/09/17 05/09/17 16:00 16:00 16:24 17:00 Temp 99.2 99.2 Pulse 64 70 Resp 20 13 B/P (MAP) 98/51 (67) 123/58 (79) Pulse Ox 97 99 99 O2 Delivery Ventilator Mechanical Ventilator Ventilator Ventilator 05/09/17 05/09/17 05/09/17 05/09/17 17:35 18:00 19:16 19:36 Pulse 56 49 Resp 19 14 B/P (MAP) 106/53 (70) 92/52 (65) Pulse Ox 98 96 99 98 O2 Delivery Ventilator Ventilator Ventilator Ventilator 05/09/17 05/09/17 05/09/17 05/09/17 20:00 20:00 21:00 22:00 Temp 97.6 97.6 Pulse 50 50 48 Resp 15 15 17 B/P (MAP) 95/58 (70) 110/60 (77) 110/61 (77) Pulse Ox 99 100 100 O2 Delivery Ventilator Mechanical Ventilator Ventilator Ventilator 05/09/17 05/09/17 05/10/17 05/10/17 23:00 23:13 00:00 00:00 Temp 97.7 97.7 Pulse 46 48 Resp 17 20 B/P (MAP) 109/59 (76) 125/67 (86) Pulse Ox 100 98 100 O2 Delivery Ventilator Ventilator Mechanical Ventilator Ventilator 05/10/17 05/10/17 05/10/17 05/10/17 01:00 01:24 02:00 03:00 Pulse 52 48 52 Resp 20 20 20 B/P (MAP) 153/75 (101) 120/64 (82) 101/60 (74) Pulse Ox 100 98 99 96 O2 Delivery Ventilator Ventilator Ventilator Ventilator 05/10/17 05/10/17 05/10/17 05/10/17 03:47 04:00 04:00 05:00 Temp 97.8 97.8 Pulse 48 48 Resp 20 20 B/P (MAP) 121/61 (81) 125/59 (81) Pulse Ox 98 99 99 O2 Delivery Ventilator Ventilator Mechanical Ventilator Ventilator 05/10/17 05/10/17 05/10/17 05/10/17 05:40 05:55 06:02 06:30 Pulse 50 Resp 20 20 20 B/P (MAP) 127/66 (86) Pulse Ox 98 100 98 O2 Delivery Ventilator Ventilator Ventilator 05/10/17 05/10/17 05/10/17 05/10/17 07:00 07:39 08:00 08:00 Temp 97.7 97.7 Pulse 48 53 Resp 20 20 B/P (MAP) 103/59 (74) 105/63 (77) Pulse Ox 100 100 100 O2 Delivery Ventilator Ventilator Mechanical Ventilator 05/10/17 05/10/17 05/10/17 08:46 09:00 10:00 Pulse 56 63 Resp 18 20 B/P (MAP) 105/46 (65) 139/73 (95) Pulse Ox 100 100 100 O2 Delivery Ventilator Ventilator Ventilator Intake and Output 05/09/17 05/09/17 05/10/17 15:00 23:00 07:00 Intake Total 451.8 ml 477 ml 483 ml Output Total 1210 ml 950 ml 612 ml Balance -758.2 ml -473 ml -129 ml EULALIA MOSELEY MD May 10, 2017 10:35
--- NOTE | 2017-05-10 13:17 | PDOC ---
SUBJECTIVE ROS DOMINGO Doing maybe a little better - anticipated extubation later today OBJECTIVE Vital Signs Vital Signs Date Time Temp Pulse Resp B/P (MAP) Pulse Ox O2 Delivery O2 Flow Rate FiO2 05/10/17 13:09 100 Ventilator 05/10/17 12:00 98.3 54 20 98/63 (75) 98.3 I & 0 Intake and Output 05/10/17 07:00 Intake Total 1411.8 ml Output Total 2772 ml Balance -1360.2 ml Intake Oral 0 ml IV Total 326.8 ml Tube Feeding 1025 ml Other 60 ml Output Urine Total 2592 ml Gastric Drainage Total 180 ml PHYSICAL EXAM Physical Exam GEN: Awake on the Vent, Oriented x ?, In no distress on the vent via ETT EYES: Vision Unchanged, Conjunctiva Normal EN: No EN Drainage, Mucous Membranes moist NECK: no JVD, no JVP, Supple, no Thyromegaly CVS: S1S2, + Murmur, No Gallop, No Rub,min Edema RESP: rare basal Rales, no Rhonchi,no Acc. Muscle Use GI: BS hypoactive, NO Bruit, Non Tender, Non Distended : no CVA tenderness, no Suprapubic Tenderness DIAGNOSIS/ASSESSMENT Assessment & Plan HypoNatremia - resolved - watch on diuretics + TF (currently held in anticipation of extubation) ARF/ ? ATN (due to Ac Illness): this may be near term baseline. Current fluid and E-lyte status does not necessitate emergent need for dialysis. ? CKD III at baseline (Creat 1.1-1.3) cannot be ruled out; DM and ASVDz associated /NS HTN: (no LLUVIA on RAD) Current BP meds as reviewed. See orders for changes. Pulm edema vs Pn - ct Diuresis as needed to optimize resp status to facilitate extubation Discussed Plan of Care with family (son) at bedside COMMENT/RELEVANT DATA Meds Current Medications Medications (Trade) Dose Ordered Sig/Christine Start Time Stop Time Status Last Admin Dose Admin Acetaminophen (Tylenol) 650 mg PRN Q6HRS PRN 05/07/17 00:45 05/07/17 17:57 650 MG Acetaminophen/ Hydrocodone Bitart (Lortab 5/325) 2 tab PRN Q6HRS PRN 05/06/17 05:00 05/08/17 18:09 2 TAB Albumin Human 50 ml @ 50 mls/hr 1X ONCE 05/06/17 15:30 05/06/17 16:29 DC 05/06/17 15:30 50 MLS/HR Alprazolam (Xanax) 1 mg PRN Q8HRS PRN 05/08/17 16:45 05/09/17 08:49 1 MG Bisacodyl (Dulcolax Supp) 10 mg PRN DAILY PRN 05/10/17 08:15 05/10/17 08:45 10 MG Bumetanide (Bumex) 1 mg [id number] 05/06/17 09:00 05/10/17 08:45 1 MG Chlorhexidine Gluconate (Peridex) 15 ml BID 05/07/17 21:00 05/10/17 08:45 15 ML Dexmedetomidine HCl 200 mcg/ Sodium Chloride 50 ml @ 0 mls/hr CONT PRN 05/09/17 15:00 05/10/17 04:51 8.15 MLS/HR Dextrose (Dextrose 50%-Water Syringe) 12.5 gm PRN Q15MIN PRN 05/06/17 08:45 Dopamine HCl/ Dextrose 250 ml @ 16.627 mls/ hr CONT PRN 05/06/17 06:00 05/06/17 12:28 16.627 MLS/HR Enalaprilat (Vasotec) 1.25 mg Q6HRS PRN 05/07/17 19:30 Enoxaparin Sodium (Lovenox 40mg Syringe) 40 mg Q24H 05/06/17 09:00 05/10/17 08:45 40 MG Famotidine (Pepcid) 20 mg QHS 05/07/17 21:00 05/09/17 21:29 20 MG Fentanyl Citrate (Fentanyl 2ml Vial) 25 mcg Q3HRS PRN 05/06/17 18:00 05/10/17 05:55 25 MCG Furosemide (Lasix) 40 mg 1X ONCE 05/09/17 15:00 05/09/17 15:01 UNV Insulin Aspart (NovoLOG) 0-9 UNITS Q6HRS 05/07/17 00:00 05/10/17 06:14 4 UNITS Insulin Detemir (Levemir) 15 units QHS 05/06/17 21:00 05/09/17 21:41 15 UNITS Isoproterenol HCl 1 mg/Dextrose 255 ml @ 0 mls/hr CONT PRN 05/06/17 13:00 05/07/17 00:09 75 MLS/HR Levofloxacin/ Dextrose 150 ml @ 100 mls/hr Q48H 05/08/17 10:00 05/09/17 08:02 DC 05/08/17 11:18 100 MLS/HR Lidocaine HCl (Lidocaine Pf 2% Vial) 5 ml STK-MED ONCE 05/06/17 10:13 05/06/17 10:14 DC Magnesium Sulfate/ Dextrose 50 ml @ 25 mls/hr PRN DAILY PRN 05/08/17 09:00 Midazolam HCl 100 ml @ 0 mls/hr CONT PRN 05/06/17 11:00 05/09/17 04:26 15 MLS/HR Ondansetron HCl (Zofran) 4 mg PRN Q8HRS PRN 05/05/17 23:45 05/06/17 23:44 DC Piperacillin Sod/ Tazobactam Sod 3.375 gm/Sodium Chloride 50 ml @ 100 mls/hr Q6HRS 05/06/17 10:30 05/10/17 11:31 100 MLS/HR Propofol 100 ml @ 0 mls/hr CONT PRN 05/08/17 19:15 05/08/17 23:19 2.7 MLS/HR Succinylcholine Chloride (Anectine) 200 mg STK-MED ONCE 05/06/17 10:13 05/06/17 10:14 DC Torsemide (Demadex) 20 mg 1X ONCE 05/05/17 23:45 05/05/17 23:46 DC 05/06/17 00:44 20 MG Vancomycin HCl (Vanco Per Pharmacy) 1 each PRN DAILY PRN 05/06/17 10:00 05/09/17 08:02 DC 05/08/17 11:20 1 EACH Vancomycin HCl 1.25 gm/Sodium Chloride 250 ml @ 167 mls/hr Q24H 05/07/17 10:00 05/08/17 11:18 DC 05/07/17 10:01 167 MLS/HR Vancomycin HCl 1.5 gm/Sodium Chloride 500 ml @ 250 mls/hr Q24H 05/08/17 11:30 05/09/17 08:02 DC 05/08/17 13:05 250 MLS/HR Vancomycin HCl 500 mg/Sodium Chloride 100 ml @ 100 mls/hr 1X ONCE 05/06/17 12:00 05/06/17 12:59 DC 05/06/17 16:52 100 MLS/HR Lab Laboratory Tests Test 05/09/17 17:32 05/09/17 21:28 05/10/17 00:38 05/10/17 05:58 Glucose (Fingerstick) 158 mg/dL (70-99) 168 mg/dL (70-99) 186 mg/dL (70-99) 192 mg/dL (70-99) Test 05/10/17 06:00 05/10/17 08:00 05/10/17 11:34 White Blood Count 10.2 x10^3/uL (4.0-11.0) Red Blood Count 4.27 x10^6/uL (3.50-5.40) Hemoglobin 10.7 g/dL (12.0-15.5) Hematocrit 31.3 % (36.0-47.0) Mean Corpuscular Volume 73 fL (79-100) Mean Corpuscular Hemoglobin 25 pg (25-35) Mean Corpuscular Hemoglobin Concent 34 g/dL (31-37) Red Cell Distribution Width 18.7 % (11.5-14.5) Platelet Count 323 x10^3/uL (140-400) Neutrophils (%) (Auto) 74 % (31-73) Lymphocytes (%) (Auto) 12 % (24-48) Monocytes (%) (Auto) 12 % (0-9) Eosinophils (%) (Auto) 2 % (0-3) Basophils (%) (Auto) 1 % (0-3) Neutrophils # (Auto) 7.6 x10^3uL (1.8-7.7) Lymphocytes # (Auto) 1.2 x10^3/uL (1.0-4.8) Monocytes # (Auto) 1.2 x10^3/uL (0.0-1.1) Eosinophils # (Auto) 0.2 x10^3/uL (0.0-0.7) Basophils # (Auto) 0.1 x10^3/uL (0.0-0.2) Sodium Level 137 mmol/L (136-145) Potassium Level 3.8 mmol/L (3.5-5.1) Chloride Level 97 mmol/L (98-107) Carbon Dioxide Level 27 mmol/L (21-32) Anion Gap 13 (6-14) Blood Urea Nitrogen 28 mg/dL (7-20) Creatinine 1.5 mg/dL (0.6-1.0) Estimated GFR (Cockcroft-Gault) 34.3 Glucose Level 195 mg/dL (70-99) Calcium Level 9.1 mg/dL (8.5-10.1) Phosphorus Level 4.6 mg/dL (2.6-4.7) Magnesium Level 2.3 mg/dL (1.8-2.4) Albumin 2.7 g/dL (3.4-5.0) O2 Saturation 97 % (92-99) Arterial Blood pH 7.47 (7.35-7.45) Arterial Blood pCO2 at Patient Temp 38 mmHg (35-46) Arterial Blood pO2 at Patient Temp 92 mmHg (65-108) Arterial Blood HCO3 27 mmol/L (21-28) Arterial Blood Base Excess 3 mmol/L (-3-3) FiO2 40 Glucose (Fingerstick) 159 mg/dL (70-99) LEO VALENCIA MD May 10, 2017 13:17
--- NOTE | 2017-05-10 14:09 | PDOC ---
PULMONARY PROGRESS NOTES Subjective PS ON 2 NOW LOOKS GOOD FOLLOW COMMANDS WANTS TUBE OUT Vitals Vital Signs Date Time Temp Pulse Resp B/P (MAP) Pulse Ox O2 Delivery O2 Flow Rate FiO2 05/10/17 13:09 100 Ventilator 05/10/17 13:00 50 20 115/60 (78) 05/10/17 12:00 98.3 98.3 General: Alert Lungs: Crackles Cardiovascular: S1, S2 Abdomen: Soft Neuro Exam: Alert Extremities: No Edema Skin: Warm Labs Laboratory Tests Test 05/08/17 17:41 05/08/17 22:29 05/08/17 23:54 05/09/17 04:16 Glucose (Fingerstick) 176 mg/dL (70-99) 131 mg/dL (70-99) 132 mg/dL (70-99) White Blood Count 12.6 x10^3/uL (4.0-11.0) Red Blood Count 4.28 x10^6/uL (3.50-5.40) Hemoglobin 10.4 g/dL (12.0-15.5) Hematocrit 32.4 % (36.0-47.0) Mean Corpuscular Volume 76 fL (79-100) Mean Corpuscular Hemoglobin 24 pg (25-35) Mean Corpuscular Hemoglobin Concent 32 g/dL (31-37) Red Cell Distribution Width 19.2 % (11.5-14.5) Platelet Count 265 x10^3/uL (140-400) Neutrophils (%) (Auto) 75 % (31-73) Lymphocytes (%) (Auto) 12 % (24-48) Monocytes (%) (Auto) 12 % (0-9) Eosinophils (%) (Auto) 1 % (0-3) Basophils (%) (Auto) 1 % (0-3) Neutrophils # (Auto) 9.4 x10^3uL (1.8-7.7) Lymphocytes # (Auto) 1.5 x10^3/uL (1.0-4.8) Monocytes # (Auto) 1.5 x10^3/uL (0.0-1.1) Eosinophils # (Auto) 0.1 x10^3/uL (0.0-0.7) Basophils # (Auto) 0.1 x10^3/uL (0.0-0.2) Sodium Level 135 mmol/L (136-145) Potassium Level 3.6 mmol/L (3.5-5.1) Chloride Level 97 mmol/L (98-107) Carbon Dioxide Level 28 mmol/L (21-32) Anion Gap 10 (6-14) Blood Urea Nitrogen 22 mg/dL (7-20) Creatinine 1.4 mg/dL (0.6-1.0) Estimated GFR (Cockcroft-Gault) 37.2 Glucose Level 170 mg/dL (70-99) Calcium Level 9.2 mg/dL (8.5-10.1) Phosphorus Level 3.0 mg/dL (2.6-4.7) Magnesium Level 2.2 mg/dL (1.8-2.4) Albumin 2.7 g/dL (3.4-5.0) Test 05/09/17 06:03 05/09/17 09:55 05/09/17 12:11 05/09/17 17:32 Glucose (Fingerstick) 171 mg/dL (70-99) 142 mg/dL (70-99) 158 mg/dL (70-99) O2 Saturation 94 % (92-99) Arterial Blood pH 7.46 (7.35-7.45) Arterial Blood pCO2 at Patient Temp 40 mmHg (35-46) Arterial Blood pO2 at Patient Temp 70 mmHg (65-108) Arterial Blood HCO3 28 mmol/L (21-28) Arterial Blood Base Excess 4 mmol/L (-3-3) FiO2 40 Test 05/09/17 21:28 05/10/17 00:38 05/10/17 05:58 05/10/17 06:00 Glucose (Fingerstick) 168 mg/dL (70-99) 186 mg/dL (70-99) 192 mg/dL (70-99) White Blood Count 10.2 x10^3/uL (4.0-11.0) Red Blood Count 4.27 x10^6/uL (3.50-5.40) Hemoglobin 10.7 g/dL (12.0-15.5) Hematocrit 31.3 % (36.0-47.0) Mean Corpuscular Volume 73 fL (79-100) Mean Corpuscular Hemoglobin 25 pg (25-35) Mean Corpuscular Hemoglobin Concent 34 g/dL (31-37) Red Cell Distribution Width 18.7 % (11.5-14.5) Platelet Count 323 x10^3/uL (140-400) Neutrophils (%) (Auto) 74 % (31-73) Lymphocytes (%) (Auto) 12 % (24-48) Monocytes (%) (Auto) 12 % (0-9) Eosinophils (%) (Auto) 2 % (0-3) Basophils (%) (Auto) 1 % (0-3) Neutrophils # (Auto) 7.6 x10^3uL (1.8-7.7) Lymphocytes # (Auto) 1.2 x10^3/uL (1.0-4.8) Monocytes # (Auto) 1.2 x10^3/uL (0.0-1.1) Eosinophils # (Auto) 0.2 x10^3/uL (0.0-0.7) Basophils # (Auto) 0.1 x10^3/uL (0.0-0.2) Sodium Level 137 mmol/L (136-145) Potassium Level 3.8 mmol/L (3.5-5.1) Chloride Level 97 mmol/L (98-107) Carbon Dioxide Level 27 mmol/L (21-32) Anion Gap 13 (6-14) Blood Urea Nitrogen 28 mg/dL (7-20) Creatinine 1.5 mg/dL (0.6-1.0) Estimated GFR (Cockcroft-Gault) 34.3 Glucose Level 195 mg/dL (70-99) Calcium Level 9.1 mg/dL (8.5-10.1) Phosphorus Level 4.6 mg/dL (2.6-4.7) Magnesium Level 2.3 mg/dL (1.8-2.4) Albumin 2.7 g/dL (3.4-5.0) Test 05/10/17 08:00 05/10/17 11:34 O2 Saturation 97 % (92-99) Arterial Blood pH 7.47 (7.35-7.45) Arterial Blood pCO2 at Patient Temp 38 mmHg (35-46) Arterial Blood pO2 at Patient Temp 92 mmHg (65-108) Arterial Blood HCO3 27 mmol/L (21-28) Arterial Blood Base Excess 3 mmol/L (-3-3) FiO2 40 Glucose (Fingerstick) 159 mg/dL (70-99) Laboratory Tests Test 05/09/17 17:32 05/09/17 21:28 05/10/17 00:38 05/10/17 05:58 Glucose (Fingerstick) 158 mg/dL (70-99) 168 mg/dL (70-99) 186 mg/dL (70-99) 192 mg/dL (70-99) Test 05/10/17 06:00 05/10/17 08:00 05/10/17 11:34 White Blood Count 10.2 x10^3/uL (4.0-11.0) Red Blood Count 4.27 x10^6/uL (3.50-5.40) Hemoglobin 10.7 g/dL (12.0-15.5) Hematocrit 31.3 % (36.0-47.0) Mean Corpuscular Volume 73 fL (79-100) Mean Corpuscular Hemoglobin 25 pg (25-35) Mean Corpuscular Hemoglobin Concent 34 g/dL (31-37) Red Cell Distribution Width 18.7 % (11.5-14.5) Platelet Count 323 x10^3/uL (140-400) Neutrophils (%) (Auto) 74 % (31-73) Lymphocytes (%) (Auto) 12 % (24-48) Monocytes (%) (Auto) 12 % (0-9) Eosinophils (%) (Auto) 2 % (0-3) Basophils (%) (Auto) 1 % (0-3) Neutrophils # (Auto) 7.6 x10^3uL (1.8-7.7) Lymphocytes # (Auto) 1.2 x10^3/uL (1.0-4.8) Monocytes # (Auto) 1.2 x10^3/uL (0.0-1.1) Eosinophils # (Auto) 0.2 x10^3/uL (0.0-0.7) Basophils # (Auto) 0.1 x10^3/uL (0.0-0.2) Sodium Level 137 mmol/L (136-145) Potassium Level 3.8 mmol/L (3.5-5.1) Chloride Level 97 mmol/L (98-107) Carbon Dioxide Level 27 mmol/L (21-32) Anion Gap 13 (6-14) Blood Urea Nitrogen 28 mg/dL (7-20) Creatinine 1.5 mg/dL (0.6-1.0) Estimated GFR (Cockcroft-Gault) 34.3 Glucose Level 195 mg/dL (70-99) Calcium Level 9.1 mg/dL (8.5-10.1) Phosphorus Level 4.6 mg/dL (2.6-4.7) Magnesium Level 2.3 mg/dL (1.8-2.4) Albumin 2.7 g/dL (3.4-5.0) O2 Saturation 97 % (92-99) Arterial Blood pH 7.47 (7.35-7.45) Arterial Blood pCO2 at Patient Temp 38 mmHg (35-46) Arterial Blood pO2 at Patient Temp 92 mmHg (65-108) Arterial Blood HCO3 27 mmol/L (21-28) Arterial Blood Base Excess 3 mmol/L (-3-3) FiO2 40 Glucose (Fingerstick) 159 mg/dL (70-99) Medications Active Scripts Medications Dose Route/Sig Max Daily Dose Days Date Category Novolog Flexpen (Insulin Aspart) 100 Unit/1 Ml Insuln.pen 12 Unit SQ TIDWMEALS 05/06/17 Reported Losartan Potassium 100 Mg Tablet 100 Mg PO NOON 05/06/17 Reported Glucophage Xr (Metformin Hcl) 500 Mg Tab.er.24h 1,000 Mg PO BID 07/17/16 Rx Torsemide 10 Mg Tablet 10 Mg PO DAILY 07/15/16 Reported Sucralfate 1 Gm Tablet 1 Tab PO QID 07/15/16 Reported Omeprazole 20 Mg Capsule.dr 1 Cap PO BID 07/15/16 Reported Acetaminophen 325 Mg Tablet 650 Mg PO PRN BID PRN 07/15/16 Reported Levothyroxine Sodium 112 Mcg Tablet 1 Tab PO DAILY 07/15/16 Reported Atenolol 25 Mg Tablet 1 Tab PO BID 07/15/16 Reported Amlodipine Besylate 10 Mg Tablet 10 Mg PO DAILY 07/15/16 Reported Amitriptyline Hcl 25 Mg Tablet 1 Tab PO QHS 07/15/16 Reported Metoclopramide Hcl 5 Mg Tablet 5 Mg PO QIDACHS 07/15/16 Reported Alprazolam 0.5 Mg Tablet 1 Tab PO HS 07/15/16 Reported Alprazolam 0.5 Mg Tablet 2 Tab PO BIDWBKFT/HOLLIS 07/15/16 Reported Aspirin 81 Mg Tab.chew 1 Tab PO DAILY 07/15/16 Reported [place] 5-325 Tablet (Acetaminophen/Hydrocodone Bitart) 1 Each Tablet 1 Tab PO PRN Q6HRS PRN 06/03/16 Rx Comments CXR IMPROVED TODAY Impression . ACUTE/CHROMIC RESP FAILURE PNEUMONIA SEPTIC SHOCK HYPONATREMIA UNCONTROLLED DM AECOPD LEUKOCYTOSIS ACUTE PULMONARY EDEMA Plan . PS TODAY LOOKS GREAT WILL EXTUBATE HOLD DIURESES ANITBX PER ID NEPHRO CONSULT DVT AND GI PROPHYLAXIS TUBE FEEDING RUNNING RACHEL KOCH MD May 10, 2017 14:09
--- NOTE | 2017-05-10 14:40 | PDOC2 ---
PALLIATIVE CARE Palliative Care Note Palliative Care Patient extubated. Alert and oriented. Discussed wishes if needing to be re-intubated. "Only if it won't hurt" Informed that likely she would if she were in respiratory failure and not intubated. Stated she will "need to think about it." Encouraged patient to let her family know her decision also. Will continue to follow and encourage discussion. SWAPNA BELCHER May 10, 2017 14:40
[2017-05-10] MEDS: FAMOTIDINE 20 MG/2 ML VIAL IVP SCH (21:18)
[2017-05-10] MEDS: INSULIN DETEMIR 300 UNITS/3 ML INSULN.PEN. SQ SCH (21:20)
[2017-05-11] VITALS (21 sets, daily range): BP systolic 116–176; BP diastolic 62–136
[2017-05-11] MEDS: PIPERACILLIN/TAZOBACTAM 3.375 GM in IV NORMAL SALINE 50ML 50 ML IV SCH ×4 (00:12→17:30)
[2017-05-11] MEDS: fentaNYL PF VIAL 100 MCG/2 ML VIAL IV PRN ×4 (00:23→21:20)
[2017-05-11 05:33] LABS: BASO # 0.1 x10^3/uL (0.0-0.2); BASO % 1 % (0-3); EOS % 1 % (0-3); HEMOGLOBIN 10.9 g/dL (12.0-15.5); LYMPH # 1.2 x10^3/uL (1.0-4.8); LYMPH % 10 % (24-48); MEAN CORPUSCULAR HEMOGLOBIN 24 pg (25-35); MEAN CORPUSCULAR HGB CONC 33 g/dL (31-37); MEAN CORPUSCULAR VOLUME 74 fL (79-100); MONO % 14 % (0-9); NEUT % 74 % (31-73); PLATELET COUNT 339 x10^3/uL (140-400); RED BLOOD COUNT 4.48 x10^6/uL (3.50-5.40); RED CELL DISTRIBUTION WIDTH 19.1 % (11.5-14.5); WHITE BLOOD COUNT 11.3 x10^3/uL (4.0-11.0)
[2017-05-11] MEDS: INSULIN ASPART 300 UNITS/3 ML INSULN.PEN SQ SCH ×4 (05:48→17:30)
[2017-05-11 05:55] LABS: ALBUMIN 2.8 g/dL (3.4-5.0); ALBUMIN/GLOBULIN RATIO 0.6 (1.0-1.7); CALCIUM 8.7 mg/dL (8.5-10.1); CREATININE 1.5 mg/dL (0.6-1.0); GFR 34.3; PHOSPHORUS 4.5 mg/dL (2.6-4.7); POTASSIUM 3.3 mmol/L (3.5-5.1); TOTAL BILIRUBIN 0.7 mg/dL (0.2-1.0); TOTAL PROTEIN 7.6 g/dL (6.4-8.2)
--- NOTE | 2017-05-11 07:37 | PDOC ---
Infectious Disease Note Subjective Subjective extubated, ROS ROS GEN: Denies fevers, chills, sweats HEENT: Denies blurred vision, sore throat CV: Denies chest pain RESP: Denies shortness of air, cough GI: Denies n/v/d NEURO: Denies confusion, dizziness MSK: Denies weakness, joint pain/swelling Vital Sign Vital Signs Vital Signs Date Time Temp Pulse Resp B/P (MAP) Pulse Ox O2 Delivery O2 Flow Rate FiO2 05/11/17 06:00 73 21 162/72 (102) 97 Nasal Cannula 4.0 05/11/17 03:00 97.9 97.9 Physical Exam PHYSICAL EXAM GENERAL: NAD, Alert HEENT: PERRL, OC/OP NECK: Supple, no JVD, no LN LUNGS: Clear HEART: S1S2, no gallop, no murmur ABD: Soft, NT, no organomegaly, no rebound EXT: No edema, no cyanosis CAR PUSHER: Alert, oriented x 3, no focal neurologic deficit SKIN: No rash IV: ok Labs Lab Laboratory Tests Test 05/10/17 08:00 05/10/17 11:34 05/10/17 17:31 05/10/17 21:16 O2 Saturation 97 % (92-99) Arterial Blood pH 7.47 (7.35-7.45) Arterial Blood pCO2 at Patient Temp 38 mmHg (35-46) Arterial Blood pO2 at Patient Temp 92 mmHg (65-108) Arterial Blood HCO3 27 mmol/L (21-28) Arterial Blood Base Excess 3 mmol/L (-3-3) FiO2 40 Glucose (Fingerstick) 159 mg/dL (70-99) 143 mg/dL (70-99) 156 mg/dL (70-99) Test 05/11/17 00:09 05/11/17 05:10 05/11/17 05:48 Glucose (Fingerstick) 145 mg/dL (70-99) 141 mg/dL (70-99) White Blood Count 11.3 x10^3/uL (4.0-11.0) Red Blood Count 4.48 x10^6/uL (3.50-5.40) Hemoglobin 10.9 g/dL (12.0-15.5) Hematocrit 33.0 % (36.0-47.0) Mean Corpuscular Volume 74 fL (79-100) Mean Corpuscular Hemoglobin 24 pg (25-35) Mean Corpuscular Hemoglobin Concent 33 g/dL (31-37) Red Cell Distribution Width 19.1 % (11.5-14.5) Platelet Count 339 x10^3/uL (140-400) Neutrophils (%) (Auto) 74 % (31-73) Lymphocytes (%) (Auto) 10 % (24-48) Monocytes (%) (Auto) 14 % (0-9) Eosinophils (%) (Auto) 1 % (0-3) Basophils (%) (Auto) 1 % (0-3) Neutrophils # (Auto) 8.4 x10^3uL (1.8-7.7) Lymphocytes # (Auto) 1.2 x10^3/uL (1.0-4.8) Monocytes # (Auto) 1.6 x10^3/uL (0.0-1.1) Eosinophils # (Auto) 0.1 x10^3/uL (0.0-0.7) Basophils # (Auto) 0.1 x10^3/uL (0.0-0.2) Sodium Level 143 mmol/L (136-145) Potassium Level 3.3 mmol/L (3.5-5.1) Chloride Level 103 mmol/L (98-107) Carbon Dioxide Level 28 mmol/L (21-32) Anion Gap 12 (6-14) Blood Urea Nitrogen 25 mg/dL (7-20) Creatinine 1.5 mg/dL (0.6-1.0) Estimated GFR (Cockcroft-Gault) 34.3 BUN/Creatinine Ratio 17 (6-20) Glucose Level 136 mg/dL (70-99) Calcium Level 8.7 mg/dL (8.5-10.1) Phosphorus Level 4.5 mg/dL (2.6-4.7) Magnesium Level 2.3 mg/dL (1.8-2.4) Total Bilirubin 0.7 mg/dL (0.2-1.0) Aspartate Amino Transf (AST/SGOT) 25 U/L (15-37) Alanine Aminotransferase (ALT/SGPT) 40 U/L (14-59) Alkaline Phosphatase 118 U/L (46-116) Total Protein 7.6 g/dL (6.4-8.2) Albumin 2.8 g/dL (3.4-5.0) Albumin/Globulin Ratio 0.6 (1.0-1.7) Micro Cultures neg Objective Assessment Pneumonia COPD exacerbation Hyponatremia Respiratory failure DM Leukocytosis Plan Plan of Care cont zosyn , supportive care OLY VALENCIA MD May 11, 2017 07:37
--- NOTE | 2017-05-11 08:07 | RAD ---
Examination: Single frontal view of the chest. History: History of respiratory failure. Comparison: 05/10/2017. Findings: Interval removal of ET tube, feeding tube. Unchanged cardiomediastinal silhouette. Mild bibasal lung airspace opacities unchanged. Impression: 1. Interval removal of ET tube, feeding tube. 2. Unchanged mild bibasal lung airspace opacities.
[2017-05-11] MEDS: ENOXAPARIN 40 MG/0.4 ML SYRINGE. SQ SCH (09:25)
[2017-05-11] MEDS: CHLORHEXIDINE 0.12% 15 ML MOUTHWASH. MM SCH ×2 (09:25→21:19)
--- NOTE | 2017-05-11 12:54 | PDOC ---
SUBJECTIVE Subjective resting propped up c/o that she has not slept at all last night Wants to be outside in the sun , yet refusing to open the curtain She seeing ice in the ceiling OBJECTIVE Objective she was successfully extubated and now on O2 by nasal cannula Some what confused and hallucinating Vital Signs Vital Signs Date Time Temp Pulse Resp B/P (MAP) Pulse Ox O2 Delivery O2 Flow Rate FiO2 05/11/17 11:00 98.0 74 175/82 (113) 97 Nasal Cannula 4.0 98.0 05/11/17 10:00 98.0 84 20 152/136 (141) 97 Nasal Cannula 4.0 98.0 05/11/17 09:00 98.0 76 144/67 (92) 97 Nasal Cannula 4.0 98.0 05/11/17 08:10 Nasal Cannula 4.0 05/11/17 08:10 76 126/62 (83) 97 Nasal Cannula 4.0 05/11/17 07:00 71 152/71 (98) 97 Nasal Cannula 4.0 05/11/17 06:00 73 21 162/72 (102) 97 Nasal Cannula 4.0 05/11/17 05:00 72 26 151/75 (100) 98 Nasal Cannula 4.0 05/11/17 04:00 75 18 157/73 (101) 99 Nasal Cannula 4.0 05/11/17 04:00 Nasal Cannula 4.0 05/11/17 03:00 97.9 81 19 163/75 (104) 99 Nasal Cannula 4.0 97.9 05/11/17 02:00 78 19 168/83 (111) 97 Nasal Cannula 4.0 05/11/17 01:00 82 18 116/93 (101) 97 Nasal Cannula 4.0 05/11/17 00:53 98 Nasal Cannula 4.0 05/11/17 00:23 98 Nasal Cannula 4.0 05/11/17 00:00 98.8 77 23 176/77 (110) 98 Nasal Cannula 4.0 98.8 05/11/17 00:00 Nasal Cannula 4.0 05/10/17 23:00 98.8 74 18 156/76 (102) 99 Nasal Cannula 4.0 98.8 05/10/17 22:00 97 20 152/76 (101) 97 Nasal Cannula 4.0 05/10/17 21:00 86 149/68 (95) 97 Nasal Cannula 4.0 05/10/17 20:00 81 20 143/68 (93) 97 4.0 05/10/17 20:00 Nasal Cannula 4.0 05/10/17 19:00 98.9 80 24 128/63 (84) 97 Nasal Cannula 4.0 98.9 05/10/17 18:00 53 25 146/70 (95) 95 Nasal Cannula 4.0 05/10/17 17:00 81 17 157/70 (99) 99 Nasal Cannula 4.0 05/10/17 16:00 98.5 73 18 152/60 (90) 100 Nasal Cannula 6.0 98.5 05/10/17 16:00 Mechanical Ventilator 6.0 05/10/17 15:00 79 25 138/77 (97) 100 Nasal Cannula 6.0 05/10/17 14:04 54 19 143/71 (95) 100 Ventilator 05/10/17 13:09 100 Ventilator 05/10/17 13:00 50 20 115/60 (78) 100 Ventilator I & O Intake and Output 05/11/17 07:00 Intake Total 508.96 ml Output Total 1499 ml Balance -990.04 ml Intake Oral 0 ml IV Total 248.96 ml Tube Feeding 260 ml Output Urine Total 1499 ml Gastric Drainage Total 0 ml # Bowel Movements 2 ASSESSMENT/PLAN Assessment/Plan Acute respiratory failure resolved She is successfully extubated Pneumonia and sepsis resolving to continue I V Zosyn Hyponatremia resolved [place]INGO with BUN/Creatinine slightly rising Problems: COMMENT Lab Laboratory Tests Test 05/10/17 17:31 05/10/17 21:16 05/11/17 00:09 05/11/17 05:10 Glucose (Fingerstick) 143 mg/dL (70-99) 156 mg/dL (70-99) 145 mg/dL (70-99) White Blood Count 11.3 x10^3/uL (4.0-11.0) Red Blood Count 4.48 x10^6/uL (3.50-5.40) Hemoglobin 10.9 g/dL (12.0-15.5) Hematocrit 33.0 % (36.0-47.0) Mean Corpuscular Volume 74 fL (79-100) Mean Corpuscular Hemoglobin 24 pg (25-35) Mean Corpuscular Hemoglobin Concent 33 g/dL (31-37) Red Cell Distribution Width 19.1 % (11.5-14.5) Platelet Count 339 x10^3/uL (140-400) Neutrophils (%) (Auto) 74 % (31-73) Lymphocytes (%) (Auto) 10 % (24-48) Monocytes (%) (Auto) 14 % (0-9) Eosinophils (%) (Auto) 1 % (0-3) Basophils (%) (Auto) 1 % (0-3) Neutrophils # (Auto) 8.4 x10^3uL (1.8-7.7) Lymphocytes # (Auto) 1.2 x10^3/uL (1.0-4.8) Monocytes # (Auto) 1.6 x10^3/uL (0.0-1.1) Eosinophils # (Auto) 0.1 x10^3/uL (0.0-0.7) Basophils # (Auto) 0.1 x10^3/uL (0.0-0.2) Sodium Level 143 mmol/L (136-145) Potassium Level 3.3 mmol/L (3.5-5.1) Chloride Level 103 mmol/L (98-107) Carbon Dioxide Level 28 mmol/L (21-32) Anion Gap 12 (6-14) Blood Urea Nitrogen 25 mg/dL (7-20) Creatinine 1.5 mg/dL (0.6-1.0) Estimated GFR (Cockcroft-Gault) 34.3 BUN/Creatinine Ratio 17 (6-20) Glucose Level 136 mg/dL (70-99) Calcium Level 8.7 mg/dL (8.5-10.1) Phosphorus Level 4.5 mg/dL (2.6-4.7) Magnesium Level 2.3 mg/dL (1.8-2.4) Total Bilirubin 0.7 mg/dL (0.2-1.0) Aspartate Amino Transf (AST/SGOT) 25 U/L (15-37) Alanine Aminotransferase (ALT/SGPT) 40 U/L (14-59) Alkaline Phosphatase 118 U/L (46-116) Total Protein 7.6 g/dL (6.4-8.2) Albumin 2.8 g/dL (3.4-5.0) Albumin/Globulin Ratio 0.6 (1.0-1.7) Test 05/11/17 05:48 05/11/17 11:57 Glucose (Fingerstick) 141 mg/dL (70-99) 130 mg/dL (70-99) WALTER FINN MD May 11, 2017 12:54
--- NOTE | 2017-05-11 13:17 | PDOC ---
PROGRESS NOTES Subjective Subjective SEEN IN FOLLOW UP OF ARF AND CKD3 Objective Objective Vital Signs Date Time Temp Pulse Resp B/P (MAP) Pulse Ox O2 Delivery O2 Flow Rate FiO2 05/11/17 11:00 98.0 74 175/82 (113) 97 Nasal Cannula 4.0 98.0 05/11/17 10:00 20 Intake and Output 05/11/17 07:00 Intake Total 508.96 ml Output Total 1499 ml Balance -990.04 ml Intake Oral 0 ml IV Total 248.96 ml Tube Feeding 260 ml Output Urine Total 1499 ml Gastric Drainage Total 0 ml # Bowel Movements 2 Physical Exam Abdomen: Normal bowel sounds, Soft, No tenderness, No hepatosplenomegaly, No masses Heart: Regular rate, Normal S1, Normal S2, No murmurs, Gallops Extremities: No clubbing, No cyanosis, No edema, Normal pulses, No tenderness/ swelling General: Alert Lungs: Clear to auscultation, Normal air movement Diagnosis RENAL FAILURE: Chronic (CKD stage III) Assessment Assessment Problems Medical Problems: (1) Respiratory failure Status: Acute Plan Plan of Care RENAL FUNCTION IS STABLE AND SERUM SODIUM BETTER. CONT FLUID BALANCE Comment Review of Relevant I have reviewed the following items katy (where applicable) has been applied. Labs Laboratory Tests Test 05/09/17 17:32 05/09/17 21:28 05/10/17 00:38 05/10/17 05:58 Glucose (Fingerstick) 158 mg/dL (70-99) 168 mg/dL (70-99) 186 mg/dL (70-99) 192 mg/dL (70-99) Test 05/10/17 06:00 05/10/17 08:00 05/10/17 11:34 05/10/17 17:31 White Blood Count 10.2 x10^3/uL (4.0-11.0) Red Blood Count 4.27 x10^6/uL (3.50-5.40) Hemoglobin 10.7 g/dL (12.0-15.5) Hematocrit 31.3 % (36.0-47.0) Mean Corpuscular Volume 73 fL (79-100) Mean Corpuscular Hemoglobin 25 pg (25-35) Mean Corpuscular Hemoglobin Concent 34 g/dL (31-37) Red Cell Distribution Width 18.7 % (11.5-14.5) Platelet Count 323 x10^3/uL (140-400) Neutrophils (%) (Auto) 74 % (31-73) Lymphocytes (%) (Auto) 12 % (24-48) Monocytes (%) (Auto) 12 % (0-9) Eosinophils (%) (Auto) 2 % (0-3) Basophils (%) (Auto) 1 % (0-3) Neutrophils # (Auto) 7.6 x10^3uL (1.8-7.7) Lymphocytes # (Auto) 1.2 x10^3/uL (1.0-4.8) Monocytes # (Auto) 1.2 x10^3/uL (0.0-1.1) Eosinophils # (Auto) 0.2 x10^3/uL (0.0-0.7) Basophils # (Auto) 0.1 x10^3/uL (0.0-0.2) Sodium Level 137 mmol/L (136-145) Potassium Level 3.8 mmol/L (3.5-5.1) Chloride Level 97 mmol/L (98-107) Carbon Dioxide Level 27 mmol/L (21-32) Anion Gap 13 (6-14) Blood Urea Nitrogen 28 mg/dL (7-20) Creatinine 1.5 mg/dL (0.6-1.0) Estimated GFR (Cockcroft-Gault) 34.3 Glucose Level 195 mg/dL (70-99) Calcium Level 9.1 mg/dL (8.5-10.1) Phosphorus Level 4.6 mg/dL (2.6-4.7) Magnesium Level 2.3 mg/dL (1.8-2.4) Albumin 2.7 g/dL (3.4-5.0) O2 Saturation 97 % (92-99) Arterial Blood pH 7.47 (7.35-7.45) Arterial Blood pCO2 at Patient Temp 38 mmHg (35-46) Arterial Blood pO2 at Patient Temp 92 mmHg (65-108) Arterial Blood HCO3 27 mmol/L (21-28) Arterial Blood Base Excess 3 mmol/L (-3-3) FiO2 40 Glucose (Fingerstick) 159 mg/dL (70-99) 143 mg/dL (70-99) Test 05/10/17 21:16 05/11/17 00:09 05/11/17 05:10 05/11/17 05:48 Glucose (Fingerstick) 156 mg/dL (70-99) 145 mg/dL (70-99) 141 mg/dL (70-99) White Blood Count 11.3 x10^3/uL (4.0-11.0) Red Blood Count 4.48 x10^6/uL (3.50-5.40) Hemoglobin 10.9 g/dL (12.0-15.5) Hematocrit 33.0 % (36.0-47.0) Mean Corpuscular Volume 74 fL (79-100) Mean Corpuscular Hemoglobin 24 pg (25-35) Mean Corpuscular Hemoglobin Concent 33 g/dL (31-37) Red Cell Distribution Width 19.1 % (11.5-14.5) Platelet Count 339 x10^3/uL (140-400) Neutrophils (%) (Auto) 74 % (31-73) Lymphocytes (%) (Auto) 10 % (24-48) Monocytes (%) (Auto) 14 % (0-9) Eosinophils (%) (Auto) 1 % (0-3) Basophils (%) (Auto) 1 % (0-3) Neutrophils # (Auto) 8.4 x10^3uL (1.8-7.7) Lymphocytes # (Auto) 1.2 x10^3/uL (1.0-4.8) Monocytes # (Auto) 1.6 x10^3/uL (0.0-1.1) Eosinophils # (Auto) 0.1 x10^3/uL (0.0-0.7) Basophils # (Auto) 0.1 x10^3/uL (0.0-0.2) Sodium Level 143 mmol/L (136-145) Potassium Level 3.3 mmol/L (3.5-5.1) Chloride Level 103 mmol/L (98-107) Carbon Dioxide Level 28 mmol/L (21-32) Anion Gap 12 (6-14) Blood Urea Nitrogen 25 mg/dL (7-20) Creatinine 1.5 mg/dL (0.6-1.0) Estimated GFR (Cockcroft-Gault) 34.3 BUN/Creatinine Ratio 17 (6-20) Glucose Level 136 mg/dL (70-99) Calcium Level 8.7 mg/dL (8.5-10.1) Phosphorus Level 4.5 mg/dL (2.6-4.7) Magnesium Level 2.3 mg/dL (1.8-2.4) Total Bilirubin 0.7 mg/dL (0.2-1.0) Aspartate Amino Transf (AST/SGOT) 25 U/L (15-37) Alanine Aminotransferase (ALT/SGPT) 40 U/L (14-59) Alkaline Phosphatase 118 U/L (46-116) Total Protein 7.6 g/dL (6.4-8.2) Albumin 2.8 g/dL (3.4-5.0) Albumin/Globulin Ratio 0.6 (1.0-1.7) Test 05/11/17 11:57 Glucose (Fingerstick) 130 mg/dL (70-99) Laboratory Tests Test 05/10/17 17:31 05/10/17 21:16 05/11/17 00:09 05/11/17 05:10 Glucose (Fingerstick) 143 mg/dL (70-99) 156 mg/dL (70-99) 145 mg/dL (70-99) White Blood Count 11.3 x10^3/uL (4.0-11.0) Red Blood Count 4.48 x10^6/uL (3.50-5.40) Hemoglobin 10.9 g/dL (12.0-15.5) Hematocrit 33.0 % (36.0-47.0) Mean Corpuscular Volume 74 fL (79-100) Mean Corpuscular Hemoglobin 24 pg (25-35) Mean Corpuscular Hemoglobin Concent 33 g/dL (31-37) Red Cell Distribution Width 19.1 % (11.5-14.5) Platelet Count 339 x10^3/uL (140-400) Neutrophils (%) (Auto) 74 % (31-73) Lymphocytes (%) (Auto) 10 % (24-48) Monocytes (%) (Auto) 14 % (0-9) Eosinophils (%) (Auto) 1 % (0-3) Basophils (%) (Auto) 1 % (0-3) Neutrophils # (Auto) 8.4 x10^3uL (1.8-7.7) Lymphocytes # (Auto) 1.2 x10^3/uL (1.0-4.8) Monocytes # (Auto) 1.6 x10^3/uL (0.0-1.1) Eosinophils # (Auto) 0.1 x10^3/uL (0.0-0.7) Basophils # (Auto) 0.1 x10^3/uL (0.0-0.2) Sodium Level 143 mmol/L (136-145) Potassium Level 3.3 mmol/L (3.5-5.1) Chloride Level 103 mmol/L (98-107) Carbon Dioxide Level 28 mmol/L (21-32) Anion Gap 12 (6-14) Blood Urea Nitrogen 25 mg/dL (7-20) Creatinine 1.5 mg/dL (0.6-1.0) Estimated GFR (Cockcroft-Gault) 34.3 BUN/Creatinine Ratio 17 (6-20) Glucose Level 136 mg/dL (70-99) Calcium Level 8.7 mg/dL (8.5-10.1) Phosphorus Level 4.5 mg/dL (2.6-4.7) Magnesium Level 2.3 mg/dL (1.8-2.4) Total Bilirubin 0.7 mg/dL (0.2-1.0) Aspartate Amino Transf (AST/SGOT) 25 U/L (15-37) Alanine Aminotransferase (ALT/SGPT) 40 U/L (14-59) Alkaline Phosphatase 118 U/L (46-116) Total Protein 7.6 g/dL (6.4-8.2) Albumin 2.8 g/dL (3.4-5.0) Albumin/Globulin Ratio 0.6 (1.0-1.7) Test 05/11/17 05:48 05/11/17 11:57 Glucose (Fingerstick) 141 mg/dL (70-99) 130 mg/dL (70-99) Microbiology 05/06/17 Blood Culture - Final, Complete NO GROWTH AFTER 5 DAYS 05/09/17 Sputum Culture - Final, Complete 05/09/17 Sputum Result 1 - Final, Complete 05/06/17 Urine Culture - Final, Complete 05/06/17 Urine Culture Result 1 (ANURAG) - Final, Complete 05/09/17 Gram Stain - Final, Complete Medications Current Medications Dopamine HCl/ Dextrose 250 ml @ 16.856 mls/ hr 1X ONCE IV Last administered on 05/05/17 22:54; Start 05/05/17 at 23:00; Stop 05/06/17 at 13:49; Status DC Torsemide (Demadex) 20 mg 1X ONCE PO Last administered on 05/06/17 00:44; Start 05/05/17 at 23:45; Stop 05/05/17 at 23:46; Status DC Bumetanide (Bumex) 1 mg BID92 IV Last administered on 05/10/17 08:45; Start 05/06/17 at 09:00; Stop 05/10/17 at 13:39; Status DC Ondansetron HCl (Zofran) 4 mg 1X ONCE IV Last administered on 05/06/17 00:09; Start 05/05/17 at 23:45; Stop 05/05/17 at 23:46; Status DC Ondansetron HCl (Zofran) 4 mg PRN Q8HRS PRN IV NAUSEA/VOMITING; Start 05/05/17 at 23:45; Stop 05/06/17 at 23:44; Status DC Acetaminophen/ Hydrocodone Bitart (Lortab 5/325) 1 tab PRN Q6HRS PRN PO MODERATE - SEVERE PAIN Last administered on 05/06/17 05:21; Start 05/06/17 at 05: 00 Acetaminophen/ Hydrocodone Bitart (Lortab 5/325) 2 tab PRN Q6HRS PRN PO MODERATE - SEVERE PAIN Last administered on 05/08/17 18:09; Start 05/06/17 at 05: 00 Dopamine HCl/ Dextrose 250 ml @ 16.627 mls/ hr CONT PRN IV SEE I/O RECORD Last administered on 05/06/17 12:28; Start 05/06/17 at 06:00 Vancomycin HCl 1.5 gm/Sodium Chloride 500 ml @ 250 mls/hr 1X ONCE IV Last administered on 05/06/17 10:34; Start 05/06/17 at 09:00; Stop 05/06/17 at 10:59; Status DC Levofloxacin/ Dextrose 100 ml @ 100 mls/hr Q24H IV Last administered on 12:28; Start 05/06/17 at 10:00; Stop 05/08/17 at 09:28; Status DC Insulin Aspart (NovoLOG) 0-9 UNITS TIDWMEALS SQ Last administered on 05/06/17 18:09; Start 05/06/17 at 12:00; Stop 05/06/17 at 23:03; Status DC Dextrose (Dextrose 50%-Water Syringe) 12.5 gm PRN Q15MIN PRN IV SEE COMMENTS; Start 05/06/17 at 08:45 Enoxaparin Sodium (Lovenox 40mg Syringe) 40 mg Q24H SQ Last administered on 05/11 09:25; Start 05/06/17 at 09:00 Piperacillin Sod/ Tazobactam Sod 3.375 gm/Sodium Chloride 50 ml @ 100 mls/hr Q6HRS IV Last administered on 05/11/17 12:13; Start 05/06/17 at 10:30 Vancomycin HCl (Vanco Per Pharmacy) 1 each PRN DAILY PRN MC SEE COMMENTS Last administered on 05/08/17 11:20; Start 05/06/17 at 10:00; Stop 05/09/17 at 08:02; Status DC Succinylcholine Chloride (Anectine) 200 mg STK-MED ONCE .ROUTE ; Start 05/06/17 at 10:13; Stop 05/06/17 at 10:14; Status DC Propofol 20 ml @ As Directed STK-MED ONCE IV ; Start 05/06/17 at 10:13; Stop 05/06 at 10:14; Status DC Lidocaine HCl (Lidocaine Pf 2% Vial) 5 ml STK-MED ONCE .ROUTE ; Start 05/06/17 at 10:13; Stop 05/06/17 at 10:14; Status DC Propofol 0 ml @ As Directed STK-MED ONCE IV ; Start 05/06/17 at 10:14; Stop at 10:15; Status DC Midazolam HCl 100 ml @ As Directed STK-MED ONCE IV ; Start 05/06/17 at 10:14; Stop 05/06/17 at 10:15; Status DC Midazolam HCl 100 ml @ 0 mls/hr CONT PRN IV SEE I/O RECORD Last administered on 05/09/17 04:26; Start 05/06/17 at 11:00 Vancomycin HCl 500 mg/Sodium Chloride 100 ml @ 100 mls/hr 1X ONCE IV Last administered on 05/06/17 16:52; Start 05/06/17 at 12:00; Stop 05/06/17 at 12:59; Status DC Vancomycin HCl 1.25 gm/Sodium Chloride 250 ml @ 167 mls/hr Q24H IV Last administered on 05/07/17 10:01; Start 05/07/17 at 10:00; Stop 05/08/17 at 11:18; Status DC Vancomycin HCl 1 each 1X ONCE MC Last administered on 05/08/17 10:00; Start at 09:30; Stop 05/08/17 at 09:31; Status DC Isoproterenol HCl 1 mg/Dextrose 255 ml @ 0 mls/hr CONT PRN IV SEE I/O RECORD Last administered on 05/07/17 00:09; Start 05/06/17 at 13:00 Albumin Human 50 ml @ 50 mls/hr 1X ONCE IV Last administered on 05/06/17 15:30 ; Start 05/06/17 at 15:30; Stop 05/06/17 at 16:29; Status DC Insulin Aspart (NovoLOG) BIDBFRMEAL SQ ; Start 05/07/17 at 07:30; Status UNV Insulin Detemir (Levemir) 15 units QHS SQ Last administered on 05/10/17 21:20; Start 05/06/17 at 21:00 Fentanyl Citrate (Fentanyl 2ml Vial) 25 mcg Q3HRS PRN IV MILD PAIN Last administered on 05/11/17 00:23; Start 05/06/17 at 18:00 Insulin Aspart (NovoLOG) 0-9 UNITS Q6HRS SQ Last administered on 05/10/17 06:14 ; Start 05/07/17 at 00:00 Acetaminophen (Tylenol) 650 mg PRN Q6HRS PRN NG MILD PAIN / TEMP Last administered on 05/07/17 17:57; Start 05/07/17 at 00:45 Chlorhexidine Gluconate (Peridex) 15 ml BID MM Last administered on 05/11/17 09 :25; Start 05/07/17 at 21:00 Famotidine (Pepcid) 20 mg QHS IVP Last administered on 05/10/17 21:18; Start at 21:00 Enalaprilat (Vasotec) 1.25 mg Q6HRS PRN IV HYPERTENSION, SEE COMMENTS; Start at 19:30 Magnesium Sulfate/ Dextrose 50 ml @ 25 mls/hr PRN DAILY PRN IV for Mag < 1.7 on am labs; Start 05/08/17 at 09:00 Levofloxacin/ Dextrose 150 ml @ 100 mls/hr Q48H IV Last administered on 11:18; Start 05/08/17 at 10:00; Stop 05/09/17 at 08:02; Status DC Vancomycin HCl 1.5 gm/Sodium Chloride 500 ml @ 250 mls/hr Q24H IV Last administered on 05/08/17 13:05; Start 05/08/17 at 11:30; Stop 05/09/17 at 08:02; Status DC Alprazolam (Xanax) 1 mg PRN Q8HRS PRN PO ANXIETY / AGITATION Last administered on 05/09/17 08:49; Start 05/08/17 at 16:45 Propofol 100 ml @ 0 mls/hr CONT PRN IV SEE I/O RECORD Last administered on 23:19; Start 05/08/17 at 19:15 Furosemide (Lasix) 40 mg 1X ONCE IVP Last administered on 05/09/17 16:09; Start 05/09/17 at 15:00; Stop 05/09/17 at 15:01; Status DC Furosemide (Lasix) 40 mg 1X ONCE IVP ; Start 05/09/17 at 15:00; Stop 05/09/17 at 15:01; Status UNV Dexmedetomidine HCl 200 mcg/ Sodium Chloride 50 ml @ 0 mls/hr CONT PRN IV PER PROTOCOL Last administered on 05/10/17 04:51; Start 05/09/17 at 15:00 Bisacodyl (Dulcolax Supp) 10 mg PRN DAILY PRN DE CONSTIPATION Last administered on 05/10/17 08:45; Start 05/10/17 at 08:15 Lorazepam (Ativan) 0.5 mg PRN Q8HRS PRN IV ANXIETY / AGITATION Last administered on 05/11/17 09:28; Start 05/10/17 at 20:00 Potassium Chloride (Klor-Con) 20 meq BID PO ; Start 05/11/17 at 13:30 Active Scripts Active Glucophage Xr (Metformin Hcl) 500 Mg Tab.er.24h 1,000 Mg PO BID [place] 5-325 Tablet (Acetaminophen/Hydrocodone Bitart) 1 Each Tablet 1 Tab PO PRN Q6HRS PRN Reported Antioxidant Softgel (Beta-Carotene(A) W-C & E/Min) 1 Each Capsule 1 Each PO DAILY Hyaluronic Acid 40 Mg Capsule (Hyalur Ac/Chond Sul/Colg Ii/Aa) 1 Each Capsule 1 Each PO DAILY Biotin 2,500 Mcg Capsule 5,000 Mcg PO DAILY Benefiber (Wheat Dextrin) 1 Each Powd.pack 1 Each PO DAILY Benefiber (Wheat Dextrin) 1 Each Powd.pack 1 Each PO [place] (Cranberry Extract) 200 Mg Capsule 36 Mg PO Caltrate 600 + D Tablet (Calcium Carbonate/Vitamin D3) 1 Each Tablet 1 Each PO DAILY Vitamin C With Aletha Hips (Ascorbic Acid) 500 Mg Tablet 500 Mg PO DAILY Vitamin D3 (Cholecalciferol (Vitamin D3)) 1,000 Unit Tablet 1 Tab PO DAILY Fish Oil 1,000 Mg Softgel (Korbel-3 Fatty Acids/Fish Oil) 1 Each Capsule 1 Each PO DAILY Premarin (Estrogens, Conjugated) 0.625 Mg Tablet 1 Tab PO DAILY Nortriptyline Hcl 25 Mg Capsule 1 Cap PO QHS Nitrofurantoin (Nitrofurantoin Macrocrystal) 100 Mg Capsule 1 Cap PO DAILY Cymbalta (Duloxetine Hcl) 30 Mg Capsule.dr 1 Cap PO DAILY Pantoprazole Sodium 40 Mg Tablet.dr 1 Tab PO DAILY Losartan Potassium 50 Mg Tablet 50 Mg PO DAILY Januvia (Sitagliptin Phosphate) 100 Mg Tablet 1 Tab PO DAILY Novolog Flexpen (Insulin Aspart) 100 Unit/1 Ml Insuln.pen 12 Unit SQ TIDWMEALS Losartan Potassium 100 Mg Tablet 100 Mg PO NOON Torsemide 10 Mg Tablet 10 Mg PO DAILY Sucralfate 1 Gm Tablet 1 Tab PO QID Omeprazole 20 Mg Capsule.dr 1 Cap PO BID Acetaminophen 325 Mg Tablet 650 Mg PO PRN BID PRN Levothyroxine Sodium 112 Mcg Tablet 1 Tab PO DAILY Atenolol 25 Mg Tablet 1 Tab PO BID Amlodipine Besylate 10 Mg Tablet 10 Mg PO DAILY Amitriptyline Hcl 25 Mg Tablet 1 Tab PO QHS Metoclopramide Hcl 5 Mg Tablet 5 Mg PO QIDACHS Alprazolam 0.5 Mg Tablet 1 Tab PO HS Alprazolam 0.5 Mg Tablet 2 Tab PO BIDWBKFT/HOLLIS Aspirin 81 Mg Tab.chew 1 Tab PO DAILY Vitals/I & O Vital Sign - Last 24 Hours 05/10/17 05/10/17 05/10/17 05/10/17 14:04 15:00 16:00 16:00 Temp 98.5 98.5 Pulse 54 79 73 Resp 18 B/P (MAP) 143/71 (95) 138/77 (97) 152/60 (90) Pulse Ox 100 100 100 O2 Delivery Ventilator Nasal Cannula Mechanical Ventilator Nasal Cannula O2 Flow Rate 6.0 6.0 6.0 05/10/17 05/10/17 05/10/17 05/10/17 17:00 18:00 19:00 20:00 Temp 98.9 98.9 Pulse 81 53 80 Resp 24 B/P (MAP) 157/70 (99) 146/70 (95) 128/63 (84) Pulse Ox 99 95 97 O2 Delivery Nasal Cannula Nasal Cannula Nasal Cannula Nasal Cannula O2 Flow Rate 4.0 4.0 4.0 4.0 05/10/17 05/10/17 05/10/17 05/10/17 20:00 21:00 22:00 23:00 Temp 98.8 98.8 Pulse 81 86 97 74 Resp 20 20 18 B/P (MAP) 143/68 (93) 149/68 (95) 152/76 (101) 156/76 (102) Pulse Ox 97 97 97 99 O2 Delivery Nasal Cannula Nasal Cannula Nasal Cannula O2 Flow Rate 4.0 4.0 4.0 4.0 05/11/17 05/11/17 05/11/17 05/11/17 00:00 00:00 00:23 00:53 Temp 98.8 98.8 Pulse 77 Resp 23 B/P (MAP) 176/77 (110) Pulse Ox 98 98 98 O2 Delivery Nasal Cannula Nasal Cannula Nasal Cannula Nasal Cannula O2 Flow Rate 4.0 4.0 4.0 4.0 05/11/17 05/11/17 05/11/17 05/11/17 01:00 02:00 03:00 04:00 Temp 97.9 97.9 Pulse 82 78 81 Resp 19 B/P (MAP) 116/93 (101) 168/83 (111) 163/75 (104) Pulse Ox 97 97 99 O2 Delivery Nasal Cannula Nasal Cannula Nasal Cannula Nasal Cannula O2 Flow Rate 4.0 4.0 4.0 4.0 05/11/17 05/11/17 05/11/17 05/11/17 04:00 05:00 06:00 07:00 Pulse 75 72 73 71 Resp 18 26 21 B/P (MAP) 157/73 (101) 151/75 (100) 162/72 (102) 152/71 (98) Pulse Ox 99 98 97 97 O2 Delivery Nasal Cannula Nasal Cannula Nasal Cannula Nasal Cannula O2 Flow Rate 4.0 4.0 4.0 4.0 05/11/17 05/11/17 05/11/17 05/11/17 08:10 08:10 09:00 10:00 Temp 98.0 98.0 98.0 98.0 Pulse 76 76 84 Resp 20 B/P (MAP) 126/62 (83) 144/67 (92) 152/136 (141) Pulse Ox 97 97 97 O2 Delivery Nasal Cannula Nasal Cannula Nasal Cannula Nasal Cannula O2 Flow Rate 4.0 4.0 4.0 4.0 05/11/17 11:00 Temp 98.0 98.0 Pulse 74 B/P (MAP) 175/82 (113) Pulse Ox 97 O2 Delivery Nasal Cannula O2 Flow Rate 4.0 Intake and Output 05/10/17 05/10/17 05/11/17 15:00 23:00 07:00 Intake Total 358.96 ml 50 ml 100 ml Output Total 569 ml 535 ml 395 ml Balance -210.04 ml -485 ml -295 ml NADINE ANDERSON MD May 11, 2017 13:17
[2017-05-11] MEDS: POTASSIUM CHLORIDE 20 MEQ TABLET.ER. PO SCH ×2 (13:30→21:00)
--- NOTE | 2017-05-11 15:01 | PDOC ---
PULMONARY PROGRESS NOTES Subjective EXTUBATED PT INFORMED ME THAT SHE DOES NOT WISH TO BE RESUSCITATED FOR RECURRENT RESP FAILURE DOES NOT WANT TO BE INTUBATED SPOKE WITH FISH RN WHOM RECEIVED SIMILAR INFORMATION Vitals Vital Signs Date Time Temp Pulse Resp B/P (MAP) Pulse Ox O2 Delivery O2 Flow Rate FiO2 05/11/17 14:00 98.0 78 149/84 (105) 97 Nasal Cannula 4.0 98.0 05/11/17 13:20 20 General: Alert Lungs: Crackles Cardiovascular: S1, S2 Abdomen: Soft Neuro Exam: Alert Extremities: No Edema Skin: Warm Labs Laboratory Tests Test 05/09/17 17:32 05/09/17 21:28 05/10/17 00:38 05/10/17 05:58 Glucose (Fingerstick) 158 mg/dL (70-99) 168 mg/dL (70-99) 186 mg/dL (70-99) 192 mg/dL (70-99) Test 05/10/17 06:00 05/10/17 08:00 05/10/17 11:34 05/10/17 17:31 White Blood Count 10.2 x10^3/uL (4.0-11.0) Red Blood Count 4.27 x10^6/uL (3.50-5.40) Hemoglobin 10.7 g/dL (12.0-15.5) Hematocrit 31.3 % (36.0-47.0) Mean Corpuscular Volume 73 fL (79-100) Mean Corpuscular Hemoglobin 25 pg (25-35) Mean Corpuscular Hemoglobin Concent 34 g/dL (31-37) Red Cell Distribution Width 18.7 % (11.5-14.5) Platelet Count 323 x10^3/uL (140-400) Neutrophils (%) (Auto) 74 % (31-73) Lymphocytes (%) (Auto) 12 % (24-48) Monocytes (%) (Auto) 12 % (0-9) Eosinophils (%) (Auto) 2 % (0-3) Basophils (%) (Auto) 1 % (0-3) Neutrophils # (Auto) 7.6 x10^3uL (1.8-7.7) Lymphocytes # (Auto) 1.2 x10^3/uL (1.0-4.8) Monocytes # (Auto) 1.2 x10^3/uL (0.0-1.1) Eosinophils # (Auto) 0.2 x10^3/uL (0.0-0.7) Basophils # (Auto) 0.1 x10^3/uL (0.0-0.2) Sodium Level 137 mmol/L (136-145) Potassium Level 3.8 mmol/L (3.5-5.1) Chloride Level 97 mmol/L (98-107) Carbon Dioxide Level 27 mmol/L (21-32) Anion Gap 13 (6-14) Blood Urea Nitrogen 28 mg/dL (7-20) Creatinine 1.5 mg/dL (0.6-1.0) Estimated GFR (Cockcroft-Gault) 34.3 Glucose Level 195 mg/dL (70-99) Calcium Level 9.1 mg/dL (8.5-10.1) Phosphorus Level 4.6 mg/dL (2.6-4.7) Magnesium Level 2.3 mg/dL (1.8-2.4) Albumin 2.7 g/dL (3.4-5.0) O2 Saturation 97 % (92-99) Arterial Blood pH 7.47 (7.35-7.45) Arterial Blood pCO2 at Patient Temp 38 mmHg (35-46) Arterial Blood pO2 at Patient Temp 92 mmHg (65-108) Arterial Blood HCO3 27 mmol/L (21-28) Arterial Blood Base Excess 3 mmol/L (-3-3) FiO2 40 Glucose (Fingerstick) 159 mg/dL (70-99) 143 mg/dL (70-99) Test 05/10/17 21:16 05/11/17 00:09 05/11/17 05:10 05/11/17 05:48 Glucose (Fingerstick) 156 mg/dL (70-99) 145 mg/dL (70-99) 141 mg/dL (70-99) White Blood Count 11.3 x10^3/uL (4.0-11.0) Red Blood Count 4.48 x10^6/uL (3.50-5.40) Hemoglobin 10.9 g/dL (12.0-15.5) Hematocrit 33.0 % (36.0-47.0) Mean Corpuscular Volume 74 fL (79-100) Mean Corpuscular Hemoglobin 24 pg (25-35) Mean Corpuscular Hemoglobin Concent 33 g/dL (31-37) Red Cell Distribution Width 19.1 % (11.5-14.5) Platelet Count 339 x10^3/uL (140-400) Neutrophils (%) (Auto) 74 % (31-73) Lymphocytes (%) (Auto) 10 % (24-48) Monocytes (%) (Auto) 14 % (0-9) Eosinophils (%) (Auto) 1 % (0-3) Basophils (%) (Auto) 1 % (0-3) Neutrophils # (Auto) 8.4 x10^3uL (1.8-7.7) Lymphocytes # (Auto) 1.2 x10^3/uL (1.0-4.8) Monocytes # (Auto) 1.6 x10^3/uL (0.0-1.1) Eosinophils # (Auto) 0.1 x10^3/uL (0.0-0.7) Basophils # (Auto) 0.1 x10^3/uL (0.0-0.2) Sodium Level 143 mmol/L (136-145) Potassium Level 3.3 mmol/L (3.5-5.1) Chloride Level 103 mmol/L (98-107) Carbon Dioxide Level 28 mmol/L (21-32) Anion Gap 12 (6-14) Blood Urea Nitrogen 25 mg/dL (7-20) Creatinine 1.5 mg/dL (0.6-1.0) Estimated GFR (Cockcroft-Gault) 34.3 BUN/Creatinine Ratio 17 (6-20) Glucose Level 136 mg/dL (70-99) Calcium Level 8.7 mg/dL (8.5-10.1) Phosphorus Level 4.5 mg/dL (2.6-4.7) Magnesium Level 2.3 mg/dL (1.8-2.4) Total Bilirubin 0.7 mg/dL (0.2-1.0) Aspartate Amino Transf (AST/SGOT) 25 U/L (15-37) Alanine Aminotransferase (ALT/SGPT) 40 U/L (14-59) Alkaline Phosphatase 118 U/L (46-116) Total Protein 7.6 g/dL (6.4-8.2) Albumin 2.8 g/dL (3.4-5.0) Albumin/Globulin Ratio 0.6 (1.0-1.7) Test 05/11/17 11:57 Glucose (Fingerstick) 130 mg/dL (70-99) Laboratory Tests Test 05/10/17 17:31 05/10/17 21:16 05/11/17 00:09 05/11/17 05:10 Glucose (Fingerstick) 143 mg/dL (70-99) 156 mg/dL (70-99) 145 mg/dL (70-99) White Blood Count 11.3 x10^3/uL (4.0-11.0) Red Blood Count 4.48 x10^6/uL (3.50-5.40) Hemoglobin 10.9 g/dL (12.0-15.5) Hematocrit 33.0 % (36.0-47.0) Mean Corpuscular Volume 74 fL (79-100) Mean Corpuscular Hemoglobin 24 pg (25-35) Mean Corpuscular Hemoglobin Concent 33 g/dL (31-37) Red Cell Distribution Width 19.1 % (11.5-14.5) Platelet Count 339 x10^3/uL (140-400) Neutrophils (%) (Auto) 74 % (31-73) Lymphocytes (%) (Auto) 10 % (24-48) Monocytes (%) (Auto) 14 % (0-9) Eosinophils (%) (Auto) 1 % (0-3) Basophils (%) (Auto) 1 % (0-3) Neutrophils # (Auto) 8.4 x10^3uL (1.8-7.7) Lymphocytes # (Auto) 1.2 x10^3/uL (1.0-4.8) Monocytes # (Auto) 1.6 x10^3/uL (0.0-1.1) Eosinophils # (Auto) 0.1 x10^3/uL (0.0-0.7) Basophils # (Auto) 0.1 x10^3/uL (0.0-0.2) Sodium Level 143 mmol/L (136-145) Potassium Level 3.3 mmol/L (3.5-5.1) Chloride Level 103 mmol/L (98-107) Carbon Dioxide Level 28 mmol/L (21-32) Anion Gap 12 (6-14) Blood Urea Nitrogen 25 mg/dL (7-20) Creatinine 1.5 mg/dL (0.6-1.0) Estimated GFR (Cockcroft-Gault) 34.3 BUN/Creatinine Ratio 17 (6-20) Glucose Level 136 mg/dL (70-99) Calcium Level 8.7 mg/dL (8.5-10.1) Phosphorus Level 4.5 mg/dL (2.6-4.7) Magnesium Level 2.3 mg/dL (1.8-2.4) Total Bilirubin 0.7 mg/dL (0.2-1.0) Aspartate Amino Transf (AST/SGOT) 25 U/L (15-37) Alanine Aminotransferase (ALT/SGPT) 40 U/L (14-59) Alkaline Phosphatase 118 U/L (46-116) Total Protein 7.6 g/dL (6.4-8.2) Albumin 2.8 g/dL (3.4-5.0) Albumin/Globulin Ratio 0.6 (1.0-1.7) Test 05/11/17 05:48 05/11/17 11:57 Glucose (Fingerstick) 141 mg/dL (70-99) 130 mg/dL (70-99) Medications Active Scripts Medications Dose Route/Sig Max Daily Dose Days Date Category Novolog Flexpen (Insulin Aspart) 100 Unit/1 Ml Insuln.pen 12 Unit SQ TIDWMEALS 05/06/17 Reported Losartan Potassium 100 Mg Tablet 100 Mg PO NOON 05/06/17 Reported Glucophage Xr (Metformin Hcl) 500 Mg Tab.er.24h 1,000 Mg PO BID 07/17/16 Rx Torsemide 10 Mg Tablet 10 Mg PO DAILY 07/15/16 Reported Sucralfate 1 Gm Tablet 1 Tab PO QID 07/15/16 Reported Omeprazole 20 Mg Capsule.dr 1 Cap PO BID 07/15/16 Reported Acetaminophen 325 Mg Tablet 650 Mg PO PRN BID PRN 07/15/16 Reported Levothyroxine Sodium 112 Mcg Tablet 1 Tab PO DAILY 07/15/16 Reported Atenolol 25 Mg Tablet 1 Tab PO BID 07/15/16 Reported Amlodipine Besylate 10 Mg Tablet 10 Mg PO DAILY 07/15/16 Reported Amitriptyline Hcl 25 Mg Tablet 1 Tab PO QHS 07/15/16 Reported Metoclopramide Hcl 5 Mg Tablet 5 Mg PO QIDACHS 07/15/16 Reported Alprazolam 0.5 Mg Tablet 1 Tab PO HS 07/15/16 Reported Alprazolam 0.5 Mg Tablet 2 Tab PO BIDWBKFT/HOLLIS 07/15/16 Reported Aspirin 81 Mg Tab.chew 1 Tab PO DAILY 07/15/16 Reported [place] 5-325 Tablet (Acetaminophen/Hydrocodone Bitart) 1 Each Tablet 1 Tab PO PRN Q6HRS PRN 06/03/16 Rx Comments CXR IMPROVED TODAY Impression . ACUTE/CHROMIC RESP FAILURE PNEUMONIA SEPTIC SHOCK HYPONATREMIA UNCONTROLLED DM AECOPD LEUKOCYTOSIS ACUTE PULMONARY EDEMA Plan . EXTUBATED 05/10 PT WISHES TO BE DNR WILL WRITE ORDER HER IS AWARE ACCORDING TO RN MOUNIKA LEE PER ID NEPHRO CONSULT DVT AND GI PROPHYLAXIS NPO FOR NOW RACHEL KOCH MD May 11, 2017 15:01
--- NOTE | 2017-05-11 18:46 | PDOC ---
PROGRESS NOTES Subjective Subjective Patient extubated. She is alert and responsive feels weak but definitely doing much better. Objective Objective Vital Signs Date Time Temp Pulse Resp B/P (MAP) Pulse Ox O2 Delivery O2 Flow Rate FiO2 05/11/17 16:21 26 98 Nasal Cannula 05/11/17 14:00 98.0 78 149/84 (105) 4.0 98.0 Intake and Output 05/11/17 07:00 Intake Total 508.96 ml Output Total 1499 ml Balance -990.04 ml Intake Oral 0 ml IV Total 248.96 ml Tube Feeding 260 ml Output Urine Total 1499 ml Gastric Drainage Total 0 ml # Bowel Movements 2 Physical Exam Physical Exam Lungs sound better. Heart no changes. Extremities no edema. Assessment Assessment Good progression. The patient is now extubated. I agree with moving the patient out of ICU and with the present plan. This patient is a DNR/DNI and we had discussed this in the past. Comment Review of Relevant I have reviewed the following items katy (where applicable) has been applied. Labs Laboratory Tests Test 05/09/17 21:28 05/10/17 00:38 05/10/17 05:58 05/10/17 06:00 Glucose (Fingerstick) 168 mg/dL (70-99) 186 mg/dL (70-99) 192 mg/dL (70-99) White Blood Count 10.2 x10^3/uL (4.0-11.0) Red Blood Count 4.27 x10^6/uL (3.50-5.40) Hemoglobin 10.7 g/dL (12.0-15.5) Hematocrit 31.3 % (36.0-47.0) Mean Corpuscular Volume 73 fL (79-100) Mean Corpuscular Hemoglobin 25 pg (25-35) Mean Corpuscular Hemoglobin Concent 34 g/dL (31-37) Red Cell Distribution Width 18.7 % (11.5-14.5) Platelet Count 323 x10^3/uL (140-400) Neutrophils (%) (Auto) 74 % (31-73) Lymphocytes (%) (Auto) 12 % (24-48) Monocytes (%) (Auto) 12 % (0-9) Eosinophils (%) (Auto) 2 % (0-3) Basophils (%) (Auto) 1 % (0-3) Neutrophils # (Auto) 7.6 x10^3uL (1.8-7.7) Lymphocytes # (Auto) 1.2 x10^3/uL (1.0-4.8) Monocytes # (Auto) 1.2 x10^3/uL (0.0-1.1) Eosinophils # (Auto) 0.2 x10^3/uL (0.0-0.7) Basophils # (Auto) 0.1 x10^3/uL (0.0-0.2) Sodium Level 137 mmol/L (136-145) Potassium Level 3.8 mmol/L (3.5-5.1) Chloride Level 97 mmol/L (98-107) Carbon Dioxide Level 27 mmol/L (21-32) Anion Gap 13 (6-14) Blood Urea Nitrogen 28 mg/dL (7-20) Creatinine 1.5 mg/dL (0.6-1.0) Estimated GFR (Cockcroft-Gault) 34.3 Glucose Level 195 mg/dL (70-99) Calcium Level 9.1 mg/dL (8.5-10.1) Phosphorus Level 4.6 mg/dL (2.6-4.7) Magnesium Level 2.3 mg/dL (1.8-2.4) Albumin 2.7 g/dL (3.4-5.0) Test 05/10/17 08:00 05/10/17 11:34 05/10/17 17:31 05/10/17 21:16 O2 Saturation 97 % (92-99) Arterial Blood pH 7.47 (7.35-7.45) Arterial Blood pCO2 at Patient Temp 38 mmHg (35-46) Arterial Blood pO2 at Patient Temp 92 mmHg (65-108) Arterial Blood HCO3 27 mmol/L (21-28) Arterial Blood Base Excess 3 mmol/L (-3-3) FiO2 40 Glucose (Fingerstick) 159 mg/dL (70-99) 143 mg/dL (70-99) 156 mg/dL (70-99) Test 05/11/17 00:09 05/11/17 05:10 05/11/17 05:48 05/11/17 11:57 Glucose (Fingerstick) 145 mg/dL (70-99) 141 mg/dL (70-99) 130 mg/dL (70-99) White Blood Count 11.3 x10^3/uL (4.0-11.0) Red Blood Count 4.48 x10^6/uL (3.50-5.40) Hemoglobin 10.9 g/dL (12.0-15.5) Hematocrit 33.0 % (36.0-47.0) Mean Corpuscular Volume 74 fL (79-100) Mean Corpuscular Hemoglobin 24 pg (25-35) Mean Corpuscular Hemoglobin Concent 33 g/dL (31-37) Red Cell Distribution Width 19.1 % (11.5-14.5) Platelet Count 339 x10^3/uL (140-400) Neutrophils (%) (Auto) 74 % (31-73) Lymphocytes (%) (Auto) 10 % (24-48) Monocytes (%) (Auto) 14 % (0-9) Eosinophils (%) (Auto) 1 % (0-3) Basophils (%) (Auto) 1 % (0-3) Neutrophils # (Auto) 8.4 x10^3uL (1.8-7.7) Lymphocytes # (Auto) 1.2 x10^3/uL (1.0-4.8) Monocytes # (Auto) 1.6 x10^3/uL (0.0-1.1) Eosinophils # (Auto) 0.1 x10^3/uL (0.0-0.7) Basophils # (Auto) 0.1 x10^3/uL (0.0-0.2) Sodium Level 143 mmol/L (136-145) Potassium Level 3.3 mmol/L (3.5-5.1) Chloride Level 103 mmol/L (98-107) Carbon Dioxide Level 28 mmol/L (21-32) Anion Gap 12 (6-14) Blood Urea Nitrogen 25 mg/dL (7-20) Creatinine 1.5 mg/dL (0.6-1.0) Estimated GFR (Cockcroft-Gault) 34.3 BUN/Creatinine Ratio 17 (6-20) Glucose Level 136 mg/dL (70-99) Calcium Level 8.7 mg/dL (8.5-10.1) Phosphorus Level 4.5 mg/dL (2.6-4.7) Magnesium Level 2.3 mg/dL (1.8-2.4) Total Bilirubin 0.7 mg/dL (0.2-1.0) Aspartate Amino Transf (AST/SGOT) 25 U/L (15-37) Alanine Aminotransferase (ALT/SGPT) 40 U/L (14-59) Alkaline Phosphatase 118 U/L (46-116) Total Protein 7.6 g/dL (6.4-8.2) Albumin 2.8 g/dL (3.4-5.0) Albumin/Globulin Ratio 0.6 (1.0-1.7) Test 05/11/17 17:28 Glucose (Fingerstick) 173 mg/dL (70-99) Laboratory Tests Test 05/10/17 21:16 05/11/17 00:09 05/11/17 05:10 05/11/17 05:48 Glucose (Fingerstick) 156 mg/dL (70-99) 145 mg/dL (70-99) 141 mg/dL (70-99) White Blood Count 11.3 x10^3/uL (4.0-11.0) Red Blood Count 4.48 x10^6/uL (3.50-5.40) Hemoglobin 10.9 g/dL (12.0-15.5) Hematocrit 33.0 % (36.0-47.0) Mean Corpuscular Volume 74 fL (79-100) Mean Corpuscular Hemoglobin 24 pg (25-35) Mean Corpuscular Hemoglobin Concent 33 g/dL (31-37) Red Cell Distribution Width 19.1 % (11.5-14.5) Platelet Count 339 x10^3/uL (140-400) Neutrophils (%) (Auto) 74 % (31-73) Lymphocytes (%) (Auto) 10 % (24-48) Monocytes (%) (Auto) 14 % (0-9) Eosinophils (%) (Auto) 1 % (0-3) Basophils (%) (Auto) 1 % (0-3) Neutrophils # (Auto) 8.4 x10^3uL (1.8-7.7) Lymphocytes # (Auto) 1.2 x10^3/uL (1.0-4.8) Monocytes # (Auto) 1.6 x10^3/uL (0.0-1.1) Eosinophils # (Auto) 0.1 x10^3/uL (0.0-0.7) Basophils # (Auto) 0.1 x10^3/uL (0.0-0.2) Sodium Level 143 mmol/L (136-145) Potassium Level 3.3 mmol/L (3.5-5.1) Chloride Level 103 mmol/L (98-107) Carbon Dioxide Level 28 mmol/L (21-32) Anion Gap 12 (6-14) Blood Urea Nitrogen 25 mg/dL (7-20) Creatinine 1.5 mg/dL (0.6-1.0) Estimated GFR (Cockcroft-Gault) 34.3 BUN/Creatinine Ratio 17 (6-20) Glucose Level 136 mg/dL (70-99) Calcium Level 8.7 mg/dL (8.5-10.1) Phosphorus Level 4.5 mg/dL (2.6-4.7) Magnesium Level 2.3 mg/dL (1.8-2.4) Total Bilirubin 0.7 mg/dL (0.2-1.0) Aspartate Amino Transf (AST/SGOT) 25 U/L (15-37) Alanine Aminotransferase (ALT/SGPT) 40 U/L (14-59) Alkaline Phosphatase 118 U/L (46-116) Total Protein 7.6 g/dL (6.4-8.2) Albumin 2.8 g/dL (3.4-5.0) Albumin/Globulin Ratio 0.6 (1.0-1.7) Test 05/11/17 11:57 05/11/17 17:28 Glucose (Fingerstick) 130 mg/dL (70-99) 173 mg/dL (70-99) Microbiology 05/06/17 Blood Culture - Final, Complete NO GROWTH AFTER 5 DAYS 05/09/17 Sputum Culture - Final, Complete 05/09/17 Sputum Result 1 - Final, Complete 05/06/17 Urine Culture - Final, Complete 05/06/17 Urine Culture Result 1 (ANURAG) - Final, Complete 05/09/17 Gram Stain - Final, Complete Medications Current Medications Dopamine HCl/ Dextrose 250 ml @ 16.856 mls/ hr 1X ONCE IV Last administered on 05/05/17t 22:54; Start 05/05/17 at 23:00; Stop 05/06/17 at 13:49; Status DC Torsemide (Demadex) 20 mg 1X ONCE PO Last administered on 05/06/17 00:44; Start 05/05/17 at 23:45; Stop 05/05/17 at 23:46; Status DC Bumetanide (Bumex) 1 mg BID92 IV Last administered on 05/10/17 08:45; Start 05/06/17 at 09:00; Stop 05/10/17 at 13:39; Status DC Ondansetron HCl (Zofran) 4 mg 1X ONCE IV Last administered on 05/06/17 00:09; Start 05/05/17 at 23:45; Stop 05/05/17 at 23:46; Status DC Ondansetron HCl (Zofran) 4 mg PRN Q8HRS PRN IV NAUSEA/VOMITING; Start 05/05/17 at 23:45; Stop 05/06/17 at 23:44; Status DC Acetaminophen/ Hydrocodone Bitart (Lortab 5/325) 1 tab PRN Q6HRS PRN PO MODERATE - SEVERE PAIN Last administered on 05/06/17 05:21; Start 05/06/17 at 05: 00 Acetaminophen/ Hydrocodone Bitart (Lortab 5/325) 2 tab PRN Q6HRS PRN PO MODERATE - SEVERE PAIN Last administered on 05/08/17 18:09; Start 05/06/17 at 05: 00 Dopamine HCl/ Dextrose 250 ml @ 16.627 mls/ hr CONT PRN IV SEE I/O RECORD Last administered on 05/06/17 12:28; Start 05/06/17 at 06:00 Vancomycin HCl 1.5 gm/Sodium Chloride 500 ml @ 250 mls/hr 1X ONCE IV Last administered on 05/06/17 10:34; Start 05/06/17 at 09:00; Stop 05/06/17 at 10:59; Status DC Levofloxacin/ Dextrose 100 ml @ 100 mls/hr Q24H IV Last administered on 12:28; Start 05/06/17 at 10:00; Stop 05/08/17 at 09:28; Status DC Insulin Aspart (NovoLOG) 0-9 UNITS TIDWMEALS SQ Last administered on 05/06/17 18:09; Start 05/06/17 at 12:00; Stop 05/06/17 at 23:03; Status DC Dextrose (Dextrose 50%-Water Syringe) 12.5 gm PRN Q15MIN PRN IV SEE COMMENTS; Start 05/06/17 at 08:45 Enoxaparin Sodium (Lovenox 40mg Syringe) 40 mg Q24H SQ Last administered on 05/11 09:25; Start 05/06/17 at 09:00 Piperacillin Sod/ Tazobactam Sod 3.375 gm/Sodium Chloride 50 ml @ 100 mls/hr Q6HRS IV Last administered on 05/11/17 17:30; Start 05/06/17 at 10:30 Vancomycin HCl (Vanco Per Pharmacy) 1 each PRN DAILY PRN MC SEE COMMENTS Last administered on 05/08/17 11:20; Start 05/06/17 at 10:00; Stop 05/09/17 at 08:02; Status DC Succinylcholine Chloride (Anectine) 200 mg STK-MED ONCE .ROUTE ; Start 05/06/17 at 10:13; Stop 05/06/17 at 10:14; Status DC Propofol 20 ml @ As Directed STK-MED ONCE IV ; Start 05/06/17 at 10:13; Stop 05/06 at 10:14; Status DC Lidocaine HCl (Lidocaine Pf 2% Vial) 5 ml STK-MED ONCE .ROUTE ; Start 05/06/17 at 10:13; Stop 05/06/17 at 10:14; Status DC Propofol 0 ml @ As Directed STK-MED ONCE IV ; Start 05/06/17 at 10:14; Stop at 10:15; Status DC Midazolam HCl 100 ml @ As Directed STK-MED ONCE IV ; Start 05/06/17 at 10:14; Stop 05/06/17 at 10:15; Status DC Midazolam HCl 100 ml @ 0 mls/hr CONT PRN IV SEE I/O RECORD Last administered on 05/09/17 04:26; Start 05/06/17 at 11:00 Vancomycin HCl 500 mg/Sodium Chloride 100 ml @ 100 mls/hr 1X ONCE IV Last administered on 05/06/17 16:52; Start 05/06/17 at 12:00; Stop 05/06/17 at 12:59; Status DC Vancomycin HCl 1.25 gm/Sodium Chloride 250 ml @ 167 mls/hr Q24H IV Last administered on 05/07/17 10:01; Start 05/07/17 at 10:00; Stop 05/08/17 at 11:18; Status DC Vancomycin HCl 1 each 1X ONCE MC Last administered on 05/08/17 10:00; Start at 09:30; Stop 05/08/17 at 09:31; Status DC Isoproterenol HCl 1 mg/Dextrose 255 ml @ 0 mls/hr CONT PRN IV SEE I/O RECORD Last administered on 05/07/17 00:09; Start 05/06/17 at 13:00 Albumin Human 50 ml @ 50 mls/hr 1X ONCE IV Last administered on 05/06/17 15:30 ; Start 05/06/17 at 15:30; Stop 05/06/17 at 16:29; Status DC Insulin Aspart (NovoLOG) BIDBFRMEAL SQ ; Start 05/07/17 at 07:30; Status UNV Insulin Detemir (Levemir) 15 units QHS SQ Last administered on 05/10/17 21:20; Start 05/06/17 at 21:00 Fentanyl Citrate (Fentanyl 2ml Vial) 25 mcg Q3HRS PRN IV MILD PAIN Last administered on 05/11/17 16:21; Start 05/06/17 at 18:00 Insulin Aspart (NovoLOG) 0-9 UNITS Q6HRS SQ Last administered on 05/10/17 06:14 ; Start 05/07/17 at 00:00 Acetaminophen (Tylenol) 650 mg PRN Q6HRS PRN NG MILD PAIN / TEMP Last administered on 05/07/17 17:57; Start 05/07/17 at 00:45 Chlorhexidine Gluconate (Peridex) 15 ml BID MM Last administered on 05/11/17 09 :25; Start 05/07/17 at 21:00 Famotidine (Pepcid) 20 mg QHS IVP Last administered on 05/10/17 21:18; Start at 21:00 Enalaprilat (Vasotec) 1.25 mg Q6HRS PRN IV HYPERTENSION, SEE COMMENTS; Start at 19:30 Magnesium Sulfate/ Dextrose 50 ml @ 25 mls/hr PRN DAILY PRN IV for Mag < 1.7 on am labs; Start 05/08/17 at 09:00 Levofloxacin/ Dextrose 150 ml @ 100 mls/hr Q48H IV Last administered on 11:18; Start 05/08/17 at 10:00; Stop 05/09/17 at 08:02; Status DC Vancomycin HCl 1.5 gm/Sodium Chloride 500 ml @ 250 mls/hr Q24H IV Last administered on 05/08/17 13:05; Start 05/08/17 at 11:30; Stop 05/09/17 at 08:02; Status DC Alprazolam (Xanax) 1 mg PRN Q8HRS PRN PO ANXIETY / AGITATION Last administered on 05/09/17 08:49; Start 05/08/17 at 16:45 Propofol 100 ml @ 0 mls/hr CONT PRN IV SEE I/O RECORD Last administered on 23:19; Start 05/08/17 at 19:15 Furosemide (Lasix) 40 mg 1X ONCE IVP Last administered on 05/09/17 16:09; Start 05/09/17 at 15:00; Stop 05/09/17 at 15:01; Status DC Furosemide (Lasix) 40 mg 1X ONCE IVP ; Start 05/09/17 at 15:00; Stop 05/09/17 at 15:01; Status UNV Dexmedetomidine HCl 200 mcg/ Sodium Chloride 50 ml @ 0 mls/hr CONT PRN IV PER PROTOCOL Last administered on 05/10/17 04:51; Start 05/09/17 at 15:00 Bisacodyl (Dulcolax Supp) 10 mg PRN DAILY PRN IN CONSTIPATION Last administered on 05/10/17 08:45; Start 05/10/17 at 08:15 Lorazepam (Ativan) 0.5 mg PRN Q8HRS PRN IV ANXIETY / AGITATION Last administered on 05/11/17 17:30; Start 05/10/17 at 20:00 Potassium Chloride (Klor-Con) 20 meq BID PO ; Start 05/11/17 at 13:30 Active Scripts Active Glucophage Xr (Metformin Hcl) 500 Mg Tab.er.24h 1,000 Mg PO BID [place] 5-325 Tablet (Acetaminophen/Hydrocodone Bitart) 1 Each Tablet 1 Tab PO PRN Q6HRS PRN Reported Antioxidant Softgel (Beta-Carotene(A) W-C & E/Min) 1 Each Capsule 1 Each PO DAILY Hyaluronic Acid 40 Mg Capsule (Hyalur Ac/Chond Sul/Colg Ii/Aa) 1 Each Capsule 1 Each PO DAILY Biotin 2,500 Mcg Capsule 5,000 Mcg PO DAILY Benefiber (Wheat Dextrin) 1 Each Powd.pack 1 Each PO DAILY Benefiber (Wheat Dextrin) 1 Each Powd.pack 1 Each PO [place] (Cranberry Extract) 200 Mg Capsule 36 Mg PO Caltrate 600 + D Tablet (Calcium Carbonate/Vitamin D3) 1 Each Tablet 1 Each PO DAILY Vitamin C With Aletha Hips (Ascorbic Acid) 500 Mg Tablet 500 Mg PO DAILY Vitamin D3 (Cholecalciferol (Vitamin D3)) 1,000 Unit Tablet 1 Tab PO DAILY Fish Oil 1,000 Mg Softgel ([place]-3 Fatty Acids/Fish Oil) 1 Each Capsule 1 Each PO DAILY Premarin (Estrogens, Conjugated) 0.625 Mg Tablet 1 Tab PO DAILY Nortriptyline Hcl 25 Mg Capsule 1 Cap PO QHS Nitrofurantoin (Nitrofurantoin Macrocrystal) 100 Mg Capsule 1 Cap PO DAILY Cymbalta (Duloxetine Hcl) 30 Mg Capsule.dr 1 Cap PO DAILY Pantoprazole Sodium 40 Mg Tablet.dr 1 Tab PO DAILY Losartan Potassium 50 Mg Tablet 50 Mg PO DAILY Januvia (Sitagliptin Phosphate) 100 Mg Tablet 1 Tab PO DAILY Novolog Flexpen (Insulin Aspart) 100 Unit/1 Ml Insuln.pen 12 Unit SQ TIDWMEALS Losartan Potassium 100 Mg Tablet 100 Mg PO NOON Torsemide 10 Mg Tablet 10 Mg PO DAILY Sucralfate 1 Gm Tablet 1 Tab PO QID Omeprazole 20 Mg Capsule.dr 1 Cap PO BID Acetaminophen 325 Mg Tablet 650 Mg PO PRN BID PRN Levothyroxine Sodium 112 Mcg Tablet 1 Tab PO DAILY Atenolol 25 Mg Tablet 1 Tab PO BID Amlodipine Besylate 10 Mg Tablet 10 Mg PO DAILY Amitriptyline Hcl 25 Mg Tablet 1 Tab PO QHS Metoclopramide Hcl 5 Mg Tablet 5 Mg PO QIDACHS Alprazolam 0.5 Mg Tablet 1 Tab PO HS Alprazolam 0.5 Mg Tablet 2 Tab PO BIDWBKFT/HOLLIS Aspirin 81 Mg Tab.chew 1 Tab PO DAILY Vitals/I & O Vital Sign - Last 24 Hours 05/10/17 05/10/17 05/10/17 05/10/17 19:00 20:00 20:00 21:00 Temp 98.9 98.9 Pulse 80 81 86 Resp 24 20 B/P (MAP) 128/63 (84) 143/68 (93) 149/68 (95) Pulse Ox 97 97 97 O2 Delivery Nasal Cannula Nasal Cannula Nasal Cannula O2 Flow Rate 4.0 4.0 4.0 4.0 05/10/17 05/10/17 05/11/17 05/11/17 22:00 23:00 00:00 00:00 Temp 98.8 98.8 98.8 98.8 Pulse 97 74 77 Resp 20 18 23 B/P (MAP) 152/76 (101) 156/76 (102) 176/77 (110) Pulse Ox 97 99 98 O2 Delivery Nasal Cannula Nasal Cannula Nasal Cannula Nasal Cannula O2 Flow Rate 4.0 4.0 4.0 4.0 05/11/17 05/11/17 05/11/17 05/11/17 00:23 01:00 02:00 03:00 Temp 97.9 97.9 Pulse 82 78 81 Resp 18 19 19 B/P (MAP) 116/93 (101) 168/83 (111) 163/75 (104) Pulse Ox 98 97 97 99 O2 Delivery Nasal Cannula Nasal Cannula Nasal Cannula Nasal Cannula O2 Flow Rate 4.0 4.0 4.0 4.0 05/11/17 05/11/17 05/11/17 05/11/17 04:00 04:00 05:00 06:00 Pulse 75 72 73 Resp 18 26 21 B/P (MAP) 157/73 (101) 151/75 (100) 162/72 (102) Pulse Ox 99 98 97 O2 Delivery Nasal Cannula Nasal Cannula Nasal Cannula Nasal Cannula O2 Flow Rate 4.0 4.0 4.0 4.0 05/11/17 05/11/17 05/11/17 05/11/17 07:00 08:10 08:10 09:00 Temp 98.0 98.0 Pulse 71 76 76 B/P (MAP) 152/71 (98) 126/62 (83) 144/67 (92) Pulse Ox 97 97 97 O2 Delivery Nasal Cannula Nasal Cannula Nasal Cannula Nasal Cannula O2 Flow Rate 4.0 4.0 4.0 4.0 05/11/17 05/11/17 05/11/17 05/11/17 10:00 11:00 12:00 12:00 Temp 98.0 98.0 98.0 98.0 98.0 98.0 Pulse 84 74 73 Resp 20 B/P (MAP) 152/136 (141) 175/82 (113) 160/72 (101) Pulse Ox 97 97 97 O2 Delivery Nasal Cannula Nasal Cannula Nasal Cannula Nasal Cannula O2 Flow Rate 4.0 4.0 4.0 4.0 05/11/17 05/11/17 05/11/17 05/11/17 13:00 13:20 13:50 14:00 Temp 98.0 98.0 98.0 98.0 Pulse 78 78 Resp 20 20 B/P (MAP) 159/79 (105) 149/84 (105) Pulse Ox 97 97 97 97 O2 Delivery Nasal Cannula Nasal Cannula Nasal Cannula Nasal Cannula O2 Flow Rate 4.0 4.0 4.0 4.0 05/11/17 16:21 Resp 26 Pulse Ox 98 O2 Delivery Nasal Cannula Intake and Output 05/10/17 05/10/17 05/11/17 15:00 23:00 07:00 Intake Total 358.96 ml 50 ml 100 ml Output Total 569 ml 535 ml 395 ml Balance -210.04 ml -485 ml -295 ml EULALIA MOSELEY MD May 11, 2017 18:46
[2017-05-11] MEDS: IV DEXTROSE 5 %-0.45 % NACL 1,000 ML IV SCH (20:20)
[2017-05-11] MEDS: POTASSIUM CHLORIDE 10MEQ 100 ML IV SCH ×2 (21:00→21:19)
[2017-05-11] MEDS: INSULIN DETEMIR 300 UNITS/3 ML INSULN.PEN. SQ SCH (21:00)
[2017-05-11] MEDS: FAMOTIDINE 20 MG/2 ML VIAL IVP SCH (21:19)
[2017-05-12] MEDS: PIPERACILLIN/TAZOBACTAM 3.375 GM in IV NORMAL SALINE 50ML 50 ML IV SCH ×5 (00:18→23:14)
[2017-05-12] MEDS: fentaNYL PF VIAL 100 MCG/2 ML VIAL IV PRN (00:23)
[2017-05-12] MEDS: POTASSIUM CHLORIDE 10MEQ 100 ML IV SCH (00:32)
[2017-05-12 03:00] VITALS: BP 152/77
[2017-05-12] MEDS: INSULIN ASPART 300 UNITS/3 ML INSULN.PEN SQ SCH ×4 (06:00→18:10)
[2017-05-12 07:00] VITALS: BP 197/95
--- NOTE | 2017-05-12 07:04 | PDOC ---
Infectious Disease Note Subjective Subjective Cant't sleep. ROS ROS All systems positive Vital Sign Vital Signs Vital Signs Date Time Temp Pulse Resp B/P (MAP) Pulse Ox O2 Delivery O2 Flow Rate FiO2 05/12/17 03:00 98.3 89 16 152/77 (102) 96 Nasal Cannula 4.0 98.3 Physical Exam PHYSICAL EXAM GENERAL: NAD, Alert, confused HEENT: PERRL, OC/OP - dry NECK: Supple, no JVD, no LN LUNGS: Clear HEART: S1S2, no gallop, no murmur ABD: Soft, NT, no organomegaly, no rebound Rodriguez EXT: No edema, no cyanosis TRAVEL ACCOMMODATION INSPECTOR: Alert, oriented to person but confused, no focal neurologic deficit SKIN: No rash IV: peripheal ok Labs Lab Laboratory Tests Test 05/11/17 11:57 05/11/17 17:28 05/11/17 20:36 05/12/17 00:40 Glucose (Fingerstick) 130 mg/dL (70-99) 173 mg/dL (70-99) 170 mg/dL (70-99) 170 mg/dL (70-99) Test 05/12/17 06:18 Glucose (Fingerstick) 190 mg/dL (70-99) Objective Assessment Pneumonia COPD exacerbation Hyponatremia Encephalopathy - lack of sleep. per nursing has not slept since admit Respiratory failure DM Leukocytosis Plan Plan of Care cont zosyn F/u cults CBC in am DNR supportive care ANN RILEY MD May 12, 2017 07:04
[2017-05-12 07:14] LABS: ALBUMIN 2.9 g/dL (3.4-5.0); CALCIUM 9.9 mg/dL (8.5-10.1); CREATININE 1.3 mg/dL (0.6-1.0); GFR 40.5; POTASSIUM 4.1 mmol/L (3.5-5.1)
[2017-05-12] MEDS: POTASSIUM CHLORIDE 20 MEQ TABLET.ER. PO SCH ×2 (08:08→21:18)
[2017-05-12] MEDS: CHLORHEXIDINE 0.12% 15 ML MOUTHWASH. MM SCH (08:08)
[2017-05-12] MEDS: ENOXAPARIN 40 MG/0.4 ML SYRINGE. SQ SCH (08:08)
[2017-05-12] MEDS: ENALAPRILAT 1.25 MG/ML VIAL. IV PRN ×3 (08:17→23:27)
--- NOTE | 2017-05-12 09:30 | RAD ---
Examination: Single frontal view the chest History: History of respiratory failure Comparison: 05/11/2017 Findings: The cardiomediastinal silhouette grossly appears unremarkable. Improved patchy bibasal lung atelectasis. Impression: 1. Improved patchy bibasal lung atelectasis
[2017-05-12 10:52] VITALS: BP 160/73
--- NOTE | 2017-05-12 12:08 | PN ---
PROGRESS NOTES Subjective Subjective The patient is c/o insonia and that she has not slept since admission The [facility] is working with her to evaluate her swallowing Objective Objective Vital Signs Date Time Temp Pulse Resp B/P (MAP) Pulse Ox O2 Delivery O2 Flow Rate FiO2 05/12/17 10:52 97.9 88 20 160/73 (102) 95 Nasal Cannula 4.0 97.9 Intake and Output 05/12/17 07:00 Intake Total 0 ml Output Total 1275 ml Balance -1275 ml Intake Oral 0 ml Output Urine Total 1275 ml Physical Exam Physical Exam She is resting propped up in bed in NAD Pale but not jaundiced VSS COMMENT She is definietly more awake alert Hopefully will have a diet today Diagnosis DIAGNOSIS Pneumonia COPD Exacerbation Hyponatremia Encephalopathy Respiratory DM PROBLEM LIST Problems Medical Problems: (1) Respiratory failure Status: Acute Assessment Assessment Problems Medical Problems: (1) Respiratory failure Status: Acute Plan Plan of Care Continue with i v Zosyn will start amitriptyline Comment Labs Laboratory Tests Test 05/10/17 17:31 05/10/17 21:16 05/11/17 00:09 05/11/17 05:10 Glucose (Fingerstick) 143 mg/dL (70-99) 156 mg/dL (70-99) 145 mg/dL (70-99) White Blood Count 11.3 x10^3/uL (4.0-11.0) Red Blood Count 4.48 x10^6/uL (3.50-5.40) Hemoglobin 10.9 g/dL (12.0-15.5) Hematocrit 33.0 % (36.0-47.0) Mean Corpuscular Volume 74 fL (79-100) Mean Corpuscular Hemoglobin 24 pg (25-35) Mean Corpuscular Hemoglobin Concent 33 g/dL (31-37) Red Cell Distribution Width 19.1 % (11.5-14.5) Platelet Count 339 x10^3/uL (140-400) Neutrophils (%) (Auto) 74 % (31-73) Lymphocytes (%) (Auto) 10 % (24-48) Monocytes (%) (Auto) 14 % (0-9) Eosinophils (%) (Auto) 1 % (0-3) Basophils (%) (Auto) 1 % (0-3) Neutrophils # (Auto) 8.4 x10^3uL (1.8-7.7) Lymphocytes # (Auto) 1.2 x10^3/uL (1.0-4.8) Monocytes # (Auto) 1.6 x10^3/uL (0.0-1.1) Eosinophils # (Auto) 0.1 x10^3/uL (0.0-0.7) Basophils # (Auto) 0.1 x10^3/uL (0.0-0.2) Sodium Level 143 mmol/L (136-145) Potassium Level 3.3 mmol/L (3.5-5.1) Chloride Level 103 mmol/L (98-107) Carbon Dioxide Level 28 mmol/L (21-32) Anion Gap 12 (6-14) Blood Urea Nitrogen 25 mg/dL (7-20) Creatinine 1.5 mg/dL (0.6-1.0) Estimated GFR (Cockcroft-Gault) 34.3 BUN/Creatinine Ratio 17 (6-20) Glucose Level 136 mg/dL (70-99) Calcium Level 8.7 mg/dL (8.5-10.1) Phosphorus Level 4.5 mg/dL (2.6-4.7) Magnesium Level 2.3 mg/dL (1.8-2.4) Total Bilirubin 0.7 mg/dL (0.2-1.0) Aspartate Amino Transf (AST/SGOT) 25 U/L (15-37) Alanine Aminotransferase (ALT/SGPT) 40 U/L (14-59) Alkaline Phosphatase 118 U/L (46-116) Total Protein 7.6 g/dL (6.4-8.2) Albumin 2.8 g/dL (3.4-5.0) Albumin/Globulin Ratio 0.6 (1.0-1.7) Test 05/11/17 05:48 05/11/17 11:57 05/11/17 17:28 05/11/17 20:36 Glucose (Fingerstick) 141 mg/dL (70-99) 130 mg/dL (70-99) 173 mg/dL (70-99) 170 mg/dL (70-99) Test 05/12/17 00:40 05/12/17 05:28 05/12/17 06:18 Glucose (Fingerstick) 170 mg/dL (70-99) 190 mg/dL (70-99) Sodium Level 143 mmol/L (136-145) Potassium Level 4.1 mmol/L (3.5-5.1) Chloride Level 105 mmol/L (98-107) Carbon Dioxide Level 25 mmol/L (21-32) Anion Gap 13 (6-14) Blood Urea Nitrogen 24 mg/dL (7-20) Creatinine 1.3 mg/dL (0.6-1.0) Estimated GFR (Cockcroft-Gault) 40.5 Glucose Level 205 mg/dL (70-99) Calcium Level 9.9 mg/dL (8.5-10.1) Phosphorus Level 4.0 mg/dL (2.6-4.7) Magnesium Level 2.7 mg/dL (1.8-2.4) Albumin 2.9 g/dL (3.4-5.0) Laboratory Tests Test 05/11/17 17:28 05/11/17 20:36 05/12/17 00:40 05/12/17 05:28 Glucose (Fingerstick) 173 mg/dL (70-99) 170 mg/dL (70-99) 170 mg/dL (70-99) Sodium Level 143 mmol/L (136-145) Potassium Level 4.1 mmol/L (3.5-5.1) Chloride Level 105 mmol/L (98-107) Carbon Dioxide Level 25 mmol/L (21-32) Anion Gap 13 (6-14) Blood Urea Nitrogen 24 mg/dL (7-20) Creatinine 1.3 mg/dL (0.6-1.0) Estimated GFR (Cockcroft-Gault) 40.5 Glucose Level 205 mg/dL (70-99) Calcium Level 9.9 mg/dL (8.5-10.1) Phosphorus Level 4.0 mg/dL (2.6-4.7) Magnesium Level 2.7 mg/dL (1.8-2.4) Albumin 2.9 g/dL (3.4-5.0) Test 05/12/17 06:18 Glucose (Fingerstick) 190 mg/dL (70-99) Microbiology 05/06/17 Blood Culture - Final, Complete NO GROWTH AFTER 5 DAYS 05/09/17 Sputum Culture - Final, Complete 05/09/17 Sputum Result 1 - Final, Complete 05/06/17 Urine Culture - Final, Complete 05/06/17 Urine Culture Result 1 (ANURAG) - Final, Complete 05/09/17 Gram Stain - Final, Complete Medications Current Medications Dopamine HCl/ Dextrose 250 ml @ 16.856 mls/ hr 1X ONCE IV Last administered on 05/05/17 22:54; Start 05/05/17 at 23:00; Stop 05/06/17 at 13:49; Status DC Torsemide (Demadex) 20 mg 1X ONCE PO Last administered on 05/06/17 00:44; Start 05/05/17 at 23:45; Stop 05/05/17 at 23:46; Status DC Bumetanide (Bumex) 1 mg BID92 IV Last administered on 05/10/17 08:45; Start 05/06/17 at 09:00; Stop 05/10/17 at 13:39; Status DC Ondansetron HCl (Zofran) 4 mg 1X ONCE IV Last administered on 05/06/17 00:09; Start 05/05/17 at 23:45; Stop 05/05/17 at 23:46; Status DC Ondansetron HCl (Zofran) 4 mg PRN Q8HRS PRN IV NAUSEA/VOMITING; Start 05/05/17 at 23:45; Stop 05/06/17 at 23:44; Status DC Acetaminophen/ Hydrocodone Bitart (Lortab 5/325) 1 tab PRN Q6HRS PRN PO MODERATE - SEVERE PAIN Last administered on 05/06/17 05:21; Start 05/06/17 at 05: 00 Acetaminophen/ Hydrocodone Bitart (Lortab 5/325) 2 tab PRN Q6HRS PRN PO MODERATE - SEVERE PAIN Last administered on 05/08/17 18:09; Start 05/06/17 at 05: 00 Dopamine HCl/ Dextrose 250 ml @ 16.627 mls/ hr CONT PRN IV SEE I/O RECORD Last administered on 05/06/17 12:28; Start 05/06/17 at 06:00 Vancomycin HCl 1.5 gm/Sodium Chloride 500 ml @ 250 mls/hr 1X ONCE IV Last administered on 05/06/17 10:34; Start 05/06/17 at 09:00; Stop 05/06/17 at 10:59; Status DC Levofloxacin/ Dextrose 100 ml @ 100 mls/hr Q24H IV Last administered on 12:28; Start 05/06/17 at 10:00; Stop 05/08/17 at 09:28; Status DC Insulin Aspart (NovoLOG) 0-9 UNITS TIDWMEALS SQ Last administered on 05/06/17 18:09; Start 05/06/17 at 12:00; Stop 05/06/17 at 23:03; Status DC Dextrose (Dextrose 50%-Water Syringe) 12.5 gm PRN Q15MIN PRN IV SEE COMMENTS; Start 05/06/17 at 08:45 Enoxaparin Sodium (Lovenox 40mg Syringe) 40 mg Q24H SQ Last administered on 05/12 08:08; Start 05/06/17 at 09:00 Piperacillin Sod/ Tazobactam Sod 3.375 gm/Sodium Chloride 50 ml @ 100 mls/hr Q6HRS IV Last administered on 05/12/17 05:45; Start 05/06/17 at 10:30 Vancomycin HCl (Vanco Per Pharmacy) 1 each PRN DAILY PRN MC SEE COMMENTS Last administered on 05/08/17 11:20; Start 05/06/17 at 10:00; Stop 05/09/17 at 08:02; Status DC Succinylcholine Chloride (Anectine) 200 mg STK-MED ONCE .ROUTE ; Start 05/06/17 at 10:13; Stop 05/06/17 at 10:14; Status DC Propofol 20 ml @ As Directed STK-MED ONCE IV ; Start 05/06/17 at 10:13; Stop 05/06 at 10:14; Status DC Lidocaine HCl (Lidocaine Pf 2% Vial) 5 ml STK-MED ONCE .ROUTE ; Start 05/06/17 at 10:13; Stop 05/06/17 at 10:14; Status DC Propofol 0 ml @ As Directed STK-MED ONCE IV ; Start 05/06/17 at 10:14; Stop at 10:15; Status DC Midazolam HCl 100 ml @ As Directed STK-MED ONCE IV ; Start 05/06/17 at 10:14; Stop 05/06/17 at 10:15; Status DC Midazolam HCl 100 ml @ 0 mls/hr CONT PRN IV SEE I/O RECORD Last administered on 05/09/17 04:26; Start 05/06/17 at 11:00; Stop 05/12/17 at 09:35; Status DC Vancomycin HCl 500 mg/Sodium Chloride 100 ml @ 100 mls/hr 1X ONCE IV Last administered on 05/06/17 16:52; Start 05/06/17 at 12:00; Stop 05/06/17 at 12:59; Status DC Vancomycin HCl 1.25 gm/Sodium Chloride 250 ml @ 167 mls/hr Q24H IV Last administered on 05/07/17 10:01; Start 05/07/17 at 10:00; Stop 05/08/17 at 11:18; Status DC Vancomycin HCl 1 each 1X ONCE MC Last administered on 05/08/17 10:00; Start at 09:30; Stop 05/08/17 at 09:31; Status DC Isoproterenol HCl 1 mg/Dextrose 255 ml @ 0 mls/hr CONT PRN IV SEE I/O RECORD Last administered on 05/07/17 00:09; Start 05/06/17 at 13:00 Albumin Human 50 ml @ 50 mls/hr 1X ONCE IV Last administered on 05/06/17 15:30 ; Start 05/06/17 at 15:30; Stop 05/06/17 at 16:29; Status DC Insulin Aspart (NovoLOG) BIDBFRMEAL SQ ; Start 05/07/17 at 07:30; Status UNV Insulin Detemir (Levemir) 15 units QHS SQ Last administered on 05/10/17 21:20; Start 05/06/17 at 21:00 Fentanyl Citrate (Fentanyl 2ml Vial) 25 mcg Q3HRS PRN IV MILD PAIN Last administered on 05/12/17 00:23; Start 05/06/17 at 18:00 Insulin Aspart (NovoLOG) 0-9 UNITS Q6HRS SQ Last administered on 05/10/17 06:14 ; Start 05/07/17 at 00:00 Acetaminophen (Tylenol) 650 mg PRN Q6HRS PRN NG MILD PAIN / TEMP Last administered on 05/07/17 17:57; Start 05/07/17 at 00:45 Chlorhexidine Gluconate (Peridex) 15 ml BID MM Last administered on 05/12/17 08 :08; Start 05/07/17 at 21:00; Stop 05/12/17 at 09:34; Status DC Famotidine (Pepcid) 20 mg QHS IVP Last administered on 05/11/17 21:19; Start at 21:00 Enalaprilat (Vasotec) 1.25 mg Q6HRS PRN IV HYPERTENSION, SEE COMMENTS Last administered on 05/12/17 08:17; Start 05/07/17 at 19:30 Magnesium Sulfate/ Dextrose 50 ml @ 25 mls/hr PRN DAILY PRN IV for Mag < 1.7 on am labs; Start 05/08/17 at 09:00 Levofloxacin/ Dextrose 150 ml @ 100 mls/hr Q48H IV Last administered on 11:18; Start 05/08/17 at 10:00; Stop 05/09/17 at 08:02; Status DC Vancomycin HCl 1.5 gm/Sodium Chloride 500 ml @ 250 mls/hr Q24H IV Last administered on 05/08/17 13:05; Start 05/08/17 at 11:30; Stop 05/09/17 at 08:02; Status DC Alprazolam (Xanax) 1 mg PRN Q8HRS PRN PO ANXIETY / AGITATION Last administered on 05/09/17 08:49; Start 05/08/17 at 16:45 Propofol 100 ml @ 0 mls/hr CONT PRN IV SEE I/O RECORD Last administered on 23:19; Start 05/08/17 at 19:15; Stop 05/11/17 at 19:04; Status DC Furosemide (Lasix) 40 mg 1X ONCE IVP Last administered on 05/09/17 16:09; Start 05/09/17 at 15:00; Stop 05/09/17 at 15:01; Status DC Furosemide (Lasix) 40 mg 1X ONCE IVP ; Start 05/09/17 at 15:00; Stop 05/09/17 at 15:01; Status UNV Dexmedetomidine HCl 200 mcg/ Sodium Chloride 50 ml @ 0 mls/hr CONT PRN IV PER PROTOCOL Last administered on 05/10/17 04:51; Start 05/09/17 at 15:00; Stop at 19:04; Status DC Bisacodyl (Dulcolax Supp) 10 mg PRN DAILY PRN CO CONSTIPATION Last administered on 05/10/17 08:45; Start 05/10/17 at 08:15 Lorazepam (Ativan) 0.5 mg PRN Q8HRS PRN IV ANXIETY / AGITATION Last administered on 05/12/17 04:29; Start 05/10/17 at 20:00 Potassium Chloride (Klor-Con) 20 meq BID PO ; Start 05/11/17 at 13:30 Dextrose/Sodium Chloride 1,000 ml @ 60 mls/hr [id number] IV Last administered on 05/11/17 20:20; Start 05/11/17 at 19:30 Potassium Chloride 100 ml @ 100 mls/hr Q1H IV Last administered on 05/10/17 02 :30; Start 05/11/17 at 20:00; Stop 05/11/17 at 23:59; Status DC Active Scripts Active Glucophage Xr (Metformin Hcl) 500 Mg Tab.er.24h 1,000 Mg PO BID [place] 5-325 Tablet (Acetaminophen/Hydrocodone Bitart) 1 Each Tablet 1 Tab PO PRN Q6HRS PRN Reported Antioxidant Softgel (Beta-Carotene(A) W-C & E/Min) 1 Each Capsule 1 Each PO DAILY Hyaluronic Acid 40 Mg Capsule (Hyalur Ac/Chond Sul/Colg Ii/Aa) 1 Each Capsule 1 Each PO DAILY Biotin 2,500 Mcg Capsule 5,000 Mcg PO DAILY Benefiber (Wheat Dextrin) 1 Each Powd.pack 1 Each PO DAILY Benefiber (Wheat Dextrin) 1 Each Powd.pack 1 Each PO [place] (Cranberry Extract) 200 Mg Capsule 36 Mg PO Caltrate 600 + D Tablet (Calcium Carbonate/Vitamin D3) 1 Each Tablet 1 Each PO DAILY Vitamin C With Aletha Hips (Ascorbic Acid) 500 Mg Tablet 500 Mg PO DAILY Vitamin D3 (Cholecalciferol (Vitamin D3)) 1,000 Unit Tablet 1 Tab PO DAILY Fish Oil 1,000 Mg Softgel ([place]-3 Fatty Acids/Fish Oil) 1 Each Capsule 1 Each PO DAILY Premarin (Estrogens, Conjugated) 0.625 Mg Tablet 1 Tab PO DAILY Nortriptyline Hcl 25 Mg Capsule 1 Cap PO QHS Nitrofurantoin (Nitrofurantoin Macrocrystal) 100 Mg Capsule 1 Cap PO DAILY Cymbalta (Duloxetine Hcl) 30 Mg Capsule.dr 1 Cap PO DAILY Pantoprazole Sodium 40 Mg Tablet.dr 1 Tab PO DAILY Losartan Potassium 50 Mg Tablet 50 Mg PO DAILY Januvia (Sitagliptin Phosphate) 100 Mg Tablet 1 Tab PO DAILY Novolog Flexpen (Insulin Aspart) 100 Unit/1 Ml Insuln.pen 12 Unit SQ TIDWMEALS Losartan Potassium 100 Mg Tablet 100 Mg PO NOON Torsemide 10 Mg Tablet 10 Mg PO DAILY Sucralfate 1 Gm Tablet 1 Tab PO QID Omeprazole 20 Mg Capsule.dr 1 Cap PO BID Acetaminophen 325 Mg Tablet 650 Mg PO PRN BID PRN Levothyroxine Sodium 112 Mcg Tablet 1 Tab PO DAILY Atenolol 25 Mg Tablet 1 Tab PO BID Amlodipine Besylate 10 Mg Tablet 10 Mg PO DAILY Amitriptyline Hcl 25 Mg Tablet 1 Tab PO QHS Metoclopramide Hcl 5 Mg Tablet 5 Mg PO QIDACHS Alprazolam 0.5 Mg Tablet 1 Tab PO HS Alprazolam 0.5 Mg Tablet 2 Tab PO BIDWBKFT/HOLLIS Aspirin 81 Mg Tab.chew 1 Tab PO DAILY Vitals/I & O Vital Sign - Last 24 Hours 05/11/17 05/11/17 05/11/17 05/11/17 13:00 13:20 14:00 15:00 Temp 98.0 98.0 98.0 98.0 98.0 98.0 Pulse 78 78 77 Resp 20 20 20 B/P (MAP) 159/79 (105) 149/84 (105) 153/77 (102) Pulse Ox 97 97 97 97 O2 Delivery Nasal Cannula Nasal Cannula Nasal Cannula Nasal Cannula O2 Flow Rate 4.0 4.0 4.0 4.0 05/11/17 05/11/17 05/11/17 05/11/17 16:00 16:00 16:21 17:00 Temp 98.0 98.0 Pulse 76 76 Resp 26 B/P (MAP) 153/76 (101) 162/80 (107) Pulse Ox 97 98 98 O2 Delivery Nasal Cannula Nasal Cannula Nasal Cannula Nasal Cannula O2 Flow Rate 4.0 4.0 4.0 05/11/17 05/11/17 05/11/17 05/11/17 18:00 19:00 20:58 21:20 Temp 98.4 98.4 Pulse 74 75 Resp 20 18 18 B/P (MAP) 159/77 (104) 143/77 (99) Pulse Ox 98 94 O2 Delivery Nasal Cannula Nasal Cannula Nasal Cannula Nasal Cannula O2 Flow Rate 4.0 4.0 4.0 4.0 05/11/17 05/12/17 05/12/17 05/12/17 23:00 00:23 01:13 03:00 Temp 98.6 98.3 98.6 98.3 Pulse 86 89 Resp 17 18 18 16 B/P (MAP) 154/72 (99) 152/77 (102) Pulse Ox 95 95 95 96 O2 Delivery Nasal Cannula Nasal Cannula Nasal Cannula Nasal Cannula O2 Flow Rate 4.0 4.0 4.0 4.0 05/12/17 05/12/17 05/12/17 05/12/17 07:00 08:00 08:17 10:52 Temp 98.4 97.9 98.4 97.9 Pulse 87 85 88 Resp 20 20 B/P (MAP) 197/95 (129) 210/93 160/73 (102) Pulse Ox 94 95 O2 Delivery Nasal Cannula Nasal Cannula Nasal Cannula O2 Flow Rate 4.0 4.0 4.0 Intake and Output 05/11/17 05/11/17 05/12/17 15:00 23:00 07:00 Intake Total 0 ml 0 ml Output Total 435 ml 280 ml 560 ml Balance -435 ml -280 ml -560 ml WALTER FINN MD May 12, 2017 12:08
[2017-05-12] MEDS ORDERED: amLODIPine BESYLATE 5 MG TABLET PO ONE (12:30)
[2017-05-12] MEDS: ALPRAZolam 1 MG TABLET PO PRN ×2 (12:30→23:14)
[2017-05-12] MEDS: IV DEXTROSE 5 %-0.45 % NACL 1,000 ML IV SCH (12:32)
--- NOTE | 2017-05-12 14:53 | PDOC ---
PROGRESS NOTES Subjective Subjective She is breathing better She is not feeling as well because she has been nothing by mouth for a few days and has not been able to sleep. Now been allowed to have her diet. Objective Objective Vital Signs Date Time Temp Pulse Resp B/P (MAP) Pulse Ox O2 Delivery O2 Flow Rate FiO2 05/12/17 12:31 88 160/73 05/12/17 10:52 97.9 20 95 Nasal Cannula 4.0 97.9 Intake and Output 05/12/17 07:00 Intake Total 0 ml Output Total 1275 ml Balance -1275 ml Intake Oral 0 ml Output Urine Total 1275 ml Physical Exam Physical Exam Blood pressure is elevated to 220 /100. DEBORAH inhibitors were not sufficient to lower it Lungs are clear.. Assessment Assessment Problems Medical Problems: (1) Respiratory failure Status: Acute Plan Plan of Care And calcium channel blockers in the form of amlodipine. Would not use beta blockers. Comment Review of Relevant I have reviewed the following items katy (where applicable) has been applied. Labs Laboratory Tests Test 05/10/17 17:31 05/10/17 21:16 05/11/17 00:09 05/11/17 05:10 Glucose (Fingerstick) 143 mg/dL (70-99) 156 mg/dL (70-99) 145 mg/dL (70-99) White Blood Count 11.3 x10^3/uL (4.0-11.0) Red Blood Count 4.48 x10^6/uL (3.50-5.40) Hemoglobin 10.9 g/dL (12.0-15.5) Hematocrit 33.0 % (36.0-47.0) Mean Corpuscular Volume 74 fL (79-100) Mean Corpuscular Hemoglobin 24 pg (25-35) Mean Corpuscular Hemoglobin Concent 33 g/dL (31-37) Red Cell Distribution Width 19.1 % (11.5-14.5) Platelet Count 339 x10^3/uL (140-400) Neutrophils (%) (Auto) 74 % (31-73) Lymphocytes (%) (Auto) 10 % (24-48) Monocytes (%) (Auto) 14 % (0-9) Eosinophils (%) (Auto) 1 % (0-3) Basophils (%) (Auto) 1 % (0-3) Neutrophils # (Auto) 8.4 x10^3uL (1.8-7.7) Lymphocytes # (Auto) 1.2 x10^3/uL (1.0-4.8) Monocytes # (Auto) 1.6 x10^3/uL (0.0-1.1) Eosinophils # (Auto) 0.1 x10^3/uL (0.0-0.7) Basophils # (Auto) 0.1 x10^3/uL (0.0-0.2) Sodium Level 143 mmol/L (136-145) Potassium Level 3.3 mmol/L (3.5-5.1) Chloride Level 103 mmol/L (98-107) Carbon Dioxide Level 28 mmol/L (21-32) Anion Gap 12 (6-14) Blood Urea Nitrogen 25 mg/dL (7-20) Creatinine 1.5 mg/dL (0.6-1.0) Estimated GFR (Cockcroft-Gault) 34.3 BUN/Creatinine Ratio 17 (6-20) Glucose Level 136 mg/dL (70-99) Calcium Level 8.7 mg/dL (8.5-10.1) Phosphorus Level 4.5 mg/dL (2.6-4.7) Magnesium Level 2.3 mg/dL (1.8-2.4) Total Bilirubin 0.7 mg/dL (0.2-1.0) Aspartate Amino Transf (AST/SGOT) 25 U/L (15-37) Alanine Aminotransferase (ALT/SGPT) 40 U/L (14-59) Alkaline Phosphatase 118 U/L (46-116) Total Protein 7.6 g/dL (6.4-8.2) Albumin 2.8 g/dL (3.4-5.0) Albumin/Globulin Ratio 0.6 (1.0-1.7) Test 05/11/17 05:48 05/11/17 11:57 05/11/17 17:28 05/11/17 20:36 Glucose (Fingerstick) 141 mg/dL (70-99) 130 mg/dL (70-99) 173 mg/dL (70-99) 170 mg/dL (70-99) Test 05/12/17 00:40 05/12/17 05:28 05/12/17 06:18 05/12/17 12:38 Glucose (Fingerstick) 170 mg/dL (70-99) 190 mg/dL (70-99) 304 mg/dL (70-99) Sodium Level 143 mmol/L (136-145) Potassium Level 4.1 mmol/L (3.5-5.1) Chloride Level 105 mmol/L (98-107) Carbon Dioxide Level 25 mmol/L (21-32) Anion Gap 13 (6-14) Blood Urea Nitrogen 24 mg/dL (7-20) Creatinine 1.3 mg/dL (0.6-1.0) Estimated GFR (Cockcroft-Gault) 40.5 Glucose Level 205 mg/dL (70-99) Calcium Level 9.9 mg/dL (8.5-10.1) Phosphorus Level 4.0 mg/dL (2.6-4.7) Magnesium Level 2.7 mg/dL (1.8-2.4) Albumin 2.9 g/dL (3.4-5.0) Laboratory Tests Test 05/11/17 17:28 05/11/17 20:36 05/12/17 00:40 05/12/17 05:28 Glucose (Fingerstick) 173 mg/dL (70-99) 170 mg/dL (70-99) 170 mg/dL (70-99) Sodium Level 143 mmol/L (136-145) Potassium Level 4.1 mmol/L (3.5-5.1) Chloride Level 105 mmol/L (98-107) Carbon Dioxide Level 25 mmol/L (21-32) Anion Gap 13 (6-14) Blood Urea Nitrogen 24 mg/dL (7-20) Creatinine 1.3 mg/dL (0.6-1.0) Estimated GFR (Cockcroft-Gault) 40.5 Glucose Level 205 mg/dL (70-99) Calcium Level 9.9 mg/dL (8.5-10.1) Phosphorus Level 4.0 mg/dL (2.6-4.7) Magnesium Level 2.7 mg/dL (1.8-2.4) Albumin 2.9 g/dL (3.4-5.0) Test 05/12/17 06:18 05/12/17 12:38 Glucose (Fingerstick) 190 mg/dL (70-99) 304 mg/dL (70-99) Microbiology 05/06/17 Blood Culture - Final, Complete NO GROWTH AFTER 5 DAYS 05/09/17 Sputum Culture - Final, Complete 05/09/17 Sputum Result 1 - Final, Complete 05/06/17 Urine Culture - Final, Complete 05/06/17 Urine Culture Result 1 (ANURAG) - Final, Complete 05/09/17 Gram Stain - Final, Complete Medications Current Medications Dopamine HCl/ Dextrose 250 ml @ 16.856 mls/ hr 1X ONCE IV Last administered on 05/05/17 22:54; Start 05/05/17 at 23:00; Stop 05/06/17 at 13:49; Status DC Torsemide (Demadex) 20 mg 1X ONCE PO Last administered on 05/06/17 00:44; Start 05/05/17 at 23:45; Stop 05/05/17 at 23:46; Status DC Bumetanide (Bumex) 1 mg [id number] IV Last administered on 05/10/17 08:45; Start 05/06/17 at 09:00; Stop 05/10/17 at 13:39; Status DC Ondansetron HCl (Zofran) 4 mg 1X ONCE IV Last administered on 05/06/17 00:09; Start 05/05/17 at 23:45; Stop 05/05/17 at 23:46; Status DC Ondansetron HCl (Zofran) 4 mg PRN Q8HRS PRN IV NAUSEA/VOMITING; Start 05/05/17 at 23:45; Stop 05/06/17 at 23:44; Status DC Acetaminophen/ Hydrocodone Bitart (Lortab 5/325) 1 tab PRN Q6HRS PRN PO MODERATE - SEVERE PAIN Last administered on 05/06/17 05:21; Start 05/06/17 at 05: 00 Acetaminophen/ Hydrocodone Bitart (Lortab 5/325) 2 tab PRN Q6HRS PRN PO MODERATE - SEVERE PAIN Last administered on 05/08/17 18:09; Start 05/06/17 at 05: 00 Dopamine HCl/ Dextrose 250 ml @ 16.627 mls/ hr CONT PRN IV SEE I/O RECORD Last administered on 05/06/17 12:28; Start 05/06/17 at 06:00 Vancomycin HCl 1.5 gm/Sodium Chloride 500 ml @ 250 mls/hr 1X ONCE IV Last administered on 05/06/17 10:34; Start 05/06/17 at 09:00; Stop 05/06/17 at 10:59; Status DC Levofloxacin/ Dextrose 100 ml @ 100 mls/hr Q24H IV Last administered on 12:28; Start 05/06/17 at 10:00; Stop 05/08/17 at 09:28; Status DC Insulin Aspart (NovoLOG) 0-9 UNITS TIDWMEALS SQ Last administered on 05/06/17 18:09; Start 05/06/17 at 12:00; Stop 05/06/17 at 23:03; Status DC Dextrose (Dextrose 50%-Water Syringe) 12.5 gm PRN Q15MIN PRN IV SEE COMMENTS; Start 05/06/17 at 08:45 Enoxaparin Sodium (Lovenox 40mg Syringe) 40 mg Q24H SQ Last administered on 05/12 08:08; Start 05/06/17 at 09:00 Piperacillin Sod/ Tazobactam Sod 3.375 gm/Sodium Chloride 50 ml @ 100 mls/hr Q6HRS IV Last administered on 05/12/17 12:31; Start 05/06/17 at 10:30 Vancomycin HCl (Vanco Per Pharmacy) 1 each PRN DAILY PRN MC SEE COMMENTS Last administered on 05/08/17 11:20; Start 05/06/17 at 10:00; Stop 05/09/17 at 08:02; Status DC Succinylcholine Chloride (Anectine) 200 mg STK-MED ONCE .ROUTE ; Start 05/06/17 at 10:13; Stop 05/06/17 at 10:14; Status DC Propofol 20 ml @ As Directed STK-MED ONCE IV ; Start 05/06/17 at 10:13; Stop 05/06 at 10:14; Status DC Lidocaine HCl (Lidocaine Pf 2% Vial) 5 ml STK-MED ONCE .ROUTE ; Start 05/06/17 at 10:13; Stop 05/06/17 at 10:14; Status DC Propofol 0 ml @ As Directed STK-MED ONCE IV ; Start 05/06/17 at 10:14; Stop at 10:15; Status DC Midazolam HCl 100 ml @ As Directed STK-MED ONCE IV ; Start 05/06/17 at 10:14; Stop 05/06/17 at 10:15; Status DC Midazolam HCl 100 ml @ 0 mls/hr CONT PRN IV SEE I/O RECORD Last administered on 05/09/17 04:26; Start 05/06/17 at 11:00; Stop 05/12/17 at 09:35; Status DC Vancomycin HCl 500 mg/Sodium Chloride 100 ml @ 100 mls/hr 1X ONCE IV Last administered on 05/06/17 16:52; Start 05/06/17 at 12:00; Stop 05/06/17 at 12:59; Status DC Vancomycin HCl 1.25 gm/Sodium Chloride 250 ml @ 167 mls/hr Q24H IV Last administered on 05/07/17 10:01; Start 05/07/17 at 10:00; Stop 05/08/17 at 11:18; Status DC Vancomycin HCl 1 each 1X ONCE MC Last administered on 05/08/17 10:00; Start at 09:30; Stop 05/08/17 at 09:31; Status DC Isoproterenol HCl 1 mg/Dextrose 255 ml @ 0 mls/hr CONT PRN IV SEE I/O RECORD Last administered on 05/07/17 00:09; Start 05/06/17 at 13:00 Albumin Human 50 ml @ 50 mls/hr 1X ONCE IV Last administered on 05/06/17 15:30 ; Start 05/06/17 at 15:30; Stop 05/06/17 at 16:29; Status DC Insulin Aspart (NovoLOG) BIDBFRMEAL SQ ; Start 05/07/17 at 07:30; Status UNV Insulin Detemir (Levemir) 15 units QHS SQ Last administered on 05/10/17 21:20; Start 05/06/17 at 21:00 Fentanyl Citrate (Fentanyl 2ml Vial) 25 mcg Q3HRS PRN IV MILD PAIN Last administered on 05/12/17 00:23; Start 05/06/17 at 18:00 Insulin Aspart (NovoLOG) 0-9 UNITS Q6HRS SQ Last administered on 05/12/17 12:53 ; Start 05/07/17 at 00:00 Acetaminophen (Tylenol) 650 mg PRN Q6HRS PRN NG MILD PAIN / TEMP Last administered on 05/07/17 17:57; Start 05/07/17 at 00:45 Chlorhexidine Gluconate (Peridex) 15 ml BID MM Last administered on 05/12/17 08 :08; Start 05/07/17 at 21:00; Stop 05/12/17 at 09:34; Status DC Famotidine (Pepcid) 20 mg QHS IVP Last administered on 05/11/17 21:19; Start at 21:00 Enalaprilat (Vasotec) 1.25 mg Q6HRS PRN IV HYPERTENSION, SEE COMMENTS Last administered on 05/12/17 08:17; Start 05/07/17 at 19:30 Magnesium Sulfate/ Dextrose 50 ml @ 25 mls/hr PRN DAILY PRN IV for Mag < 1.7 on am labs; Start 05/08/17 at 09:00 Levofloxacin/ Dextrose 150 ml @ 100 mls/hr Q48H IV Last administered on 11:18; Start 05/08/17 at 10:00; Stop 05/09/17 at 08:02; Status DC Vancomycin HCl 1.5 gm/Sodium Chloride 500 ml @ 250 mls/hr Q24H IV Last administered on 05/08/17 13:05; Start 05/08/17 at 11:30; Stop 05/09/17 at 08:02; Status DC Alprazolam (Xanax) 1 mg PRN Q8HRS PRN PO ANXIETY / AGITATION Last administered on 05/09/17 08:49; Start 05/08/17 at 16:45 Propofol 100 ml @ 0 mls/hr CONT PRN IV SEE I/O RECORD Last administered on 23:19; Start 05/08/17 at 19:15; Stop 05/11/17 at 19:04; Status DC Furosemide (Lasix) 40 mg 1X ONCE IVP Last administered on 05/09/17 16:09; Start 05/09/17 at 15:00; Stop 05/09/17 at 15:01; Status DC Furosemide (Lasix) 40 mg 1X ONCE IVP ; Start 05/09/17 at 15:00; Stop 05/09/17 at 15:01; Status UNV Dexmedetomidine HCl 200 mcg/ Sodium Chloride 50 ml @ 0 mls/hr CONT PRN IV PER PROTOCOL Last administered on 05/10/17 04:51; Start 05/09/17 at 15:00; Stop at 19:04; Status DC Bisacodyl (Dulcolax Supp) 10 mg PRN DAILY PRN ID CONSTIPATION Last administered on 05/10/17 08:45; Start 05/10/17 at 08:15 Lorazepam (Ativan) 0.5 mg PRN Q8HRS PRN IV ANXIETY / AGITATION Last administered on 05/12/17 04:29; Start 05/10/17 at 20:00 Potassium Chloride (Klor-Con) 20 meq BID PO ; Start 05/11/17 at 13:30 Dextrose/Sodium Chloride 1,000 ml @ 60 mls/hr [id number] IV Last administered on 05/12/17 12:32; Start 05/11/17 at 19:30 Potassium Chloride 100 ml @ 100 mls/hr Q1H IV Last administered on 05/10/17 02 :30; Start 05/11/17 at 20:00; Stop 05/11/17 at 23:59; Status DC Amitriptyline HCl (Elavil) 25 mg QHS PO ; Start 05/12/17 at 21:00 Amlodipine Besylate (Norvasc) 5 mg 1X ONCE PO Last administered on 05/12/17 12 :31; Start 05/12/17 at 12:30; Stop 05/12/17 at 12:31; Status DC Active Scripts Active Glucophage Xr (Metformin Hcl) 500 Mg Tab.er.24h 1,000 Mg PO BID Kennedy 5-325 Tablet (Acetaminophen/Hydrocodone Bitart) 1 Each Tablet 1 Tab PO PRN Q6HRS PRN Reported Antioxidant Softgel (Beta-Carotene(A) W-C & E/Min) 1 Each Capsule 1 Each PO DAILY Hyaluronic Acid 40 Mg Capsule (Hyalur Ac/Chond Sul/Colg Ii/Aa) 1 Each Capsule 1 Each PO DAILY Biotin 2,500 Mcg Capsule 5,000 Mcg PO DAILY Benefiber (Wheat Dextrin) 1 Each Powd.pack 1 Each PO DAILY Benefiber (Wheat Dextrin) 1 Each Powd.pack 1 Each PO Ellura (Cranberry Extract) 200 Mg Capsule 36 Mg PO Caltrate 600 + D Tablet (Calcium Carbonate/Vitamin D3) 1 Each Tablet 1 Each PO DAILY Vitamin C With Aletha Hips (Ascorbic Acid) 500 Mg Tablet 500 Mg PO DAILY Vitamin D3 (Cholecalciferol (Vitamin D3)) 1,000 Unit Tablet 1 Tab PO DAILY Fish Oil 1,000 Mg Softgel (Armstrong-3 Fatty Acids/Fish Oil) 1 Each Capsule 1 Each PO DAILY Premarin (Estrogens, Conjugated) 0.625 Mg Tablet 1 Tab PO DAILY Nortriptyline Hcl 25 Mg Capsule 1 Cap PO QHS Nitrofurantoin (Nitrofurantoin Macrocrystal) 100 Mg Capsule 1 Cap PO DAILY Cymbalta (Duloxetine Hcl) 30 Mg Capsule.dr 1 Cap PO DAILY Pantoprazole Sodium 40 Mg Tablet.dr 1 Tab PO DAILY Losartan Potassium 50 Mg Tablet 50 Mg PO DAILY Januvia (Sitagliptin Phosphate) 100 Mg Tablet 1 Tab PO DAILY Novolog Flexpen (Insulin Aspart) 100 Unit/1 Ml Insuln.pen 12 Unit SQ TIDWMEALS Losartan Potassium 100 Mg Tablet 100 Mg PO NOON Torsemide 10 Mg Tablet 10 Mg PO DAILY Sucralfate 1 Gm Tablet 1 Tab PO QID Omeprazole 20 Mg Capsule.dr 1 Cap PO BID Acetaminophen 325 Mg Tablet 650 Mg PO PRN BID PRN Levothyroxine Sodium 112 Mcg Tablet 1 Tab PO DAILY Atenolol 25 Mg Tablet 1 Tab PO BID Amlodipine Besylate 10 Mg Tablet 10 Mg PO DAILY Amitriptyline Hcl 25 Mg Tablet 1 Tab PO QHS Metoclopramide Hcl 5 Mg Tablet 5 Mg PO QIDACHS Alprazolam 0.5 Mg Tablet 1 Tab PO HS Alprazolam 0.5 Mg Tablet 2 Tab PO BIDWBKFT/HOLLIS Aspirin 81 Mg Tab.chew 1 Tab PO DAILY Vitals/I & O Vital Sign - Last 24 Hours 05/11/17 05/11/17 05/11/17 05/11/17 15:00 16:00 16:00 16:21 Temp 98.0 98.0 98.0 98.0 Pulse 77 76 Resp 20 26 B/P (MAP) 153/77 (102) 153/76 (101) Pulse Ox 97 97 98 O2 Delivery Nasal Cannula Nasal Cannula Nasal Cannula Nasal Cannula O2 Flow Rate 4.0 4.0 4.0 05/11/17 05/11/17 05/11/17 05/11/17 17:00 18:00 19:00 20:58 Temp 98.4 98.4 Pulse 76 74 75 Resp 20 18 B/P (MAP) 162/80 (107) 159/77 (104) 143/77 (99) Pulse Ox 98 98 94 O2 Delivery Nasal Cannula Nasal Cannula Nasal Cannula Nasal Cannula O2 Flow Rate 4.0 4.0 4.0 4.0 05/11/17 05/11/17 05/12/17 05/12/17 21:20 23:00 00:23 01:13 Temp 98.6 98.6 Pulse 86 Resp 18 18 18 B/P (MAP) 154/72 (99) Pulse Ox 95 95 95 O2 Delivery Nasal Cannula Nasal Cannula Nasal Cannula Nasal Cannula O2 Flow Rate 4.0 4.0 4.0 4.0 05/12/17 05/12/17 05/12/17 05/12/17 03:00 07:00 08:00 08:17 Temp 98.3 98.4 98.3 98.4 Pulse 89 87 85 Resp 16 20 B/P (MAP) 152/77 (102) 197/95 (129) 210/93 Pulse Ox 96 94 O2 Delivery Nasal Cannula Nasal Cannula Nasal Cannula O2 Flow Rate 4.0 4.0 4.0 05/12/17 05/12/17 10:52 12:31 Temp 97.9 97.9 Pulse 88 88 Resp 20 B/P (MAP) 160/73 (102) 160/73 Pulse Ox 95 O2 Delivery Nasal Cannula O2 Flow Rate 4.0 Intake and Output 05/11/17 05/11/17 05/12/17 15:00 23:00 07:00 Intake Total 0 ml 0 ml Output Total 435 ml 280 ml 560 ml Balance -435 ml -280 ml -560 ml IDRIS MATHEWS MD May 12, 2017 14:53
[2017-05-12 15:00] VITALS: BP 189/91
--- NOTE | 2017-05-12 15:55 | PDOC ---
PULMONARY PROGRESS NOTES Subjective EXTUBATED 05/10 PT INFORMED ME THAT SHE DOES NOT WISH TO BE RESUSCITATED FOR RECURRENT RESP FAILURE DOES NOT WANT TO BE INTUBATED SPOKE WITH FISH RN WHOM RECEIVED SIMILAR INFORMATION NO NEW COMPLAINTS Vitals Vital Signs Date Time Temp Pulse Resp B/P (MAP) Pulse Ox O2 Delivery O2 Flow Rate FiO2 05/12/17 15:00 98.4 89 20 189/91 (123) 94 Nasal Cannula 4.0 98.4 General: Alert Lungs: Clear Cardiovascular: S1, S2 Abdomen: Soft Neuro Exam: Alert Extremities: No Edema Skin: Warm Labs Laboratory Tests Test 05/10/17 17:31 05/10/17 21:16 05/11/17 00:09 05/11/17 05:10 Glucose (Fingerstick) 143 mg/dL (70-99) 156 mg/dL (70-99) 145 mg/dL (70-99) White Blood Count 11.3 x10^3/uL (4.0-11.0) Red Blood Count 4.48 x10^6/uL (3.50-5.40) Hemoglobin 10.9 g/dL (12.0-15.5) Hematocrit 33.0 % (36.0-47.0) Mean Corpuscular Volume 74 fL (79-100) Mean Corpuscular Hemoglobin 24 pg (25-35) Mean Corpuscular Hemoglobin Concent 33 g/dL (31-37) Red Cell Distribution Width 19.1 % (11.5-14.5) Platelet Count 339 x10^3/uL (140-400) Neutrophils (%) (Auto) 74 % (31-73) Lymphocytes (%) (Auto) 10 % (24-48) Monocytes (%) (Auto) 14 % (0-9) Eosinophils (%) (Auto) 1 % (0-3) Basophils (%) (Auto) 1 % (0-3) Neutrophils # (Auto) 8.4 x10^3uL (1.8-7.7) Lymphocytes # (Auto) 1.2 x10^3/uL (1.0-4.8) Monocytes # (Auto) 1.6 x10^3/uL (0.0-1.1) Eosinophils # (Auto) 0.1 x10^3/uL (0.0-0.7) Basophils # (Auto) 0.1 x10^3/uL (0.0-0.2) Sodium Level 143 mmol/L (136-145) Potassium Level 3.3 mmol/L (3.5-5.1) Chloride Level 103 mmol/L (98-107) Carbon Dioxide Level 28 mmol/L (21-32) Anion Gap 12 (6-14) Blood Urea Nitrogen 25 mg/dL (7-20) Creatinine 1.5 mg/dL (0.6-1.0) Estimated GFR (Cockcroft-Gault) 34.3 BUN/Creatinine Ratio 17 (6-20) Glucose Level 136 mg/dL (70-99) Calcium Level 8.7 mg/dL (8.5-10.1) Phosphorus Level 4.5 mg/dL (2.6-4.7) Magnesium Level 2.3 mg/dL (1.8-2.4) Total Bilirubin 0.7 mg/dL (0.2-1.0) Aspartate Amino Transf (AST/SGOT) 25 U/L (15-37) Alanine Aminotransferase (ALT/SGPT) 40 U/L (14-59) Alkaline Phosphatase 118 U/L (46-116) Total Protein 7.6 g/dL (6.4-8.2) Albumin 2.8 g/dL (3.4-5.0) Albumin/Globulin Ratio 0.6 (1.0-1.7) Test 05/11/17 05:48 05/11/17 11:57 05/11/17 17:28 05/11/17 20:36 Glucose (Fingerstick) 141 mg/dL (70-99) 130 mg/dL (70-99) 173 mg/dL (70-99) 170 mg/dL (70-99) Test 05/12/17 00:40 05/12/17 05:28 05/12/17 06:18 05/12/17 12:38 Glucose (Fingerstick) 170 mg/dL (70-99) 190 mg/dL (70-99) 304 mg/dL (70-99) Sodium Level 143 mmol/L (136-145) Potassium Level 4.1 mmol/L (3.5-5.1) Chloride Level 105 mmol/L (98-107) Carbon Dioxide Level 25 mmol/L (21-32) Anion Gap 13 (6-14) Blood Urea Nitrogen 24 mg/dL (7-20) Creatinine 1.3 mg/dL (0.6-1.0) Estimated GFR (Cockcroft-Gault) 40.5 Glucose Level 205 mg/dL (70-99) Calcium Level 9.9 mg/dL (8.5-10.1) Phosphorus Level 4.0 mg/dL (2.6-4.7) Magnesium Level 2.7 mg/dL (1.8-2.4) Albumin 2.9 g/dL (3.4-5.0) Laboratory Tests Test 05/11/17 17:28 05/11/17 20:36 05/12/17 00:40 05/12/17 05:28 Glucose (Fingerstick) 173 mg/dL (70-99) 170 mg/dL (70-99) 170 mg/dL (70-99) Sodium Level 143 mmol/L (136-145) Potassium Level 4.1 mmol/L (3.5-5.1) Chloride Level 105 mmol/L (98-107) Carbon Dioxide Level 25 mmol/L (21-32) Anion Gap 13 (6-14) Blood Urea Nitrogen 24 mg/dL (7-20) Creatinine 1.3 mg/dL (0.6-1.0) Estimated GFR (Cockcroft-Gault) 40.5 Glucose Level 205 mg/dL (70-99) Calcium Level 9.9 mg/dL (8.5-10.1) Phosphorus Level 4.0 mg/dL (2.6-4.7) Magnesium Level 2.7 mg/dL (1.8-2.4) Albumin 2.9 g/dL (3.4-5.0) Test 05/12/17 06:18 05/12/17 12:38 Glucose (Fingerstick) 190 mg/dL (70-99) 304 mg/dL (70-99) Medications Active Scripts Medications Dose Route/Sig Max Daily Dose Days Date Category Novolog Flexpen (Insulin Aspart) 100 Unit/1 Ml Insuln.pen 12 Unit SQ TIDWMEALS 05/06/17 Reported Losartan Potassium 100 Mg Tablet 100 Mg PO NOON 05/06/17 Reported Glucophage Xr (Metformin Hcl) 500 Mg Tab.er.24h 1,000 Mg PO BID 07/17/16 Rx Torsemide 10 Mg Tablet 10 Mg PO DAILY 07/15/16 Reported Sucralfate 1 Gm Tablet 1 Tab PO QID 07/15/16 Reported Omeprazole 20 Mg Capsule.dr 1 Cap PO BID 07/15/16 Reported Acetaminophen 325 Mg Tablet 650 Mg PO PRN BID PRN 07/15/16 Reported Levothyroxine Sodium 112 Mcg Tablet 1 Tab PO DAILY 07/15/16 Reported Atenolol 25 Mg Tablet 1 Tab PO BID 07/15/16 Reported Amlodipine Besylate 10 Mg Tablet 10 Mg PO DAILY 07/15/16 Reported Amitriptyline Hcl 25 Mg Tablet 1 Tab PO QHS 07/15/16 Reported Metoclopramide Hcl 5 Mg Tablet 5 Mg PO QIDACHS 07/15/16 Reported Alprazolam 0.5 Mg Tablet 1 Tab PO HS 07/15/16 Reported Alprazolam 0.5 Mg Tablet 2 Tab PO BIDWBKFT/HOLLIS 07/15/16 Reported Aspirin 81 Mg Tab.chew 1 Tab PO DAILY 07/15/16 Reported Vida 5-325 Tablet (Acetaminophen/Hydrocodone Bitart) 1 Each Tablet 1 Tab PO PRN Q6HRS PRN 06/03/16 Rx Comments CXR Impression: 1. Improved patchy bibasal lung atelectasis Impression . ACUTE/CHROMIC RESP FAILURE PNEUMONIA SEPTIC SHOCK HYPONATREMIA UNCONTROLLED DM AECOPD LEUKOCYTOSIS ACUTE PULMONARY EDEMA Plan . EXTUBATED 05/10 NEEDS REHAB VS SNU PT WISHES TO BE DNR WILL WRITE ORDER HER IS AWARE ACCORDING TO RN MOUNIKA CHUITHARPAL PER ID NEPHRO CONSULT DVT AND GI PROPHYLAXIS NPO FOR NOW RACHEL KOCH MD May 12, 2017 15:55
[2017-05-12] MEDS: FAMOTIDINE 20 MG/2 ML VIAL IVP SCH (18:37)
[2017-05-12 19:00] VITALS: BP 170/77
[2017-05-12] MEDS ORDERED: AMITRIPTYLINE HCL 25 MG TABLET. PO SCH (21:00)
[2017-05-12] MEDS: INSULIN DETEMIR 300 UNITS/3 ML INSULN.PEN. SQ SCH (21:36)
[2017-05-12 23:15] VITALS: BP 198/87
[2017-05-13] VITALS (8 sets, daily range): BP systolic 147–187; BP diastolic 61–88
[2017-05-13 04:50] LABS: BASO # 0.1 x10^3/uL (0.0-0.2); BASO % 1 % (0-3); EOS % 1 % (0-3); HEMATOCRIT 35.3 % (36.0-47.0); LYMPH % 9 % (24-48); MEAN CORPUSCULAR HEMOGLOBIN 24 pg (25-35); MEAN CORPUSCULAR HGB CONC 31 g/dL (31-37); MEAN CORPUSCULAR VOLUME 77 fL (79-100); MONO % 14 % (0-9); NEUT % 75 % (31-73); PLATELET COUNT 358 x10^3/uL (140-400); RED BLOOD COUNT 4.61 x10^6/uL (3.50-5.40); RED CELL DISTRIBUTION WIDTH 19.3 % (11.5-14.5); WHITE BLOOD COUNT 11.2 x10^3/uL (4.0-11.0)
[2017-05-13 05:18] LABS: ALBUMIN 2.8 g/dL (3.4-5.0); ALBUMIN/GLOBULIN RATIO 0.6 (1.0-1.7); CALCIUM 9.4 mg/dL (8.5-10.1); CREATININE 1.4 mg/dL (0.6-1.0); GFR 37.2; MAGNESIUM 2.5 mg/dL (1.8-2.4); PHOSPHORUS 3.7 mg/dL (2.6-4.7); POTASSIUM 3.7 mmol/L (3.5-5.1); TOTAL BILIRUBIN 0.5 mg/dL (0.2-1.0); TOTAL PROTEIN 7.6 g/dL (6.4-8.2)
[2017-05-13] MEDS: ENALAPRILAT 1.25 MG/ML VIAL. IV PRN (05:18)
[2017-05-13] MEDS: PIPERACILLIN/TAZOBACTAM 3.375 GM in IV NORMAL SALINE 50ML 50 ML IV SCH ×3 (05:18→17:41)
--- NOTE | 2017-05-13 07:50 | RAD ---
Portable chest, 05/13/2017: History: Respiratory failure Comparison is made to a study from 05/12/2017. The heart size and pulmonary vascularity are normal. There is calcific plaquing and tortuosity of the thoracic aorta. There is minimal parenchymal scarring. Previously seen basilar infiltrates have resolved. No acute infiltrate is seen. There is no evidence of pleural fluid. IMPRESSION: No acute cardiopulmonary abnormality is detected.
--- NOTE | 2017-05-13 08:20 | PDOC ---
Infectious Disease Note Subjective Subjective Better. Slept well. Less cough ROS ROS GEN: Denies fevers, chills, sweats HEENT: Denies blurred vision, sore throat. mild nose bleed earlier CV: Denies chest pain RESP: Denies shortness of air, But has occ cough GI: Denies n/v/d NEURO: Denies confusion, dizziness MSK: Denies weakness, joint pain/swelling Vital Sign Vital Signs Vital Signs Date Time Temp Pulse Resp B/P (MAP) Pulse Ox O2 Delivery O2 Flow Rate FiO2 05/13/17 07:57 Nasal Cannula 4.0 05/13/17 07:00 98.9 82 24 187/88 (121) 98 98.9 Physical Exam PHYSICAL EXAM GENERAL: NAD, Alert HEENT: PERRL, OC/OP - clear NECK: Supple, no JVD, no LN LUNGS: Clear HEART: S1S2, no gallop, no murmur ABD: Soft, NT, no organomegaly, no rebound, obese EXT: No edema, no cyanosis WOOD GRINDER: Alert, oriented x 3, no focal neurologic deficit SKIN: No rash IV: ok Labs Lab Laboratory Tests Test 05/12/17 12:38 05/12/17 18:00 05/12/17 21:24 05/13/17 04:10 Glucose (Fingerstick) 304 mg/dL (70-99) 313 mg/dL (70-99) 309 mg/dL (70-99) White Blood Count 11.2 x10^3/uL (4.0-11.0) Red Blood Count 4.61 x10^6/uL (3.50-5.40) Hemoglobin 11.0 g/dL (12.0-15.5) Hematocrit 35.3 % (36.0-47.0) Mean Corpuscular Volume 77 fL (79-100) Mean Corpuscular Hemoglobin 24 pg (25-35) Mean Corpuscular Hemoglobin Concent 31 g/dL (31-37) Red Cell Distribution Width 19.3 % (11.5-14.5) Platelet Count 358 x10^3/uL (140-400) Neutrophils (%) (Auto) 75 % (31-73) Lymphocytes (%) (Auto) 9 % (24-48) Monocytes (%) (Auto) 14 % (0-9) Eosinophils (%) (Auto) 1 % (0-3) Basophils (%) (Auto) 1 % (0-3) Neutrophils # (Auto) 8.4 x10^3uL (1.8-7.7) Lymphocytes # (Auto) 1.0 x10^3/uL (1.0-4.8) Monocytes # (Auto) 1.5 x10^3/uL (0.0-1.1) Eosinophils # (Auto) 0.1 x10^3/uL (0.0-0.7) Basophils # (Auto) 0.1 x10^3/uL (0.0-0.2) Sodium Level 145 mmol/L (136-145) Potassium Level 3.7 mmol/L (3.5-5.1) Chloride Level 107 mmol/L (98-107) Carbon Dioxide Level 29 mmol/L (21-32) Anion Gap 9 (6-14) Blood Urea Nitrogen 18 mg/dL (7-20) Creatinine 1.4 mg/dL (0.6-1.0) Estimated GFR (Cockcroft-Gault) 37.2 BUN/Creatinine Ratio 13 (6-20) Glucose Level 211 mg/dL (70-99) Calcium Level 9.4 mg/dL (8.5-10.1) Phosphorus Level 3.7 mg/dL (2.6-4.7) Magnesium Level 2.5 mg/dL (1.8-2.4) Total Bilirubin 0.5 mg/dL (0.2-1.0) Aspartate Amino Transf (AST/SGOT) 22 U/L (15-37) Alanine Aminotransferase (ALT/SGPT) 45 U/L (14-59) Alkaline Phosphatase 122 U/L (46-116) Total Protein 7.6 g/dL (6.4-8.2) Albumin 2.8 g/dL (3.4-5.0) Albumin/Globulin Ratio 0.6 (1.0-1.7) Test 05/13/17 07:10 Glucose (Fingerstick) 194 mg/dL (70-99) Objective Assessment Pneumonia COPD exacerbation [place]ING[place] - better Hyponatremia - better Encephalopathy - lack of sleep. - better Respiratory failure DM Leukocytosis - stable Plan Plan of Care cont zosyn F/u cults DNR supportive care ANN RILEY MD May 13, 2017 08:20
[2017-05-13] MEDS: POTASSIUM CHLORIDE 20 MEQ TABLET.ER. PO SCH ×2 (09:09→21:09)
[2017-05-13] MEDS: ENOXAPARIN 40 MG/0.4 ML SYRINGE. SQ SCH (09:09)
[2017-05-13] MEDS: INSULIN ASPART 300 UNITS/3 ML INSULN.PEN SQ SCH ×6 (09:15→21:14)
--- NOTE | 2017-05-13 11:01 | PDOC ---
PULMONARY PROGRESS NOTES Subjective EXTUBATED 05/10 NO NEW COMPLAINTS Vitals Vital Signs Date Time Temp Pulse Resp B/P (MAP) Pulse Ox O2 Delivery O2 Flow Rate FiO2 05/13/17 07:57 Nasal Cannula 4.0 05/13/17 07:00 98.9 82 24 187/88 (121) 98 98.9 General: Alert, No acute distress Lungs: Clear Cardiovascular: S1, S2 Abdomen: Soft Neuro Exam: Alert Extremities: No Edema Skin: Warm Labs Laboratory Tests Test 05/11/17 11:57 05/11/17 17:28 05/11/17 20:36 05/12/17 00:40 Glucose (Fingerstick) 130 mg/dL (70-99) 173 mg/dL (70-99) 170 mg/dL (70-99) 170 mg/dL (70-99) Test 05/12/17 05:28 05/12/17 06:18 05/12/17 12:38 05/12/17 18:00 Sodium Level 143 mmol/L (136-145) Potassium Level 4.1 mmol/L (3.5-5.1) Chloride Level 105 mmol/L (98-107) Carbon Dioxide Level 25 mmol/L (21-32) Anion Gap 13 (6-14) Blood Urea Nitrogen 24 mg/dL (7-20) Creatinine 1.3 mg/dL (0.6-1.0) Estimated GFR (Cockcroft-Gault) 40.5 Glucose Level 205 mg/dL (70-99) Calcium Level 9.9 mg/dL (8.5-10.1) Phosphorus Level 4.0 mg/dL (2.6-4.7) Magnesium Level 2.7 mg/dL (1.8-2.4) Albumin 2.9 g/dL (3.4-5.0) Glucose (Fingerstick) 190 mg/dL (70-99) 304 mg/dL (70-99) 313 mg/dL (70-99) Test 05/12/17 21:24 05/13/17 04:10 05/13/17 07:10 Glucose (Fingerstick) 309 mg/dL (70-99) 194 mg/dL (70-99) White Blood Count 11.2 x10^3/uL (4.0-11.0) Red Blood Count 4.61 x10^6/uL (3.50-5.40) Hemoglobin 11.0 g/dL (12.0-15.5) Hematocrit 35.3 % (36.0-47.0) Mean Corpuscular Volume 77 fL (79-100) Mean Corpuscular Hemoglobin 24 pg (25-35) Mean Corpuscular Hemoglobin Concent 31 g/dL (31-37) Red Cell Distribution Width 19.3 % (11.5-14.5) Platelet Count 358 x10^3/uL (140-400) Neutrophils (%) (Auto) 75 % (31-73) Lymphocytes (%) (Auto) 9 % (24-48) Monocytes (%) (Auto) 14 % (0-9) Eosinophils (%) (Auto) 1 % (0-3) Basophils (%) (Auto) 1 % (0-3) Neutrophils # (Auto) 8.4 x10^3uL (1.8-7.7) Lymphocytes # (Auto) 1.0 x10^3/uL (1.0-4.8) Monocytes # (Auto) 1.5 x10^3/uL (0.0-1.1) Eosinophils # (Auto) 0.1 x10^3/uL (0.0-0.7) Basophils # (Auto) 0.1 x10^3/uL (0.0-0.2) Sodium Level 145 mmol/L (136-145) Potassium Level 3.7 mmol/L (3.5-5.1) Chloride Level 107 mmol/L (98-107) Carbon Dioxide Level 29 mmol/L (21-32) Anion Gap 9 (6-14) Blood Urea Nitrogen 18 mg/dL (7-20) Creatinine 1.4 mg/dL (0.6-1.0) Estimated GFR (Cockcroft-Gault) 37.2 BUN/Creatinine Ratio 13 (6-20) Glucose Level 211 mg/dL (70-99) Calcium Level 9.4 mg/dL (8.5-10.1) Phosphorus Level 3.7 mg/dL (2.6-4.7) Magnesium Level 2.5 mg/dL (1.8-2.4) Total Bilirubin 0.5 mg/dL (0.2-1.0) Aspartate Amino Transf (AST/SGOT) 22 U/L (15-37) Alanine Aminotransferase (ALT/SGPT) 45 U/L (14-59) Alkaline Phosphatase 122 U/L (46-116) Total Protein 7.6 g/dL (6.4-8.2) Albumin 2.8 g/dL (3.4-5.0) Albumin/Globulin Ratio 0.6 (1.0-1.7) Laboratory Tests Test 05/12/17 12:38 05/12/17 18:00 05/12/17 21:24 05/13/17 04:10 Glucose (Fingerstick) 304 mg/dL (70-99) 313 mg/dL (70-99) 309 mg/dL (70-99) White Blood Count 11.2 x10^3/uL (4.0-11.0) Red Blood Count 4.61 x10^6/uL (3.50-5.40) Hemoglobin 11.0 g/dL (12.0-15.5) Hematocrit 35.3 % (36.0-47.0) Mean Corpuscular Volume 77 fL (79-100) Mean Corpuscular Hemoglobin 24 pg (25-35) Mean Corpuscular Hemoglobin Concent 31 g/dL (31-37) Red Cell Distribution Width 19.3 % (11.5-14.5) Platelet Count 358 x10^3/uL (140-400) Neutrophils (%) (Auto) 75 % (31-73) Lymphocytes (%) (Auto) 9 % (24-48) Monocytes (%) (Auto) 14 % (0-9) Eosinophils (%) (Auto) 1 % (0-3) Basophils (%) (Auto) 1 % (0-3) Neutrophils # (Auto) 8.4 x10^3uL (1.8-7.7) Lymphocytes # (Auto) 1.0 x10^3/uL (1.0-4.8) Monocytes # (Auto) 1.5 x10^3/uL (0.0-1.1) Eosinophils # (Auto) 0.1 x10^3/uL (0.0-0.7) Basophils # (Auto) 0.1 x10^3/uL (0.0-0.2) Sodium Level 145 mmol/L (136-145) Potassium Level 3.7 mmol/L (3.5-5.1) Chloride Level 107 mmol/L (98-107) Carbon Dioxide Level 29 mmol/L (21-32) Anion Gap 9 (6-14) Blood Urea Nitrogen 18 mg/dL (7-20) Creatinine 1.4 mg/dL (0.6-1.0) Estimated GFR (Cockcroft-Gault) 37.2 BUN/Creatinine Ratio 13 (6-20) Glucose Level 211 mg/dL (70-99) Calcium Level 9.4 mg/dL (8.5-10.1) Phosphorus Level 3.7 mg/dL (2.6-4.7) Magnesium Level 2.5 mg/dL (1.8-2.4) Total Bilirubin 0.5 mg/dL (0.2-1.0) Aspartate Amino Transf (AST/SGOT) 22 U/L (15-37) Alanine Aminotransferase (ALT/SGPT) 45 U/L (14-59) Alkaline Phosphatase 122 U/L (46-116) Total Protein 7.6 g/dL (6.4-8.2) Albumin 2.8 g/dL (3.4-5.0) Albumin/Globulin Ratio 0.6 (1.0-1.7) Test 05/13/17 07:10 Glucose (Fingerstick) 194 mg/dL (70-99) Medications Active Scripts Medications Dose Route/Sig Max Daily Dose Days Date Category Novolog Flexpen (Insulin Aspart) 100 Unit/1 Ml Insuln.pen 12 Unit SQ TIDWMEALS 05/06/17 Reported Losartan Potassium 100 Mg Tablet 100 Mg PO NOON 05/06/17 Reported Glucophage Xr (Metformin Hcl) 500 Mg Tab.er.24h 1,000 Mg PO BID 07/17/16 Rx Torsemide 10 Mg Tablet 10 Mg PO DAILY 07/15/16 Reported Sucralfate 1 Gm Tablet 1 Tab PO QID 07/15/16 Reported Omeprazole 20 Mg Capsule.dr 1 Cap PO BID 07/15/16 Reported Acetaminophen 325 Mg Tablet 650 Mg PO PRN BID PRN 07/15/16 Reported Levothyroxine Sodium 112 Mcg Tablet 1 Tab PO DAILY 07/15/16 Reported Atenolol 25 Mg Tablet 1 Tab PO BID 07/15/16 Reported Amlodipine Besylate 10 Mg Tablet 10 Mg PO DAILY 9/11/16 Reported Amitriptyline Hcl 25 Mg Tablet 1 Tab PO QHS 07/15/16 Reported Metoclopramide Hcl 5 Mg Tablet 5 Mg PO QIDACHS 07/15/16 Reported Alprazolam 0.5 Mg Tablet 1 Tab PO HS 07/15/16 Reported Alprazolam 0.5 Mg Tablet 2 Tab PO BIDWBKFT/HOLLIS 07/15/16 Reported Aspirin 81 Mg Tab.chew 1 Tab PO DAILY 07/15/16 Reported Wake 5-325 Tablet (Acetaminophen/Hydrocodone Bitart) 1 Each Tablet 1 Tab PO PRN Q6HRS PRN 06/03/16 Rx Comments CXR 05/13 clear Impression . ACUTE/CHROMIC RESP FAILURE, CLOSE TO BASELINE PNEUMONIA/ RX SEPTIC SHOCK POA, RESOLVED DM AECOPD/ RESOLVED. LEUKOCYTOSIS ACUTE PULMONARY EDEMA/ RESOLVED Plan . EXTUBATED 05/10 NEEDS REHAB VS SNU DNR D/W HER ANITBX PER ID NEPHRO CONSULT DVT AND GI PROPHYLAXIS PO NUTRITION PER SPEECH GALINDO PYLE MD May 13, 2017 11:01
[2017-05-13] MEDS ORDERED: ACETAMINOPHEN 325 MG TABLET. PO PRN (11:15)
[2017-05-13] MEDS ORDERED: HYDROcodone/APAP 5/325MG 1 TAB TABLET PO PRN (11:15)
[2017-05-13] MEDS: METOCLOPRAMIDE 5 MG TABLET. PO SCH ×3 (11:30→21:10)
--- NOTE | 2017-05-13 11:47 | PDOC ---
Renal-Progress Notes Subjective Notes Notes SOB BETTER OVERALL History of Present Illness Hx of present illness NO CHANGE Vitals Vitals Vital Signs Date Time Temp Pulse Resp B/P (MAP) Pulse Ox O2 Delivery O2 Flow Rate FiO2 05/13/17 11:15 99.1 93 24 182/86 (118) 91 Nasal Cannula 4.0 99.1 Weight Weight [ ] I.O. Intake and Output Intake and Output 05/13/17 07:00 Intake Total 653 ml Output Total 1925 ml Balance -1272 ml Intake Oral 500 ml IV Total 153 ml Output Urine Total 1925 ml # Bowel Movements 1 Labs Labs Laboratory Tests Test 05/12/17 12:38 05/12/17 18:00 05/12/17 21:24 05/13/17 04:10 Glucose (Fingerstick) 304 mg/dL (70-99) 313 mg/dL (70-99) 309 mg/dL (70-99) White Blood Count 11.2 x10^3/uL (4.0-11.0) Red Blood Count 4.61 x10^6/uL (3.50-5.40) Hemoglobin 11.0 g/dL (12.0-15.5) Hematocrit 35.3 % (36.0-47.0) Mean Corpuscular Volume 77 fL (79-100) Mean Corpuscular Hemoglobin 24 pg (25-35) Mean Corpuscular Hemoglobin Concent 31 g/dL (31-37) Red Cell Distribution Width 19.3 % (11.5-14.5) Platelet Count 358 x10^3/uL (140-400) Neutrophils (%) (Auto) 75 % (31-73) Lymphocytes (%) (Auto) 9 % (24-48) Monocytes (%) (Auto) 14 % (0-9) Eosinophils (%) (Auto) 1 % (0-3) Basophils (%) (Auto) 1 % (0-3) Neutrophils # (Auto) 8.4 x10^3uL (1.8-7.7) Lymphocytes # (Auto) 1.0 x10^3/uL (1.0-4.8) Monocytes # (Auto) 1.5 x10^3/uL (0.0-1.1) Eosinophils # (Auto) 0.1 x10^3/uL (0.0-0.7) Basophils # (Auto) 0.1 x10^3/uL (0.0-0.2) Sodium Level 145 mmol/L (136-145) Potassium Level 3.7 mmol/L (3.5-5.1) Chloride Level 107 mmol/L (98-107) Carbon Dioxide Level 29 mmol/L (21-32) Anion Gap 9 (6-14) Blood Urea Nitrogen 18 mg/dL (7-20) Creatinine 1.4 mg/dL (0.6-1.0) Estimated GFR (Cockcroft-Gault) 37.2 BUN/Creatinine Ratio 13 (6-20) Glucose Level 211 mg/dL (70-99) Calcium Level 9.4 mg/dL (8.5-10.1) Phosphorus Level 3.7 mg/dL (2.6-4.7) Magnesium Level 2.5 mg/dL (1.8-2.4) Total Bilirubin 0.5 mg/dL (0.2-1.0) Aspartate Amino Transf (AST/SGOT) 22 U/L (15-37) Alanine Aminotransferase (ALT/SGPT) 45 U/L (14-59) Alkaline Phosphatase 122 U/L (46-116) Total Protein 7.6 g/dL (6.4-8.2) Albumin 2.8 g/dL (3.4-5.0) Albumin/Globulin Ratio 0.6 (1.0-1.7) Test 05/13/17 07:10 05/13/17 11:20 Glucose (Fingerstick) 194 mg/dL (70-99) 296 mg/dL (70-99) Micro Micro Microbiology 05/06/17 Blood Culture - Final, Complete NO GROWTH AFTER 5 DAYS 05/09/17 Sputum Culture - Final, Complete 05/09/17 Sputum Result 1 - Final, Complete 05/06/17 Urine Culture - Final, Complete 05/06/17 Urine Culture Result 1 (ANURAG) - Final, Complete 05/09/17 Gram Stain - Final, Complete Review of Systems Constitutional: yes: weakness, alert, oriented Ears/Nose/Throat: Yes: no symptom reported Pulmonary: Yes dyspnea Cardiovascular: Yes no symptom reported Gastrointestional: Yes: no symptom reported Musculoskeletal: Yes: muscle stiffness Skin: Yes no symptom reported Physical Exam General Appearance: no apparent distress Skin: warm Respiratory: decreased breath sounds, wheezing Heart: S1S2 Abdomen: soft, bowel sounds present Extremities: no edema Neurology: alert Assessment Assessment IMP CKD STAGE 3-STABLE WITH CR OF 1.4 HYPONATREMIA-RESOLVED AECOPD PLAN STABLE FROM RENAL STANDPOINT LABS IN AM ERNIE SMITH MD May 13, 2017 11:47
--- NOTE | 2017-05-13 11:48 | PN ---
PROGRESS NOTES Subjective Subjective C/o cough with blood tinged sputum She denied any chest pain or shotness of braeth Objective Objective Vital Signs Date Time Temp Pulse Resp B/P (MAP) Pulse Ox O2 Delivery O2 Flow Rate FiO2 05/13/17 11:15 99.1 93 24 182/86 (118) 91 Nasal Cannula 4.0 99.1 Intake and Output 05/13/17 06:59 Intake Total 653 ml Output Total 1925 ml Balance -1272 ml Intake Oral 500 ml IV Total 153 ml Output Urine Total 1925 ml # Bowel Movements 1 Physical Exam Physical Exam Resting propped up in bed in NAD Vitals are stable HEET NC/AT hEART S1+S2 normal Chest CTA Abdomen soft non tender [employer] grossly intact Diagnosis DIAGNOSIS A/C Respiratory failure Pulmonary Edema Hyponatremia Sepsis PROBLEM LIST Problems Medical Problems: (1) Respiratory failure Status: Acute Assessment Assessment Problems Medical Problems: (1) Respiratory failure Status: Acute Comment Labs Laboratory Tests Test 05/11/17 11:57 05/11/17 17:28 05/11/17 20:36 05/12/17 00:40 Glucose (Fingerstick) 130 mg/dL (70-99) 173 mg/dL (70-99) 170 mg/dL (70-99) 170 mg/dL (70-99) Test 05/12/17 05:28 05/12/17 06:18 05/12/17 12:38 05/12/17 18:00 Sodium Level 143 mmol/L (136-145) Potassium Level 4.1 mmol/L (3.5-5.1) Chloride Level 105 mmol/L (98-107) Carbon Dioxide Level 25 mmol/L (21-32) Anion Gap 13 (6-14) Blood Urea Nitrogen 24 mg/dL (7-20) Creatinine 1.3 mg/dL (0.6-1.0) Estimated GFR (Cockcroft-Gault) 40.5 Glucose Level 205 mg/dL (70-99) Calcium Level 9.9 mg/dL (8.5-10.1) Phosphorus Level 4.0 mg/dL (2.6-4.7) Magnesium Level 2.7 mg/dL (1.8-2.4) Albumin 2.9 g/dL (3.4-5.0) Glucose (Fingerstick) 190 mg/dL (70-99) 304 mg/dL (70-99) 313 mg/dL (70-99) Test 05/12/17 21:24 05/13/17 04:10 05/13/17 07:10 05/13/17 11:20 Glucose (Fingerstick) 309 mg/dL (70-99) 194 mg/dL (70-99) 296 mg/dL (70-99) White Blood Count 11.2 x10^3/uL (4.0-11.0) Red Blood Count 4.61 x10^6/uL (3.50-5.40) Hemoglobin 11.0 g/dL (12.0-15.5) Hematocrit 35.3 % (36.0-47.0) Mean Corpuscular Volume 77 fL (79-100) Mean Corpuscular Hemoglobin 24 pg (25-35) Mean Corpuscular Hemoglobin Concent 31 g/dL (31-37) Red Cell Distribution Width 19.3 % (11.5-14.5) Platelet Count 358 x10^3/uL (140-400) Neutrophils (%) (Auto) 75 % (31-73) Lymphocytes (%) (Auto) 9 % (24-48) Monocytes (%) (Auto) 14 % (0-9) Eosinophils (%) (Auto) 1 % (0-3) Basophils (%) (Auto) 1 % (0-3) Neutrophils # (Auto) 8.4 x10^3uL (1.8-7.7) Lymphocytes # (Auto) 1.0 x10^3/uL (1.0-4.8) Monocytes # (Auto) 1.5 x10^3/uL (0.0-1.1) Eosinophils # (Auto) 0.1 x10^3/uL (0.0-0.7) Basophils # (Auto) 0.1 x10^3/uL (0.0-0.2) Sodium Level 145 mmol/L (136-145) Potassium Level 3.7 mmol/L (3.5-5.1) Chloride Level 107 mmol/L (98-107) Carbon Dioxide Level 29 mmol/L (21-32) Anion Gap 9 (6-14) Blood Urea Nitrogen 18 mg/dL (7-20) Creatinine 1.4 mg/dL (0.6-1.0) Estimated GFR (Cockcroft-Gault) 37.2 BUN/Creatinine Ratio 13 (6-20) Glucose Level 211 mg/dL (70-99) Calcium Level 9.4 mg/dL (8.5-10.1) Phosphorus Level 3.7 mg/dL (2.6-4.7) Magnesium Level 2.5 mg/dL (1.8-2.4) Total Bilirubin 0.5 mg/dL (0.2-1.0) Aspartate Amino Transf (AST/SGOT) 22 U/L (15-37) Alanine Aminotransferase (ALT/SGPT) 45 U/L (14-59) Alkaline Phosphatase 122 U/L (46-116) Total Protein 7.6 g/dL (6.4-8.2) Albumin 2.8 g/dL (3.4-5.0) Albumin/Globulin Ratio 0.6 (1.0-1.7) Laboratory Tests Test 05/12/17 12:38 05/12/17 18:00 05/12/17 21:24 05/13/17 04:10 Glucose (Fingerstick) 304 mg/dL (70-99) 313 mg/dL (70-99) 309 mg/dL (70-99) White Blood Count 11.2 x10^3/uL (4.0-11.0) Red Blood Count 4.61 x10^6/uL (3.50-5.40) Hemoglobin 11.0 g/dL (12.0-15.5) Hematocrit 35.3 % (36.0-47.0) Mean Corpuscular Volume 77 fL (79-100) Mean Corpuscular Hemoglobin 24 pg (25-35) Mean Corpuscular Hemoglobin Concent 31 g/dL (31-37) Red Cell Distribution Width 19.3 % (11.5-14.5) Platelet Count 358 x10^3/uL (140-400) Neutrophils (%) (Auto) 75 % (31-73) Lymphocytes (%) (Auto) 9 % (24-48) Monocytes (%) (Auto) 14 % (0-9) Eosinophils (%) (Auto) 1 % (0-3) Basophils (%) (Auto) 1 % (0-3) Neutrophils # (Auto) 8.4 x10^3uL (1.8-7.7) Lymphocytes # (Auto) 1.0 x10^3/uL (1.0-4.8) Monocytes # (Auto) 1.5 x10^3/uL (0.0-1.1) Eosinophils # (Auto) 0.1 x10^3/uL (0.0-0.7) Basophils # (Auto) 0.1 x10^3/uL (0.0-0.2) Sodium Level 145 mmol/L (136-145) Potassium Level 3.7 mmol/L (3.5-5.1) Chloride Level 107 mmol/L (98-107) Carbon Dioxide Level 29 mmol/L (21-32) Anion Gap 9 (6-14) Blood Urea Nitrogen 18 mg/dL (7-20) Creatinine 1.4 mg/dL (0.6-1.0) Estimated GFR (Cockcroft-Gault) 37.2 BUN/Creatinine Ratio 13 (6-20) Glucose Level 211 mg/dL (70-99) Calcium Level 9.4 mg/dL (8.5-10.1) Phosphorus Level 3.7 mg/dL (2.6-4.7) Magnesium Level 2.5 mg/dL (1.8-2.4) Total Bilirubin 0.5 mg/dL (0.2-1.0) Aspartate Amino Transf (AST/SGOT) 22 U/L (15-37) Alanine Aminotransferase (ALT/SGPT) 45 U/L (14-59) Alkaline Phosphatase 122 U/L (46-116) Total Protein 7.6 g/dL (6.4-8.2) Albumin 2.8 g/dL (3.4-5.0) Albumin/Globulin Ratio 0.6 (1.0-1.7) Test 05/13/17 07:10 05/13/17 11:20 Glucose (Fingerstick) 194 mg/dL (70-99) 296 mg/dL (70-99) Microbiology 05/06/17 Blood Culture - Final, Complete NO GROWTH AFTER 5 DAYS 05/09/17 Sputum Culture - Final, Complete 05/09/17 Sputum Result 1 - Final, Complete 05/06/17 Urine Culture - Final, Complete 05/06/17 Urine Culture Result 1 (ANURAG) - Final, Complete 05/09/17 Gram Stain - Final, Complete Medications Current Medications Dopamine HCl/ Dextrose 250 ml @ 16.856 mls/ hr 1X ONCE IV Last administered on 05/05/17 22:54; Start 05/05/17 at 23:00; Stop 05/06/17 at 13:49; Status DC Torsemide (Demadex) 20 mg 1X ONCE PO Last administered on 05/06/17 00:44; Start 05/05/17 at 23:45; Stop 05/05/17 at 23:46; Status DC Bumetanide (Bumex) 1 mg BID92 IV Last administered on 05/10/17 08:45; Start 05/06/17 at 09:00; Stop 05/10/17 at 13:39; Status DC Ondansetron HCl (Zofran) 4 mg 1X ONCE IV Last administered on 05/06/17 00:09; Start 05/05/17 at 23:45; Stop 05/05/17 at 23:46; Status DC Ondansetron HCl (Zofran) 4 mg PRN Q8HRS PRN IV NAUSEA/VOMITING; Start 05/05/17 at 23:45; Stop 05/06/17 at 23:44; Status DC Acetaminophen/ Hydrocodone Bitart (Lortab 5/325) 1 tab PRN Q6HRS PRN PO MODERATE - SEVERE PAIN Last administered on 05/06/17 05:21; Start 05/06/17 at 05: 00 Acetaminophen/ Hydrocodone Bitart (Lortab 5/325) 2 tab PRN Q6HRS PRN PO MODERATE - SEVERE PAIN Last administered on 05/08/17 18:09; Start 05/06/17 at 05: 00 Dopamine HCl/ Dextrose 250 ml @ 16.627 mls/ hr CONT PRN IV SEE I/O RECORD Last administered on 05/06/17 12:28; Start 05/06/17 at 06:00 Vancomycin HCl 1.5 gm/Sodium Chloride 500 ml @ 250 mls/hr 1X ONCE IV Last administered on 05/06/17 10:34; Start 05/06/17 at 09:00; Stop 05/06/17 at 10:59; Status DC Levofloxacin/ Dextrose 100 ml @ 100 mls/hr Q24H IV Last administered on 12:28; Start 05/06/17 at 10:00; Stop 05/08/17 at 09:28; Status DC Insulin Aspart (NovoLOG) 0-9 UNITS TIDWMEALS SQ Last administered on 05/06/17 18:09; Start 05/06/17 at 12:00; Stop 05/06/17 at 23:03; Status DC Dextrose (Dextrose 50%-Water Syringe) 12.5 gm PRN Q15MIN PRN IV SEE COMMENTS; Start 05/06/17 at 08:45 Enoxaparin Sodium (Lovenox 40mg Syringe) 40 mg Q24H SQ Last administered on 09:09; Start 05/06/17 at 09:00 Piperacillin Sod/ Tazobactam Sod 3.375 gm/Sodium Chloride 50 ml @ 100 mls/hr Q6HRS IV Last administered on 05/13/17 05:18; Start 05/06/17 at 10:30 Vancomycin HCl (Vanco Per Pharmacy) 1 each PRN DAILY PRN MC SEE COMMENTS Last administered on 05/08/17 11:20; Start 05/06/17 at 10:00; Stop 05/09/17 at 08:02; Status DC Succinylcholine Chloride (Anectine) 200 mg STK-MED ONCE .ROUTE ; Start 05/06/17 at 10:13; Stop 05/06/17 at 10:14; Status DC Propofol 20 ml @ As Directed STK-MED ONCE IV ; Start 05/06/17 at 10:13; Stop 05/06 at 10:14; Status DC Lidocaine HCl (Lidocaine Pf 2% Vial) 5 ml STK-MED ONCE .ROUTE ; Start 05/06/17 at 10:13; Stop 05/06/17 at 10:14; Status DC Propofol 0 ml @ As Directed STK-MED ONCE IV ; Start 05/06/17 at 10:14; Stop at 10:15; Status DC Midazolam HCl 100 ml @ As Directed STK-MED ONCE IV ; Start 05/06/17 at 10:14; Stop 05/06/17 at 10:15; Status DC Midazolam HCl 100 ml @ 0 mls/hr CONT PRN IV SEE I/O RECORD Last administered on 05/09/17 04:26; Start 05/06/17 at 11:00; Stop 05/12/17 at 09:35; Status DC Vancomycin HCl 500 mg/Sodium Chloride 100 ml @ 100 mls/hr 1X ONCE IV Last administered on 05/06/17 16:52; Start 05/06/17 at 12:00; Stop 05/06/17 at 12:59; Status DC Vancomycin HCl 1.25 gm/Sodium Chloride 250 ml @ 167 mls/hr Q24H IV Last administered on 05/07/17 10:01; Start 05/07/17 at 10:00; Stop 05/08/17 at 11:18; Status DC Vancomycin HCl 1 each 1X ONCE MC Last administered on 05/08/17 10:00; Start at 09:30; Stop 05/08/17 at 09:31; Status DC Isoproterenol HCl 1 mg/Dextrose 255 ml @ 0 mls/hr CONT PRN IV SEE I/O RECORD Last administered on 05/07/17 00:09; Start 05/06/17 at 13:00 Albumin Human 50 ml @ 50 mls/hr 1X ONCE IV Last administered on 05/06/17 15:30 ; Start 05/06/17 at 15:30; Stop 05/06/17 at 16:29; Status DC Insulin Aspart (NovoLOG) BIDBFRMEAL SQ ; Start 05/07/17 at 07:30; Status UNV Insulin Detemir (Levemir) 15 units QHS SQ Last administered on 05/12/17 21:36; Start 05/06/17 at 21:00 Fentanyl Citrate (Fentanyl 2ml Vial) 25 mcg Q3HRS PRN IV MILD PAIN Last administered on 05/12/17 00:23; Start 05/06/17 at 18:00 Insulin Aspart (NovoLOG) 0-9 UNITS Q6HRS SQ Last administered on 05/12/17 18:10 ; Start 05/07/17 at 00:00; Stop 05/12/17 at 21:34; Status DC Acetaminophen (Tylenol) 650 mg PRN Q6HRS PRN NG MILD PAIN / TEMP Last administered on 05/07/17 17:57; Start 05/07/17 at 00:45 Chlorhexidine Gluconate (Peridex) 15 ml BID MM Last administered on 05/12/17 08 :08; Start 05/07/17 at 21:00; Stop 05/12/17 at 09:34; Status DC Famotidine (Pepcid) 20 mg QHS IVP Last administered on 05/12/17 18:37; Start at 21:00 Enalaprilat (Vasotec) 1.25 mg Q6HRS PRN IV HYPERTENSION, SEE COMMENTS Last administered on 05/13/17 05:18; Start 05/07/17 at 19:30 Magnesium Sulfate/ Dextrose 50 ml @ 25 mls/hr PRN DAILY PRN IV for Mag < 1.7 on am labs; Start 05/08/17 at 09:00 Levofloxacin/ Dextrose 150 ml @ 100 mls/hr Q48H IV Last administered on 11:18; Start 05/08/17 at 10:00; Stop 05/09/17 at 08:02; Status DC Vancomycin HCl 1.5 gm/Sodium Chloride 500 ml @ 250 mls/hr Q24H IV Last administered on 05/08/17 13:05; Start 05/08/17 at 11:30; Stop 05/09/17 at 08:02; Status DC Alprazolam (Xanax) 1 mg PRN Q8HRS PRN PO ANXIETY / AGITATION Last administered on 05/12/17 23:14; Start 05/08/17 at 16:45 Propofol 100 ml @ 0 mls/hr CONT PRN IV SEE I/O RECORD Last administered on 23:19; Start 05/08/17 at 19:15; Stop 05/11/17 at 19:04; Status DC Furosemide (Lasix) 40 mg 1X ONCE IVP Last administered on 05/09/17 16:09; Start 05/09/17 at 15:00; Stop 05/09/17 at 15:01; Status DC Furosemide (Lasix) 40 mg 1X ONCE IVP ; Start 05/09/17 at 15:00; Stop 05/09/17 at 15:01; Status UNV Dexmedetomidine HCl 200 mcg/ Sodium Chloride 50 ml @ 0 mls/hr CONT PRN IV PER PROTOCOL Last administered on 05/10/17 04:51; Start 05/09/17 at 15:00; Stop at 19:04; Status DC Bisacodyl (Dulcolax Supp) 10 mg PRN DAILY PRN [place] CONSTIPATION Last administered on 05/10/17 08:45; Start 05/10/17 at 08:15 Lorazepam (Ativan) 0.5 mg PRN Q8HRS PRN IV ANXIETY / AGITATION Last administered on 05/12/17 04:29; Start 05/10/17 at 20:00 Potassium Chloride (Klor-Con) 20 meq BID PO Last administered on 05/13/17 09: 09; Start 05/11/17 at 13:30 Dextrose/Sodium Chloride 1,000 ml @ 60 mls/hr [id number] IV Last administered on 05/12/17 12:32; Start 05/11/17 at 19:30; Stop 05/12/17 at 21:34; Status DC Potassium Chloride 100 ml @ 100 mls/hr Q1H IV Last administered on 05/10/17 02 :30; Start 05/11/17 at 20:00; Stop 05/11/17 at 23:59; Status DC Amitriptyline HCl (Elavil) 25 mg QHS PO Last administered on 05/12/17 21:18; Start 05/12/17 at 21:00 Amlodipine Besylate (Norvasc) 5 mg 1X ONCE PO Last administered on 05/12/17 12 :31; Start 05/12/17 at 12:30; Stop 05/12/17 at 12:31; Status DC Insulin Aspart (NovoLOG) 0-9 UNITS TIDACHC SQ Last administered on 05/13/17 09 :15; Start 05/13/17 at 07:30 Acetaminophen (Tylenol) 650 mg PRN BID PRN PO PAIN; Start 05/13/17 at 11:15 Alprazolam (Xanax) 0.5 mg HS PO ; Start 05/13/17 at 21:00 Alprazolam (Xanax) 1 mg BIDWBKFT/HOLLIS PO ; Start 05/13/17 at 12:00 Amitriptyline HCl (Elavil) 25 mg QHS PO ; Start 05/13/17 at 21:00; Status UNV Amlodipine Besylate (Norvasc) 10 mg DAILY PO ; Start 05/13/17 at 12:00 Ascorbic Acid (Vitamin C) 500 mg DAILY PO ; Start 05/13/17 at 12:00 Aspirin (Children'S Aspirin) 81 mg DAILYWBKFT PO ; Start 05/13/17 at 12:00 Atenolol (Tenormin) 25 mg BID PO ; Start 05/13/17 at 12:00 Vitamin D (Vitamin D3) 1,000 unit DAILY PO ; Start 05/13/17 at 12:00 Duloxetine HCl (Cymbalta) 30 mg DAILY PO ; Start 05/13/17 at 12:00 Estrogens Conjugated (Premarin) 0.625 mg DAILY PO ; Start 05/13/17 at 12:00 Acetaminophen/ Hydrocodone Bitart (Lortab 5/325) 1 tab PRN Q6HRS PRN PO PAIN; Start 05/13/17 at 11:15 Insulin Aspart (NovoLOG) 12 units TIDWMEALS SQ ; Start 05/13/17 at 12:00 Levothyroxine Sodium (Synthroid) 112 mcg DAILY07 PO ; Start 05/13/17 at 12:00 Losartan Potassium (Cozaar) 50 mg DAILY PO ; Start 05/14/17 at 09:00 Metformin HCl (Glucophage Xr) 1,000 mg BIDWMEALS PO ; Start 05/13/17 at 17:00 Metoclopramide HCl (Reglan) 5 mg QIDACHS PO ; Start 05/13/17 at 11:30 Nortriptyline HCl (Pamelor) 25 mg QHS PO ; Start 05/13/17 at 21:00 Pantoprazole Sodium (Protonix) 40 mg BIDAC PO ; Start 05/13/17 at 12:00 Sucralfate (Carafate) 1 gm QIDPMEDS PO ; Start 05/13/17 at 14:00 Non-Formulary Medication 1 each DAILY PO ; Start 05/14/17 at 09:00; Status UNV Non-Formulary Medication 5,000 mcg DAILY PO ; Start 05/14/17 at 09:00; Status UNV Calcium/Vitamin D (Oscal D 500mg/ 200uts) 1 tab DAILY PO ; Start 05/13/17 at 12: 00 Non-Formulary Medication 1 each DAILY PO ; Start 05/14/17 at 09:00; Status UNV Losartan Potassium (Cozaar) 100 mg NOON PO ; Start 05/13/17 at 12:00 Non-Formulary Medication 1 cap DAILY PO ; Start 05/14/17 at 09:00; Status UNV Fish Oil (Fish Oil) 1,000 mg DAILY PO ; Start 05/13/17 at 12:00 Non-Formulary Medication 1 cap BID PO ; Start 05/13/17 at 21:00; Status UNV Linagliptin (Tradjenta) 5 mg DAILY PO ; Start 05/13/17 at 12:00 Torsemide (Demadex) 10 mg DAILY PO ; Start 05/13/17 at 12:00 Non-Formulary Medication 1 each DAILY PO ; Start 05/14/17 at 09:00; Status UNV Active Scripts Active Glucophage Xr (Metformin Hcl) 500 Mg Tab.er.24h 1,000 Mg PO BID [place] 5-325 Tablet (Acetaminophen/Hydrocodone Bitart) 1 Each Tablet 1 Tab PO PRN Q6HRS PRN Reported Antioxidant Softgel (Beta-Carotene(A) W-C & E/Min) 1 Each Capsule 1 Each PO DAILY Hyaluronic Acid 40 Mg Capsule (Hyalur Ac/Chond Sul/Colg Ii/Aa) 1 Each Capsule 1 Each PO DAILY Biotin 2,500 Mcg Capsule 5,000 Mcg PO DAILY Benefiber (Wheat Dextrin) 1 Each Powd.pack 1 Each PO DAILY Benefiber (Wheat Dextrin) 1 Each Powd.pack 1 Each PO [place] (Cranberry Extract) 200 Mg Capsule 36 Mg PO Caltrate 600 + D Tablet (Calcium Carbonate/Vitamin D3) 1 Each Tablet 1 Each PO DAILY Vitamin C With Aletha Hips (Ascorbic Acid) 500 Mg Tablet 500 Mg PO DAILY Vitamin D3 (Cholecalciferol (Vitamin D3)) 1,000 Unit Tablet 1 Tab PO DAILY Fish Oil 1,000 Mg Softgel ([place]-3 Fatty Acids/Fish Oil) 1 Each Capsule 1 Each PO DAILY Premarin (Estrogens, Conjugated) 0.625 Mg Tablet 1 Tab PO DAILY Nortriptyline Hcl 25 Mg Capsule 1 Cap PO QHS Nitrofurantoin (Nitrofurantoin Macrocrystal) 100 Mg Capsule 1 Cap PO DAILY Cymbalta (Duloxetine Hcl) 30 Mg Capsule.dr 1 Cap PO DAILY Pantoprazole Sodium 40 Mg Tablet.dr 1 Tab PO DAILY Losartan Potassium 50 Mg Tablet 50 Mg PO DAILY Januvia (Sitagliptin Phosphate) 100 Mg Tablet 1 Tab PO DAILY Novolog Flexpen (Insulin Aspart) 100 Unit/1 Ml Insuln.pen 12 Unit SQ TIDWMEALS Losartan Potassium 100 Mg Tablet 100 Mg PO NOON Torsemide 10 Mg Tablet 10 Mg PO DAILY Sucralfate 1 Gm Tablet 1 Tab PO QID Omeprazole 20 Mg Capsule.dr 1 Cap PO BID Acetaminophen 325 Mg Tablet 650 Mg PO PRN BID PRN Levothyroxine Sodium 112 Mcg Tablet 1 Tab PO DAILY Atenolol 25 Mg Tablet 1 Tab PO BID Amlodipine Besylate 10 Mg Tablet 10 Mg PO DAILY Amitriptyline Hcl 25 Mg Tablet 1 Tab PO QHS Metoclopramide Hcl 5 Mg Tablet 5 Mg PO QIDACHS Alprazolam 0.5 Mg Tablet 1 Tab PO HS Alprazolam 0.5 Mg Tablet 2 Tab PO BIDWBKFT/HOLLIS Aspirin 81 Mg Tab.chew 1 Tab PO DAILY Vitals/I & O Vital Sign - Last 24 Hours 05/12/17 05/12/17 05/12/17 05/12/17 12:31 15:00 18:02 19:00 Temp 98.4 98.2 98.4 98.2 Pulse 88 89 89 90 Resp 20 24 B/P (MAP) 160/73 189/91 (123) 189/91 170/77 (108) Pulse Ox 94 95 O2 Delivery Nasal Cannula Nasal Cannula O2 Flow Rate 4.0 4.0 05/12/17 05/12/17 05/12/17 05/13/17 20:00 23:15 23:27 00:26 Temp 98.6 98.6 Pulse 82 82 Resp 24 B/P (MAP) 198/87 (124) 198/87 174/81 (112) Pulse Ox 95 O2 Delivery Nasal Cannula Nasal Cannula O2 Flow Rate 4.0 4.0 05/13/17 05/13/17 05/13/17 05/13/17 03:00 04:00 04:35 05:18 Temp 98.5 98.5 Pulse 83 85 81 77 Resp 24 B/P (MAP) 185/88 (120) 179/69 (105) 176/87 Pulse Ox 98 O2 Delivery Simple Mask O2 Flow Rate 4.0 05/13/17 05/13/17 05/13/17 07:00 07:57 11:15 Temp 98.9 99.1 98.9 99.1 Pulse 82 93 Resp 24 24 B/P (MAP) 187/88 (121) 182/86 (118) Pulse Ox 98 91 O2 Delivery Nasal Cannula Nasal Cannula Nasal Cannula O2 Flow Rate 4.0 4.0 4.0 Intake and Output 05/12/17 05/12/17 05/13/17 14:59 22:59 06:59 Intake Total 240 ml 293 ml 120 ml Output Total 1225 ml 700 ml Balance 240 ml -932 ml -580 ml WALTER FINN MD May 13, 2017 11:48
[2017-05-13] MEDS: ASPIRIN CHEWABLE 81 MG TABLET. PO SCH (12:00)
[2017-05-13] MEDS: TORSEMIDE 20 MG TABLET. PO SCH (12:00)
[2017-05-13] MEDS: DULoxetine HCL 30 MG CAPSULE.DR PO SCH (12:00)
[2017-05-13] MEDS: ASCORBIC ACID 500 MG TABLET PO SCH (12:00)
[2017-05-13] MEDS: CALCIUM CARB/VIT D3 500/200 TABLET. PO SCH (12:00)
[2017-05-13] MEDS: PANTOPRAZOLE 40 MG TABLET.DR. PO SCH ×2 (12:00→16:30)
[2017-05-13] MEDS: ESTROGENS, CONJUGATED 0.625 MG TABLET PO SCH (12:00)
[2017-05-13] MEDS: LINAGLIPTIN 5 MG TABLET PO SCH (12:00)
[2017-05-13] MEDS: LEVOTHYROXINE 112 MCG TABLET PO SCH (12:00)
[2017-05-13] MEDS: CHOLECALCIFEROL (VITAMIN D3) 1,000 UNIT TABLET PO SCH (12:00)
[2017-05-13] MEDS: ATENOLOL 25 MG TABLET. PO SCH ×2 (12:00→21:10)
[2017-05-13] MEDS: OMEGA-3 FATTY ACIDS/FISH OIL 1,000 MG CAPSULE. PO SCH (12:00)
[2017-05-13] MEDS: amLODIPine BESYLATE 10 MG TABLET PO SCH (12:52)
[2017-05-13] MEDS: LOSARTAN POTASSIUM 50 MG TABLET. PO SCH (12:53)
[2017-05-13] MEDS: ALPRAZolam 0.5 MG TABLET PO SCH ×2 (12:57→21:08)
--- NOTE | 2017-05-13 13:27 | PDOC ---
PROGRESS NOTES Subjective Subjective Ms Kennedy reports no chest pain. She is breathing well off the ventilator. Her blood pressure continues to run high. Objective Objective Vital Signs Date Time Temp Pulse Resp B/P (MAP) Pulse Ox O2 Delivery O2 Flow Rate FiO2 05/13/17 12:53 93 182/86 05/13/17 11:15 99.1 24 91 Nasal Cannula 4.0 99.1 Intake and Output 05/13/17 07:00 Intake Total 653 ml Output Total 1925 ml Balance -1272 ml Intake Oral 500 ml IV Total 153 ml Output Urine Total 1925 ml # Bowel Movements 1 Physical Exam Heart: Regular rate, Normal S1, Normal S2 (and rhythm) Extremities: Normal pulses (2/4 radial b/l) General: No acute distress Lungs: Clear to auscultation, Normal air movement Assessment Assessment Ms Kennedy continues to have good cardiac function. Her breathing is improving. Her blood pressure remains elevated, will work on optimizing medications. Resume her home PO meds. Problems Medical Problems: (1) Respiratory failure Status: Acute Comment Review of Relevant I have reviewed the following items katy (where applicable) has been applied. Labs Laboratory Tests Test 05/11/17 17:28 05/11/17 20:36 05/12/17 00:40 05/12/17 05:28 Glucose (Fingerstick) 173 mg/dL (70-99) 170 mg/dL (70-99) 170 mg/dL (70-99) Sodium Level 143 mmol/L (136-145) Potassium Level 4.1 mmol/L (3.5-5.1) Chloride Level 105 mmol/L (98-107) Carbon Dioxide Level 25 mmol/L (21-32) Anion Gap 13 (6-14) Blood Urea Nitrogen 24 mg/dL (7-20) Creatinine 1.3 mg/dL (0.6-1.0) Estimated GFR (Cockcroft-Gault) 40.5 Glucose Level 205 mg/dL (70-99) Calcium Level 9.9 mg/dL (8.5-10.1) Phosphorus Level 4.0 mg/dL (2.6-4.7) Magnesium Level 2.7 mg/dL (1.8-2.4) Albumin 2.9 g/dL (3.4-5.0) Test 05/12/17 06:18 05/12/17 12:38 05/12/17 18:00 05/12/17 21:24 Glucose (Fingerstick) 190 mg/dL (70-99) 304 mg/dL (70-99) 313 mg/dL (70-99) 309 mg/dL (70-99) Test 05/13/17 04:10 05/13/17 07:10 05/13/17 11:20 White Blood Count 11.2 x10^3/uL (4.0-11.0) Red Blood Count 4.61 x10^6/uL (3.50-5.40) Hemoglobin 11.0 g/dL (12.0-15.5) Hematocrit 35.3 % (36.0-47.0) Mean Corpuscular Volume 77 fL (79-100) Mean Corpuscular Hemoglobin 24 pg (25-35) Mean Corpuscular Hemoglobin Concent 31 g/dL (31-37) Red Cell Distribution Width 19.3 % (11.5-14.5) Platelet Count 358 x10^3/uL (140-400) Neutrophils (%) (Auto) 75 % (31-73) Lymphocytes (%) (Auto) 9 % (24-48) Monocytes (%) (Auto) 14 % (0-9) Eosinophils (%) (Auto) 1 % (0-3) Basophils (%) (Auto) 1 % (0-3) Neutrophils # (Auto) 8.4 x10^3uL (1.8-7.7) Lymphocytes # (Auto) 1.0 x10^3/uL (1.0-4.8) Monocytes # (Auto) 1.5 x10^3/uL (0.0-1.1) Eosinophils # (Auto) 0.1 x10^3/uL (0.0-0.7) Basophils # (Auto) 0.1 x10^3/uL (0.0-0.2) Sodium Level 145 mmol/L (136-145) Potassium Level 3.7 mmol/L (3.5-5.1) Chloride Level 107 mmol/L (98-107) Carbon Dioxide Level 29 mmol/L (21-32) Anion Gap 9 (6-14) Blood Urea Nitrogen 18 mg/dL (7-20) Creatinine 1.4 mg/dL (0.6-1.0) Estimated GFR (Cockcroft-Gault) 37.2 BUN/Creatinine Ratio 13 (6-20) Glucose Level 211 mg/dL (70-99) Calcium Level 9.4 mg/dL (8.5-10.1) Phosphorus Level 3.7 mg/dL (2.6-4.7) Magnesium Level 2.5 mg/dL (1.8-2.4) Total Bilirubin 0.5 mg/dL (0.2-1.0) Aspartate Amino Transf (AST/SGOT) 22 U/L (15-37) Alanine Aminotransferase (ALT/SGPT) 45 U/L (14-59) Alkaline Phosphatase 122 U/L (46-116) Total Protein 7.6 g/dL (6.4-8.2) Albumin 2.8 g/dL (3.4-5.0) Albumin/Globulin Ratio 0.6 (1.0-1.7) Glucose (Fingerstick) 194 mg/dL (70-99) 296 mg/dL (70-99) Laboratory Tests Test 05/12/17 18:00 05/12/17 21:24 05/13/17 04:10 05/13/17 07:10 Glucose (Fingerstick) 313 mg/dL (70-99) 309 mg/dL (70-99) 194 mg/dL (70-99) White Blood Count 11.2 x10^3/uL (4.0-11.0) Red Blood Count 4.61 x10^6/uL (3.50-5.40) Hemoglobin 11.0 g/dL (12.0-15.5) Hematocrit 35.3 % (36.0-47.0) Mean Corpuscular Volume 77 fL (79-100) Mean Corpuscular Hemoglobin 24 pg (25-35) Mean Corpuscular Hemoglobin Concent 31 g/dL (31-37) Red Cell Distribution Width 19.3 % (11.5-14.5) Platelet Count 358 x10^3/uL (140-400) Neutrophils (%) (Auto) 75 % (31-73) Lymphocytes (%) (Auto) 9 % (24-48) Monocytes (%) (Auto) 14 % (0-9) Eosinophils (%) (Auto) 1 % (0-3) Basophils (%) (Auto) 1 % (0-3) Neutrophils # (Auto) 8.4 x10^3uL (1.8-7.7) Lymphocytes # (Auto) 1.0 x10^3/uL (1.0-4.8) Monocytes # (Auto) 1.5 x10^3/uL (0.0-1.1) Eosinophils # (Auto) 0.1 x10^3/uL (0.0-0.7) Basophils # (Auto) 0.1 x10^3/uL (0.0-0.2) Sodium Level 145 mmol/L (136-145) Potassium Level 3.7 mmol/L (3.5-5.1) Chloride Level 107 mmol/L (98-107) Carbon Dioxide Level 29 mmol/L (21-32) Anion Gap 9 (6-14) Blood Urea Nitrogen 18 mg/dL (7-20) Creatinine 1.4 mg/dL (0.6-1.0) Estimated GFR (Cockcroft-Gault) 37.2 BUN/Creatinine Ratio 13 (6-20) Glucose Level 211 mg/dL (70-99) Calcium Level 9.4 mg/dL (8.5-10.1) Phosphorus Level 3.7 mg/dL (2.6-4.7) Magnesium Level 2.5 mg/dL (1.8-2.4) Total Bilirubin 0.5 mg/dL (0.2-1.0) Aspartate Amino Transf (AST/SGOT) 22 U/L (15-37) Alanine Aminotransferase (ALT/SGPT) 45 U/L (14-59) Alkaline Phosphatase 122 U/L (46-116) Total Protein 7.6 g/dL (6.4-8.2) Albumin 2.8 g/dL (3.4-5.0) Albumin/Globulin Ratio 0.6 (1.0-1.7) Test 05/13/17 11:20 Glucose (Fingerstick) 296 mg/dL (70-99) Microbiology 05/06/17 Blood Culture - Final, Complete NO GROWTH AFTER 5 DAYS 05/09/17 Sputum Culture - Final, Complete 05/09/17 Sputum Result 1 - Final, Complete 05/06/17 Urine Culture - Final, Complete 05/06/17 Urine Culture Result 1 (ANURAG) - Final, Complete 05/09/17 Gram Stain - Final, Complete Medications Current Medications Dopamine HCl/ Dextrose 250 ml @ 16.856 mls/ hr 1X ONCE IV Last administered on 05/05/17 22:54; Start 05/05/17 at 23:00; Stop 05/06/17 at 13:49; Status DC Torsemide (Demadex) 20 mg 1X ONCE PO Last administered on 05/06/17 00:44; Start 05/05/17 at 23:45; Stop 05/05/17 at 23:46; Status DC Bumetanide (Bumex) 1 mg BID92 IV Last administered on 05/10/17 08:45; Start 05/06/17 at 09:00; Stop 05/10/17 at 13:39; Status DC Ondansetron HCl (Zofran) 4 mg 1X ONCE IV Last administered on 05/06/17 00:09; Start 05/05/17 at 23:45; Stop 05/05/17 at 23:46; Status DC Ondansetron HCl (Zofran) 4 mg PRN Q8HRS PRN IV NAUSEA/VOMITING; Start 05/05/17 at 23:45; Stop 05/06/17 at 23:44; Status DC Acetaminophen/ Hydrocodone Bitart (Lortab 5/325) 1 tab PRN Q6HRS PRN PO MODERATE - SEVERE PAIN Last administered on 05/06/17 05:21; Start 05/06/17 at 05: 00 Acetaminophen/ Hydrocodone Bitart (Lortab 5/325) 2 tab PRN Q6HRS PRN PO MODERATE - SEVERE PAIN Last administered on 05/08/17 18:09; Start 05/06/17 at 05: 00 Dopamine HCl/ Dextrose 250 ml @ 16.627 mls/ hr CONT PRN IV SEE I/O RECORD Last administered on 05/06/17 12:28; Start 05/06/17 at 06:00 Vancomycin HCl 1.5 gm/Sodium Chloride 500 ml @ 250 mls/hr 1X ONCE IV Last administered on 05/06/17 10:34; Start 05/06/17 at 09:00; Stop 05/06/17 at 10:59; Status DC Levofloxacin/ Dextrose 100 ml @ 100 mls/hr Q24H IV Last administered on 12:28; Start 05/06/17 at 10:00; Stop 05/08/17 at 09:28; Status DC Insulin Aspart (NovoLOG) 0-9 UNITS TIDWMEALS SQ Last administered on 05/06/17 18:09; Start 05/06/17 at 12:00; Stop 05/06/17 at 23:03; Status DC Dextrose (Dextrose 50%-Water Syringe) 12.5 gm PRN Q15MIN PRN IV SEE COMMENTS; Start 05/06/17 at 08:45 Enoxaparin Sodium (Lovenox 40mg Syringe) 40 mg Q24H SQ Last administered on 09:09; Start 05/06/17 at 09:00 Piperacillin Sod/ Tazobactam Sod 3.375 gm/Sodium Chloride 50 ml @ 100 mls/hr Q6HRS IV Last administered on 05/13/17 12:53; Start 05/06/17 at 10:30 Vancomycin HCl (Vanco Per Pharmacy) 1 each PRN DAILY PRN MC SEE COMMENTS Last administered on 05/08/17 11:20; Start 05/06/17 at 10:00; Stop 05/09/17 at 08:02; Status DC Succinylcholine Chloride (Anectine) 200 mg STK-MED ONCE .ROUTE ; Start 05/06/17 at 10:13; Stop 05/06/17 at 10:14; Status DC Propofol 20 ml @ As Directed STK-MED ONCE IV ; Start 05/06/17 at 10:13; Stop 05/06 at 10:14; Status DC Lidocaine HCl (Lidocaine Pf 2% Vial) 5 ml STK-MED ONCE .ROUTE ; Start 05/06/17 at 10:13; Stop 05/06/17 at 10:14; Status DC Propofol 0 ml @ As Directed STK-MED ONCE IV ; Start 05/06/17 at 10:14; Stop at 10:15; Status DC Midazolam HCl 100 ml @ As Directed STK-MED ONCE IV ; Start 05/06/17 at 10:14; Stop 05/06/17 at 10:15; Status DC Midazolam HCl 100 ml @ 0 mls/hr CONT PRN IV SEE I/O RECORD Last administered on 05/09/17 04:26; Start 05/06/17 at 11:00; Stop 05/12/17 at 09:35; Status DC Vancomycin HCl 500 mg/Sodium Chloride 100 ml @ 100 mls/hr 1X ONCE IV Last administered on 05/06/17 16:52; Start 05/06/17 at 12:00; Stop 05/06/17 at 12:59; Status DC Vancomycin HCl 1.25 gm/Sodium Chloride 250 ml @ 167 mls/hr Q24H IV Last administered on 05/07/17 10:01; Start 05/07/17 at 10:00; Stop 05/08/17 at 11:18; Status DC Vancomycin HCl 1 each 1X ONCE MC Last administered on 05/08/17 10:00; Start at 09:30; Stop 05/08/17 at 09:31; Status DC Isoproterenol HCl 1 mg/Dextrose 255 ml @ 0 mls/hr CONT PRN IV SEE I/O RECORD Last administered on 05/07/17 00:09; Start 05/06/17 at 13:00 Albumin Human 50 ml @ 50 mls/hr 1X ONCE IV Last administered on 05/06/17 15:30 ; Start 05/06/17 at 15:30; Stop 05/06/17 at 16:29; Status DC Insulin Aspart (NovoLOG) BIDBFRMEAL SQ ; Start 05/07/17 at 07:30; Status UNV Insulin Detemir (Levemir) 15 units QHS SQ Last administered on 05/12/17 21:36; Start 05/06/17 at 21:00 Fentanyl Citrate (Fentanyl 2ml Vial) 25 mcg Q3HRS PRN IV MILD PAIN Last administered on 05/12/17 00:23; Start 05/06/17 at 18:00 Insulin Aspart (NovoLOG) 0-9 UNITS Q6HRS SQ Last administered on 05/12/17 18:10 ; Start 05/07/17 at 00:00; Stop 05/12/17 at 21:34; Status DC Acetaminophen (Tylenol) 650 mg PRN Q6HRS PRN NG MILD PAIN / TEMP Last administered on 05/07/17 17:57; Start 05/07/17 at 00:45 Chlorhexidine Gluconate (Peridex) 15 ml BID MM Last administered on 05/12/17 08 :08; Start 05/07/17 at 21:00; Stop 05/12/17 at 09:34; Status DC Famotidine (Pepcid) 20 mg QHS IVP Last administered on 05/12/17 18:37; Start at 21:00 Enalaprilat (Vasotec) 1.25 mg Q6HRS PRN IV HYPERTENSION, SEE COMMENTS Last administered on 05/13/17 05:18; Start 05/07/17 at 19:30 Magnesium Sulfate/ Dextrose 50 ml @ 25 mls/hr PRN DAILY PRN IV for Mag < 1.7 on am labs; Start 05/08/17 at 09:00 Levofloxacin/ Dextrose 150 ml @ 100 mls/hr Q48H IV Last administered on 11:18; Start 05/08/17 at 10:00; Stop 05/09/17 at 08:02; Status DC Vancomycin HCl 1.5 gm/Sodium Chloride 500 ml @ 250 mls/hr Q24H IV Last administered on 05/08/17 13:05; Start 05/08/17 at 11:30; Stop 05/09/17 at 08:02; Status DC Alprazolam (Xanax) 1 mg PRN Q8HRS PRN PO ANXIETY / AGITATION Last administered on 05/12/17 23:14; Start 05/08/17 at 16:45 Propofol 100 ml @ 0 mls/hr CONT PRN IV SEE I/O RECORD Last administered on 23:19; Start 05/08/17 at 19:15; Stop 05/11/17 at 19:04; Status DC Furosemide (Lasix) 40 mg 1X ONCE IVP Last administered on 05/09/17 16:09; Start 05/09/17 at 15:00; Stop 05/09/17 at 15:01; Status DC Furosemide (Lasix) 40 mg 1X ONCE IVP ; Start 05/09/17 at 15:00; Stop 05/09/17 at 15:01; Status UNV Dexmedetomidine HCl 200 mcg/ Sodium Chloride 50 ml @ 0 mls/hr CONT PRN IV PER PROTOCOL Last administered on 05/10/17 04:51; Start 05/09/17 at 15:00; Stop at 19:04; Status DC Bisacodyl (Dulcolax Supp) 10 mg PRN DAILY PRN CO CONSTIPATION Last administered on 05/10/17 08:45; Start 05/10/17 at 08:15 Lorazepam (Ativan) 0.5 mg PRN Q8HRS PRN IV ANXIETY / AGITATION Last administered on 05/12/17 04:29; Start 05/10/17 at 20:00 Potassium Chloride (Klor-Con) 20 meq BID PO Last administered on 05/13/17 09: 09; Start 05/11/17 at 13:30 Dextrose/Sodium Chloride 1,000 ml @ 60 mls/hr [id number] IV Last administered on 05/12/17 12:32; Start 05/11/17 at 19:30; Stop 05/12/17 at 21:34; Status DC Potassium Chloride 100 ml @ 100 mls/hr Q1H IV Last administered on 05/10/17 02 :30; Start 05/11/17 at 20:00; Stop 05/11/17 at 23:59; Status DC Amitriptyline HCl (Elavil) 25 mg QHS PO Last administered on 05/12/17 21:18; Start 05/12/17 at 21:00 Amlodipine Besylate (Norvasc) 5 mg 1X ONCE PO Last administered on 05/12/17 12 :31; Start 05/12/17 at 12:30; Stop 05/12/17 at 12:31; Status DC Insulin Aspart (NovoLOG) 0-9 UNITS TIDACHC SQ Last administered on 05/13/17 09 :15; Start 05/13/17 at 07:30 Acetaminophen (Tylenol) 650 mg PRN BID PRN PO PAIN; Start 05/13/17 at 11:15 Alprazolam (Xanax) 0.5 mg HS PO ; Start 05/13/17 at 21:00 Alprazolam (Xanax) 1 mg BIDWBKFT/HOLLIS PO Last administered on 05/13/17 12:57; Start 05/13/17 at 12:00 Amitriptyline HCl (Elavil) 25 mg QHS PO ; Start 05/13/17 at 21:00; Status UNV Amlodipine Besylate (Norvasc) 10 mg DAILY PO Last administered on 05/13/17 12: 52; Start 05/13/17 at 12:00 Ascorbic Acid (Vitamin C) 500 mg DAILY PO ; Start 05/13/17 at 12:00 Aspirin (Children'S Aspirin) 81 mg DAILYWBKFT PO ; Start 05/13/17 at 12:00 Atenolol (Tenormin) 25 mg BID PO ; Start 05/13/17 at 12:00 Vitamin D (Vitamin D3) 1,000 unit DAILY PO ; Start 05/13/17 at 12:00 Duloxetine HCl (Cymbalta) 30 mg DAILY PO ; Start 05/13/17 at 12:00 Estrogens Conjugated (Premarin) 0.625 mg DAILY PO ; Start 05/13/17 at 12:00 Acetaminophen/ Hydrocodone Bitart (Lortab 5/325) 1 tab PRN Q6HRS PRN PO PAIN; Start 05/13/17 at 11:15 Insulin Aspart (NovoLOG) 12 units TIDWMEALS SQ Last administered on 05/13/17 12:55; Start 05/13/17 at 12:00 Levothyroxine Sodium (Synthroid) 112 mcg DAILY07 PO ; Start 05/13/17 at 12:00 Losartan Potassium (Cozaar) 50 mg DAILY PO ; Start 05/14/17 at 09:00 Metformin HCl (Glucophage Xr) 1,000 mg BIDWMEALS PO ; Start 05/13/17 at 17:00 Metoclopramide HCl (Reglan) 5 mg QIDACHS PO ; Start 05/13/17 at 11:30 Nortriptyline HCl (Pamelor) 25 mg QHS PO ; Start 05/13/17 at 21:00 Pantoprazole Sodium (Protonix) 40 mg BIDAC PO ; Start 05/13/17 at 12:00 Sucralfate (Carafate) 1 gm QIDPMEDS PO ; Start 05/13/17 at 14:00 Non-Formulary Medication 1 each DAILY PO ; Start 05/14/17 at 09:00; Status UNV Non-Formulary Medication 5,000 mcg DAILY PO ; Start 05/14/17 at 09:00; Status UNV Calcium/Vitamin D (Oscal D 500mg/ 200uts) 1 tab DAILY PO ; Start 05/13/17 at 12: 00 Non-Formulary Medication 1 each DAILY PO ; Start 05/14/17 at 09:00; Status UNV Losartan Potassium (Cozaar) 100 mg NOON PO Last administered on 05/13/17t 12:53 ; Start 05/13/17 at 12:00 Non-Formulary Medication 1 cap DAILY PO ; Start 05/14/17 at 09:00; Status UNV Fish Oil (Fish Oil) 1,000 mg DAILY PO ; Start 05/13/17 at 12:00 Non-Formulary Medication 1 cap BID PO ; Start 05/13/17 at 21:00; Status UNV Linagliptin (Tradjenta) 5 mg DAILY PO ; Start 05/13/17 at 12:00 Torsemide (Demadex) 10 mg DAILY PO ; Start 05/13/17 at 12:00 Non-Formulary Medication 1 each DAILY PO ; Start 05/14/17 at 09:00; Status UNV Active Scripts Active Glucophage Xr (Metformin Hcl) 500 Mg Tab.er.24h 1,000 Mg PO BID [place] 5-325 Tablet (Acetaminophen/Hydrocodone Bitart) 1 Each Tablet 1 Tab PO PRN Q6HRS PRN Reported Antioxidant Softgel (Beta-Carotene(A) W-C & E/Min) 1 Each Capsule 1 Each PO DAILY Hyaluronic Acid 40 Mg Capsule (Hyalur Ac/Chond Sul/Colg Ii/Aa) 1 Each Capsule 1 Each PO DAILY Biotin 2,500 Mcg Capsule 5,000 Mcg PO DAILY Benefiber (Wheat Dextrin) 1 Each Powd.pack 1 Each PO DAILY Benefiber (Wheat Dextrin) 1 Each Powd.pack 1 Each PO Ellura (Cranberry Extract) 200 Mg Capsule 36 Mg PO Caltrate 600 + D Tablet (Calcium Carbonate/Vitamin D3) 1 Each Tablet 1 Each PO DAILY Vitamin C With Aletha Hips (Ascorbic Acid) 500 Mg Tablet 500 Mg PO DAILY Vitamin D3 (Cholecalciferol (Vitamin D3)) 1,000 Unit Tablet 1 Tab PO DAILY Fish Oil 1,000 Mg Softgel (Cliff-3 Fatty Acids/Fish Oil) 1 Each Capsule 1 Each PO DAILY Premarin (Estrogens, Conjugated) 0.625 Mg Tablet 1 Tab PO DAILY Nortriptyline Hcl 25 Mg Capsule 1 Cap PO QHS Nitrofurantoin (Nitrofurantoin Macrocrystal) 100 Mg Capsule 1 Cap PO DAILY Cymbalta (Duloxetine Hcl) 30 Mg Capsule.dr 1 Cap PO DAILY Pantoprazole Sodium 40 Mg Tablet.dr 1 Tab PO DAILY Losartan Potassium 50 Mg Tablet 50 Mg PO DAILY Januvia (Sitagliptin Phosphate) 100 Mg Tablet 1 Tab PO DAILY Novolog Flexpen (Insulin Aspart) 100 Unit/1 Ml Insuln.pen 12 Unit SQ TIDWMEALS Losartan Potassium 100 Mg Tablet 100 Mg PO NOON Torsemide 10 Mg Tablet 10 Mg PO DAILY Sucralfate 1 Gm Tablet 1 Tab PO QID Omeprazole 20 Mg Capsule.dr 1 Cap PO BID Acetaminophen 325 Mg Tablet 650 Mg PO PRN BID PRN Levothyroxine Sodium 112 Mcg Tablet 1 Tab PO DAILY Atenolol 25 Mg Tablet 1 Tab PO BID Amlodipine Besylate 10 Mg Tablet 10 Mg PO DAILY Amitriptyline Hcl 25 Mg Tablet 1 Tab PO QHS Metoclopramide Hcl 5 Mg Tablet 5 Mg PO QIDACHS Alprazolam 0.5 Mg Tablet 1 Tab PO HS Alprazolam 0.5 Mg Tablet 2 Tab PO BIDWBKFT/HOLLIS Aspirin 81 Mg Tab.chew 1 Tab PO DAILY Vitals/I & O Vital Sign - Last 24 Hours 05/12/17 05/12/17 05/12/17 05/12/17 15:00 18:02 19:00 20:00 Temp 98.4 98.2 98.4 98.2 Pulse 89 89 90 Resp 20 24 B/P (MAP) 189/91 (123) 189/91 170/77 (108) Pulse Ox 94 95 O2 Delivery Nasal Cannula Nasal Cannula Nasal Cannula O2 Flow Rate 4.0 4.0 4.0 05/12/17 05/12/17 05/13/17 05/13/17 23:15 23:27 00:26 03:00 Temp 98.6 98.6 Pulse 82 82 83 Resp 24 B/P (MAP) 198/87 (124) 198/87 174/81 (112) Pulse Ox 95 O2 Delivery Nasal Cannula O2 Flow Rate 4.0 05/13/17 05/13/17 05/13/17 05/13/17 04:00 04:35 05:18 07:00 Temp 98.5 98.9 98.5 98.9 Pulse 85 81 77 82 Resp 24 24 B/P (MAP) 185/88 (120) 179/69 (105) 176/87 187/88 (121) Pulse Ox 98 98 O2 Delivery Simple Mask Nasal Cannula O2 Flow Rate 4.0 4.0 05/13/17 05/13/17 05/13/17 05/13/17 07:57 11:15 12:52 12:53 Temp 99.1 99.1 Pulse 93 93 93 Resp 24 B/P (MAP) 182/86 (118) 182/86 182/86 Pulse Ox 91 O2 Delivery Nasal Cannula Nasal Cannula O2 Flow Rate 4.0 4.0 Intake and Output 05/12/17 05/12/17 05/13/17 15:00 23:00 07:00 Intake Total 240 ml 293 ml 120 ml Output Total 1225 ml 700 ml Balance 240 ml -932 ml -580 ml EULALIA MOSELEY MD May 13, 2017 13:27
[2017-05-13] MEDS: SUCRALFATE 1 GM TABLET. PO SCH ×3 (14:00→21:10)
[2017-05-13] MEDS: metFORMIN XR 500 MG TAB.ER.24H PO SCH (17:40)
[2017-05-13] MEDS ORDERED: NON FORMULARY ITEM (Omeprazole 1 CAP) PO SCH (21:00)
[2017-05-13] MEDS ORDERED: AMITRIPTYLINE HCL 25 MG TABLET. PO SCH (21:00)
[2017-05-13] MEDS: NORTRIPTYLINE 25 MG CAPSULE PO SCH (21:09)
[2017-05-13] MEDS: INSULIN DETEMIR 300 UNITS/3 ML INSULN.PEN. SQ SCH (21:15)
[2017-05-14] VITALS (7 sets, daily range): BP systolic 125–183; BP diastolic 69–91
[2017-05-14] MEDS: PIPERACILLIN/TAZOBACTAM 3.375 GM in IV NORMAL SALINE 50ML 50 ML IV SCH ×2 (00:31→06:16)
[2017-05-14] MEDS: ENALAPRILAT 1.25 MG/ML VIAL. IV PRN (03:22)
[2017-05-14 05:17] LABS: HEMOGLOBIN 11.1 g/dL (12.0-15.5); RED BLOOD COUNT 4.57 x10^6/uL (3.50-5.40); RED CELL DISTRIBUTION WIDTH 19.1 % (11.5-14.5); WHITE BLOOD COUNT 10.4 x10^3/uL (4.0-11.0)
[2017-05-14 05:56] LABS: ALBUMIN 2.8 g/dL (3.4-5.0); ALBUMIN/GLOBULIN RATIO 0.7 (1.0-1.7); CALCIUM 9.5 mg/dL (8.5-10.1); CREATININE 1.2 mg/dL (0.6-1.0); GFR 44.4; PHOSPHORUS 3.8 mg/dL (2.6-4.7); POTASSIUM 4.1 mmol/L (3.5-5.1); TOTAL BILIRUBIN 0.3 mg/dL (0.2-1.0); TOTAL PROTEIN 6.8 g/dL (6.4-8.2)
[2017-05-14] MEDS: LEVOTHYROXINE 112 MCG TABLET PO SCH (06:40)
--- NOTE | 2017-05-14 07:18 | PDOC ---
Infectious Disease Note Subjective Subjective States ok. Less nose bleed Better. Slept well. Less cough ROS ROS GEN: Denies fevers, chills, sweats HEENT: Denies blurred vision, sore throat CV: Denies chest pain RESP: Denies shortness of air, cough GI: Denies n/v/d NEURO: Denies confusion, dizziness MSK: Denies weakness, joint pain/swelling Vital Sign Vital Signs Vital Signs Date Time Temp Pulse Resp B/P (MAP) Pulse Ox O2 Delivery O2 Flow Rate FiO2 05/14/17 05:09 166/80 (108) 05/14/17 03:22 69 05/14/17 03:05 98.9 22 95 Nasal Cannula 4.0 98.9 Physical Exam PHYSICAL EXAM GENERAL: NAD, Alert HEENT: PERRL, OC/OP -clear NECK: Supple, no JVD, no LN LUNGS: Clear, on 02 HEART: S1S2, no gallop, no murmur ABD: Soft, NT, no organomegaly, no rebound EXT: No edema, no cyanosis [employer]: Alert, oriented x 3, no focal neurologic deficit, slow to respond to questions Psych - flat affect SKIN: No rash IV: ok Labs Lab Laboratory Tests Test 05/13/17 11:20 05/13/17 16:45 05/13/17 20:47 05/14/17 04:55 Glucose (Fingerstick) 296 mg/dL (70-99) 349 mg/dL (70-99) 348 mg/dL (70-99) White Blood Count 10.4 x10^3/uL (4.0-11.0) Red Blood Count 4.57 x10^6/uL (3.50-5.40) Hemoglobin 11.1 g/dL (12.0-15.5) Hematocrit 35.0 % (36.0-47.0) Mean Corpuscular Volume 77 fL (79-100) Mean Corpuscular Hemoglobin 24 pg (25-35) Mean Corpuscular Hemoglobin Concent 32 g/dL (31-37) Red Cell Distribution Width 19.1 % (11.5-14.5) Platelet Count 366 x10^3/uL (140-400) Sodium Level 150 mmol/L (136-145) Potassium Level 4.1 mmol/L (3.5-5.1) Chloride Level 111 mmol/L (98-107) Carbon Dioxide Level 29 mmol/L (21-32) Anion Gap 10 (6-14) Blood Urea Nitrogen 14 mg/dL (7-20) Creatinine 1.2 mg/dL (0.6-1.0) Estimated GFR (Cockcroft-Gault) 44.4 BUN/Creatinine Ratio 12 (6-20) Glucose Level 158 mg/dL (70-99) Calcium Level 9.5 mg/dL (8.5-10.1) Phosphorus Level 3.8 mg/dL (2.6-4.7) Total Bilirubin 0.3 mg/dL (0.2-1.0) Aspartate Amino Transf (AST/SGOT) 18 U/L (15-37) Alanine Aminotransferase (ALT/SGPT) 34 U/L (14-59) Alkaline Phosphatase 111 U/L (46-116) Total Protein 6.8 g/dL (6.4-8.2) Albumin 2.8 g/dL (3.4-5.0) Albumin/Globulin Ratio 0.7 (1.0-1.7) Objective Assessment Pneumonia COPD exacerbation [place] - better Hyponatremia - better Encephalopathy - lack of sleep. - better - flat affect - ? baseline Respiratory failure DM Leukocytosis - better Plan Plan of Care Discont zosyn 05/06 Change to Augmentin for 2 days F/u cults DNR supportive care ANN RILEY MD May 14, 2017 07:18
[2017-05-14] MEDS: PANTOPRAZOLE 40 MG TABLET.DR. PO SCH ×2 (07:30→17:33)
[2017-05-14] MEDS: ASPIRIN CHEWABLE 81 MG TABLET. PO SCH (08:00)
[2017-05-14] MEDS: AMOXICILLIN/K CLAV 875/125MG TABLET. PO SCH ×2 (08:06→21:32)
[2017-05-14] MEDS: METOCLOPRAMIDE 5 MG TABLET. PO SCH ×4 (08:06→21:33)
[2017-05-14] MEDS: LOSARTAN POTASSIUM 50 MG TABLET. PO SCH ×2 (08:07→12:19)
[2017-05-14] MEDS: ALPRAZolam 0.5 MG TABLET PO SCH ×3 (08:07→21:55)
[2017-05-14] MEDS: TORSEMIDE 20 MG TABLET. PO SCH (08:08)
[2017-05-14] MEDS: ATENOLOL 25 MG TABLET. PO SCH ×2 (08:08→21:37)
[2017-05-14] MEDS: LINAGLIPTIN 5 MG TABLET PO SCH (08:08)
[2017-05-14] MEDS: amLODIPine BESYLATE 10 MG TABLET PO SCH (08:08)
[2017-05-14] MEDS: POTASSIUM CHLORIDE 20 MEQ TABLET.ER. PO SCH ×2 (08:09→21:38)
[2017-05-14] MEDS: metFORMIN XR 500 MG TAB.ER.24H PO SCH ×2 (08:09→17:33)
[2017-05-14] MEDS: INSULIN ASPART 300 UNITS/3 ML INSULN.PEN SQ SCH ×7 (08:23→21:32)
[2017-05-14] MEDS ORDERED: NON FORMULARY ITEM (Biotin 5,000 MCG) PO SCH (09:00)
[2017-05-14] MEDS: OMEGA-3 FATTY ACIDS/FISH OIL 1,000 MG CAPSULE. PO SCH (09:00)
[2017-05-14] MEDS ORDERED: [UNRECOGNIZED DRUG - OTHER] PO SCH (09:00)
[2017-05-14] MEDS: ENOXAPARIN 40 MG/0.4 ML SYRINGE. SQ SCH (09:00)
[2017-05-14] MEDS ORDERED: [UNRECOGNIZED DRUG - OTHER] PO SCH (09:00)
[2017-05-14] MEDS: CHOLECALCIFEROL (VITAMIN D3) 1,000 UNIT TABLET PO SCH (09:00)
[2017-05-14] MEDS ORDERED: NITROFURANTOIN MACROCRYSTAL PO SCH (09:00)
[2017-05-14] MEDS: DULoxetine HCL 30 MG CAPSULE.DR PO SCH (09:00)
[2017-05-14] MEDS: ESTROGENS, CONJUGATED 0.625 MG TABLET PO SCH (09:00)
[2017-05-14] MEDS ORDERED: WHEAT DEXTRIN PO SCH (09:00)
[2017-05-14] MEDS: ASCORBIC ACID 500 MG TABLET PO SCH (09:00)
[2017-05-14] MEDS: CALCIUM CARB/VIT D3 500/200 TABLET. PO SCH (09:00)
--- NOTE | 2017-05-14 09:53 | PDOC ---
PROGRESS NOTES Subjective Subjective Ms Kennedy had no acute events overnight. She is resting comfortably in bed. The patient has been able to tolerate her PO medications, though her blood pressure continues to remain elevated. No chest pain or shortness of breath reported. She complains of having some confusion/anxiety. She has a sinus rhythm. Objective Objective Vital Signs Date Time Temp Pulse Resp B/P (MAP) Pulse Ox O2 Delivery O2 Flow Rate FiO2 05/14/17 08:08 69 183/87 05/14/17 08:00 Nasal Cannula 4.0 05/14/17 07:40 99.1 22 93 99.1 Intake and Output 05/14/17 06:59 Intake Total 480 ml Output Total 1400 ml Balance -920 ml Intake Oral 480 ml Output Urine Total 1400 ml # Voids 1 Physical Exam Heart: Regular rate (and rhythm), Normal S1, Normal S2 Extremities: Normal pulses (2/4 radial b/l) General: No acute distress Lungs: Clear to auscultation (b/l) Assessment Assessment Ms Kennedy has been maintaining sinus rhythm, with no chest pain or shortness of breath Her blood pressure continues to stay elevated despite po medications added. Will give her until tomorrow on present meds before increasing the doses Problems Medical Problems: (1) Respiratory failure Status: Acute Comment Review of Relevant I have reviewed the following items katy (where applicable) has been applied. Labs Laboratory Tests Test 05/12/17 12:38 05/12/17 18:00 05/12/17 21:24 05/13/17 04:10 Glucose (Fingerstick) 304 mg/dL (70-99) 313 mg/dL (70-99) 309 mg/dL (70-99) White Blood Count 11.2 x10^3/uL (4.0-11.0) Red Blood Count 4.61 x10^6/uL (3.50-5.40) Hemoglobin 11.0 g/dL (12.0-15.5) Hematocrit 35.3 % (36.0-47.0) Mean Corpuscular Volume 77 fL (79-100) Mean Corpuscular Hemoglobin 24 pg (25-35) Mean Corpuscular Hemoglobin Concent 31 g/dL (31-37) Red Cell Distribution Width 19.3 % (11.5-14.5) Platelet Count 358 x10^3/uL (140-400) Neutrophils (%) (Auto) 75 % (31-73) Lymphocytes (%) (Auto) 9 % (24-48) Monocytes (%) (Auto) 14 % (0-9) Eosinophils (%) (Auto) 1 % (0-3) Basophils (%) (Auto) 1 % (0-3) Neutrophils # (Auto) 8.4 x10^3uL (1.8-7.7) Lymphocytes # (Auto) 1.0 x10^3/uL (1.0-4.8) Monocytes # (Auto) 1.5 x10^3/uL (0.0-1.1) Eosinophils # (Auto) 0.1 x10^3/uL (0.0-0.7) Basophils # (Auto) 0.1 x10^3/uL (0.0-0.2) Sodium Level 145 mmol/L (136-145) Potassium Level 3.7 mmol/L (3.5-5.1) Chloride Level 107 mmol/L (98-107) Carbon Dioxide Level 29 mmol/L (21-32) Anion Gap 9 (6-14) Blood Urea Nitrogen 18 mg/dL (7-20) Creatinine 1.4 mg/dL (0.6-1.0) Estimated GFR (Cockcroft-Gault) 37.2 BUN/Creatinine Ratio 13 (6-20) Glucose Level 211 mg/dL (70-99) Calcium Level 9.4 mg/dL (8.5-10.1) Phosphorus Level 3.7 mg/dL (2.6-4.7) Magnesium Level 2.5 mg/dL (1.8-2.4) Total Bilirubin 0.5 mg/dL (0.2-1.0) Aspartate Amino Transf (AST/SGOT) 22 U/L (15-37) Alanine Aminotransferase (ALT/SGPT) 45 U/L (14-59) Alkaline Phosphatase 122 U/L (46-116) Total Protein 7.6 g/dL (6.4-8.2) Albumin 2.8 g/dL (3.4-5.0) Albumin/Globulin Ratio 0.6 (1.0-1.7) Test 05/13/17 07:10 05/13/17 11:20 05/13/17 16:45 05/13/17 20:47 Glucose (Fingerstick) 194 mg/dL (70-99) 296 mg/dL (70-99) 349 mg/dL (70-99) 348 mg/dL (70-99) Test 05/14/17 04:55 05/14/17 07:41 White Blood Count 10.4 x10^3/uL (4.0-11.0) Red Blood Count 4.57 x10^6/uL (3.50-5.40) Hemoglobin 11.1 g/dL (12.0-15.5) Hematocrit 35.0 % (36.0-47.0) Mean Corpuscular Volume 77 fL (79-100) Mean Corpuscular Hemoglobin 24 pg (25-35) Mean Corpuscular Hemoglobin Concent 32 g/dL (31-37) Red Cell Distribution Width 19.1 % (11.5-14.5) Platelet Count 366 x10^3/uL (140-400) Sodium Level 150 mmol/L (136-145) Potassium Level 4.1 mmol/L (3.5-5.1) Chloride Level 111 mmol/L (98-107) Carbon Dioxide Level 29 mmol/L (21-32) Anion Gap 10 (6-14) Blood Urea Nitrogen 14 mg/dL (7-20) Creatinine 1.2 mg/dL (0.6-1.0) Estimated GFR (Cockcroft-Gault) 44.4 BUN/Creatinine Ratio 12 (6-20) Glucose Level 158 mg/dL (70-99) Calcium Level 9.5 mg/dL (8.5-10.1) Phosphorus Level 3.8 mg/dL (2.6-4.7) Total Bilirubin 0.3 mg/dL (0.2-1.0) Aspartate Amino Transf (AST/SGOT) 18 U/L (15-37) Alanine Aminotransferase (ALT/SGPT) 34 U/L (14-59) Alkaline Phosphatase 111 U/L (46-116) Total Protein 6.8 g/dL (6.4-8.2) Albumin 2.8 g/dL (3.4-5.0) Albumin/Globulin Ratio 0.7 (1.0-1.7) Glucose (Fingerstick) 188 mg/dL (70-99) Laboratory Tests Test 05/13/17 11:20 05/13/17 16:45 05/13/17 20:47 05/14/17 04:55 Glucose (Fingerstick) 296 mg/dL (70-99) 349 mg/dL (70-99) 348 mg/dL (70-99) White Blood Count 10.4 x10^3/uL (4.0-11.0) Red Blood Count 4.57 x10^6/uL (3.50-5.40) Hemoglobin 11.1 g/dL (12.0-15.5) Hematocrit 35.0 % (36.0-47.0) Mean Corpuscular Volume 77 fL (79-100) Mean Corpuscular Hemoglobin 24 pg (25-35) Mean Corpuscular Hemoglobin Concent 32 g/dL (31-37) Red Cell Distribution Width 19.1 % (11.5-14.5) Platelet Count 366 x10^3/uL (140-400) Sodium Level 150 mmol/L (136-145) Potassium Level 4.1 mmol/L (3.5-5.1) Chloride Level 111 mmol/L (98-107) Carbon Dioxide Level 29 mmol/L (21-32) Anion Gap 10 (6-14) Blood Urea Nitrogen 14 mg/dL (7-20) Creatinine 1.2 mg/dL (0.6-1.0) Estimated GFR (Cockcroft-Gault) 44.4 BUN/Creatinine Ratio 12 (6-20) Glucose Level 158 mg/dL (70-99) Calcium Level 9.5 mg/dL (8.5-10.1) Phosphorus Level 3.8 mg/dL (2.6-4.7) Total Bilirubin 0.3 mg/dL (0.2-1.0) Aspartate Amino Transf (AST/SGOT) 18 U/L (15-37) Alanine Aminotransferase (ALT/SGPT) 34 U/L (14-59) Alkaline Phosphatase 111 U/L (46-116) Total Protein 6.8 g/dL (6.4-8.2) Albumin 2.8 g/dL (3.4-5.0) Albumin/Globulin Ratio 0.7 (1.0-1.7) Test 05/14/17 07:41 Glucose (Fingerstick) 188 mg/dL (70-99) Microbiology 05/06/17 Blood Culture - Final, Complete NO GROWTH AFTER 5 DAYS 05/09/17 Sputum Culture - Final, Complete 05/09/17 Sputum Result 1 - Final, Complete 05/06/17 Urine Culture - Final, Complete 05/06/17 Urine Culture Result 1 (ANURAG) - Final, Complete 05/09/17 Gram Stain - Final, Complete Medications Current Medications Dopamine HCl/ Dextrose 250 ml @ 16.856 mls/ hr 1X ONCE IV Last administered on 05/05/17 22:54; Start 05/05/17 at 23:00; Stop 05/06/17 at 13:49; Status DC Torsemide (Demadex) 20 mg 1X ONCE PO Last administered on 05/06/17 00:44; Start 05/05/17 at 23:45; Stop 05/05/17 at 23:46; Status DC Bumetanide (Bumex) 1 mg BID92 IV Last administered on 05/10/17 08:45; Start 05/06/17 at 09:00; Stop 05/10/17 at 13:39; Status DC Ondansetron HCl (Zofran) 4 mg 1X ONCE IV Last administered on 05/06/17 00:09; Start 05/05/17 at 23:45; Stop 05/05/17 at 23:46; Status DC Ondansetron HCl (Zofran) 4 mg PRN Q8HRS PRN IV NAUSEA/VOMITING; Start 05/05/17 at 23:45; Stop 05/06/17 at 23:44; Status DC Acetaminophen/ Hydrocodone Bitart (Lortab 5/325) 1 tab PRN Q6HRS PRN PO MODERATE - SEVERE PAIN Last administered on 05/06/17 05:21; Start 05/06/17 at 05: 00 Acetaminophen/ Hydrocodone Bitart (Lortab 5/325) 2 tab PRN Q6HRS PRN PO MODERATE - SEVERE PAIN Last administered on 05/08/17 18:09; Start 05/06/17 at 05: 00 Dopamine HCl/ Dextrose 250 ml @ 16.627 mls/ hr CONT PRN IV SEE I/O RECORD Last administered on 05/06/17 12:28; Start 05/06/17 at 06:00 Vancomycin HCl 1.5 gm/Sodium Chloride 500 ml @ 250 mls/hr 1X ONCE IV Last administered on 05/06/17 10:34; Start 05/06/17 at 09:00; Stop 05/06/17 at 10:59; Status DC Levofloxacin/ Dextrose 100 ml @ 100 mls/hr Q24H IV Last administered on 12:28; Start 05/06/17 at 10:00; Stop 05/08/17 at 09:28; Status DC Insulin Aspart (NovoLOG) 0-9 UNITS TIDWMEALS SQ Last administered on 05/06/17 18:09; Start 05/06/17 at 12:00; Stop 05/06/17 at 23:03; Status DC Dextrose (Dextrose 50%-Water Syringe) 12.5 gm PRN Q15MIN PRN IV SEE COMMENTS; Start 05/06/17 at 08:45 Enoxaparin Sodium (Lovenox 40mg Syringe) 40 mg Q24H SQ Last administered on 09:09; Start 05/06/17 at 09:00 Piperacillin Sod/ Tazobactam Sod 3.375 gm/Sodium Chloride 50 ml @ 100 mls/hr Q6HRS IV Last administered on 05/14/17 06:16; Start 05/06/17 at 10:30; Stop 09/20 at 07:17; Status DC Vancomycin HCl (Vanco Per Pharmacy) 1 each PRN DAILY PRN MC SEE COMMENTS Last administered on 05/08/17 11:20; Start 05/06/17 at 10:00; Stop 05/09/17 at 08:02; Status DC Succinylcholine Chloride (Anectine) 200 mg STK-MED ONCE .ROUTE ; Start 05/06/17 at 10:13; Stop 05/06/17 at 10:14; Status DC Propofol 20 ml @ As Directed STK-MED ONCE IV ; Start 05/06/17 at 10:13; Stop 05/06 at 10:14; Status DC Lidocaine HCl (Lidocaine Pf 2% Vial) 5 ml STK-MED ONCE .ROUTE ; Start 05/06/17 at 10:13; Stop 05/06/17 at 10:14; Status DC Propofol 0 ml @ As Directed STK-MED ONCE IV ; Start 05/06/17 at 10:14; Stop at 10:15; Status DC Midazolam HCl 100 ml @ As Directed STK-MED ONCE IV ; Start 05/06/17 at 10:14; Stop 05/06/17 at 10:15; Status DC Midazolam HCl 100 ml @ 0 mls/hr CONT PRN IV SEE I/O RECORD Last administered on 05/09/17 04:26; Start 05/06/17 at 11:00; Stop 05/12/17 at 09:35; Status DC Vancomycin HCl 500 mg/Sodium Chloride 100 ml @ 100 mls/hr 1X ONCE IV Last administered on 05/06/17 16:52; Start 05/06/17 at 12:00; Stop 05/06/17 at 12:59; Status DC Vancomycin HCl 1.25 gm/Sodium Chloride 250 ml @ 167 mls/hr Q24H IV Last administered on 05/07/17 10:01; Start 05/07/17 at 10:00; Stop 05/08/17 at 11:18; Status DC Vancomycin HCl 1 each 1X ONCE MC Last administered on 05/08/17 10:00; Start at 09:30; Stop 05/08/17 at 09:31; Status DC Isoproterenol HCl 1 mg/Dextrose 255 ml @ 0 mls/hr CONT PRN IV SEE I/O RECORD Last administered on 05/07/17 00:09; Start 05/06/17 at 13:00 Albumin Human 50 ml @ 50 mls/hr 1X ONCE IV Last administered on 05/06/17 15:30 ; Start 05/06/17 at 15:30; Stop 05/06/17 at 16:29; Status DC Insulin Aspart (NovoLOG) BIDBFRMEAL SQ ; Start 05/07/17 at 07:30; Status UNV Insulin Detemir (Levemir) 15 units QHS SQ Last administered on 05/13/17 21:15 ; Start 05/06/17 at 21:00 Fentanyl Citrate (Fentanyl 2ml Vial) 25 mcg Q3HRS PRN IV MILD PAIN Last administered on 05/12/17 00:23; Start 05/06/17 at 18:00 Insulin Aspart (NovoLOG) 0-9 UNITS Q6HRS SQ Last administered on 05/12/17 18:10 ; Start 05/07/17 at 00:00; Stop 05/12/17 at 21:34; Status DC Acetaminophen (Tylenol) 650 mg PRN Q6HRS PRN NG MILD PAIN / TEMP Last administered on 05/07/17 17:57; Start 05/07/17 at 00:45 Chlorhexidine Gluconate (Peridex) 15 ml BID MM Last administered on 05/12/17 08 :08; Start 05/07/17 at 21:00; Stop 05/12/17 at 09:34; Status DC Famotidine (Pepcid) 20 mg QHS IVP Last administered on 05/12/17 18:37; Start at 21:00; Stop 05/13/17 at 14:24; Status DC Enalaprilat (Vasotec) 1.25 mg Q6HRS PRN IV HYPERTENSION, SEE COMMENTS Last administered on 05/14/17 03:22; Start 05/07/17 at 19:30 Magnesium Sulfate/ Dextrose 50 ml @ 25 mls/hr PRN DAILY PRN IV for Mag < 1.7 on am labs; Start 05/08/17 at 09:00 Levofloxacin/ Dextrose 150 ml @ 100 mls/hr Q48H IV Last administered on 11:18; Start 05/08/17 at 10:00; Stop 05/09/17 at 08:02; Status DC Vancomycin HCl 1.5 gm/Sodium Chloride 500 ml @ 250 mls/hr Q24H IV Last administered on 05/08/17 13:05; Start 05/08/17 at 11:30; Stop 05/09/17 at 08:02; Status DC Alprazolam (Xanax) 1 mg PRN Q8HRS PRN PO ANXIETY / AGITATION Last administered on 05/12/17 23:14; Start 05/08/17 at 16:45 Propofol 100 ml @ 0 mls/hr CONT PRN IV SEE I/O RECORD Last administered on 23:19; Start 05/08/17 at 19:15; Stop 05/11/17 at 19:04; Status DC Furosemide (Lasix) 40 mg 1X ONCE IVP Last administered on 05/09/17 16:09; Start 05/09/17 at 15:00; Stop 05/09/17 at 15:01; Status DC Furosemide (Lasix) 40 mg 1X ONCE IVP ; Start 05/09/17 at 15:00; Stop 05/09/17 at 15:01; Status UNV Dexmedetomidine HCl 200 mcg/ Sodium Chloride 50 ml @ 0 mls/hr CONT PRN IV PER PROTOCOL Last administered on 05/10/17 04:51; Start 05/09/17 at 15:00; Stop at 19:04; Status DC Bisacodyl (Dulcolax Supp) 10 mg PRN DAILY PRN RI CONSTIPATION Last administered on 05/10/17 08:45; Start 05/10/17 at 08:15 Lorazepam (Ativan) 0.5 mg PRN Q8HRS PRN IV ANXIETY / AGITATION Last administered on 05/12/17 04:29; Start 05/10/17 at 20:00 Potassium Chloride (Klor-Con) 20 meq BID PO Last administered on 05/14/17 08: 09; Start 05/11/17 at 13:30 Dextrose/Sodium Chloride 1,000 ml @ 60 mls/hr [id number] IV Last administered on 05/12/17 12:32; Start 05/11/17 at 19:30; Stop 05/12/17 at 21:34; Status DC Potassium Chloride 100 ml @ 100 mls/hr Q1H IV Last administered on 05/10/17 02 :30; Start 05/11/17 at 20:00; Stop 05/11/17 at 23:59; Status DC Amitriptyline HCl (Elavil) 25 mg QHS PO Last administered on 05/12/17 21:18; Start 05/12/17 at 21:00; Stop 05/13/17 at 14:35; Status DC Amlodipine Besylate (Norvasc) 5 mg 1X ONCE PO Last administered on 05/12/17 12 :31; Start 05/12/17 at 12:30; Stop 05/12/17 at 12:31; Status DC Insulin Aspart (NovoLOG) 0-9 UNITS TIDACHC SQ Last administered on 05/14/17 08 :23; Start 05/13/17 at 07:30 Acetaminophen (Tylenol) 650 mg PRN BID PRN PO PAIN; Start 05/13/17 at 11:15 Alprazolam (Xanax) 0.5 mg HS PO Last administered on 05/13/17 21:08; Start 08/20 at 21:00 Alprazolam (Xanax) 1 mg BIDWBKFT/HOLLIS PO Last administered on 05/14/17 08:07; Start 05/13/17 at 12:00 Amitriptyline HCl (Elavil) 25 mg QHS PO ; Start 05/13/17 at 21:00; Status UNV Amlodipine Besylate (Norvasc) 10 mg DAILY PO Last administered on 05/14/17 08: 08; Start 05/13/17 at 12:00 Ascorbic Acid (Vitamin C) 500 mg DAILY PO ; Start 05/13/17 at 12:00 Aspirin (Children'S Aspirin) 81 mg DAILYWBKFT PO ; Start 05/13/17 at 12:00 Atenolol (Tenormin) 25 mg BID PO Last administered on 05/14/17 08:08; Start at 12:00 Vitamin D (Vitamin D3) 1,000 unit DAILY PO ; Start 05/13/17 at 12:00 Duloxetine HCl (Cymbalta) 30 mg DAILY PO ; Start 05/13/17 at 12:00 Estrogens Conjugated (Premarin) 0.625 mg DAILY PO ; Start 05/13/17 at 12:00 Acetaminophen/ Hydrocodone Bitart (Lortab 5/325) 1 tab PRN Q6HRS PRN PO PAIN; Start 05/13/17 at 11:15; Status Cancel Insulin Aspart (NovoLOG) 12 units TIDWMEALS SQ Last administered on 05/14/17 08:24; Start 05/13/17 at 12:00 Levothyroxine Sodium (Synthroid) 112 mcg DAILY07 PO Last administered on 06:40; Start 05/13/17 at 12:00 Losartan Potassium (Cozaar) 50 mg DAILY PO Last administered on 05/14/17 08:07 ; Start 05/14/17 at 09:00 Metformin HCl (Glucophage Xr) 1,000 mg BIDWMEALS PO Last administered on 08:09; Start 05/13/17 at 17:00 Metoclopramide HCl (Reglan) 5 mg QIDACHS PO Last administered on 05/14/17 08: 06; Start 05/13/17 at 11:30 Nortriptyline HCl (Pamelor) 25 mg QHS PO Last administered on 05/13/17 21:09; Start 05/13/17 at 21:00 Pantoprazole Sodium (Protonix) 40 mg BIDAC PO ; Start 05/13/17 at 12:00 Sucralfate (Carafate) 1 gm QIDPMEDS PO Last administered on 05/13/17 21:10; Start 05/13/17 at 14:00 Non-Formulary Medication 1 each DAILY PO ; Start 05/14/17 at 09:00; Status UNV Non-Formulary Medication 5,000 mcg DAILY PO ; Start 05/14/17 at 09:00; Status UNV Calcium/Vitamin D (Oscal D 500mg/ 200uts) 1 tab DAILY PO ; Start 05/13/17 at 12: 00 Non-Formulary Medication 1 each DAILY PO ; Start 05/14/17 at 09:00; Status UNV Losartan Potassium (Cozaar) 100 mg NOON PO Last administered on 05/13/17 12:53 ; Start 05/13/17 at 12:00 Non-Formulary Medication 1 cap DAILY PO ; Start 05/14/17 at 09:00; Status UNV Fish Oil (Fish Oil) 1,000 mg DAILY PO ; Start 05/13/17 at 12:00 Non-Formulary Medication 1 cap BID PO ; Start 05/13/17 at 21:00; Status UNV Linagliptin (Tradjenta) 5 mg DAILY PO Last administered on 05/14/17 08:08; Start 05/13/17 at 12:00 Torsemide (Demadex) 10 mg DAILY PO Last administered on 05/14/17 08:08; Start 05/13/17 at 12:00 Non-Formulary Medication 1 each DAILY PO ; Start 05/14/17 at 09:00; Status UNV Amoxicillin/ Clavulanate Potassium (Augmentin 875/ 125mg) 1 tab BID PO Last administered on 05/14/17 08:06; Start 05/14/17 at 09:00 Active Scripts Active Glucophage Xr (Metformin Hcl) 500 Mg Tab.er.24h 1,000 Mg PO BID [place] 5-325 Tablet (Acetaminophen/Hydrocodone Bitart) 1 Each Tablet 1 Tab PO PRN Q6HRS PRN Reported Antioxidant Softgel (Beta-Carotene(A) W-C & E/Min) 1 Each Capsule 1 Each PO DAILY Hyaluronic Acid 40 Mg Capsule (Hyalur Ac/Chond Sul/Colg Ii/Aa) 1 Each Capsule 1 Each PO DAILY Biotin 2,500 Mcg Capsule 5,000 Mcg PO DAILY Benefiber (Wheat Dextrin) 1 Each Powd.pack 1 Each PO DAILY Benefiber (Wheat Dextrin) 1 Each Powd.pack 1 Each PO [place] (Cranberry Extract) 200 Mg Capsule 36 Mg PO Caltrate 600 + D Tablet (Calcium Carbonate/Vitamin D3) 1 Each Tablet 1 Each PO DAILY Vitamin C With Aletha Hips (Ascorbic Acid) 500 Mg Tablet 500 Mg PO DAILY Vitamin D3 (Cholecalciferol (Vitamin D3)) 1,000 Unit Tablet 1 Tab PO DAILY Fish Oil 1,000 Mg Softgel ([place]-3 Fatty Acids/Fish Oil) 1 Each Capsule 1 Each PO DAILY Premarin (Estrogens, Conjugated) 0.625 Mg Tablet 1 Tab PO DAILY Nortriptyline Hcl 25 Mg Capsule 1 Cap PO QHS Nitrofurantoin (Nitrofurantoin Macrocrystal) 100 Mg Capsule 1 Cap PO DAILY Cymbalta (Duloxetine Hcl) 30 Mg Capsule.dr 1 Cap PO DAILY Pantoprazole Sodium 40 Mg Tablet.dr 1 Tab PO DAILY Losartan Potassium 50 Mg Tablet 50 Mg PO DAILY Januvia (Sitagliptin Phosphate) 100 Mg Tablet 1 Tab PO DAILY Novolog Flexpen (Insulin Aspart) 100 Unit/1 Ml Insuln.pen 12 Unit SQ TIDWMEALS Losartan Potassium 100 Mg Tablet 100 Mg PO NOON Torsemide 10 Mg Tablet 10 Mg PO DAILY Sucralfate 1 Gm Tablet 1 Tab PO QID Omeprazole 20 Mg Capsule.dr 1 Cap PO BID Acetaminophen 325 Mg Tablet 650 Mg PO PRN BID PRN Levothyroxine Sodium 112 Mcg Tablet 1 Tab PO DAILY Atenolol 25 Mg Tablet 1 Tab PO BID Amlodipine Besylate 10 Mg Tablet 10 Mg PO DAILY Amitriptyline Hcl 25 Mg Tablet 1 Tab PO QHS Metoclopramide Hcl 5 Mg Tablet 5 Mg PO QIDACHS Alprazolam 0.5 Mg Tablet 1 Tab PO HS Alprazolam 0.5 Mg Tablet 2 Tab PO BIDWBKFT/HOLLIS Aspirin 81 Mg Tab.chew 1 Tab PO DAILY Vitals/I & O Vital Sign - Last 24 Hours 05/13/17 05/13/17 05/13/17 05/13/17 11:15 12:52 12:53 15:00 Temp 99.1 98.7 99.1 98.7 Pulse 93 93 93 93 Resp 24 22 B/P (MAP) 182/86 (118) 182/86 182/86 147/61 (89) Pulse Ox 91 93 O2 Delivery Nasal Cannula Nasal Cannula O2 Flow Rate 4.0 4.0 05/13/17 05/13/17 05/13/17 05/13/17 19:30 20:00 21:10 23:20 Temp 99.6 99.2 99.6 99.2 Pulse 95 93 72 Resp B/P (MAP) 176/76 (109) 171/81 178/78 (111) Pulse Ox 95 94 O2 Delivery Nasal Cannula Nasal Cannula Nasal Cannula O2 Flow Rate 4.0 4.0 4.0 05/14/17 05/14/17 05/14/17 05/14/17 03:05 03:22 05:09 07:40 Temp 98.9 99.1 98.9 99.1 Pulse 71 69 71 Resp 22 B/P (MAP) 178/82 (114) 176/78 166/80 (108) 183/87 (119) Pulse Ox 95 93 O2 Delivery Nasal Cannula Nasal Cannula O2 Flow Rate 4.0 4.0 05/14/17 05/14/17 05/14/17 05/14/17 08:00 08:07 08:08 08:08 Pulse 69 69 69 B/P (MAP) 183/87 183/87 183/87 O2 Delivery Nasal Cannula O2 Flow Rate 4.0 Intake and Output 05/13/17 05/13/17 05/14/17 14:59 22:59 06:59 Intake Total 240 ml 240 ml Output Total 700 ml 700 ml Balance -460 ml -460 ml EULALIA MOSELEY MD May 14, 2017 09:53
[2017-05-14] MEDS: SUCRALFATE 1 GM TABLET. PO SCH ×4 (10:00→21:37)
--- NOTE | 2017-05-14 10:43 | PDOC ---
PROGRESS NOTES Subjective Subjective slowly improving Objective Objective Vital Signs Date Time Temp Pulse Resp B/P (MAP) Pulse Ox O2 Delivery O2 Flow Rate FiO2 05/14/17 08:08 69 183/87 05/14/17 08:00 Nasal Cannula 4.0 05/14/17 07:40 99.1 22 93 99.1 Intake and Output 05/14/17 06:59 Intake Total 480 ml Output Total 1400 ml Balance -920 ml Intake Oral 480 ml Output Urine Total 1400 ml # Voids 1 Physical Exam Abdomen: Normal bowel sounds, Soft, No tenderness, No hepatosplenomegaly, No masses Heart: Regular rate (and rhythm), Normal S1, Normal S2 Extremities: Normal pulses (2/4 radial b/l) General: No acute distress Lungs: Clear to auscultation (b/l) MUSCULOSKELETAL: No joint tenderness Neck: Supple, No JVD, No thyromegaly Neuro: Other (awake ,alert all CN II-XII are intact moves all limbs) Psych/Mental Status: Mental status NL, Mood NL Skin: No rashes, No breakdown COMMENT sullivan present Diagnosis Problem List Problems Medical Problems: (1) Respiratory failure Status: Acute RESPIRATORY DISEASE: Other (acute respiratory failure requiring intubation and mechanical ventilation ) RESPIRATORY INFECTION: Pneumonitis (sepsis) COPD: COPD RESPIRATORY FAILURE: Acute ASTHMA: Chronic Obstructive HEART FAILURE: Other (A/C diastolic CHF) RENAL FAILURE: Chronic (CKD stage III) Assessment Assessment Problems Medical Problems: (1) Respiratory failure Status: Acute Assessment Acute respiratory failure needing intubation pneumonia suspect gram neg+gram positive sepsis acute lactic acidosis acute on chronic chf -diastolic hyponatremia ac kidney failure?ATN ch copd ex smoker h/o pancreatitis Plan Plan: improving needs to go to SNU, spoke with social work extubated few days ago thin liquids dysphagia 1 diet stream line medications For more details regarding further plans, please refer to the orders. Problems: Plan Plan of Care Problems Medical Problems: (1) Respiratory failure Status: Acute Comment Review of Relevant I have reviewed the following items katy (where applicable) has been applied. Labs Laboratory Tests Test 05/13/17 11:20 05/13/17 16:45 05/13/17 20:47 05/14/17 04:55 Glucose (Fingerstick) 296 mg/dL (70-99) 349 mg/dL (70-99) 348 mg/dL (70-99) White Blood Count 10.4 x10^3/uL (4.0-11.0) Red Blood Count 4.57 x10^6/uL (3.50-5.40) Hemoglobin 11.1 g/dL (12.0-15.5) Hematocrit 35.0 % (36.0-47.0) Mean Corpuscular Volume 77 fL (79-100) Mean Corpuscular Hemoglobin 24 pg (25-35) Mean Corpuscular Hemoglobin Concent 32 g/dL (31-37) Red Cell Distribution Width 19.1 % (11.5-14.5) Platelet Count 366 x10^3/uL (140-400) Sodium Level 150 mmol/L (136-145) Potassium Level 4.1 mmol/L (3.5-5.1) Chloride Level 111 mmol/L (98-107) Carbon Dioxide Level 29 mmol/L (21-32) Anion Gap 10 (6-14) Blood Urea Nitrogen 14 mg/dL (7-20) Creatinine 1.2 mg/dL (0.6-1.0) Estimated GFR (Cockcroft-Gault) 44.4 BUN/Creatinine Ratio 12 (6-20) Glucose Level 158 mg/dL (70-99) Calcium Level 9.5 mg/dL (8.5-10.1) Phosphorus Level 3.8 mg/dL (2.6-4.7) Total Bilirubin 0.3 mg/dL (0.2-1.0) Aspartate Amino Transf (AST/SGOT) 18 U/L (15-37) Alanine Aminotransferase (ALT/SGPT) 34 U/L (14-59) Alkaline Phosphatase 111 U/L (46-116) Total Protein 6.8 g/dL (6.4-8.2) Albumin 2.8 g/dL (3.4-5.0) Albumin/Globulin Ratio 0.7 (1.0-1.7) Test 05/14/17 07:41 Glucose (Fingerstick) 188 mg/dL (70-99) Microbiology 05/06/17 Blood Culture - Final, Complete NO GROWTH AFTER 5 DAYS 05/09/17 Sputum Culture - Final, Complete 05/09/17 Sputum Result 1 - Final, Complete 05/06/17 Urine Culture - Final, Complete 05/06/17 Urine Culture Result 1 (ANURAG) - Final, Complete 05/09/17 Gram Stain - Final, Complete Medications Current Medications Acetaminophen (Tylenol) 650 mg PRN BID PRN PO PAIN; Start 05/13/17 at 11:15 Acetaminophen/ Hydrocodone Bitart (Lortab 5/325) 1 tab PRN Q6HRS PRN PO PAIN; Start 05/13/17 at 11:15; Status Cancel Alprazolam (Xanax) 0.5 mg HS PO Last administered on 05/13/17 21:08; Start 08/20 at 21:00 Alprazolam (Xanax) 1 mg BIDWBKFT/HOLLIS PO Last administered on 05/14/17 08:07; Start 05/13/17 at 12:00 Amitriptyline HCl (Elavil) 25 mg QHS PO ; Start 05/13/17 at 21:00; Status UNV Amlodipine Besylate (Norvasc) 10 mg DAILY PO Last administered on 05/14/17 08: 08; Start 05/13/17 at 12:00 Amoxicillin/ Clavulanate Potassium (Augmentin 875/ 125mg) 1 tab BID PO Last administered on 05/14/17 08:06; Start 05/14/17 at 09:00 Ascorbic Acid (Vitamin C) 500 mg DAILY PO ; Start 05/13/17 at 12:00 Aspirin (Children'S Aspirin) 81 mg DAILYWBKFT PO ; Start 05/13/17 at 12:00 Atenolol (Tenormin) 25 mg BID PO Last administered on 05/14/17 08:08; Start at 12:00 Calcium/Vitamin D (Oscal D 500mg/ 200uts) 1 tab DAILY PO ; Start 05/13/17 at 12: 00 Duloxetine HCl (Cymbalta) 30 mg DAILY PO ; Start 05/13/17 at 12:00 Estrogens Conjugated (Premarin) 0.625 mg DAILY PO ; Start 05/13/17 at 12:00 Fish Oil (Fish Oil) 1,000 mg DAILY PO ; Start 05/13/17 at 12:00 Insulin Aspart (NovoLOG) 12 units TIDWMEALS SQ Last administered on 05/14/17 08:24; Start 05/13/17 at 12:00 Levothyroxine Sodium (Synthroid) 112 mcg DAILY07 PO Last administered on 06:40; Start 05/13/17 at 12:00 Linagliptin (Tradjenta) 5 mg DAILY PO Last administered on 05/14/17 08:08; Start 05/13/17 at 12:00 Losartan Potassium (Cozaar) 50 mg DAILY PO Last administered on 05/14/17 08:07 ; Start 05/14/17 at 09:00 Losartan Potassium (Cozaar) 100 mg NOON PO Last administered on 05/13/17 12:53 ; Start 05/13/17 at 12:00 Metformin HCl (Glucophage Xr) 1,000 mg BIDWMEALS PO Last administered on 08:09; Start 05/13/17 at 17:00 Metoclopramide HCl (Reglan) 5 mg QIDACHS PO Last administered on 05/14/17 08: 06; Start 05/13/17 at 11:30 Non-Formulary Medication 1 cap BID PO ; Start 05/13/17 at 21:00; Status UNV Non-Formulary Medication 1 cap DAILY PO ; Start 05/14/17 at 09:00; Status UNV Non-Formulary Medication 1 each DAILY PO ; Start 05/14/17 at 09:00; Status UNV Non-Formulary Medication 1 each DAILY PO ; Start 05/14/17 at 09:00; Status UNV Non-Formulary Medication 1 each DAILY PO ; Start 05/14/17 at 09:00; Status UNV Non-Formulary Medication 5,000 mcg DAILY PO ; Start 05/14/17 at 09:00; Status UNV Nortriptyline HCl (Pamelor) 25 mg QHS PO Last administered on 05/13/17 21:09; Start 05/13/17 at 21:00 Pantoprazole Sodium (Protonix) 40 mg BIDAC PO ; Start 05/13/17 at 12:00 Sucralfate (Carafate) 1 gm QIDPMEDS PO Last administered on 05/13/17 21:10; Start 05/13/17 at 14:00 Torsemide (Demadex) 10 mg DAILY PO Last administered on 05/14/17 08:08; Start 05/13/17 at 12:00 Vitamin D (Vitamin D3) 1,000 unit DAILY PO ; Start 05/13/17 at 12:00 Vitals/I & O Vital Sign - Last 24 Hours 05/13/17 05/13/17 05/13/17 05/13/17 11:15 12:52 12:53 15:00 Temp 99.1 98.7 99.1 98.7 Pulse 93 93 93 93 Resp 24 22 B/P (MAP) 182/86 (118) 182/86 182/86 147/61 (89) Pulse Ox 91 93 O2 Delivery Nasal Cannula Nasal Cannula O2 Flow Rate 4.0 4.0 05/13/17 05/13/17 05/13/17 05/13/17 19:30 20:00 21:10 23:20 Temp 99.6 99.2 99.6 99.2 Pulse 95 93 72 Resp 22 B/P (MAP) 176/76 (109) 171/81 178/78 (111) Pulse Ox 95 94 O2 Delivery Nasal Cannula Nasal Cannula Nasal Cannula O2 Flow Rate 4.0 4.0 4.0 05/14/17 05/14/17 05/14/17 05/14/17 03:05 03:22 05:09 07:40 Temp 98.9 99.1 98.9 99.1 Pulse 71 69 71 Resp B/P (MAP) 178/82 (114) 176/78 166/80 (108) 183/87 (119) Pulse Ox 95 93 O2 Delivery Nasal Cannula Nasal Cannula O2 Flow Rate 4.0 4.0 05/14/17 05/14/17 05/14/17 05/14/17 08:00 08:07 08:08 08:08 Pulse 69 69 69 B/P (MAP) 183/87 183/87 183/87 O2 Delivery Nasal Cannula O2 Flow Rate 4.0 Intake and Output 05/13/17 05/13/17 05/14/17 14:59 22:59 06:59 Intake Total 240 ml 240 ml Output Total 700 ml 700 ml Balance -460 ml -460 ml ILA CAVAZOS MD May 14, 2017 10:43
--- NOTE | 2017-05-14 11:03 | PDOC ---
Renal-Progress Notes Subjective Notes Notes NONE History of Present Illness Hx of present illness NO CHANGE Vitals Vitals Vital Signs Date Time Temp Pulse Resp B/P (MAP) Pulse Ox O2 Delivery O2 Flow Rate FiO2 05/14/17 08:08 69 183/87 05/14/17 08:00 Nasal Cannula 4.0 05/14/17 07:40 99.1 22 93 99.1 Weight Weight [ ] I.O. Intake and Output Intake and Output 05/14/17 07:00 Intake Total 480 ml Output Total 1400 ml Balance -920 ml Intake Oral 480 ml Output Urine Total 1400 ml # Voids 1 Labs Labs Laboratory Tests Test 05/13/17 11:20 05/13/17 16:45 05/13/17 20:47 05/14/17 04:55 Glucose (Fingerstick) 296 mg/dL (70-99) 349 mg/dL (70-99) 348 mg/dL (70-99) White Blood Count 10.4 x10^3/uL (4.0-11.0) Red Blood Count 4.57 x10^6/uL (3.50-5.40) Hemoglobin 11.1 g/dL (12.0-15.5) Hematocrit 35.0 % (36.0-47.0) Mean Corpuscular Volume 77 fL (79-100) Mean Corpuscular Hemoglobin 24 pg (25-35) Mean Corpuscular Hemoglobin Concent 32 g/dL (31-37) Red Cell Distribution Width 19.1 % (11.5-14.5) Platelet Count 366 x10^3/uL (140-400) Sodium Level 150 mmol/L (136-145) Potassium Level 4.1 mmol/L (3.5-5.1) Chloride Level 111 mmol/L (98-107) Carbon Dioxide Level 29 mmol/L (21-32) Anion Gap 10 (6-14) Blood Urea Nitrogen 14 mg/dL (7-20) Creatinine 1.2 mg/dL (0.6-1.0) Estimated GFR (Cockcroft-Gault) 44.4 BUN/Creatinine Ratio 12 (6-20) Glucose Level 158 mg/dL (70-99) Calcium Level 9.5 mg/dL (8.5-10.1) Phosphorus Level 3.8 mg/dL (2.6-4.7) Total Bilirubin 0.3 mg/dL (0.2-1.0) Aspartate Amino Transf (AST/SGOT) 18 U/L (15-37) Alanine Aminotransferase (ALT/SGPT) 34 U/L (14-59) Alkaline Phosphatase 111 U/L (46-116) Total Protein 6.8 g/dL (6.4-8.2) Albumin 2.8 g/dL (3.4-5.0) Albumin/Globulin Ratio 0.7 (1.0-1.7) Test 05/14/17 07:41 Glucose (Fingerstick) 188 mg/dL (70-99) Micro Micro Microbiology 05/06/17 Blood Culture - Final, Complete NO GROWTH AFTER 5 DAYS 05/09/17 Sputum Culture - Final, Complete 05/09/17 Sputum Result 1 - Final, Complete 05/06/17 Urine Culture - Final, Complete 05/06/17 Urine Culture Result 1 (ANURAG) - Final, Complete 05/09/17 Gram Stain - Final, Complete Review of Systems Constitutional: yes: weakness, alert, oriented Ears/Nose/Throat: Yes: no symptom reported Pulmonary: Yes dyspnea Cardiovascular: Yes no symptom reported Gastrointestional: Yes: no symptom reported Musculoskeletal: Yes: muscle stiffness Skin: Yes no symptom reported Physical Exam General Appearance: no apparent distress Skin: warm Respiratory: decreased breath sounds, wheezing Heart: S1S2 Abdomen: soft, bowel sounds present Extremities: no edema Neurology: alert Assessment Assessment IMP CKD STAGE 3-STABLE WITH CR OF 1.4 HYPERNATREMIA AECOPD PLAN START HYPOTONIC SALINE LABS IN AM ERNIE SMITH MD May 14, 2017 11:03
[2017-05-14] MEDS: IV 1/2 NORMAL SALINE 1,000 ML IV SCH (12:19)
--- NOTE | 2017-05-14 13:03 | PDOC2 ---
PALLIATIVE CARE Palliative Care Note Palliative Care Patient alert and oriented. Visiting with . Discussed discharge plan. Understands PT/OT would benefit her. Her goal would be to get back to the level she was at before hospitalization. Most ambulating 20+ feet around the house with oxygen. Discussed her wishes regarding resuscitation: She understands that without attempt at resuscitation she likely would . "I want to peacefully" Patient signed outside the hospital DNR/DNI. Discussed Hospice. If patient does not get back to her usual level and wishes to be comfortable, hospice would benefit her at home. This can be decided while at her SNU level if she does not progress in therapy. Patient and her understand hospice and would be willing to discuss. SWAPNA BELCHER May 14, 2017 13:03
--- NOTE | 2017-05-14 13:24 | PDOC ---
PULMONARY PROGRESS NOTES Subjective EXTUBATED 05/10 NO NEW COMPLAINTS Vitals Vital Signs Date Time Temp Pulse Resp B/P (MAP) Pulse Ox O2 Delivery O2 Flow Rate FiO2 05/14/17 12:19 65 126/67 05/14/17 11:20 98.4 20 92 Nasal Cannula 4.0 98.4 General: Alert, No acute distress Lungs: Clear Cardiovascular: S1, S2 Abdomen: Soft Neuro Exam: Alert Extremities: No Edema Skin: Warm Labs Laboratory Tests Test 05/12/17 18:00 05/12/17 21:24 05/13/17 04:10 05/13/17 07:10 Glucose (Fingerstick) 313 mg/dL (70-99) 309 mg/dL (70-99) 194 mg/dL (70-99) White Blood Count 11.2 x10^3/uL (4.0-11.0) Red Blood Count 4.61 x10^6/uL (3.50-5.40) Hemoglobin 11.0 g/dL (12.0-15.5) Hematocrit 35.3 % (36.0-47.0) Mean Corpuscular Volume 77 fL (79-100) Mean Corpuscular Hemoglobin 24 pg (25-35) Mean Corpuscular Hemoglobin Concent 31 g/dL (31-37) Red Cell Distribution Width 19.3 % (11.5-14.5) Platelet Count 358 x10^3/uL (140-400) Neutrophils (%) (Auto) 75 % (31-73) Lymphocytes (%) (Auto) 9 % (24-48) Monocytes (%) (Auto) 14 % (0-9) Eosinophils (%) (Auto) 1 % (0-3) Basophils (%) (Auto) 1 % (0-3) Neutrophils # (Auto) 8.4 x10^3uL (1.8-7.7) Lymphocytes # (Auto) 1.0 x10^3/uL (1.0-4.8) Monocytes # (Auto) 1.5 x10^3/uL (0.0-1.1) Eosinophils # (Auto) 0.1 x10^3/uL (0.0-0.7) Basophils # (Auto) 0.1 x10^3/uL (0.0-0.2) Sodium Level 145 mmol/L (136-145) Potassium Level 3.7 mmol/L (3.5-5.1) Chloride Level 107 mmol/L (98-107) Carbon Dioxide Level 29 mmol/L (21-32) Anion Gap 9 (6-14) Blood Urea Nitrogen 18 mg/dL (7-20) Creatinine 1.4 mg/dL (0.6-1.0) Estimated GFR (Cockcroft-Gault) 37.2 BUN/Creatinine Ratio 13 (6-20) Glucose Level 211 mg/dL (70-99) Calcium Level 9.4 mg/dL (8.5-10.1) Phosphorus Level 3.7 mg/dL (2.6-4.7) Magnesium Level 2.5 mg/dL (1.8-2.4) Total Bilirubin 0.5 mg/dL (0.2-1.0) Aspartate Amino Transf (AST/SGOT) 22 U/L (15-37) Alanine Aminotransferase (ALT/SGPT) 45 U/L (14-59) Alkaline Phosphatase 122 U/L (46-116) Total Protein 7.6 g/dL (6.4-8.2) Albumin 2.8 g/dL (3.4-5.0) Albumin/Globulin Ratio 0.6 (1.0-1.7) Test 05/13/17 11:20 05/13/17 16:45 05/13/17 20:47 05/14/17 04:55 Glucose (Fingerstick) 296 mg/dL (70-99) 349 mg/dL (70-99) 348 mg/dL (70-99) White Blood Count 10.4 x10^3/uL (4.0-11.0) Red Blood Count 4.57 x10^6/uL (3.50-5.40) Hemoglobin 11.1 g/dL (12.0-15.5) Hematocrit 35.0 % (36.0-47.0) Mean Corpuscular Volume 77 fL (79-100) Mean Corpuscular Hemoglobin 24 pg (25-35) Mean Corpuscular Hemoglobin Concent 32 g/dL (31-37) Red Cell Distribution Width 19.1 % (11.5-14.5) Platelet Count 366 x10^3/uL (140-400) Sodium Level 150 mmol/L (136-145) Potassium Level 4.1 mmol/L (3.5-5.1) Chloride Level 111 mmol/L (98-107) Carbon Dioxide Level 29 mmol/L (21-32) Anion Gap 10 (6-14) Blood Urea Nitrogen 14 mg/dL (7-20) Creatinine 1.2 mg/dL (0.6-1.0) Estimated GFR (Cockcroft-Gault) 44.4 BUN/Creatinine Ratio 12 (6-20) Glucose Level 158 mg/dL (70-99) Calcium Level 9.5 mg/dL (8.5-10.1) Phosphorus Level 3.8 mg/dL (2.6-4.7) Total Bilirubin 0.3 mg/dL (0.2-1.0) Aspartate Amino Transf (AST/SGOT) 18 U/L (15-37) Alanine Aminotransferase (ALT/SGPT) 34 U/L (14-59) Alkaline Phosphatase 111 U/L (46-116) Total Protein 6.8 g/dL (6.4-8.2) Albumin 2.8 g/dL (3.4-5.0) Albumin/Globulin Ratio 0.7 (1.0-1.7) Test 05/14/17 07:41 05/14/17 11:24 Glucose (Fingerstick) 188 mg/dL (70-99) 222 mg/dL (70-99) Laboratory Tests Test 05/13/17 16:45 05/13/17 20:47 05/14/17 04:55 05/14/17 07:41 Glucose (Fingerstick) 349 mg/dL (70-99) 348 mg/dL (70-99) 188 mg/dL (70-99) White Blood Count 10.4 x10^3/uL (4.0-11.0) Red Blood Count 4.57 x10^6/uL (3.50-5.40) Hemoglobin 11.1 g/dL (12.0-15.5) Hematocrit 35.0 % (36.0-47.0) Mean Corpuscular Volume 77 fL (79-100) Mean Corpuscular Hemoglobin 24 pg (25-35) Mean Corpuscular Hemoglobin Concent 32 g/dL (31-37) Red Cell Distribution Width 19.1 % (11.5-14.5) Platelet Count 366 x10^3/uL (140-400) Sodium Level 150 mmol/L (136-145) Potassium Level 4.1 mmol/L (3.5-5.1) Chloride Level 111 mmol/L (98-107) Carbon Dioxide Level 29 mmol/L (21-32) Anion Gap 10 (6-14) Blood Urea Nitrogen 14 mg/dL (7-20) Creatinine 1.2 mg/dL (0.6-1.0) Estimated GFR (Cockcroft-Gault) 44.4 BUN/Creatinine Ratio 12 (6-20) Glucose Level 158 mg/dL (70-99) Calcium Level 9.5 mg/dL (8.5-10.1) Phosphorus Level 3.8 mg/dL (2.6-4.7) Total Bilirubin 0.3 mg/dL (0.2-1.0) Aspartate Amino Transf (AST/SGOT) 18 U/L (15-37) Alanine Aminotransferase (ALT/SGPT) 34 U/L (14-59) Alkaline Phosphatase 111 U/L (46-116) Total Protein 6.8 g/dL (6.4-8.2) Albumin 2.8 g/dL (3.4-5.0) Albumin/Globulin Ratio 0.7 (1.0-1.7) Test 05/14/17 11:24 Glucose (Fingerstick) 222 mg/dL (70-99) Medications Active Scripts Medications Dose Route/Sig Max Daily Dose Days Date Category Novolog Flexpen (Insulin Aspart) 100 Unit/1 Ml Insuln.pen 12 Unit SQ TIDWMEALS 05/06/17 Reported Losartan Potassium 100 Mg Tablet 100 Mg PO NOON 05/06/17 Reported Glucophage Xr (Metformin Hcl) 500 Mg Tab.er.24h 1,000 Mg PO BID 07/17/16 Rx Torsemide 10 Mg Tablet 10 Mg PO DAILY 07/15/16 Reported Sucralfate 1 Gm Tablet 1 Tab PO QID 07/15/16 Reported Omeprazole 20 Mg Capsule.dr 1 Cap PO BID 07/15/16 Reported Acetaminophen 325 Mg Tablet 650 Mg PO PRN BID PRN 07/15/16 Reported Levothyroxine Sodium 112 Mcg Tablet 1 Tab PO DAILY 07/15/16 Reported Atenolol 25 Mg Tablet 1 Tab PO BID 07/15/16 Reported Amlodipine Besylate 10 Mg Tablet 10 Mg PO DAILY 07/15/16 Reported Amitriptyline Hcl 25 Mg Tablet 1 Tab PO QHS 07/15/16 Reported Metoclopramide Hcl 5 Mg Tablet 5 Mg PO QIDACHS 07/15/16 Reported Alprazolam 0.5 Mg Tablet 1 Tab PO HS 07/15/16 Reported Alprazolam 0.5 Mg Tablet 2 Tab PO BIDWBKFT/HOLLIS 07/15/16 Reported Aspirin 81 Mg Tab.chew 1 Tab PO DAILY 07/15/16 Reported Rice 5-325 Tablet (Acetaminophen/Hydrocodone Bitart) 1 Each Tablet 1 Tab PO PRN Q6HRS PRN 06/03/16 Rx Comments CXR 05/13 clear Impression . ACUTE/CHROMIC RESP FAILURE, CLOSE TO BASELINE PNEUMONIA/ RX SEPTIC SHOCK POA, RESOLVED DM AECOPD/ RESOLVED. LEUKOCYTOSIS, RESOLVED ACUTE PULMONARY EDEMA/ RESOLVED Plan . EXTUBATED 05/10 NEEDS REHAB VS SNU DNR D/W HER ANITBX PER ID NEPHRO REC DVT AND GI PROPHYLAXIS PO NUTRITION PER SPEECH GALINDO PYLE MD May 14, 2017 13:24
--- NOTE | 2017-05-14 16:19 | PDOC2 ---
CONSULT Date of Consult Date of Consult DATE: 05/14/17 TIME: 16:07 Reason for Consult Reason for Consult: REHAB EVALUATION Referring Physician Referring Physician: Identification/Chief Complaint Chief Complaint Wants to drink water and eat regular food Problems: Source Source: Chart review, Patient History of Present Illness Reason for Visit: This is a 71 year old right handed female with COPD oxygen dependent admitted here last week with pneumonia and exacerbation of her COPD and she required intubation and she was extubated and started eating dysphagia level 1 diet and she admits some low back pain. Past Medical History Cardiovascular: HTN, Other (chf) Pulmonary: COPD GI: GERD, Other (pancreatitis) Musculoskeletal: low back pain, Other (she is s/p cervical spine fusion in the past.) Renal/: Chronic renal insuff Endocrine: Diabetes Past Surgical History Past Surgical History: Other (cervical spinal fusion), No pertinent history Family History Family History: Diabetes, Heart Disease, Hypertension Social History Quit Lives: with Family (with her and had one step to enter house and she required help from her for bathing.) Current Problem List Problem List Problems Medical Problems: (1) Respiratory failure Status: Acute Current Medications Current Medications Current Medications Dopamine HCl/ Dextrose 250 ml @ 16.856 mls/ hr 1X ONCE IV Last administered on 05/05/17 22:54; Start 05/05/17 at 23:00; Stop 05/06/17 at 13:49; Status DC Torsemide (Demadex) 20 mg 1X ONCE PO Last administered on 05/06/17 00:44; Start 05/05/17 at 23:45; Stop 05/05/17 at 23:46; Status DC Bumetanide (Bumex) 1 mg BID92 IV Last administered on 05/10/17 08:45; Start 05/06/17 at 09:00; Stop 05/10/17 at 13:39; Status DC Ondansetron HCl (Zofran) 4 mg 1X ONCE IV Last administered on 05/06/17 00:09; Start 05/05/17 at 23:45; Stop 05/05/17 at 23:46; Status DC Ondansetron HCl (Zofran) 4 mg PRN Q8HRS PRN IV NAUSEA/VOMITING; Start 05/05/17 at 23:45; Stop 05/06/17 at 23:44; Status DC Acetaminophen/ Hydrocodone Bitart (Lortab 5/325) 1 tab PRN Q6HRS PRN PO MODERATE - SEVERE PAIN Last administered on 05/06/17 05:21; Start 05/06/17 at 05: 00 Acetaminophen/ Hydrocodone Bitart (Lortab 5/325) 2 tab PRN Q6HRS PRN PO MODERATE - SEVERE PAIN Last administered on 05/08/17 18:09; Start 05/06/17 at 05: 00 Dopamine HCl/ Dextrose 250 ml @ 16.627 mls/ hr CONT PRN IV SEE I/O RECORD Last administered on 05/06/17 12:28; Start 05/06/17 at 06:00; Stop 05/14/17 at 10 :43; Status DC Vancomycin HCl 1.5 gm/Sodium Chloride 500 ml @ 250 mls/hr 1X ONCE IV Last administered on 05/06/17 10:34; Start 05/06/17 at 09:00; Stop 05/06/17 at 10:59; Status DC Levofloxacin/ Dextrose 100 ml @ 100 mls/hr Q24H IV Last administered on 12:28; Start 05/06/17 at 10:00; Stop 05/08/17 at 09:28; Status DC Insulin Aspart (NovoLOG) 0-9 UNITS TIDWMEALS SQ Last administered on 05/06/17 18:09; Start 05/06/17 at 12:00; Stop 05/06/17 at 23:03; Status DC Dextrose (Dextrose 50%-Water Syringe) 12.5 gm PRN Q15MIN PRN IV SEE COMMENTS; Start 05/06/17 at 08:45 Enoxaparin Sodium (Lovenox 40mg Syringe) 40 mg Q24H SQ Last administered on 09:09; Start 05/06/17 at 09:00 Piperacillin Sod/ Tazobactam Sod 3.375 gm/Sodium Chloride 50 ml @ 100 mls/hr Q6HRS IV Last administered on 05/14/17 06:16; Start 05/06/17 at 10:30; Stop 09/20 at 07:17; Status DC Vancomycin HCl (Vanco Per Pharmacy) 1 each PRN DAILY PRN MC SEE COMMENTS Last administered on 05/08/17 11:20; Start 05/06/17 at 10:00; Stop 05/09/17 at 08:02; Status DC Succinylcholine Chloride (Anectine) 200 mg STK-MED ONCE .ROUTE ; Start 05/06/17 at 10:13; Stop 05/06/17 at 10:14; Status DC Propofol 20 ml @ As Directed STK-MED ONCE IV ; Start 05/06/17 at 10:13; Stop 05/06 at 10:14; Status DC Lidocaine HCl (Lidocaine Pf 2% Vial) 5 ml STK-MED ONCE .ROUTE ; Start 05/06/17 at 10:13; Stop 05/06/17 at 10:14; Status DC Propofol 0 ml @ As Directed STK-MED ONCE IV ; Start 05/06/17 at 10:14; Stop at 10:15; Status DC Midazolam HCl 100 ml @ As Directed STK-MED ONCE IV ; Start 05/06/17 at 10:14; Stop 05/06/17 at 10:15; Status DC Midazolam HCl 100 ml @ 0 mls/hr CONT PRN IV SEE I/O RECORD Last administered on 05/09/17 04:26; Start 05/06/17 at 11:00; Stop 05/12/17 at 09:35; Status DC Vancomycin HCl 500 mg/Sodium Chloride 100 ml @ 100 mls/hr 1X ONCE IV Last administered on 05/06/17 16:52; Start 05/06/17 at 12:00; Stop 05/06/17 at 12:59; Status DC Vancomycin HCl 1.25 gm/Sodium Chloride 250 ml @ 167 mls/hr Q24H IV Last administered on 05/07/17 10:01; Start 05/07/17 at 10:00; Stop 05/08/17 at 11:18; Status DC Vancomycin HCl 1 each 1X ONCE MC Last administered on 05/08/17 10:00; Start at 09:30; Stop 05/08/17 at 09:31; Status DC Isoproterenol HCl 1 mg/Dextrose 255 ml @ 0 mls/hr CONT PRN IV SEE I/O RECORD Last administered on 05/07/17 00:09; Start 05/06/17 at 13:00; Stop 05/14/17 at 10 :43; Status DC Albumin Human 50 ml @ 50 mls/hr 1X ONCE IV Last administered on 05/06/17 15:30 ; Start 05/06/17 at 15:30; Stop 05/06/17 at 16:29; Status DC Insulin Aspart (NovoLOG) BIDBFRMEAL SQ ; Start 05/07/17 at 07:30; Status UNV Insulin Detemir (Levemir) 15 units QHS SQ Last administered on 05/13/17 21:15 ; Start 05/06/17 at 21:00 Fentanyl Citrate (Fentanyl 2ml Vial) 25 mcg Q3HRS PRN IV MILD PAIN Last administered on 05/12/17 00:23; Start 05/06/17 at 18:00 Insulin Aspart (NovoLOG) 0-9 UNITS Q6HRS SQ Last administered on 05/12/17 18:10 ; Start 05/07/17 at 00:00; Stop 05/12/17 at 21:34; Status DC Acetaminophen (Tylenol) 650 mg PRN Q6HRS PRN NG MILD PAIN / TEMP Last administered on 05/07/17 17:57; Start 05/07/17 at 00:45 Chlorhexidine Gluconate (Peridex) 15 ml BID MM Last administered on 05/12/17 08 :08; Start 05/07/17 at 21:00; Stop 05/12/17 at 09:34; Status DC Famotidine (Pepcid) 20 mg QHS IVP Last administered on 05/12/17 18:37; Start at 21:00; Stop 05/13/17 at 14:24; Status DC Enalaprilat (Vasotec) 1.25 mg Q6HRS PRN IV HYPERTENSION, SEE COMMENTS Last administered on 05/14/17 03:22; Start 05/07/17 at 19:30 Magnesium Sulfate/ Dextrose 50 ml @ 25 mls/hr PRN DAILY PRN IV for Mag < 1.7 on am labs; Start 05/08/17 at 09:00 Levofloxacin/ Dextrose 150 ml @ 100 mls/hr Q48H IV Last administered on 11:18; Start 05/08/17 at 10:00; Stop 05/09/17 at 08:02; Status DC Vancomycin HCl 1.5 gm/Sodium Chloride 500 ml @ 250 mls/hr Q24H IV Last administered on 05/08/17 13:05; Start 05/08/17 at 11:30; Stop 05/09/17 at 08:02; Status DC Alprazolam (Xanax) 1 mg PRN Q8HRS PRN PO ANXIETY / AGITATION Last administered on 05/12/17 23:14; Start 05/08/17 at 16:45 Propofol 100 ml @ 0 mls/hr CONT PRN IV SEE I/O RECORD Last administered on 23:19; Start 05/08/17 at 19:15; Stop 05/11/17 at 19:04; Status DC Furosemide (Lasix) 40 mg 1X ONCE IVP Last administered on 05/09/17 16:09; Start 05/09/17 at 15:00; Stop 05/09/17 at 15:01; Status DC Furosemide (Lasix) 40 mg 1X ONCE IVP ; Start 05/09/17 at 15:00; Stop 05/09/17 at 15:01; Status UNV Dexmedetomidine HCl 200 mcg/ Sodium Chloride 50 ml @ 0 mls/hr CONT PRN IV PER PROTOCOL Last administered on 05/10/17 04:51; Start 05/09/17 at 15:00; Stop at 19:04; Status DC Bisacodyl (Dulcolax Supp) 10 mg PRN DAILY PRN OR CONSTIPATION Last administered on 05/10/17 08:45; Start 05/10/17 at 08:15 Lorazepam (Ativan) 0.5 mg PRN Q8HRS PRN IV ANXIETY / AGITATION Last administered on 05/12/17 04:29; Start 05/10/17 at 20:00 Potassium Chloride (Klor-Con) 20 meq BID PO Last administered on 05/14/17 08: 09; Start 05/11/17 at 13:30 Dextrose/Sodium Chloride 1,000 ml @ 60 mls/hr [id number] IV Last administered on 05/12/17 12:32; Start 05/11/17 at 19:30; Stop 05/12/17 at 21:34; Status DC Potassium Chloride 100 ml @ 100 mls/hr Q1H IV Last administered on 05/10/17 02 :30; Start 05/11/17 at 20:00; Stop 05/11/17 at 23:59; Status DC Amitriptyline HCl (Elavil) 25 mg QHS PO Last administered on 05/12/17 21:18; Start 05/12/17 at 21:00; Stop 05/13/17 at 14:35; Status DC Amlodipine Besylate (Norvasc) 5 mg 1X ONCE PO Last administered on 05/12/17 12 :31; Start 05/12/17 at 12:30; Stop 05/12/17 at 12:31; Status DC Insulin Aspart (NovoLOG) 0-9 UNITS TIDACHC SQ Last administered on 05/14/17 12 :24; Start 05/13/17 at 07:30 Acetaminophen (Tylenol) 650 mg PRN BID PRN PO PAIN; Start 05/13/17 at 11:15 Alprazolam (Xanax) 0.5 mg HS PO Last administered on 05/13/17 21:08; Start 08/20 at 21:00 Alprazolam (Xanax) 1 mg BIDWBKFT/HOLLIS PO Last administered on 05/14/17 12:18; Start 05/13/17 at 12:00 Amitriptyline HCl (Elavil) 25 mg QHS PO ; Start 05/13/17 at 21:00; Status UNV Amlodipine Besylate (Norvasc) 10 mg DAILY PO Last administered on 05/14/17 08: 08; Start 05/13/17 at 12:00 Ascorbic Acid (Vitamin C) 500 mg DAILY PO ; Start 05/13/17 at 12:00 Aspirin (Children'S Aspirin) 81 mg DAILYWBKFT PO ; Start 05/13/17 at 12:00 Atenolol (Tenormin) 25 mg BID PO Last administered on 05/14/17 08:08; Start at 12:00 Vitamin D (Vitamin D3) 1,000 unit DAILY PO ; Start 05/13/17 at 12:00 Duloxetine HCl (Cymbalta) 30 mg DAILY PO ; Start 05/13/17 at 12:00 Estrogens Conjugated (Premarin) 0.625 mg DAILY PO ; Start 05/13/17 at 12:00 Acetaminophen/ Hydrocodone Bitart (Lortab 5/325) 1 tab PRN Q6HRS PRN PO PAIN; Start 05/13/17 at 11:15; Status Cancel Insulin Aspart (NovoLOG) 12 units TIDWMEALS SQ Last administered on 05/14/17 12:24; Start 05/13/17 at 12:00 Levothyroxine Sodium (Synthroid) 112 mcg DAILY07 PO Last administered on 06:40; Start 05/13/17 at 12:00 Losartan Potassium (Cozaar) 50 mg DAILY PO Last administered on 05/14/17 08:07 ; Start 05/14/17 at 09:00 Metformin HCl (Glucophage Xr) 1,000 mg BIDWMEALS PO Last administered on 08:09; Start 05/13/17 at 17:00 Metoclopramide HCl (Reglan) 5 mg QIDACHS PO Last administered on 05/14/17 12: 18; Start 05/13/17 at 11:30 Nortriptyline HCl (Pamelor) 25 mg QHS PO Last administered on 05/13/17 21:09; Start 05/13/17 at 21:00 Pantoprazole Sodium (Protonix) 40 mg BIDAC PO ; Start 05/13/17 at 12:00 Sucralfate (Carafate) 1 gm QIDPMEDS PO Last administered on 05/13/17 21:10; Start 05/13/17 at 14:00 Non-Formulary Medication 1 each DAILY PO ; Start 05/14/17 at 09:00; Status UNV Non-Formulary Medication 5,000 mcg DAILY PO ; Start 05/14/17 at 09:00; Status UNV Calcium/Vitamin D (Oscal D 500mg/ 200uts) 1 tab DAILY PO ; Start 05/13/17 at 12: 00 Non-Formulary Medication 1 each DAILY PO ; Start 05/14/17 at 09:00; Status UNV Losartan Potassium (Cozaar) 100 mg NOON PO Last administered on 05/14/17 12:19 ; Start 05/13/17 at 12:00 Non-Formulary Medication 1 cap DAILY PO ; Start 05/14/17 at 09:00; Status UNV Fish Oil (Fish Oil) 1,000 mg DAILY PO ; Start 05/13/17 at 12:00 Non-Formulary Medication 1 cap BID PO ; Start 05/13/17 at 21:00; Status UNV Linagliptin (Tradjenta) 5 mg DAILY PO Last administered on 05/14/17 08:08; Start 05/13/17 at 12:00 Torsemide (Demadex) 10 mg DAILY PO Last administered on 05/14/17 08:08; Start 05/13/17 at 12:00 Non-Formulary Medication 1 each DAILY PO ; Start 05/14/17 at 09:00; Status UNV Amoxicillin/ Clavulanate Potassium (Augmentin 875/ 125mg) 1 tab BID PO Last administered on 05/14/17 08:06; Start 05/14/17 at 09:00 Sodium Chloride 1,000 ml @ 75 mls/hr [id number] IV Last administered on 12:19; Start 05/14/17 at 11:15 Active Scripts Active Glucophage Xr (Metformin Hcl) 500 Mg Tab.er.24h 1,000 Mg PO BID [place] 5-325 Tablet (Acetaminophen/Hydrocodone Bitart) 1 Each Tablet 1 Tab PO PRN Q6HRS PRN Reported Antioxidant Softgel (Beta-Carotene(A) W-C & E/Min) 1 Each Capsule 1 Each PO DAILY Hyaluronic Acid 40 Mg Capsule (Hyalur Ac/Chond Sul/Colg Ii/Aa) 1 Each Capsule 1 Each PO DAILY Biotin 2,500 Mcg Capsule 5,000 Mcg PO DAILY Benefiber (Wheat Dextrin) 1 Each Powd.pack 1 Each PO DAILY Benefiber (Wheat Dextrin) 1 Each Powd.pack 1 Each PO [place] (Cranberry Extract) 200 Mg Capsule 36 Mg PO Caltrate 600 + D Tablet (Calcium Carbonate/Vitamin D3) 1 Each Tablet 1 Each PO DAILY Vitamin C With Aletha Hips (Ascorbic Acid) 500 Mg Tablet 500 Mg PO DAILY Vitamin D3 (Cholecalciferol (Vitamin D3)) 1,000 Unit Tablet 1 Tab PO DAILY Fish Oil 1,000 Mg Softgel ([place]-3 Fatty Acids/Fish Oil) 1 Each Capsule 1 Each PO DAILY Premarin (Estrogens, Conjugated) 0.625 Mg Tablet 1 Tab PO DAILY Nortriptyline Hcl 25 Mg Capsule 1 Cap PO QHS Nitrofurantoin (Nitrofurantoin Macrocrystal) 100 Mg Capsule 1 Cap PO DAILY Cymbalta (Duloxetine Hcl) 30 Mg Capsule.dr 1 Cap PO DAILY Pantoprazole Sodium 40 Mg Tablet.dr 1 Tab PO DAILY Losartan Potassium 50 Mg Tablet 50 Mg PO DAILY Januvia (Sitagliptin Phosphate) 100 Mg Tablet 1 Tab PO DAILY Novolog Flexpen (Insulin Aspart) 100 Unit/1 Ml Insuln.pen 12 Unit SQ TIDWMEALS Losartan Potassium 100 Mg Tablet 100 Mg PO NOON Torsemide 10 Mg Tablet 10 Mg PO DAILY Sucralfate 1 Gm Tablet 1 Tab PO QID Omeprazole 20 Mg Capsule.dr 1 Cap PO BID Acetaminophen 325 Mg Tablet 650 Mg PO PRN BID PRN Levothyroxine Sodium 112 Mcg Tablet 1 Tab PO DAILY Atenolol 25 Mg Tablet 1 Tab PO BID Amlodipine Besylate 10 Mg Tablet 10 Mg PO DAILY Amitriptyline Hcl 25 Mg Tablet 1 Tab PO QHS Metoclopramide Hcl 5 Mg Tablet 5 Mg PO QIDACHS Alprazolam 0.5 Mg Tablet 1 Tab PO HS Alprazolam 0.5 Mg Tablet 2 Tab PO BIDWBKFT/HOLLIS Aspirin 81 Mg Tab.chew 1 Tab PO DAILY Allergies Allergies: Coded Allergies: olmesartan (Verified Allergy, Severe, ARM AND LEG CRAMPING AND HARD TIME BREATHING, 05/13/17) albuterol (Verified Allergy, Intermediate, 06/03/16) atorvastatin (Verified Allergy, Intermediate, 06/03/16) calcium carbonate (Verified Allergy, Intermediate, 06/03/16) clonidine (Verified Allergy, Intermediate, 06/03/16) codeine (Verified Allergy, Intermediate, 06/03/16) dicyclomine (Verified Allergy, Intermediate, 06/03/16) esomeprazole (Verified Allergy, Intermediate, 06/03/16) fexofenadine (Verified Allergy, Intermediate, 06/03/16) furosemide (Verified Allergy, Intermediate, RASH AND ITCHING, 07/15/16) hydralazine (Verified Allergy, Intermediate, 06/03/16) hydrochlorothiazide (Verified Allergy, Intermediate, 06/03/16) nefazodone (Verified Allergy, Intermediate, 06/03/16) niacin (Verified Allergy, Intermediate, 06/03/16) paroxetine (Verified Allergy, Intermediate, 06/03/16) tiotropium (Verified Allergy, Intermediate, 06/03/16) verapamil (Verified Allergy, Intermediate, 05/12/17) Tolerates amlodipine ROS Genitourinary: YES Other (she had indwelling Rodriguez catheter in place) Physical Exam General: Alert, Oriented X3, Cooperative, No acute distress HEENT: PERRLA, Mucous membr. moist/pink Extremities: No clubbing, No cyanosis, No edema, Normal pulses, No tenderness/ swelling Skin: Other (multiple skin bruises) Neuro: Normal speech, Strength at 5/5 X4 ext, Normal tone, Sensation intact, Cranial nerves 3-12 NL, Other (she had absent ankle jerks bilaterally and she is walking with roller walker slowly with wide based gait and she gets tired easily.) MUSCULOSKELETAL: Other (she had crepitus on ROM of both knees without any pain or effusion.) Vitals VITALS Vital Signs Date Time Temp Pulse Resp B/P (MAP) Pulse Ox O2 Delivery O2 Flow Rate FiO2 05/14/17 15:00 99.2 86 22 125/77 (93) 92 Nasal Cannula 4.0 99.2 Labs Labs Laboratory Tests Test 05/12/17 18:00 05/12/17 21:24 05/13/17 04:10 05/13/17 07:10 Glucose (Fingerstick) 313 mg/dL (70-99) 309 mg/dL (70-99) 194 mg/dL (70-99) White Blood Count 11.2 x10^3/uL (4.0-11.0) Red Blood Count 4.61 x10^6/uL (3.50-5.40) Hemoglobin 11.0 g/dL (12.0-15.5) Hematocrit 35.3 % (36.0-47.0) Mean Corpuscular Volume 77 fL (79-100) Mean Corpuscular Hemoglobin 24 pg (25-35) Mean Corpuscular Hemoglobin Concent 31 g/dL (31-37) Red Cell Distribution Width 19.3 % (11.5-14.5) Platelet Count 358 x10^3/uL (140-400) Neutrophils (%) (Auto) 75 % (31-73) Lymphocytes (%) (Auto) 9 % (24-48) Monocytes (%) (Auto) 14 % (0-9) Eosinophils (%) (Auto) 1 % (0-3) Basophils (%) (Auto) 1 % (0-3) Neutrophils # (Auto) 8.4 x10^3uL (1.8-7.7) Lymphocytes # (Auto) 1.0 x10^3/uL (1.0-4.8) Monocytes # (Auto) 1.5 x10^3/uL (0.0-1.1) Eosinophils # (Auto) 0.1 x10^3/uL (0.0-0.7) Basophils # (Auto) 0.1 x10^3/uL (0.0-0.2) Sodium Level 145 mmol/L (136-145) Potassium Level 3.7 mmol/L (3.5-5.1) Chloride Level 107 mmol/L (98-107) Carbon Dioxide Level 29 mmol/L (21-32) Anion Gap 9 (6-14) Blood Urea Nitrogen 18 mg/dL (7-20) Creatinine 1.4 mg/dL (0.6-1.0) Estimated GFR (Cockcroft-Gault) 37.2 BUN/Creatinine Ratio 13 (6-20) Glucose Level 211 mg/dL (70-99) Calcium Level 9.4 mg/dL (8.5-10.1) Phosphorus Level 3.7 mg/dL (2.6-4.7) Magnesium Level 2.5 mg/dL (1.8-2.4) Total Bilirubin 0.5 mg/dL (0.2-1.0) Aspartate Amino Transf (AST/SGOT) 22 U/L (15-37) Alanine Aminotransferase (ALT/SGPT) 45 U/L (14-59) Alkaline Phosphatase 122 U/L (46-116) Total Protein 7.6 g/dL (6.4-8.2) Albumin 2.8 g/dL (3.4-5.0) Albumin/Globulin Ratio 0.6 (1.0-1.7) Test 05/13/17 11:20 05/13/17 16:45 05/13/17 20:47 05/14/17 04:55 Glucose (Fingerstick) 296 mg/dL (70-99) 349 mg/dL (70-99) 348 mg/dL (70-99) White Blood Count 10.4 x10^3/uL (4.0-11.0) Red Blood Count 4.57 x10^6/uL (3.50-5.40) Hemoglobin 11.1 g/dL (12.0-15.5) Hematocrit 35.0 % (36.0-47.0) Mean Corpuscular Volume 77 fL (79-100) Mean Corpuscular Hemoglobin 24 pg (25-35) Mean Corpuscular Hemoglobin Concent 32 g/dL (31-37) Red Cell Distribution Width 19.1 % (11.5-14.5) Platelet Count 366 x10^3/uL (140-400) Sodium Level 150 mmol/L (136-145) Potassium Level 4.1 mmol/L (3.5-5.1) Chloride Level 111 mmol/L (98-107) Carbon Dioxide Level 29 mmol/L (21-32) Anion Gap 10 (6-14) Blood Urea Nitrogen 14 mg/dL (7-20) Creatinine 1.2 mg/dL (0.6-1.0) Estimated GFR (Cockcroft-Gault) 44.4 BUN/Creatinine Ratio 12 (6-20) Glucose Level 158 mg/dL (70-99) Calcium Level 9.5 mg/dL (8.5-10.1) Phosphorus Level 3.8 mg/dL (2.6-4.7) Total Bilirubin 0.3 mg/dL (0.2-1.0) Aspartate Amino Transf (AST/SGOT) 18 U/L (15-37) Alanine Aminotransferase (ALT/SGPT) 34 U/L (14-59) Alkaline Phosphatase 111 U/L (46-116) Total Protein 6.8 g/dL (6.4-8.2) Albumin 2.8 g/dL (3.4-5.0) Albumin/Globulin Ratio 0.7 (1.0-1.7) Test 05/14/17 07:41 05/14/17 11:24 Glucose (Fingerstick) 188 mg/dL (70-99) 222 mg/dL (70-99) Laboratory Tests Test 05/13/17 16:45 05/13/17 20:47 05/14/17 04:55 05/14/17 07:41 Glucose (Fingerstick) 349 mg/dL (70-99) 348 mg/dL (70-99) 188 mg/dL (70-99) White Blood Count 10.4 x10^3/uL (4.0-11.0) Red Blood Count 4.57 x10^6/uL (3.50-5.40) Hemoglobin 11.1 g/dL (12.0-15.5) Hematocrit 35.0 % (36.0-47.0) Mean Corpuscular Volume 77 fL (79-100) Mean Corpuscular Hemoglobin 24 pg (25-35) Mean Corpuscular Hemoglobin Concent 32 g/dL (31-37) Red Cell Distribution Width 19.1 % (11.5-14.5) Platelet Count 366 x10^3/uL (140-400) Sodium Level 150 mmol/L (136-145) Potassium Level 4.1 mmol/L (3.5-5.1) Chloride Level 111 mmol/L (98-107) Carbon Dioxide Level 29 mmol/L (21-32) Anion Gap 10 (6-14) Blood Urea Nitrogen 14 mg/dL (7-20) Creatinine 1.2 mg/dL (0.6-1.0) Estimated GFR (Cockcroft-Gault) 44.4 BUN/Creatinine Ratio 12 (6-20) Glucose Level 158 mg/dL (70-99) Calcium Level 9.5 mg/dL (8.5-10.1) Phosphorus Level 3.8 mg/dL (2.6-4.7) Total Bilirubin 0.3 mg/dL (0.2-1.0) Aspartate Amino Transf (AST/SGOT) 18 U/L (15-37) Alanine Aminotransferase (ALT/SGPT) 34 U/L (14-59) Alkaline Phosphatase 111 U/L (46-116) Total Protein 6.8 g/dL (6.4-8.2) Albumin 2.8 g/dL (3.4-5.0) Albumin/Globulin Ratio 0.7 (1.0-1.7) Test 05/14/17 11:24 Glucose (Fingerstick) 222 mg/dL (70-99) Images Images Mobility and self care limitations from deconditioned state from recent exacerbation of her COPD with respiratory failure and pneumonia,peripheral neuropathy,DJD of both knees. REC: Agree with palns for physical therapy and occupational therapy and transfer to rehab or SNF when medically stable. WANDA HARE MD May 14, 2017 16:19
[2017-05-14] MEDS: INSULIN DETEMIR 300 UNITS/3 ML INSULN.PEN. SQ SCH (21:31)
[2017-05-14] MEDS: NORTRIPTYLINE 25 MG CAPSULE PO SCH (21:33)
[2017-05-15] MEDS: IV 1/2 NORMAL SALINE 1,000 ML IV SCH (02:56)
[2017-05-15 03:17] VITALS: BP 171/89
[2017-05-15] MEDS: LEVOTHYROXINE 112 MCG TABLET PO SCH (06:13)
[2017-05-15 06:26] LABS: ALBUMIN 2.7 g/dL (3.4-5.0); CREATININE 1.3 mg/dL (0.6-1.0); GFR 40.5; PHOSPHORUS 3.7 mg/dL (2.6-4.7)
[2017-05-15 06:29] LABS: CALCIUM 8.7 mg/dL (8.5-10.1)
[2017-05-15 07:00] VITALS: BP 200/85
[2017-05-15] MEDS: PANTOPRAZOLE 40 MG TABLET.DR. PO SCH (07:30)
[2017-05-15] MEDS: METOCLOPRAMIDE 5 MG TABLET. PO SCH ×2 (07:30→11:30)
--- NOTE | 2017-05-15 07:40 | PDOC ---
Infectious Disease Note Subjective Subjective States ok. Wants her shoes so she can get up to walk Better. Slept well. Less cough ROS ROS GEN: Denies fevers, chills, sweats HEENT: Denies blurred vision, sore throat CV: Denies chest pain RESP: Denies shortness of air, cough GI: Denies n/v/d NEURO: Denies confusion, dizziness MSK: Denies weakness, joint pain/swelling Vital Sign Vital Signs Vital Signs Date Time Temp Pulse Resp B/P (MAP) Pulse Ox O2 Delivery O2 Flow Rate FiO2 05/15/17 03:17 98.3 64 21 171/89 (116) 95 Nasal Cannula 4.0 98.3 Physical Exam PHYSICAL EXAM GENERAL: NAD, Alert HEENT: PERRL, OC/OP -clear NECK: Supple, no JVD, no LN LUNGS: Clear, on 02 HEART: S1S2, no gallop, no murmur ABD: Soft, NT, no organomegaly, no rebound EXT: No edema, no cyanosis OPERATIONS MANAGER/COORDINATOR: Alert, oriented x 3, no focal neurologic deficit, slow to respond to questions Psych - flat affect SKIN: No rash IV: ok Labs Lab Laboratory Tests Test 05/14/17 07:41 05/14/17 11:24 05/14/17 16:30 05/14/17 21:14 Glucose (Fingerstick) 188 mg/dL (70-99) 222 mg/dL (70-99) 143 mg/dL (70-99) 244 mg/dL (70-99) Test 05/15/17 04:00 Sodium Level 146 mmol/L (136-145) Potassium Level 4.0 mmol/L (3.5-5.1) Chloride Level 108 mmol/L (98-107) Carbon Dioxide Level 30 mmol/L (21-32) Anion Gap 8 (6-14) Blood Urea Nitrogen 18 mg/dL (7-20) Creatinine 1.3 mg/dL (0.6-1.0) Estimated GFR (Cockcroft-Gault) 40.5 Glucose Level 144 mg/dL (70-99) Calcium Level 8.7 mg/dL (8.5-10.1) Phosphorus Level 3.7 mg/dL (2.6-4.7) Albumin 2.7 g/dL (3.4-5.0) Objective Assessment Pneumonia COPD exacerbation [place] - better Hyponatremia - better Encephalopathy - lack of sleep. - better - flat affect - ? baseline - stable Respiratory failure DM Leukocytosis - better Plan Plan of Care Notes reviewed Discontinues zosyn 05/06 - 05/14 Cont Augmentin for through tomorrow am dose then stop Ok to d/c ANN RILEY MD May 15, 2017 07:40
[2017-05-15] MEDS: ASPIRIN CHEWABLE 81 MG TABLET. PO SCH (08:00)
[2017-05-15] MEDS: ESTROGENS, CONJUGATED 0.625 MG TABLET PO SCH (08:59)
[2017-05-15] MEDS: CALCIUM CARB/VIT D3 500/200 TABLET. PO SCH (08:59)
[2017-05-15] MEDS: ASCORBIC ACID 500 MG TABLET PO SCH (08:59)
[2017-05-15] MEDS: CHOLECALCIFEROL (VITAMIN D3) 1,000 UNIT TABLET PO SCH (08:59)
[2017-05-15] MEDS: ATENOLOL 25 MG TABLET. PO SCH (08:59)
[2017-05-15] MEDS: ENOXAPARIN 40 MG/0.4 ML SYRINGE. SQ SCH (08:59)
[2017-05-15] MEDS: OMEGA-3 FATTY ACIDS/FISH OIL 1,000 MG CAPSULE. PO SCH (08:59)
[2017-05-15] MEDS: SUCRALFATE 1 GM TABLET. PO SCH (09:00)
[2017-05-15] MEDS: TORSEMIDE 20 MG TABLET. PO SCH (09:00)
[2017-05-15] MEDS: LINAGLIPTIN 5 MG TABLET PO SCH (09:00)
[2017-05-15] MEDS: LOSARTAN POTASSIUM 50 MG TABLET. PO SCH ×2 (09:02→12:56)
[2017-05-15] MEDS: metFORMIN XR 500 MG TAB.ER.24H PO SCH (09:03)
[2017-05-15] MEDS: ALPRAZolam 0.5 MG TABLET PO SCH ×2 (09:03→12:56)
[2017-05-15] MEDS: DULoxetine HCL 30 MG CAPSULE.DR PO SCH (09:03)
[2017-05-15] MEDS: amLODIPine BESYLATE 10 MG TABLET PO SCH (09:04)
[2017-05-15] MEDS: INSULIN ASPART 300 UNITS/3 ML INSULN.PEN SQ SCH ×4 (09:07→12:55)
[2017-05-15] MEDS: POTASSIUM CHLORIDE 20 MEQ TABLET.ER. PO SCH (09:15)
[2017-05-15] MEDS: AMOXICILLIN/K CLAV 875/125MG TABLET. PO SCH (09:15)
--- NOTE | 2017-05-15 10:33 | PDOC ---
PROGRESS NOTES Subjective Subjective She feels anxious. Objective Objective Vital Signs Date Time Temp Pulse Resp B/P (MAP) Pulse Ox O2 Delivery O2 Flow Rate FiO2 05/15/17 09:04 74 200/85 05/15/17 08:00 Nasal Cannula 4.0 05/15/17 07:00 98.9 18 94 98.9 Intake and Output 05/15/17 07:00 Intake Total 2651 ml Output Total 950 ml Balance 1701 ml Intake Oral 1330 ml IV Total 1321 ml Output Urine Total 950 ml # Voids 1 # Bowel Movements 3 Physical Exam Physical Exam She is comfortable sitting in bedside chair and her combing her hair. Assessment Assessment Problems Medical Problems: (1) Respiratory failure Status: Acute Plan Plan of Care Agree with plans for transfer to SNF when medically stable. Comment Review of Relevant I have reviewed the following items katy (where applicable) has been applied. Labs Laboratory Tests Test 05/13/17 11:20 05/13/17 16:45 05/13/17 20:47 05/14/17 04:55 Glucose (Fingerstick) 296 mg/dL (70-99) 349 mg/dL (70-99) 348 mg/dL (70-99) White Blood Count 10.4 x10^3/uL (4.0-11.0) Red Blood Count 4.57 x10^6/uL (3.50-5.40) Hemoglobin 11.1 g/dL (12.0-15.5) Hematocrit 35.0 % (36.0-47.0) Mean Corpuscular Volume 77 fL (79-100) Mean Corpuscular Hemoglobin 24 pg (25-35) Mean Corpuscular Hemoglobin Concent 32 g/dL (31-37) Red Cell Distribution Width 19.1 % (11.5-14.5) Platelet Count 366 x10^3/uL (140-400) Sodium Level 150 mmol/L (136-145) Potassium Level 4.1 mmol/L (3.5-5.1) Chloride Level 111 mmol/L (98-107) Carbon Dioxide Level 29 mmol/L (21-32) Anion Gap 10 (6-14) Blood Urea Nitrogen 14 mg/dL (7-20) Creatinine 1.2 mg/dL (0.6-1.0) Estimated GFR (Cockcroft-Gault) 44.4 BUN/Creatinine Ratio 12 (6-20) Glucose Level 158 mg/dL (70-99) Calcium Level 9.5 mg/dL (8.5-10.1) Phosphorus Level 3.8 mg/dL (2.6-4.7) Total Bilirubin 0.3 mg/dL (0.2-1.0) Aspartate Amino Transf (AST/SGOT) 18 U/L (15-37) Alanine Aminotransferase (ALT/SGPT) 34 U/L (14-59) Alkaline Phosphatase 111 U/L (46-116) Total Protein 6.8 g/dL (6.4-8.2) Albumin 2.8 g/dL (3.4-5.0) Albumin/Globulin Ratio 0.7 (1.0-1.7) Test 05/14/17 07:41 05/14/17 11:24 05/14/17 16:30 05/14/17 21:14 Glucose (Fingerstick) 188 mg/dL (70-99) 222 mg/dL (70-99) 143 mg/dL (70-99) 244 mg/dL (70-99) Test 05/15/17 04:00 05/15/17 07:45 Sodium Level 146 mmol/L (136-145) Potassium Level 4.0 mmol/L (3.5-5.1) Chloride Level 108 mmol/L (98-107) Carbon Dioxide Level 30 mmol/L (21-32) Anion Gap 8 (6-14) Blood Urea Nitrogen 18 mg/dL (7-20) Creatinine 1.3 mg/dL (0.6-1.0) Estimated GFR (Cockcroft-Gault) 40.5 Glucose Level 144 mg/dL (70-99) Calcium Level 8.7 mg/dL (8.5-10.1) Phosphorus Level 3.7 mg/dL (2.6-4.7) Albumin 2.7 g/dL (3.4-5.0) Glucose (Fingerstick) 184 mg/dL (70-99) Laboratory Tests Test 05/14/17 11:24 05/14/17 16:30 05/14/17 21:14 05/15/17 04:00 Glucose (Fingerstick) 222 mg/dL (70-99) 143 mg/dL (70-99) 244 mg/dL (70-99) Sodium Level 146 mmol/L (136-145) Potassium Level 4.0 mmol/L (3.5-5.1) Chloride Level 108 mmol/L (98-107) Carbon Dioxide Level 30 mmol/L (21-32) Anion Gap 8 (6-14) Blood Urea Nitrogen 18 mg/dL (7-20) Creatinine 1.3 mg/dL (0.6-1.0) Estimated GFR (Cockcroft-Gault) 40.5 Glucose Level 144 mg/dL (70-99) Calcium Level 8.7 mg/dL (8.5-10.1) Phosphorus Level 3.7 mg/dL (2.6-4.7) Albumin 2.7 g/dL (3.4-5.0) Test 05/15/17 07:45 Glucose (Fingerstick) 184 mg/dL (70-99) Microbiology 05/06/17 Blood Culture - Final, Complete NO GROWTH AFTER 5 DAYS 05/09/17 Sputum Culture - Final, Complete 05/09/17 Sputum Result 1 - Final, Complete 05/06/17 Urine Culture - Final, Complete 05/06/17 Urine Culture Result 1 (ANURAG) - Final, Complete 05/09/17 Gram Stain - Final, Complete Medications Current Medications Dopamine HCl/ Dextrose 250 ml @ 16.856 mls/ hr 1X ONCE IV Last administered on 05/05/17 22:54; Start 05/05/17 at 23:00; Stop 05/06/17 at 13:49; Status DC Torsemide (Demadex) 20 mg 1X ONCE PO Last administered on 05/06/17 00:44; Start 05/05/17 at 23:45; Stop 05/05/17 at 23:46; Status DC Bumetanide (Bumex) 1 mg [id number] IV Last administered on 05/10/17 08:45; Start 05/06/17 at 09:00; Stop 05/10/17 at 13:39; Status DC Ondansetron HCl (Zofran) 4 mg 1X ONCE IV Last administered on 05/06/17 00:09; Start 05/05/17 at 23:45; Stop 05/05/17 at 23:46; Status DC Ondansetron HCl (Zofran) 4 mg PRN Q8HRS PRN IV NAUSEA/VOMITING; Start 05/05/17 at 23:45; Stop 05/06/17 at 23:44; Status DC Acetaminophen/ Hydrocodone Bitart (Lortab 5/325) 1 tab PRN Q6HRS PRN PO MODERATE - SEVERE PAIN Last administered on 05/06/17 05:21; Start 05/06/17 at 05: 00 Acetaminophen/ Hydrocodone Bitart (Lortab 5/325) 2 tab PRN Q6HRS PRN PO MODERATE - SEVERE PAIN Last administered on 05/08/17 18:09; Start 05/06/17 at 05: 00 Dopamine HCl/ Dextrose 250 ml @ 16.627 mls/ hr CONT PRN IV SEE I/O RECORD Last administered on 05/06/17 12:28; Start 05/06/17 at 06:00; Stop 05/14/17 at 10 :43; Status DC Vancomycin HCl 1.5 gm/Sodium Chloride 500 ml @ 250 mls/hr 1X ONCE IV Last administered on 05/06/17 10:34; Start 05/06/17 at 09:00; Stop 05/06/17 at 10:59; Status DC Levofloxacin/ Dextrose 100 ml @ 100 mls/hr Q24H IV Last administered on 12:28; Start 05/06/17 at 10:00; Stop 05/08/17 at 09:28; Status DC Insulin Aspart (NovoLOG) 0-9 UNITS TIDWMEALS SQ Last administered on 05/06/17 18:09; Start 05/06/17 at 12:00; Stop 05/06/17 at 23:03; Status DC Dextrose (Dextrose 50%-Water Syringe) 12.5 gm PRN Q15MIN PRN IV SEE COMMENTS; Start 05/06/17 at 08:45 Enoxaparin Sodium (Lovenox 40mg Syringe) 40 mg Q24H SQ Last administered on 09:09; Start 05/06/17 at 09:00 Piperacillin Sod/ Tazobactam Sod 3.375 gm/Sodium Chloride 50 ml @ 100 mls/hr Q6HRS IV Last administered on 05/14/17 06:16; Start 05/06/17 at 10:30; Stop 09/20 at 07:17; Status DC Vancomycin HCl (Vanco Per Pharmacy) 1 each PRN DAILY PRN MC SEE COMMENTS Last administered on 05/08/17 11:20; Start 05/06/17 at 10:00; Stop 05/09/17 at 08:02; Status DC Succinylcholine Chloride (Anectine) 200 mg STK-MED ONCE .ROUTE ; Start 05/06/17 at 10:13; Stop 05/06/17 at 10:14; Status DC Propofol 20 ml @ As Directed STK-MED ONCE IV ; Start 05/06/17 at 10:13; Stop 05/06 at 10:14; Status DC Lidocaine HCl (Lidocaine Pf 2% Vial) 5 ml STK-MED ONCE .ROUTE ; Start 05/06/17 at 10:13; Stop 05/06/17 at 10:14; Status DC Propofol 0 ml @ As Directed STK-MED ONCE IV ; Start 05/06/17 at 10:14; Stop at 10:15; Status DC Midazolam HCl 100 ml @ As Directed STK-MED ONCE IV ; Start 05/06/17 at 10:14; Stop 05/06/17 at 10:15; Status DC Midazolam HCl 100 ml @ 0 mls/hr CONT PRN IV SEE I/O RECORD Last administered on 05/09/17 04:26; Start 05/06/17 at 11:00; Stop 05/12/17 at 09:35; Status DC Vancomycin HCl 500 mg/Sodium Chloride 100 ml @ 100 mls/hr 1X ONCE IV Last administered on 05/06/17 16:52; Start 05/06/17 at 12:00; Stop 05/06/17 at 12:59; Status DC Vancomycin HCl 1.25 gm/Sodium Chloride 250 ml @ 167 mls/hr Q24H IV Last administered on 05/07/17 10:01; Start 05/07/17 at 10:00; Stop 05/08/17 at 11:18; Status DC Vancomycin HCl 1 each 1X ONCE MC Last administered on 05/08/17 10:00; Start at 09:30; Stop 05/08/17 at 09:31; Status DC Isoproterenol HCl 1 mg/Dextrose 255 ml @ 0 mls/hr CONT PRN IV SEE I/O RECORD Last administered on 05/07/17 00:09; Start 05/06/17 at 13:00; Stop 05/14/17 at 10 :43; Status DC Albumin Human 50 ml @ 50 mls/hr 1X ONCE IV Last administered on 05/06/17 15:30 ; Start 05/06/17 at 15:30; Stop 05/06/17 at 16:29; Status DC Insulin Aspart (NovoLOG) BIDBFRMEAL SQ ; Start 05/07/17 at 07:30; Status UNV Insulin Detemir (Levemir) 15 units QHS SQ Last administered on 05/14/17 21:31 ; Start 05/06/17 at 21:00 Fentanyl Citrate (Fentanyl 2ml Vial) 25 mcg Q3HRS PRN IV MILD PAIN Last administered on 05/12/17 00:23; Start 05/06/17 at 18:00 Insulin Aspart (NovoLOG) 0-9 UNITS Q6HRS SQ Last administered on 05/12/17 18:10 ; Start 05/07/17 at 00:00; Stop 05/12/17 at 21:34; Status DC Acetaminophen (Tylenol) 650 mg PRN Q6HRS PRN NG MILD PAIN / TEMP Last administered on 05/07/17 17:57; Start 05/07/17 at 00:45 Chlorhexidine Gluconate (Peridex) 15 ml BID MM Last administered on 05/12/17 08 :08; Start 05/07/17 at 21:00; Stop 05/12/17 at 09:34; Status DC Famotidine (Pepcid) 20 mg QHS IVP Last administered on 05/12/17 18:37; Start at 21:00; Stop 05/13/17 at 14:24; Status DC Enalaprilat (Vasotec) 1.25 mg Q6HRS PRN IV HYPERTENSION, SEE COMMENTS Last administered on 05/14/17 03:22; Start 05/07/17 at 19:30 Magnesium Sulfate/ Dextrose 50 ml @ 25 mls/hr PRN DAILY PRN IV for Mag < 1.7 on am labs; Start 05/08/17 at 09:00 Levofloxacin/ Dextrose 150 ml @ 100 mls/hr Q48H IV Last administered on 11:18; Start 05/08/17 at 10:00; Stop 05/09/17 at 08:02; Status DC Vancomycin HCl 1.5 gm/Sodium Chloride 500 ml @ 250 mls/hr Q24H IV Last administered on 05/08/17 13:05; Start 05/08/17 at 11:30; Stop 05/09/17 at 08:02; Status DC Alprazolam (Xanax) 1 mg PRN Q8HRS PRN PO ANXIETY / AGITATION Last administered on 05/12/17 23:14; Start 05/08/17 at 16:45 Propofol 100 ml @ 0 mls/hr CONT PRN IV SEE I/O RECORD Last administered on 23:19; Start 05/08/17 at 19:15; Stop 05/11/17 at 19:04; Status DC Furosemide (Lasix) 40 mg 1X ONCE IVP Last administered on 05/09/17 16:09; Start 05/09/17 at 15:00; Stop 05/09/17 at 15:01; Status DC Furosemide (Lasix) 40 mg 1X ONCE IVP ; Start 05/09/17 at 15:00; Stop 05/09/17 at 15:01; Status UNV Dexmedetomidine HCl 200 mcg/ Sodium Chloride 50 ml @ 0 mls/hr CONT PRN IV PER PROTOCOL Last administered on 05/10/17 04:51; Start 05/09/17 at 15:00; Stop at 19:04; Status DC Bisacodyl (Dulcolax Supp) 10 mg PRN DAILY PRN [place] CONSTIPATION Last administered on 05/10/17 08:45; Start 05/10/17 at 08:15 Lorazepam (Ativan) 0.5 mg PRN Q8HRS PRN IV ANXIETY / AGITATION Last administered on 05/12/17 04:29; Start 05/10/17 at 20:00 Potassium Chloride (Klor-Con) 20 meq BID PO Last administered on 05/15/17 09: 15; Start 05/11/17 at 13:30 Dextrose/Sodium Chloride 1,000 ml @ 60 mls/hr [id number] IV Last administered on 05/12/17 12:32; Start 05/11/17 at 19:30; Stop 05/12/17 at 21:34; Status DC Potassium Chloride 100 ml @ 100 mls/hr Q1H IV Last administered on 05/10/17 02 :30; Start 05/11/17 at 20:00; Stop 05/11/17 at 23:59; Status DC Amitriptyline HCl (Elavil) 25 mg QHS PO Last administered on 05/12/17 21:18; Start 05/12/17 at 21:00; Stop 05/13/17 at 14:35; Status DC Amlodipine Besylate (Norvasc) 5 mg 1X ONCE PO Last administered on 05/12/17 12 :31; Start 05/12/17 at 12:30; Stop 05/12/17 at 12:31; Status DC Insulin Aspart (NovoLOG) 0-9 UNITS TIDACHC SQ Last administered on 05/15/17 09 :07; Start 05/13/17 at 07:30 Acetaminophen (Tylenol) 650 mg PRN BID PRN PO PAIN; Start 05/13/17 at 11:15 Alprazolam (Xanax) 0.5 mg HS PO Last administered on 05/14/17 21:55; Start 08/20 at 21:00 Alprazolam (Xanax) 1 mg BIDWBKFT/HOLLIS PO Last administered on 05/15/17 09:03; Start 05/13/17 at 12:00 Amitriptyline HCl (Elavil) 25 mg QHS PO ; Start 05/13/17 at 21:00; Status UNV Amlodipine Besylate (Norvasc) 10 mg DAILY PO Last administered on 05/15/17 09: 04; Start 05/13/17 at 12:00 Ascorbic Acid (Vitamin C) 500 mg DAILY PO ; Start 05/13/17 at 12:00 Aspirin (Children'S Aspirin) 81 mg DAILYWBKFT PO ; Start 05/13/17 at 12:00 Atenolol (Tenormin) 25 mg BID PO Last administered on 05/14/17 21:37; Start at 12:00 Vitamin D (Vitamin D3) 1,000 unit DAILY PO ; Start 05/13/17 at 12:00 Duloxetine HCl (Cymbalta) 30 mg DAILY PO Last administered on 05/15/17 09:03; Start 05/13/17 at 12:00 Estrogens Conjugated (Premarin) 0.625 mg DAILY PO ; Start 05/13/17 at 12:00 Acetaminophen/ Hydrocodone Bitart (Lortab 5/325) 1 tab PRN Q6HRS PRN PO PAIN; Start 05/13/17 at 11:15; Status Cancel Insulin Aspart (NovoLOG) 12 units TIDWMEALS SQ Last administered on 05/15/17 09:08; Start 05/13/17 at 12:00 Levothyroxine Sodium (Synthroid) 112 mcg DAILY07 PO Last administered on 06:13; Start 05/13/17 at 12:00 Losartan Potassium (Cozaar) 50 mg DAILY PO Last administered on 05/15/17 09:02 ; Start 05/14/17 at 09:00 Metformin HCl (Glucophage Xr) 1,000 mg BIDWMEALS PO Last administered on 09:03; Start 05/13/17 at 17:00 Metoclopramide HCl (Reglan) 5 mg QIDACHS PO Last administered on 05/14/17 21: 33; Start 05/13/17 at 11:30 Nortriptyline HCl (Pamelor) 25 mg QHS PO Last administered on 05/14/17 21:33; Start 05/13/17 at 21:00 Pantoprazole Sodium (Protonix) 40 mg BIDAC PO Last administered on 05/14/17 17 :33; Start 05/13/17 at 12:00 Sucralfate (Carafate) 1 gm QIDPMEDS PO Last administered on 05/14/17 21:37; Start 05/13/17 at 14:00 Non-Formulary Medication 1 each DAILY PO ; Start 05/14/17 at 09:00; Status UNV Non-Formulary Medication 5,000 mcg DAILY PO ; Start 05/14/17 at 09:00; Status UNV Calcium/Vitamin D (Oscal D 500mg/ 200uts) 1 tab DAILY PO ; Start 05/13/17 at 12: 00 Non-Formulary Medication 1 each DAILY PO ; Start 05/14/17 at 09:00; Status UNV Losartan Potassium (Cozaar) 100 mg NOON PO Last administered on 05/14/17 12:19 ; Start 05/13/17 at 12:00 Non-Formulary Medication 1 cap DAILY PO ; Start 05/14/17 at 09:00; Status UNV Fish Oil (Fish Oil) 1,000 mg DAILY PO ; Start 05/13/17 at 12:00 Non-Formulary Medication 1 cap BID PO ; Start 05/13/17 at 21:00; Status UNV Linagliptin (Tradjenta) 5 mg DAILY PO Last administered on 05/14/17 08:08; Start 05/13/17 at 12:00 Torsemide (Demadex) 10 mg DAILY PO Last administered on 05/14/17 08:08; Start 05/13/17 at 12:00 Non-Formulary Medication 1 each DAILY PO ; Start 05/14/17 at 09:00; Status UNV Amoxicillin/ Clavulanate Potassium (Augmentin 875/ 125mg) 1 tab BID PO Last administered on 05/15/17 09:15; Start 05/14/17 at 09:00 Sodium Chloride 1,000 ml @ 75 mls/hr [id number] IV Last administered on 02:56; Start 05/14/17 at 11:15 Active Scripts Active Glucophage Xr (Metformin Hcl) 500 Mg Tab.er.24h 1,000 Mg PO BID [place] 5-325 Tablet (Acetaminophen/Hydrocodone Bitart) 1 Each Tablet 1 Tab PO PRN Q6HRS PRN Reported Antioxidant Softgel (Beta-Carotene(A) W-C & E/Min) 1 Each Capsule 1 Each PO DAILY Hyaluronic Acid 40 Mg Capsule (Hyalur Ac/Chond Sul/Colg Ii/Aa) 1 Each Capsule 1 Each PO DAILY Biotin 2,500 Mcg Capsule 5,000 Mcg PO DAILY Benefiber (Wheat Dextrin) 1 Each Powd.pack 1 Each PO DAILY Benefiber (Wheat Dextrin) 1 Each Powd.pack 1 Each PO [place] (Cranberry Extract) 200 Mg Capsule 36 Mg PO Caltrate 600 + D Tablet (Calcium Carbonate/Vitamin D3) 1 Each Tablet 1 Each PO DAILY Vitamin C With Aletha Hips (Ascorbic Acid) 500 Mg Tablet 500 Mg PO DAILY Vitamin D3 (Cholecalciferol (Vitamin D3)) 1,000 Unit Tablet 1 Tab PO DAILY Fish Oil 1,000 Mg Softgel ([place]-3 Fatty Acids/Fish Oil) 1 Each Capsule 1 Each PO DAILY Premarin (Estrogens, Conjugated) 0.625 Mg Tablet 1 Tab PO DAILY Nortriptyline Hcl 25 Mg Capsule 1 Cap PO QHS Nitrofurantoin (Nitrofurantoin Macrocrystal) 100 Mg Capsule 1 Cap PO DAILY Cymbalta (Duloxetine Hcl) 30 Mg Capsule.dr 1 Cap PO DAILY Pantoprazole Sodium 40 Mg Tablet.dr 1 Tab PO DAILY Losartan Potassium 50 Mg Tablet 50 Mg PO DAILY Januvia (Sitagliptin Phosphate) 100 Mg Tablet 1 Tab PO DAILY Novolog Flexpen (Insulin Aspart) 100 Unit/1 Ml Insuln.pen 12 Unit SQ TIDWMEALS Losartan Potassium 100 Mg Tablet 100 Mg PO NOON Torsemide 10 Mg Tablet 10 Mg PO DAILY Sucralfate 1 Gm Tablet 1 Tab PO QID Omeprazole 20 Mg Capsule.dr 1 Cap PO BID Acetaminophen 325 Mg Tablet 650 Mg PO PRN BID PRN Levothyroxine Sodium 112 Mcg Tablet 1 Tab PO DAILY Atenolol 25 Mg Tablet 1 Tab PO BID Amlodipine Besylate 10 Mg Tablet 10 Mg PO DAILY Amitriptyline Hcl 25 Mg Tablet 1 Tab PO QHS Metoclopramide Hcl 5 Mg Tablet 5 Mg PO QIDACHS Alprazolam 0.5 Mg Tablet 1 Tab PO HS Alprazolam 0.5 Mg Tablet 2 Tab PO BIDWBKFT/HOLLIS Aspirin 81 Mg Tab.chew 1 Tab PO DAILY Vitals/I & O Vital Sign - Last 24 Hours 05/14/17 05/14/17 05/14/17 05/14/17 11:20 12:19 15:00 19:00 Temp 98.4 99.2 98.9 98.4 99.2 98.9 Pulse 65 65 86 76 Resp 23 B/P (MAP) 151/69 (96) 126/67 125/77 (93) 148/70 (96) Pulse Ox 92 92 92 O2 Delivery Nasal Cannula Nasal Cannula Nasal Cannula O2 Flow Rate 4.0 4.0 4.0 05/14/17 05/14/17 05/14/17 05/15/17 20:00 21:37 23:00 03:17 Temp 99.1 98.3 99.1 98.3 Pulse 77 70 64 Resp 21 B/P (MAP) 161/72 163/91 (115) 171/89 (116) Pulse Ox 96 95 O2 Delivery Nasal Cannula Nasal Cannula Nasal Cannula O2 Flow Rate 4.0 4.0 4.0 05/15/17 05/15/17 05/15/17 05/15/17 07:00 08:00 09:02 09:04 Temp 98.9 98.9 Pulse 65 65 74 Resp 18 B/P (MAP) 200/85 (123) 200/85 200/85 Pulse Ox 94 O2 Delivery Nasal Cannula Nasal Cannula O2 Flow Rate 4.0 4.0 Intake and Output 05/14/17 05/14/17 05/15/17 15:00 23:00 07:00 Intake Total 720 ml 810 ml 1121 ml Output Total 550 ml 400 ml Balance 720 ml 260 ml 721 ml WANDA HARE MD May 15, 2017 10:33
--- NOTE | 2017-05-15 10:43 | PDOC ---
PROGRESS NOTES Subjective Subjective doing well ,sitting in chair Objective Objective Vital Signs Date Time Temp Pulse Resp B/P (MAP) Pulse Ox O2 Delivery O2 Flow Rate FiO2 05/15/17 09:04 74 200/85 05/15/17 08:00 Nasal Cannula 4.0 05/15/17 07:00 98.9 18 94 98.9 Intake and Output 05/15/17 07:00 Intake Total 2651 ml Output Total 950 ml Balance 1701 ml Intake Oral 1330 ml IV Total 1321 ml Output Urine Total 950 ml # Voids 1 # Bowel Movements 3 Physical Exam Abdomen: Normal bowel sounds, Soft, No tenderness, No hepatosplenomegaly, No masses Heart: Regular rate (and rhythm), Normal S1, Normal S2 Extremities: No clubbing, No cyanosis, No edema, Normal pulses, No tenderness/ swelling General: Alert, Oriented X3, Cooperative, No acute distress HEENT: PERRLA, Mucous membr. moist/pink Lungs: Clear to auscultation (b/l) MUSCULOSKELETAL: Other (she had crepitus on ROM of both knees without any pain or effusion.) Neck: Supple, No JVD, No thyromegaly Neuro: Normal speech, Strength at 5/5 X4 ext, Normal tone, Sensation intact, Cranial nerves 3-12 NL, Other (she had absent ankle jerks bilaterally and she is walking with roller walker slowly with wide based gait and she gets tired easily.) Psych/Mental Status: Mental status NL, Mood NL Skin: Other (multiple skin bruises) COMMENT nate d/nam Diagnosis Problem List Problems Medical Problems: (1) Respiratory failure Status: Acute RESPIRATORY DISEASE: Other (acute respiratory failure requiring intubation and mechanical ventilation ) RESPIRATORY INFECTION: Pneumonitis (sepsis) COPD: COPD RESPIRATORY FAILURE: Acute ASTHMA: Chronic Obstructive HEART FAILURE: Other (A/C diastolic CHF) RENAL FAILURE: Chronic (CKD stage III) Assessment Assessment Problems Medical Problems: (1) Respiratory failure Status: Acute Assessment Acute respiratory failure needing intubation, extubated 05/10/17 pneumonia suspect gram neg+gram positive sepsis acute lactic acidosis acute on chronic chf -diastolic hyponatremia ac kidney failure?ATN ch copd ex smoker h/o pancreatitis Plan Plan: improving d/c to SNU today needs to go to SNU, spoke with social work extubated few days ago 05/10/17 thin liquids dysphagia 1 diet po antibiotic for 1 more day spoke with palliative team,DNR and DNI For more details regarding further plans, please refer to the orders. Problems: Plan Plan of Care Problems Medical Problems: (1) Respiratory failure Status: Acute Comment Review of Relevant I have reviewed the following items katy (where applicable) has been applied. Labs Laboratory Tests Test 05/14/17 11:24 05/14/17 16:30 05/14/17 21:14 05/15/17 04:00 Glucose (Fingerstick) 222 mg/dL (70-99) 143 mg/dL (70-99) 244 mg/dL (70-99) Sodium Level 146 mmol/L (136-145) Potassium Level 4.0 mmol/L (3.5-5.1) Chloride Level 108 mmol/L (98-107) Carbon Dioxide Level 30 mmol/L (21-32) Anion Gap 8 (6-14) Blood Urea Nitrogen 18 mg/dL (7-20) Creatinine 1.3 mg/dL (0.6-1.0) Estimated GFR (Cockcroft-Gault) 40.5 Glucose Level 144 mg/dL (70-99) Calcium Level 8.7 mg/dL (8.5-10.1) Phosphorus Level 3.7 mg/dL (2.6-4.7) Albumin 2.7 g/dL (3.4-5.0) Test 05/15/17 07:45 Glucose (Fingerstick) 184 mg/dL (70-99) Microbiology 05/06/17 Blood Culture - Final, Complete NO GROWTH AFTER 5 DAYS 05/09/17 Sputum Culture - Final, Complete 05/09/17 Sputum Result 1 - Final, Complete 05/06/17 Urine Culture - Final, Complete 05/06/17 Urine Culture Result 1 (ANURAG) - Final, Complete 05/09/17 Gram Stain - Final, Complete Medications Current Medications Sodium Chloride 1,000 ml @ 75 mls/hr [id number] IV Last administered on t 02:56; Start 05/14/17 at 11:15 Vitals/I & O Vital Sign - Last 24 Hours 05/14/17 05/14/17 05/14/17 05/14/17 11:20 12:19 15:00 19:00 Temp 98.4 99.2 98.9 98.4 99.2 98.9 Pulse 65 65 86 76 Resp 23 B/P (MAP) 151/69 (96) 126/67 125/77 (93) 148/70 (96) Pulse Ox 92 92 92 O2 Delivery Nasal Cannula Nasal Cannula Nasal Cannula O2 Flow Rate 4.0 4.0 4.0 05/14/17 05/14/17 05/14/17 05/15/17 20:00 21:37 23:00 03:17 Temp 99.1 98.3 99.1 98.3 Pulse 77 70 64 Resp B/P (MAP) 161/72 163/91 (115) 171/89 (116) Pulse Ox 96 95 O2 Delivery Nasal Cannula Nasal Cannula Nasal Cannula O2 Flow Rate 4.0 4.0 4.0 05/15/17 05/15/17 05/15/17 05/15/17 07:00 08:00 09:02 09:04 Temp 98.9 98.9 Pulse 65 65 74 Resp 18 B/P (MAP) 200/85 (123) 200/85 200/85 Pulse Ox 94 O2 Delivery Nasal Cannula Nasal Cannula O2 Flow Rate 4.0 4.0 Intake and Output 05/14/17 05/14/17 05/15/17 15:00 23:00 07:00 Intake Total 720 ml 810 ml 1121 ml Output Total 550 ml 400 ml Balance 720 ml 260 ml 721 ml ILA CAVAZOS MD May 15, 2017 10:43
--- NOTE | 2017-05-15 10:54 | PDOC ---
PROGRESS NOTES Subjective Subjective Ms Kennedy was seated in her chair this morning. She reports no pain or shortness of breath. She only complains of difficulty eating thickened liquids. She is in sinus rhythm Objective Objective Vital Signs Date Time Temp Pulse Resp B/P (MAP) Pulse Ox O2 Delivery O2 Flow Rate FiO2 05/15/17 09:04 74 200/85 05/15/17 08:00 Nasal Cannula 4.0 05/15/17 07:00 98.9 18 94 98.9 Intake and Output 05/15/17 07:00 Intake Total 2651 ml Output Total 950 ml Balance 1701 ml Intake Oral 1330 ml IV Total 1321 ml Output Urine Total 950 ml # Voids 1 # Bowel Movements 3 Physical Exam Heart: Regular rate (and rhythm), Normal S1, Normal S2 Extremities: No edema, Normal pulses (2/4 radial b/l) General: No acute distress Lungs: Clear to auscultation (b/l), Normal air movement Assessment Assessment Patient has been maintaining sinus rhythm, with no chest pain or sob. Due to maintained hypertension, will double current dose of atenolol and monitor Problems Medical Problems: (1) Respiratory failure Status: Acute Comment Review of Relevant I have reviewed the following items katy (where applicable) has been applied. Labs Laboratory Tests Test 05/13/17 11:20 05/13/17 16:45 05/13/17 20:47 05/14/17 04:55 Glucose (Fingerstick) 296 mg/dL (70-99) 349 mg/dL (70-99) 348 mg/dL (70-99) White Blood Count 10.4 x10^3/uL (4.0-11.0) Red Blood Count 4.57 x10^6/uL (3.50-5.40) Hemoglobin 11.1 g/dL (12.0-15.5) Hematocrit 35.0 % (36.0-47.0) Mean Corpuscular Volume 77 fL (79-100) Mean Corpuscular Hemoglobin 24 pg (25-35) Mean Corpuscular Hemoglobin Concent 32 g/dL (31-37) Red Cell Distribution Width 19.1 % (11.5-14.5) Platelet Count 366 x10^3/uL (140-400) Sodium Level 150 mmol/L (136-145) Potassium Level 4.1 mmol/L (3.5-5.1) Chloride Level 111 mmol/L (98-107) Carbon Dioxide Level 29 mmol/L (21-32) Anion Gap 10 (6-14) Blood Urea Nitrogen 14 mg/dL (7-20) Creatinine 1.2 mg/dL (0.6-1.0) Estimated GFR (Cockcroft-Gault) 44.4 BUN/Creatinine Ratio 12 (6-20) Glucose Level 158 mg/dL (70-99) Calcium Level 9.5 mg/dL (8.5-10.1) Phosphorus Level 3.8 mg/dL (2.6-4.7) Total Bilirubin 0.3 mg/dL (0.2-1.0) Aspartate Amino Transf (AST/SGOT) 18 U/L (15-37) Alanine Aminotransferase (ALT/SGPT) 34 U/L (14-59) Alkaline Phosphatase 111 U/L (46-116) Total Protein 6.8 g/dL (6.4-8.2) Albumin 2.8 g/dL (3.4-5.0) Albumin/Globulin Ratio 0.7 (1.0-1.7) Test 05/14/17 07:41 05/14/17 11:24 05/14/17 16:30 05/14/17 21:14 Glucose (Fingerstick) 188 mg/dL (70-99) 222 mg/dL (70-99) 143 mg/dL (70-99) 244 mg/dL (70-99) Test 05/15/17 04:00 05/15/17 07:45 Sodium Level 146 mmol/L (136-145) Potassium Level 4.0 mmol/L (3.5-5.1) Chloride Level 108 mmol/L (98-107) Carbon Dioxide Level 30 mmol/L (21-32) Anion Gap 8 (6-14) Blood Urea Nitrogen 18 mg/dL (7-20) Creatinine 1.3 mg/dL (0.6-1.0) Estimated GFR (Cockcroft-Gault) 40.5 Glucose Level 144 mg/dL (70-99) Calcium Level 8.7 mg/dL (8.5-10.1) Phosphorus Level 3.7 mg/dL (2.6-4.7) Albumin 2.7 g/dL (3.4-5.0) Glucose (Fingerstick) 184 mg/dL (70-99) Laboratory Tests Test 05/14/17 11:24 05/14/17 16:30 05/14/17 21:14 05/15/17 04:00 Glucose (Fingerstick) 222 mg/dL (70-99) 143 mg/dL (70-99) 244 mg/dL (70-99) Sodium Level 146 mmol/L (136-145) Potassium Level 4.0 mmol/L (3.5-5.1) Chloride Level 108 mmol/L (98-107) Carbon Dioxide Level 30 mmol/L (21-32) Anion Gap 8 (6-14) Blood Urea Nitrogen 18 mg/dL (7-20) Creatinine 1.3 mg/dL (0.6-1.0) Estimated GFR (Cockcroft-Gault) 40.5 Glucose Level 144 mg/dL (70-99) Calcium Level 8.7 mg/dL (8.5-10.1) Phosphorus Level 3.7 mg/dL (2.6-4.7) Albumin 2.7 g/dL (3.4-5.0) Test 05/15/17 07:45 Glucose (Fingerstick) 184 mg/dL (70-99) Microbiology 05/06/17 Blood Culture - Final, Complete NO GROWTH AFTER 5 DAYS 05/09/17 Sputum Culture - Final, Complete 05/09/17 Sputum Result 1 - Final, Complete 05/06/17 Urine Culture - Final, Complete 05/06/17 Urine Culture Result 1 (ANURAG) - Final, Complete 05/09/17 Gram Stain - Final, Complete Medications Current Medications Dopamine HCl/ Dextrose 250 ml @ 16.856 mls/ hr 1X ONCE IV Last administered on 05/05/17 22:54; Start 05/05/17 at 23:00; Stop 05/06/17 at 13:49; Status DC Torsemide (Demadex) 20 mg 1X ONCE PO Last administered on 05/06/17 00:44; Start 05/05/17 at 23:45; Stop 05/05/17 at 23:46; Status DC Bumetanide (Bumex) 1 mg BID92 IV Last administered on 05/10/17 08:45; Start 05/06/17 at 09:00; Stop 05/10/17 at 13:39; Status DC Ondansetron HCl (Zofran) 4 mg 1X ONCE IV Last administered on 05/06/17 00:09; Start 05/05/17 at 23:45; Stop 05/05/17 at 23:46; Status DC Ondansetron HCl (Zofran) 4 mg PRN Q8HRS PRN IV NAUSEA/VOMITING; Start 05/05/17 at 23:45; Stop 05/06/17 at 23:44; Status DC Acetaminophen/ Hydrocodone Bitart (Lortab 5/325) 1 tab PRN Q6HRS PRN PO MODERATE - SEVERE PAIN Last administered on 05/06/17 05:21; Start 05/06/17 at 05: 00 Acetaminophen/ Hydrocodone Bitart (Lortab 5/325) 2 tab PRN Q6HRS PRN PO MODERATE - SEVERE PAIN Last administered on 05/08/17 18:09; Start 05/06/17 at 05: 00 Dopamine HCl/ Dextrose 250 ml @ 16.627 mls/ hr CONT PRN IV SEE I/O RECORD Last administered on 05/06/17 12:28; Start 05/06/17 at 06:00; Stop 05/14/17 at 10 :43; Status DC Vancomycin HCl 1.5 gm/Sodium Chloride 500 ml @ 250 mls/hr 1X ONCE IV Last administered on 05/06/17 10:34; Start 05/06/17 at 09:00; Stop 05/06/17 at 10:59; Status DC Levofloxacin/ Dextrose 100 ml @ 100 mls/hr Q24H IV Last administered on 12:28; Start 05/06/17 at 10:00; Stop 05/08/17 at 09:28; Status DC Insulin Aspart (NovoLOG) 0-9 UNITS TIDWMEALS SQ Last administered on 05/06/17 18:09; Start 05/06/17 at 12:00; Stop 05/06/17 at 23:03; Status DC Dextrose (Dextrose 50%-Water Syringe) 12.5 gm PRN Q15MIN PRN IV SEE COMMENTS; Start 05/06/17 at 08:45 Enoxaparin Sodium (Lovenox 40mg Syringe) 40 mg Q24H SQ Last administered on 7/ 10/17at 09:09; Start 05/06/17 at 09:00 Piperacillin Sod/ Tazobactam Sod 3.375 gm/Sodium Chloride 50 ml @ 100 mls/hr Q6HRS IV Last administered on 05/14/17 06:16; Start 05/06/17 at 10:30; Stop 09/20 at 07:17; Status DC Vancomycin HCl (Vanco Per Pharmacy) 1 each PRN DAILY PRN MC SEE COMMENTS Last administered on 05/08/17 11:20; Start 05/06/17 at 10:00; Stop 05/09/17 at 08:02; Status DC Succinylcholine Chloride (Anectine) 200 mg STK-MED ONCE .ROUTE ; Start 05/06/17 at 10:13; Stop 05/06/17 at 10:14; Status DC Propofol 20 ml @ As Directed STK-MED ONCE IV ; Start 05/06/17 at 10:13; Stop 05/06 at 10:14; Status DC Lidocaine HCl (Lidocaine Pf 2% Vial) 5 ml STK-MED ONCE .ROUTE ; Start 05/06/17 at 10:13; Stop 05/06/17 at 10:14; Status DC Propofol 0 ml @ As Directed STK-MED ONCE IV ; Start 05/06/17 at 10:14; Stop at 10:15; Status DC Midazolam HCl 100 ml @ As Directed STK-MED ONCE IV ; Start 05/06/17 at 10:14; Stop 05/06/17 at 10:15; Status DC Midazolam HCl 100 ml @ 0 mls/hr CONT PRN IV SEE I/O RECORD Last administered on 05/09/17 04:26; Start 05/06/17 at 11:00; Stop 05/12/17 at 09:35; Status DC Vancomycin HCl 500 mg/Sodium Chloride 100 ml @ 100 mls/hr 1X ONCE IV Last administered on 05/06/17 16:52; Start 05/06/17 at 12:00; Stop 05/06/17 at 12:59; Status DC Vancomycin HCl 1.25 gm/Sodium Chloride 250 ml @ 167 mls/hr Q24H IV Last administered on 05/07/17 10:01; Start 05/07/17 at 10:00; Stop 05/08/17 at 11:18; Status DC Vancomycin HCl 1 each 1X ONCE MC Last administered on 05/08/17 10:00; Start at 09:30; Stop 05/08/17 at 09:31; Status DC Isoproterenol HCl 1 mg/Dextrose 255 ml @ 0 mls/hr CONT PRN IV SEE I/O RECORD Last administered on 05/07/17 00:09; Start 05/06/17 at 13:00; Stop 05/14/17 at 10 :43; Status DC Albumin Human 50 ml @ 50 mls/hr 1X ONCE IV Last administered on 05/06/17 15:30 ; Start 05/06/17 at 15:30; Stop 05/06/17 at 16:29; Status DC Insulin Aspart (NovoLOG) BIDBFRMEAL SQ ; Start 05/07/17 at 07:30; Status UNV Insulin Detemir (Levemir) 15 units QHS SQ Last administered on 05/14/17 21:31 ; Start 05/06/17 at 21:00 Fentanyl Citrate (Fentanyl 2ml Vial) 25 mcg Q3HRS PRN IV MILD PAIN Last administered on 05/12/17 00:23; Start 05/06/17 at 18:00 Insulin Aspart (NovoLOG) 0-9 UNITS Q6HRS SQ Last administered on 05/12/17 18:10 ; Start 05/07/17 at 00:00; Stop 05/12/17 at 21:34; Status DC Acetaminophen (Tylenol) 650 mg PRN Q6HRS PRN NG MILD PAIN / TEMP Last administered on 05/07/17 17:57; Start 05/07/17 at 00:45 Chlorhexidine Gluconate (Peridex) 15 ml BID MM Last administered on 05/12/17 08 :08; Start 05/07/17 at 21:00; Stop 05/12/17 at 09:34; Status DC Famotidine (Pepcid) 20 mg QHS IVP Last administered on 05/12/17 18:37; Start at 21:00; Stop 05/13/17 at 14:24; Status DC Enalaprilat (Vasotec) 1.25 mg Q6HRS PRN IV HYPERTENSION, SEE COMMENTS Last administered on 05/14/17 03:22; Start 05/07/17 at 19:30 Magnesium Sulfate/ Dextrose 50 ml @ 25 mls/hr PRN DAILY PRN IV for Mag < 1.7 on am labs; Start 05/08/17 at 09:00; Stop 05/15/17 at 10:41; Status DC Levofloxacin/ Dextrose 150 ml @ 100 mls/hr Q48H IV Last administered on 11:18; Start 05/08/17 at 10:00; Stop 05/09/17 at 08:02; Status DC Vancomycin HCl 1.5 gm/Sodium Chloride 500 ml @ 250 mls/hr Q24H IV Last administered on 05/08/17 13:05; Start 05/08/17 at 11:30; Stop 05/09/17 at 08:02; Status DC Alprazolam (Xanax) 1 mg PRN Q8HRS PRN PO ANXIETY / AGITATION Last administered on 05/12/17 23:14; Start 05/08/17 at 16:45 Propofol 100 ml @ 0 mls/hr CONT PRN IV SEE I/O RECORD Last administered on 23:19; Start 05/08/17 at 19:15; Stop 05/11/17 at 19:04; Status DC Furosemide (Lasix) 40 mg 1X ONCE IVP Last administered on 05/09/17 16:09; Start 05/09/17 at 15:00; Stop 05/09/17 at 15:01; Status DC Furosemide (Lasix) 40 mg 1X ONCE IVP ; Start 05/09/17 at 15:00; Stop 05/09/17 at 15:01; Status UNV Dexmedetomidine HCl 200 mcg/ Sodium Chloride 50 ml @ 0 mls/hr CONT PRN IV PER PROTOCOL Last administered on 05/10/17 04:51; Start 05/09/17 at 15:00; Stop at 19:04; Status DC Bisacodyl (Dulcolax Supp) 10 mg PRN DAILY PRN SD CONSTIPATION Last administered on 05/10/17 08:45; Start 05/10/17 at 08:15 Lorazepam (Ativan) 0.5 mg PRN Q8HRS PRN IV ANXIETY / AGITATION Last administered on 05/12/17 04:29; Start 05/10/17 at 20:00 Potassium Chloride (Klor-Con) 20 meq BID PO Last administered on 05/15/17 09: 15; Start 05/11/17 at 13:30 Dextrose/Sodium Chloride 1,000 ml @ 60 mls/hr [id number] IV Last administered on 05/12/17 12:32; Start 05/11/17 at 19:30; Stop 05/12/17 at 21:34; Status DC Potassium Chloride 100 ml @ 100 mls/hr Q1H IV Last administered on 05/10/17 02 :30; Start 05/11/17 at 20:00; Stop 05/11/17 at 23:59; Status DC Amitriptyline HCl (Elavil) 25 mg QHS PO Last administered on 05/12/17 21:18; Start 05/12/17 at 21:00; Stop 05/13/17 at 14:35; Status DC Amlodipine Besylate (Norvasc) 5 mg 1X ONCE PO Last administered on 05/12/17 12 :31; Start 05/12/17 at 12:30; Stop 05/12/17 at 12:31; Status DC Insulin Aspart (NovoLOG) 0-9 UNITS TIDACHC SQ Last administered on 05/15/17 09 :07; Start 05/13/17 at 07:30 Acetaminophen (Tylenol) 650 mg PRN BID PRN PO PAIN; Start 05/13/17 at 11:15 Alprazolam (Xanax) 0.5 mg HS PO Last administered on 05/14/17 21:55; Start 08/20 at 21:00 Alprazolam (Xanax) 1 mg BIDWBKFT/HOLLIS PO Last administered on 05/15/17 09:03; Start 05/13/17 at 12:00 Amitriptyline HCl (Elavil) 25 mg QHS PO ; Start 05/13/17 at 21:00; Status UNV Amlodipine Besylate (Norvasc) 10 mg DAILY PO Last administered on 05/15/17 09: 04; Start 05/13/17 at 12:00 Ascorbic Acid (Vitamin C) 500 mg DAILY PO ; Start 05/13/17 at 12:00 Aspirin (Children'S Aspirin) 81 mg DAILYWBKFT PO ; Start 05/13/17 at 12:00 Atenolol (Tenormin) 25 mg BID PO Last administered on 05/14/17 21:37; Start at 12:00 Vitamin D (Vitamin D3) 1,000 unit DAILY PO ; Start 05/13/17 at 12:00 Duloxetine HCl (Cymbalta) 30 mg DAILY PO Last administered on 05/15/17 09:03; Start 05/13/17 at 12:00 Estrogens Conjugated (Premarin) 0.625 mg DAILY PO ; Start 05/13/17 at 12:00 Acetaminophen/ Hydrocodone Bitart (Lortab 5/325) 1 tab PRN Q6HRS PRN PO PAIN; Start 05/13/17 at 11:15; Status Cancel Insulin Aspart (NovoLOG) 12 units TIDWMEALS SQ Last administered on 05/15/17 09:08; Start 05/13/17 at 12:00 Levothyroxine Sodium (Synthroid) 112 mcg DAILY07 PO Last administered on 06:13; Start 05/13/17 at 12:00 Losartan Potassium (Cozaar) 50 mg DAILY PO Last administered on 05/15/17 09:02 ; Start 05/14/17 at 09:00 Metformin HCl (Glucophage Xr) 1,000 mg BIDWMEALS PO Last administered on 09:03; Start 05/13/17 at 17:00 Metoclopramide HCl (Reglan) 5 mg QIDACHS PO Last administered on 05/14/17 21: 33; Start 05/13/17 at 11:30 Nortriptyline HCl (Pamelor) 25 mg QHS PO Last administered on 05/14/17 21:33; Start 05/13/17 at 21:00 Pantoprazole Sodium (Protonix) 40 mg BIDAC PO Last administered on 05/14/17 17 :33; Start 05/13/17 at 12:00 Sucralfate (Carafate) 1 gm QIDPMEDS PO Last administered on 05/14/17 21:37; Start 05/13/17 at 14:00 Non-Formulary Medication 1 each DAILY PO ; Start 05/14/17 at 09:00; Status UNV Non-Formulary Medication 5,000 mcg DAILY PO ; Start 05/14/17 at 09:00; Status UNV Calcium/Vitamin D (Oscal D 500mg/ 200uts) 1 tab DAILY PO ; Start 05/13/17 at 12: 00 Non-Formulary Medication 1 each DAILY PO ; Start 05/14/17 at 09:00; Status UNV Losartan Potassium (Cozaar) 100 mg NOON PO Last administered on 05/14/17 12:19 ; Start 05/13/17 at 12:00 Non-Formulary Medication 1 cap DAILY PO ; Start 05/14/17 at 09:00; Status UNV Fish Oil (Fish Oil) 1,000 mg DAILY PO ; Start 05/13/17 at 12:00 Non-Formulary Medication 1 cap BID PO ; Start 05/13/17 at 21:00; Status UNV Linagliptin (Tradjenta) 5 mg DAILY PO Last administered on 05/14/17 08:08; Start 05/13/17 at 12:00 Torsemide (Demadex) 10 mg DAILY PO Last administered on 05/14/17 08:08; Start 05/13/17 at 12:00 Non-Formulary Medication 1 each DAILY PO ; Start 05/14/17 at 09:00; Status UNV Amoxicillin/ Clavulanate Potassium (Augmentin 875/ 125mg) 1 tab BID PO Last administered on 05/15/17 09:15; Start 05/14/17 at 09:00 Sodium Chloride 1,000 ml @ 75 mls/hr [id number] IV Last administered on 02:56; Start 05/14/17 at 11:15; Stop 05/15/17 at 10:41; Status DC Active Scripts Active Glucophage Xr (Metformin Hcl) 500 Mg Tab.er.24h 1,000 Mg PO BID [place] 5-325 Tablet (Acetaminophen/Hydrocodone Bitart) 1 Each Tablet 1 Tab PO PRN Q6HRS PRN Reported Antioxidant Softgel (Beta-Carotene(A) W-C & E/Min) 1 Each Capsule 1 Each PO DAILY Hyaluronic Acid 40 Mg Capsule (Hyalur Ac/Chond Sul/Colg Ii/Aa) 1 Each Capsule 1 Each PO DAILY Biotin 2,500 Mcg Capsule 5,000 Mcg PO DAILY Benefiber (Wheat Dextrin) 1 Each Powd.pack 1 Each PO DAILY Benefiber (Wheat Dextrin) 1 Each Powd.pack 1 Each PO [place] (Cranberry Extract) 200 Mg Capsule 36 Mg PO Caltrate 600 + D Tablet (Calcium Carbonate/Vitamin D3) 1 Each Tablet 1 Each PO DAILY Vitamin C With Aletha Hips (Ascorbic Acid) 500 Mg Tablet 500 Mg PO DAILY Vitamin D3 (Cholecalciferol (Vitamin D3)) 1,000 Unit Tablet 1 Tab PO DAILY Fish Oil 1,000 Mg Softgel ([place]-3 Fatty Acids/Fish Oil) 1 Each Capsule 1 Each PO DAILY Premarin (Estrogens, Conjugated) 0.625 Mg Tablet 1 Tab PO DAILY Nortriptyline Hcl 25 Mg Capsule 1 Cap PO QHS Nitrofurantoin (Nitrofurantoin Macrocrystal) 100 Mg Capsule 1 Cap PO DAILY Cymbalta (Duloxetine Hcl) 30 Mg Capsule.dr 1 Cap PO DAILY Pantoprazole Sodium 40 Mg Tablet.dr 1 Tab PO DAILY Losartan Potassium 50 Mg Tablet 50 Mg PO DAILY Januvia (Sitagliptin Phosphate) 100 Mg Tablet 1 Tab PO DAILY Novolog Flexpen (Insulin Aspart) 100 Unit/1 Ml Insuln.pen 12 Unit SQ TIDWMEALS Losartan Potassium 100 Mg Tablet 100 Mg PO NOON Torsemide 10 Mg Tablet 10 Mg PO DAILY Sucralfate 1 Gm Tablet 1 Tab PO QID Omeprazole 20 Mg Capsule.dr 1 Cap PO BID Acetaminophen 325 Mg Tablet 650 Mg PO PRN BID PRN Levothyroxine Sodium 112 Mcg Tablet 1 Tab PO DAILY Atenolol 25 Mg Tablet 1 Tab PO BID Amlodipine Besylate 10 Mg Tablet 10 Mg PO DAILY Amitriptyline Hcl 25 Mg Tablet 1 Tab PO QHS Metoclopramide Hcl 5 Mg Tablet 5 Mg PO QIDACHS Alprazolam 0.5 Mg Tablet 1 Tab PO HS Alprazolam 0.5 Mg Tablet 2 Tab PO BIDWBKFT/HOLLIS Aspirin 81 Mg Tab.chew 1 Tab PO DAILY Vitals/I & O Vital Sign - Last 24 Hours 05/14/17 05/14/17 05/14/17 05/14/17 11:20 12:19 15:00 19:00 Temp 98.4 99.2 98.9 98.4 99.2 98.9 Pulse 65 65 86 76 Resp 20 22 23 B/P (MAP) 151/69 (96) 126/67 125/77 (93) 148/70 (96) Pulse Ox 92 92 92 O2 Delivery Nasal Cannula Nasal Cannula Nasal Cannula O2 Flow Rate 4.0 4.0 4.0 05/14/17 05/14/17 05/14/17 05/15/17 20:00 21:37 23:00 03:17 Temp 99.1 98.3 99.1 98.3 Pulse 77 70 64 Resp 22 21 B/P (MAP) 161/72 163/91 (115) 171/89 (116) Pulse Ox 96 95 O2 Delivery Nasal Cannula Nasal Cannula Nasal Cannula O2 Flow Rate 4.0 4.0 4.0 05/15/17 05/15/17 05/15/17 05/15/17 07:00 08:00 09:02 09:04 Temp 98.9 98.9 Pulse 65 65 74 Resp 18 B/P (MAP) 200/85 (123) 200/85 200/85 Pulse Ox 94 O2 Delivery Nasal Cannula Nasal Cannula O2 Flow Rate 4.0 4.0 Intake and Output 05/14/17 05/14/17 05/15/17 15:00 23:00 07:00 Intake Total 720 ml 810 ml 1121 ml Output Total 550 ml 400 ml Balance 720 ml 260 ml 721 ml EULALIA MOSELEY MD May 15, 2017 10:54
[2017-05-15 11:00] VITALS: BP 144/91
--- NOTE | 2017-05-15 11:29 | PDOC ---
Renal-Progress Notes Subjective Notes Notes NONE History of Present Illness Hx of present illness STABLE Vitals Vitals Vital Signs Date Time Temp Pulse Resp B/P (MAP) Pulse Ox O2 Delivery O2 Flow Rate FiO2 05/15/17 09:04 74 200/85 05/15/17 08:00 Nasal Cannula 4.0 05/15/17 07:00 98.9 18 94 98.9 Weight Weight [ ] I.O. Intake and Output Intake and Output 05/15/17 07:00 Intake Total 2651 ml Output Total 950 ml Balance 1701 ml Intake Oral 1330 ml IV Total 1321 ml Output Urine Total 950 ml # Voids 1 # Bowel Movements 3 Labs Labs Laboratory Tests Test 05/14/17 16:30 05/14/17 21:14 05/15/17 04:00 05/15/17 07:45 Glucose (Fingerstick) 143 mg/dL (70-99) 244 mg/dL (70-99) 184 mg/dL (70-99) Sodium Level 146 mmol/L (136-145) Potassium Level 4.0 mmol/L (3.5-5.1) Chloride Level 108 mmol/L (98-107) Carbon Dioxide Level 30 mmol/L (21-32) Anion Gap 8 (6-14) Blood Urea Nitrogen 18 mg/dL (7-20) Creatinine 1.3 mg/dL (0.6-1.0) Estimated GFR (Cockcroft-Gault) 40.5 Glucose Level 144 mg/dL (70-99) Calcium Level 8.7 mg/dL (8.5-10.1) Phosphorus Level 3.7 mg/dL (2.6-4.7) Albumin 2.7 g/dL (3.4-5.0) Micro Micro Microbiology 05/06/17 Blood Culture - Final, Complete NO GROWTH AFTER 5 DAYS 05/09/17 Sputum Culture - Final, Complete 05/09/17 Sputum Result 1 - Final, Complete 05/06/17 Urine Culture - Final, Complete 05/06/17 Urine Culture Result 1 (ANURAG) - Final, Complete 05/09/17 Gram Stain - Final, Complete Review of Systems Constitutional: yes: weakness, alert, oriented Ears/Nose/Throat: Yes: no symptom reported Pulmonary: Yes dyspnea Cardiovascular: Yes no symptom reported Gastrointestional: Yes: no symptom reported Musculoskeletal: Yes: muscle stiffness Skin: Yes no symptom reported Physical Exam General Appearance: no apparent distress Skin: warm Respiratory: decreased breath sounds, wheezing Heart: S1S2 Abdomen: soft, bowel sounds present Extremities: no edema Neurology: alert Musculoskeletal: low back pain, Other (she is s/p cervical spine fusion in the past.) Assessment Assessment IMP CKD STAGE 3-STABLE WITH CR OF 1.3 HYPERNATREMIA-IMPROVED AECOPD PLAN HYPOTONIC SALINE LABS IN AM ERNIE SMITH MD May 15, 2017 11:29
--- NOTE | 2017-05-15 12:04 | PDOC ---
PULMONARY PROGRESS NOTES Subjective EXTUBATED 05/10 NO NEW COMPLAINTS Vitals Vital Signs Date Time Temp Pulse Resp B/P (MAP) Pulse Ox O2 Delivery O2 Flow Rate FiO2 05/15/17 09:04 74 200/85 05/15/17 08:00 Nasal Cannula 4.0 05/15/17 07:00 98.9 18 94 98.9 General: Alert, No acute distress Lungs: Clear Cardiovascular: S1, S2 Abdomen: Soft Neuro Exam: Alert Extremities: No Edema Skin: Warm Labs Laboratory Tests Test 05/13/17 16:45 05/13/17 20:47 05/14/17 04:55 05/14/17 07:41 Glucose (Fingerstick) 349 mg/dL (70-99) 348 mg/dL (70-99) 188 mg/dL (70-99) White Blood Count 10.4 x10^3/uL (4.0-11.0) Red Blood Count 4.57 x10^6/uL (3.50-5.40) Hemoglobin 11.1 g/dL (12.0-15.5) Hematocrit 35.0 % (36.0-47.0) Mean Corpuscular Volume 77 fL (79-100) Mean Corpuscular Hemoglobin 24 pg (25-35) Mean Corpuscular Hemoglobin Concent 32 g/dL (31-37) Red Cell Distribution Width 19.1 % (11.5-14.5) Platelet Count 366 x10^3/uL (140-400) Sodium Level 150 mmol/L (136-145) Potassium Level 4.1 mmol/L (3.5-5.1) Chloride Level 111 mmol/L (98-107) Carbon Dioxide Level 29 mmol/L (21-32) Anion Gap 10 (6-14) Blood Urea Nitrogen 14 mg/dL (7-20) Creatinine 1.2 mg/dL (0.6-1.0) Estimated GFR (Cockcroft-Gault) 44.4 BUN/Creatinine Ratio 12 (6-20) Glucose Level 158 mg/dL (70-99) Calcium Level 9.5 mg/dL (8.5-10.1) Phosphorus Level 3.8 mg/dL (2.6-4.7) Total Bilirubin 0.3 mg/dL (0.2-1.0) Aspartate Amino Transf (AST/SGOT) 18 U/L (15-37) Alanine Aminotransferase (ALT/SGPT) 34 U/L (14-59) Alkaline Phosphatase 111 U/L (46-116) Total Protein 6.8 g/dL (6.4-8.2) Albumin 2.8 g/dL (3.4-5.0) Albumin/Globulin Ratio 0.7 (1.0-1.7) Test 05/14/17 11:24 05/14/17 16:30 05/14/17 21:14 05/15/17 04:00 Glucose (Fingerstick) 222 mg/dL (70-99) 143 mg/dL (70-99) 244 mg/dL (70-99) Sodium Level 146 mmol/L (136-145) Potassium Level 4.0 mmol/L (3.5-5.1) Chloride Level 108 mmol/L (98-107) Carbon Dioxide Level 30 mmol/L (21-32) Anion Gap 8 (6-14) Blood Urea Nitrogen 18 mg/dL (7-20) Creatinine 1.3 mg/dL (0.6-1.0) Estimated GFR (Cockcroft-Gault) 40.5 Glucose Level 144 mg/dL (70-99) Calcium Level 8.7 mg/dL (8.5-10.1) Phosphorus Level 3.7 mg/dL (2.6-4.7) Albumin 2.7 g/dL (3.4-5.0) Test 05/15/17 07:45 05/15/17 11:47 Glucose (Fingerstick) 184 mg/dL (70-99) 186 mg/dL (70-99) Laboratory Tests Test 05/14/17 16:30 05/14/17 21:14 05/15/17 04:00 05/15/17 07:45 Glucose (Fingerstick) 143 mg/dL (70-99) 244 mg/dL (70-99) 184 mg/dL (70-99) Sodium Level 146 mmol/L (136-145) Potassium Level 4.0 mmol/L (3.5-5.1) Chloride Level 108 mmol/L (98-107) Carbon Dioxide Level 30 mmol/L (21-32) Anion Gap 8 (6-14) Blood Urea Nitrogen 18 mg/dL (7-20) Creatinine 1.3 mg/dL (0.6-1.0) Estimated GFR (Cockcroft-Gault) 40.5 Glucose Level 144 mg/dL (70-99) Calcium Level 8.7 mg/dL (8.5-10.1) Phosphorus Level 3.7 mg/dL (2.6-4.7) Albumin 2.7 g/dL (3.4-5.0) Test 05/15/17 11:47 Glucose (Fingerstick) 186 mg/dL (70-99) Medications Active Scripts Medications Dose Route/Sig Max Daily Dose Days Date Category Novolog Flexpen (Insulin Aspart) 100 Unit/1 Ml Insuln.pen 12 Unit SQ TIDWMEALS 05/06/17 Reported Losartan Potassium 100 Mg Tablet 100 Mg PO NOON 05/06/17 Reported Glucophage Xr (Metformin Hcl) 500 Mg Tab.er.24h 1,000 Mg PO BID 07/17/16 Rx Torsemide 10 Mg Tablet 10 Mg PO DAILY 07/15/16 Reported Sucralfate 1 Gm Tablet 1 Tab PO QID 07/15/16 Reported Omeprazole 20 Mg Capsule.dr 1 Cap PO BID 07/15/16 Reported Acetaminophen 325 Mg Tablet 650 Mg PO PRN BID PRN 07/15/16 Reported Levothyroxine Sodium 112 Mcg Tablet 1 Tab PO DAILY 07/15/16 Reported Atenolol 25 Mg Tablet 1 Tab PO BID 07/15/16 Reported Amlodipine Besylate 10 Mg Tablet 10 Mg PO DAILY 07/15/16 Reported Amitriptyline Hcl 25 Mg Tablet 1 Tab PO QHS 07/15/16 Reported Metoclopramide Hcl 5 Mg Tablet 5 Mg PO QIDACHS 07/15/16 Reported Alprazolam 0.5 Mg Tablet 1 Tab PO HS 07/15/16 Reported Alprazolam 0.5 Mg Tablet 2 Tab PO BIDWBKFT/HOLLIS 07/15/16 Reported Aspirin 81 Mg Tab.chew 1 Tab PO DAILY 07/15/16 Reported [place] 5-325 Tablet (Acetaminophen/Hydrocodone Bitart) 1 Each Tablet 1 Tab PO PRN Q6HRS PRN 06/03/16 Rx Comments CXR 05/13 clear Impression . ACUTE/CHROMIC RESP FAILURE, CLOSE TO BASELINE PNEUMONIA/ RX SEPTIC SHOCK POA, RESOLVED DM AECOPD/ RESOLVED. LEUKOCYTOSIS, RESOLVED ACUTE PULMONARY EDEMA/ RESOLVED Plan . EXTUBATED 05/10 NEEDS SNU DNR D/W HER ANITBX PER ID NEPHRO REC DVT AND GI PROPHYLAXIS PO NUTRITION PER SPEECH GALINDO PYLE MD May 15, 2017 12:04
[2017-05-15 12:56] VITALS: BP 144/91
== END 2017-05-15 13:53 | DRG 870 ==
LOC: ER 22:16 → 1 WEST ICU 23:30 → 2 SOUTH 05-11 18:30
PROVIDERS: ADMIT Internal Medicine; ATTEND Internal Medicine
PROC: 0BH17EZ Insertion of Endotracheal Airway into Trachea, Via Natural or Artificial Opening (ICD-10-PCS; principal; 2017-05-06)
PROC: 5A1955Z Respiratory Ventilation, Greater than 96 Consecutive Hours (ICD-10-PCS; 2017-05-06)
DX: A41.9 Sepsis, unspecified organism (principal); I50.33 Acute on chronic diastolic (congestive) heart failure; J18.9 Pneumonia, unspecified organism; J96.01 Acute respiratory failure with hypoxia; N17.0 Acute kidney failure with tubular necrosis; R65.21 Severe sepsis with septic shock; G93.40 Encephalopathy, unspecified; E87.0 Hyperosmolality and hypernatremia; E87.1 Hypo-osmolality and hyponatremia; I13.0 Hypertensive heart and chronic kidney disease with heart failure and stage 1 through stage 4 chronic kidney disease, or unspecified chronic kidney disease; J44.1 Chronic obstructive pulmonary disease with (acute) exacerbation; J44.0 Chronic obstructive pulmonary disease with (acute) lower respiratory infection; E03.9 Hypothyroidism, unspecified; E11.22 Type 2 diabetes mellitus with diabetic chronic kidney disease; E11.65 Type 2 diabetes mellitus with hyperglycemia; F41.9 Anxiety disorder, unspecified; I34.0 Nonrheumatic mitral (valve) insufficiency; M17.0 Bilateral primary osteoarthritis of knee; E11.42 Type 2 diabetes mellitus with diabetic polyneuropathy; I48.0 Paroxysmal atrial fibrillation; K21.9 Gastro-esophageal reflux disease without esophagitis; N18.3 Chronic kidney disease, stage 3 (moderate); M19.90 Unspecified osteoarthritis, unspecified site; Z51.5 Encounter for palliative care; Z66 Do not resuscitate; Z99.81 Dependence on supplemental oxygen; Z98.1 Arthrodesis status; Z90.49 Acquired absence of other specified parts of digestive tract; Z90.710 Acquired absence of both cervix and uterus; Z88.5 Allergy status to narcotic agent; Z88.8 Allergy status to other drugs, medicaments and biological substances; Z88.1 Allergy status to other antibiotic agents; Z79.899 Other long term (current) drug therapy; Z87.891 Personal history of nicotine dependence; Z82.49 Family history of ischemic heart disease and other diseases of the circulatory system; Z83.3 Family history of diabetes mellitus
CPT/HCPCS: 36415; 36600; 71010; 74000; 76770; 80047; 80048; 80053; 80069; 80076; 80202; 81001; 82553; 82570; 82805; 82962; 83605; 83690; 83735; 83880; 83930; 83935; 84100; 84300; 84443; 84484; 84550; 85007; 85027; 85610; 87040; 87070; 87086; 87205; 87641; 93005; 93306; 94002; 94003; 94640; 94660; A6539; J0330; J1265; J1650; J1815; J1940; J1956; J2001; J2060; J2250; J2405; J2543; J2704; J3010; J3370; J3480; J3490; J7040; J7050; J8597; P9046; S0028; 92526; 92610; 97116; 97530; J7030